=== PATIENT | female | born 1935 | race Caucasian/White ===

== ENCOUNTER 2017-09-13 15:43 | Inpatient (IN) ==
[2017-09-13 16:17] LABS: Bilirubin,Urine Negative (Negative); Blood,Urine Negative (Negative); Clarity,Urine Clear (Clear); Color,Urine Yellow (Yellow); Glucose,Urine (UA) Normal (Normal); Ketones,Urine Negative (Negative); Leukocyte Esterase,Urine Negative (Negative); Nitrite,Urine Negative (Negative); Protein,Urine 30 mg/dL (Neg-Trace); Specific Gravity,Urine 1.008 (1.010-1.025); Urobilinogen,Urine Normal (Normal)
[2017-09-13 16:20] LABS: Bacteria,Urine None Seen per hpf (None-Few); Hyaline Casts,Urine None Seen per lpf (None-Few); RBC,Urine 0-3 per hpf (0-3); Squamous Epithelial Cell,Urine None Seen per lpf (None-Few); WBC,Urine 0-3 per hpf (0-3)
--- NOTE | 2017-09-13 16:26 | Emergency Department Note ---
Disposition Clinical Impression: Near syncope, Hypertension Disposition: Admitted As Inpatient Condition: Good Referrals: Mitchell Greer Jr, MD [Primary Care Provider] - Forms: ED Satisfaction Letter General Adult HPI - General Chief complaint: ED Dizziness Stated complaint: Hypertension Time Seen by Provider: 09/13/17 15:53 Source: patient, family Limitations: no limitations - History of Present Illness Pain Scale: 6 - Related Data Home Medications Medication Instructions Recorded Confirmed Aspirin Enteric Coated [Aspirin EC] 81 mg PO DAILY 09/13/17 09/13/17 Atenolol [Tenormin] 50 mg PO DAILY 09/13/17 09/13/17 Atorvastatin Calcium [Lipitor] 20 mg PO HS 09/13/17 09/13/17 Clopidogrel [Plavix] 75 mg PO DAILY 09/13/17 09/13/17 Cyanocobalamin (Vitamin B-12) 500 mcg PO DAILY 09/13/17 09/13/17 [Vitamin B-12] Furosemide [Lasix] 40 mg PO DAILY PRN 09/13/17 09/13/17 Linaclotide [Linzess] 145 mcg PO DAILY 09/13/17 09/13/17 Multivit-Min/FA/Lycopen/Lutein 1 each PO DAILY 09/13/17 09/13/17 [Centrum Silver Tablet] Nitroglycerin [Nitrostat] 0.4 mg SL Q5M PRN 09/13/17 09/13/17 [place]-3/Dha/Epa/Fish Oil [[place]-3 1,000 mg PO DAILY 09/13/17 09/13/17 Fish Oil 1,000 mg Sfgl] Allergies Allergy/AdvReac Type Severity Reaction Status Date / Time latex Allergy Hives Verified 09/13/17 15:49 lisinopril Allergy Abdominal Verified 09/13/17 15:49 Pain Past Medical History - Past Medical History Medical history: Reports: coronary artery disease, hyperlipidemia, hypertension , peripheral artery disease Surgical history: Reports: non-contributory Psychiatric history: Reports: no psych history 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 - Social History Smoking Status: Current every day smoker Smokeless Tobacco Status: No Alcohol use: Reports: none Drug use: Reports: none Physical Exam - General Limitations: no limitations General appearance: alert, in no apparent distress Course Vital Signs Temperature 97.5 F L 09/13/17 15:44 Pulse Rate 88 09/13/17 15:44 Respiratory Rate 18 09/13/17 15:44 Blood Pressure 210/108 09/13/17 15:44 O2 Sat by Pulse Oximetry 97 09/13/17 15:44 Temperature 97.5 F L 09/13/17 15:44 Pulse Rate 75 09/13/17 19:11 Respiratory Rate 18 09/13/17 19:11 Blood Pressure 188/97 09/13/17 19:11 O2 Sat by Pulse Oximetry 96 09/13/17 19:11 Oxygen Delivery Oxygen Delivery Room Air Medical Decision Making - Lab Data Result diagrams: 09/13/17 17:07 09/13/17 17:07 Lab Results 09/13/17 09/13/17 09/13/17 Range/Units 16:00 17:07 17:07 WBC 11.9 H (4.3-11.1) K/mcL RBC 4.09 (3.82-4.97) M/mcL Hgb 13.7 (11.5-15.4) g/dL Hct 41.4 (35.3-44.9) % MCV 101.2 H (83.0-100.0) fL MCH 33.5 H (28.0-33.3) pg MCHC 33.1 (31.6-35.5) g/dL RDW 15.0 H (11.5-14.5) % Plt Count 141 (140-400) K/mcL MPV 10.4 (9.4-12.4) fL Immature Gran % 0.5 (0-4) % Seg Neutrophils % 71.5 % Lymphocytes % 21.5 % Monocytes % 4.5 % Eosinophils % 1.7 % Basophils % 0.3 % Neutrophils # 8.5 (1.6-8.9) K/mcL Lymphocytes # 2.6 (0.6-4.6) K/mcL Monocytes # 0.5 (0.0-1.3) K/mcL Eosinophils # 0.2 (0.0-0.6) K/mcL Basophils # 0.0 (0.0-0.2) K/mcL Sodium 140 (136-145) mEq/L Potassium 3.8 (3.5-5.1) mEq/L Chloride 107 (98-107) mEq/L Carbon Dioxide 29 (23-29) mEq/L BUN 19 (8-23) mg/dL Creatinine 1.21 H (0.60-1.20) mg/dL Est GFR ( Amer) 52 L (> 60) Est GFR (Non-Af Amer) 43 L (> 60) BUN/Creatinine Ratio 16 (6-26) Glucose 95 (70-105) mg/dL Calculated Osmolality 292 (280-300) Calcium 8.9 (8.6-10.3) mg/dL Troponin I (< 0.04) ng/mL Urine Color Yellow (Yellow) Urine Clarity Clear (Clear) Urine pH 7.0 (5.0-8.0) pH Units Ur Specific [place] 1.008 L (1.010-1.025) Urine Protein 30 H (Neg-Trace) mg/dL Urine Glucose (UA) Normal (Normal) mg/dL Urine Ketones Negative (Negative) mg/dL Urine Blood Negative (Negative) Urine Nitrite Negative (Negative) Urine Bilirubin Negative (Negative) Urine Urobilinogen Normal (Normal) mg/dL Ur Leukocyte Esterase Negative (Negative) Urine Microscopic RBC 0-3 (0-3) per hpf Urine Microscopic WBC 0-3 (0-3) per hpf Ur Squamous Epith Cells None Seen (None-Few) per lpf Urine Bacteria None Seen (None-Few) per hpf Hyaline Casts None Seen (None-Few) per lpf Ur Culture Indicated? NO (NO) 09/13/17 Range/Units 17:07 WBC (4.3-11.1) K/mcL RBC (3.82-4.97) M/mcL Hgb (11.5-15.4) g/dL Hct (35.3-44.9) % MCV (83.0-100.0) fL MCH (28.0-33.3) pg MCHC (31.6-35.5) g/dL RDW (11.5-14.5) % Plt Count (140-400) K/mcL MPV (9.4-12.4) fL Immature Gran % (0-4) % Seg Neutrophils % % Lymphocytes % % Monocytes % % Eosinophils % % Basophils % % Neutrophils # (1.6-8.9) K/mcL Lymphocytes # (0.6-4.6) K/mcL Monocytes # (0.0-1.3) K/mcL Eosinophils # (0.0-0.6) K/mcL Basophils # (0.0-0.2) K/mcL Sodium (136-145) mEq/L Potassium (3.5-5.1) mEq/L Chloride (98-107) mEq/L Carbon Dioxide (23-29) mEq/L BUN (8-23) mg/dL Creatinine (0.60-1.20) mg/dL Est GFR ( Amer) (> 60) Est GFR (Non-Af Amer) (> 60) BUN/Creatinine Ratio (6-26) Glucose (70-105) mg/dL Calculated Osmolality (280-300) Calcium (8.6-10.3) mg/dL Troponin I < 0.03 (< 0.04) ng/mL Urine Color (Yellow) Urine Clarity (Clear) Urine pH (5.0-8.0) pH Units Ur Specific [place] (1.010-1.025) Urine Protein (Neg-Trace) mg/dL Urine Glucose (UA) (Normal) mg/dL Urine Ketones (Negative) mg/dL Urine Blood (Negative) Urine Nitrite (Negative) Urine Bilirubin (Negative) Urine Urobilinogen (Normal) mg/dL Ur Leukocyte Esterase (Negative) Urine Microscopic RBC (0-3) per hpf Urine Microscopic WBC (0-3) per hpf Ur Squamous Epith Cells (None-Few) per lpf Urine Bacteria (None-Few) per hpf Hyaline Casts (None-Few) per lpf Ur Culture Indicated? (NO) Attestation Statement - Attestation Attestation: I examined this patient and my medical decision-making was reviewed with the Resident Physician. I agree with the documented findings, disposition and treatment plan as described except to the extent set forth below. [id number] time provided Triage note and vital signs reviewed by me. Patient is hypertensive. She is alert, lucid, appropriately interactive with the examiner and appears in no acute distress.
--- NOTE | 2017-09-13 16:36 | Emergency Department Note ---
Disposition Clinical Impression: Near syncope Hypertension Qualifiers: Hypertension type: unspecified Qualified Code(s): I10 - Essential (primary) hypertension Disposition: Admitted As Inpatient Condition: Good Referrals: Mitchell Greer Jr, MD [Primary Care Provider] - Forms: ED Satisfaction Letter Time of Disposition: 18:50 General Adult HPI - General Chief complaint: ED Dizziness Stated complaint: Hypertension Time Seen by Provider: 09/13/17 15:53 Source: patient, family Limitations: no limitations Nursing Notes Reviewed: Yes Vital Signs Reviewed: Yes - History of Present Illness HPI Narrative: Patient is an 82-year-old female that presents to the emergency Department due to having an elevated blood pressure. She states that she checked her blood pressure today and had a reading greater than 200 and called a family member is in the healthcare field and they suggested that she come to the emergency department. The patient states that she had an episode of near syncope where she had to go down to a knee. She states that she did not lose consciousness, hit her head or sustain any injuries during this event. Patient does state that she takes aspirin and Plavix. Patient denies being on any blood pressure medications at this time. Pain Scale: 6 - Related Data Home Medications Medication Instructions Recorded Confirmed Aspirin Enteric Coated [Aspirin EC] 81 mg PO DAILY 09/13/17 09/13/17 Atenolol [Tenormin] 50 mg PO DAILY 09/13/17 09/13/17 Atorvastatin Calcium [Lipitor] 20 mg PO HS 09/13/17 09/13/17 Clopidogrel [Plavix] 75 mg PO DAILY 09/13/17 09/13/17 Cyanocobalamin (Vitamin B-12) 500 mcg PO DAILY 09/13/17 09/13/17 [Vitamin B-12] Furosemide [Lasix] 40 mg PO DAILY PRN 09/13/17 09/13/17 Linaclotide [Linzess] 145 mcg PO DAILY 09/13/17 09/13/17 Multivit-Min/FA/Lycopen/Lutein 1 each PO DAILY 09/13/17 09/13/17 [Centrum Silver Tablet] Nitroglycerin [Nitrostat] 0.4 mg SL Q5M PRN 09/13/17 09/13/17 [place]-3/Dha/Epa/Fish Oil [[place]-3 1,000 mg PO DAILY 09/13/17 09/13/17 Fish Oil 1,000 mg Sfgl] Allergies Allergy/AdvReac Type Severity Reaction Status Date / Time latex Allergy Hives Verified 09/13/17 15:49 lisinopril Allergy Abdominal Verified 09/13/17 15:49 Pain All systems ED: reviewed and negative except as stated. 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 Absent: respiratory distress, wheezes - Cardiovascular Cardiovascular exam: Present: regular rate, normal rhythm, normal heart sounds, +S1, +S2 - Abdominal Exam Abdominal exam: Present: soft, Non-Tender, normal bowel sounds - Neurological Exam Neurological exam: Present: alert, oriented X3 - Expanded Neurological Exam Patient oriented to: Present: person, place, time Speech: Present: fluid speech Cranial nerves: EOM function (II, III, IV, ): Normal, facial sensation (V): Normal, facial palsy (VII): Normal, gag reflex (IX): Normal, spinal accessory function (XI): Normal, tongue deviation (XII): Normal Cerebellar function: finger to nose: Normal, heel to reid: Normal Motor strength - LUE: 5/5 Motor strength - RUE: 5/5 Motor strength - LLE: 5/5 Motor strength - RLE: 5/5 Upper motor neuron exam: pronator drift: Absent bilaterally Sensory exam upper extremity: light touch: Normal Sensory exam lower extremity: light touch: Normal Coma Scale Eye Opening: Spontaneous Coma Scale Motor Response: Obeys Commands Coma Scale Verbal Response: Oriented Coma Scale Total: 15 - Psychiatric Psychiatric exam: Present: normal affect, normal mood - Skin Skin exam: Present: warm, dry, intact Course Vital Signs Temperature 97.5 F L 09/13/17 15:44 Pulse Rate 88 09/13/17 15:44 Respiratory Rate 18 09/13/17 15:44 Blood Pressure 210/108 09/13/17 15:44 O2 Sat by Pulse Oximetry 97 09/13/17 15:44 Temperature 97.5 F L 09/13/17 15:44 Pulse Rate 87 09/13/17 17:00 Respiratory Rate 18 09/13/17 17:00 Blood Pressure 193/106 09/13/17 17:00 O2 Sat by Pulse Oximetry 99 09/13/17 17:00 Oxygen Delivery Oxygen Delivery Room Air Medical Decision Making - MDM Narrative Medical decision making narrative: Due to the patient having elevated blood pressure and a near-syncopal event and ordered a CT of the head and abdomen and pelvis. We will also obtain a chest x- ray and laboratory testing. All imaging was negative for acute findings. Laboratory testing showed a leukocytosis. There is no evidence of infection on urinalysis. The patient was hypertensive on presentation and throughout her stay in the emergency department. Here the patient remaining hypertensive and having any similar syncopal event we will need to admit this patient to the hospital for further evaluation and management. I called and spoke with the hospitalists and they have requested that we give the patient 20mg of hydralazine here in the emergency department prior to the patient being admitted to the hospital. The hospital says except for the patient to their service. The patient be admitted to the hospital for further evaluation and management at this time. - Medical Records Medical records reviewed: Yes I reviewed the patient's medical records. - Lab Data Lab results reviewed: Yes I reviewed the patient's lab results. Result diagrams: 09/13/17 17:07 09/13/17 17:07 Lab Results 09/13/17 09/13/17 09/13/17 Range/Units 16:00 17:07 17:07 WBC 11.9 H (4.3-11.1) K/mcL RBC 4.09 (3.82-4.97) M/mcL Hgb 13.7 (11.5-15.4) g/dL Hct 41.4 (35.3-44.9) % MCV 101.2 H (83.0-100.0) fL MCH 33.5 H (28.0-33.3) pg MCHC 33.1 (31.6-35.5) g/dL RDW 15.0 H (11.5-14.5) % Plt Count 141 (140-400) K/mcL MPV 10.4 (9.4-12.4) fL Immature Gran % 0.5 (0-4) % Seg Neutrophils % 71.5 % Lymphocytes % 21.5 % Monocytes % 4.5 % Eosinophils % 1.7 % Basophils % 0.3 % Neutrophils # 8.5 (1.6-8.9) K/mcL Lymphocytes # 2.6 (0.6-4.6) K/mcL Monocytes # 0.5 (0.0-1.3) K/mcL Eosinophils # 0.2 (0.0-0.6) K/mcL Basophils # 0.0 (0.0-0.2) K/mcL Sodium 140 (136-145) mEq/L Potassium 3.8 (3.5-5.1) mEq/L Chloride 107 (98-107) mEq/L Carbon Dioxide 29 (23-29) mEq/L BUN 19 (8-23) mg/dL Creatinine 1.21 H (0.60-1.20) mg/dL Est GFR ( Amer) 52 L (> 60) Est GFR (Non-Af Amer) 43 L (> 60) BUN/Creatinine Ratio 16 (6-26) Glucose 95 (70-105) mg/dL Calculated Osmolality 292 (280-300) Calcium 8.9 (8.6-10.3) mg/dL Troponin I (< 0.04) ng/mL Urine Color Yellow (Yellow) Urine Clarity Clear (Clear) Urine pH 7.0 (5.0-8.0) pH Units Ur Specific [place] 1.008 L (1.010-1.025) Urine Protein 30 H (Neg-Trace) mg/dL Urine Glucose (UA) Normal (Normal) mg/dL Urine Ketones Negative (Negative) mg/dL Urine Blood Negative (Negative) Urine Nitrite Negative (Negative) Urine Bilirubin Negative (Negative) Urine Urobilinogen Normal (Normal) mg/dL Ur Leukocyte Esterase Negative (Negative) Urine Microscopic RBC 0-3 (0-3) per hpf Urine Microscopic WBC 0-3 (0-3) per hpf Ur Squamous Epith Cells None Seen (None-Few) per lpf Urine Bacteria None Seen (None-Few) per hpf Hyaline Casts None Seen (None-Few) per lpf Ur Culture Indicated? NO (NO) 09/13/17 Range/Units 17:07 WBC (4.3-11.1) K/mcL RBC (3.82-4.97) M/mcL Hgb (11.5-15.4) g/dL Hct (35.3-44.9) % MCV (83.0-100.0) fL MCH (28.0-33.3) pg MCHC (31.6-35.5) g/dL RDW (11.5-14.5) % Plt Count (140-400) K/mcL MPV (9.4-12.4) fL Immature Gran % (0-4) % Seg Neutrophils % % Lymphocytes % % Monocytes % % Eosinophils % % Basophils % % Neutrophils # (1.6-8.9) K/mcL Lymphocytes # (0.6-4.6) K/mcL Monocytes # (0.0-1.3) K/mcL Eosinophils # (0.0-0.6) K/mcL Basophils # (0.0-0.2) K/mcL Sodium (136-145) mEq/L Potassium (3.5-5.1) mEq/L Chloride (98-107) mEq/L Carbon Dioxide (23-29) mEq/L BUN (8-23) mg/dL Creatinine (0.60-1.20) mg/dL Est GFR ( Amer) (> 60) Est GFR (Non-Af Amer) (> 60) BUN/Creatinine Ratio (6-26) Glucose (70-105) mg/dL Calculated Osmolality (280-300) Calcium (8.6-10.3) mg/dL Troponin I < 0.03 (< 0.04) ng/mL Urine Color (Yellow) Urine Clarity (Clear) Urine pH (5.0-8.0) pH Units Ur Specific [place] (1.010-1.025) Urine Protein (Neg-Trace) mg/dL Urine Glucose (UA) (Normal) mg/dL Urine Ketones (Negative) mg/dL Urine Blood (Negative) Urine Nitrite (Negative) Urine Bilirubin (Negative) Urine Urobilinogen (Normal) mg/dL Ur Leukocyte Esterase (Negative) Urine Microscopic RBC (0-3) per hpf Urine Microscopic WBC (0-3) per hpf Ur Squamous Epith Cells (None-Few) per lpf Urine Bacteria (None-Few) per hpf Hyaline Casts (None-Few) per lpf Ur Culture Indicated? (NO) - Radiology Data Radiology results reviewed: Yes I reviewed the patient's radiology results. Chest X-Ray 09/13/17 15:50 IMPRESSION: 1. No focal airspace disease D/ / Lj Harman MD / Lj Harman MD Interpreting Provider: Lj Harman MD Abdomen/Pelvis CT 09/13/17 15:53 IMPRESSION: 1. No acute abnormality is identified. D/ / Marcell Rosa MD / Marcell Rosa MD Interpreting Provider: Marcell Rosa MD Head CT 09/13/17 15:53 IMPRESSION: No acute intracranial abnormality. D/ / Timbo Cardenas MD / Timbo Cardenas MD Interpreting Provider: Timbo Cardenas MD - EKG Data EKG #1 EKG attestation: Yes I reviewed and interpreted this EKG. EKG results narrative: EKG showed a ventricularly paced rhythm at 77 bpm, SC interval of 127, QRS duration of 141, QTC of 456. No STEMI is noted on this EKG.
[2017-09-13 17:19] LABS: Basophils % 0.3 %; Eosinophils # 0.2 K/mcL (0.0-0.6); Eosinophils % 1.7 %; Hematocrit 41.4 % (35.3-44.9); Hemoglobin 13.7 g/dL (11.5-15.4); Immature Granulocytes % 0.5 % (0-4); Lymphocytes # 2.6 K/mcL (0.6-4.6); Lymphocytes % 21.5 %; Mean Corpuscular HGB Conc 33.1 g/dL (31.6-35.5); Mean Corpuscular Hemoglobin 33.5 pg (28.0-33.3); Mean Corpuscular Volume 101.2 fL (83.0-100.0); Mean Platelet Volume 10.4 fL (9.4-12.4); Monocytes # 0.5 K/mcL (0.0-1.3); Monocytes % 4.5 %; Neutrophils # 8.5 K/mcL (1.6-8.9); Platelet Count 141 K/mcL (140-400); Red Blood Count 4.09 M/mcL (3.82-4.97); Segmented Neutrophils % 71.5 %
[2017-09-13 18:12] LABS: Calcium 8.9 mg/dL (8.6-10.3); Potassium 3.8 mEq/L (3.5-5.1)
[2017-09-13] MEDS ORDERED: amLODIPine 5 MG TABLET PO ONE (18:41)
[2017-09-13] MEDS ORDERED: Albuterol 2.5 MG/3 ML NEBULIZER IH ONE (20:07)
[2017-09-13] MEDS ORDERED: Nitroglycerin 0.4 MG TAB.SUBL SL PRN (21:47)
[2017-09-13] MEDS ORDERED: Naloxone 0.4 MG/ML INJ IVP PRN (21:48)
--- NOTE | 2017-09-13 22:04 | Internal Med History&Physical ---
Date of Encounter: 09/13/17 Time of Encounter: 22:03 Assessment and Plan (1) Hypertensive emergency Current visit: Yes Status: Acute SBP > 210 in the ED Improved with hydralazine IV monitor q2 BP overnight prn hydralazine with holding parameters restart home BP med in the a.m (2) Near syncope Current visit: Yes Status: Acute orthostats ambulate in the a.m tele, pulse ox slowly treat HTN (3) Constipation Current visit: Yes Status: Acute check AXR colac, senna, miralax Qualifiers: Constipation type: other constipation type Qualified Code(s): K59.09 - Other constipation (4) Sore throat Current visit: Yes Status: Acute cepacol check RVP Internal Medicine - H&P: HPI Chief complaint: near syncope History of present illness: Ms. May is a 82 year old female with hx of HTN, CAD, PAD s/p stent in DAPT who presents with pre-syncopal symptoms and was found to be HTN. Admitted for HTN emergency. She was at home standing up when she developed a pre-syncopal symptom. Luckily, her nephew is close by and was able to help her to the chair. She reported dizziness and tingling sensation on her finger tips. She was awake the entire time and denies losing consciousness. ROS noted nasal congestion in the past 1 hour on presentation to the ED. She also reports a few days hx of sore throat where she has use chloroseptic. Denies using pseudophed. She smokes 1/4 ppd. She also reports having a right shoulder surgery completed may 23 2017 at [facility] and has been constipated since with decreased PO appetite in the last few weeks. EKG personally reviewed with rate 77, ventricular pacer noted CT/CT head/brain wo con IMPRESSION: No acute intracranial abnormality. CT/CT abd pelvis wo no iv no oral IMPRESSION: 1. No acute abnormality is identified. XR/XR chest 2V IMPRESSION: 1. No focal airspace disease Past Med Surg Social Fam HX - Past Medical History Medical history: coronary artery disease, hyperlipidemia, hypertension, peripheral artery disease Psychiatric history: no psych history - Past Surgical History Surgical History: non-contributory - Social History Smoking Status: Current every day smoker Smokeless Tobacco Status: No Alcohol use: none Drug use: none - Family History Father Hx Family Cardiac Disorders: Yes Brother Hx Family Cancer: Yes (kidney) Internal Medicine - H&P: Meds Aspirin Enteric Coated [Aspirin EC] 81 mg PO DAILY 09/13/17 [History] Atenolol [Tenormin] 50 mg PO DAILY 09/13/17 [History] Atorvastatin Calcium [Lipitor] 20 mg PO HS 09/13/17 [History] Clopidogrel [Plavix] 75 mg PO DAILY 09/13/17 [History] Cyanocobalamin (Vitamin B-12) [Vitamin B-12] 500 mcg PO DAILY 09/13/17 [History] Furosemide [Lasix] 40 mg PO DAILY PRN 09/13/17 [History] Linaclotide [Linzess] 145 mcg PO DAILY 09/13/17 [History] Multivit-Min/FA/Lycopen/Lutein [Centrum Silver Tablet] 1 each PO DAILY 09/13/17 [History] Nitroglycerin [Nitrostat] 0.4 mg SL Q5M PRN 09/13/17 [History] [place]-3/Dha/Epa/Fish Oil [[place]-3 Fish Oil 1,000 mg Sfgl] 1,000 mg PO DAILY [History] 3 Allergy/AdvReac Type Severity Reaction Status Date / Time latex Allergy Hives Verified 09/13/17 15:49 lisinopril Allergy Abdominal Verified 09/13/17 15:49 Pain All Systems PM: A 10-system review of systems was performed and is negative for pertinent findings except as documented above in the HPI. Review of systems: ROS 14 point review of systems reviewed as best as possible given presentation. Pertinent positive or negative as per HPI or otherwise reviewed as negative - Constitutional Vitals: Temp Pulse Resp BP Pulse Ox 97.6 F 84 17 192/91 95 09/13/17 21:24 09/13/17 21:24 09/13/17 21:24 09/13/17 21:24 09/13/17 21:24 Exam: General - AAO x 3 Psych - Appropriate affect/speech. No agitation Eyes - SENAIT. Eye lids intact. No scleral icterus Neuro - No gross peripheral or central neuro deficits with intact CN 2-12 exam Heart - Sinus. RRR. S1 and S2 present. No added HS/murmurs appreciated. No elevated JVD appreciated. Lung - Adequate air entry b/l, No crackles/wheezes appreciated GI - Soft, non-tender. No hepatosplenomegaly/ascites. BS+ - No CVA/suprapubic tenderness or palpable bladder distension Skin - Intact. No rash/petechiae/ecchymosis. Warm extremities MSK - Joints with normal ROM. No joint swellings Internal Med - H&P Results - Labs CBC & Chem 7: 09/13/17 17:07 09/13/17 17:07
[2017-09-13] MEDS ORDERED: *HR* Labetalol 20 MG/4 ML SYRINGE IVP PRN (22:30)
[2017-09-14] MEDS ORDERED: Acetaminophen/Butalbital/CaffeineTABLET ONE (03:20)
[2017-09-14 05:12] LABS: Basophils % 0.3 %; Eosinophils # 0.2 K/mcL (0.0-0.6); Eosinophils % 1.6 %; Hematocrit 41.6 % (35.3-44.9); Hemoglobin 13.8 g/dL (11.5-15.4); Immature Granulocytes % 0.3 % (0-4); Lymphocytes # 1.7 K/mcL (0.6-4.6); Lymphocytes % 14.2 %; Mean Corpuscular HGB Conc 33.2 g/dL (31.6-35.5); Mean Corpuscular Hemoglobin 33.3 pg (28.0-33.3); Mean Corpuscular Volume 100.2 fL (83.0-100.0); Mean Platelet Volume 10.6 fL (9.4-12.4); Monocytes # 0.6 K/mcL (0.0-1.3); Monocytes % 5.5 %; Neutrophils # 9.1 K/mcL (1.6-8.9); Platelet Count 154 K/mcL (140-400); Red Blood Count 4.15 M/mcL (3.82-4.97); Red Cell Distribution Width 15.2 % (11.5-14.5); Segmented Neutrophils % 78.1 %
[2017-09-14 05:49] LABS: BUN/Creatinine Ratio 17 (6-26); Blood Urea Nitrogen 17 mg/dL (8-23); Calcium 9.4 mg/dL (8.6-10.3); Carbon Dioxide 28 mEq/L (23-29); Chloride 107 mEq/L (98-107); Glucose 120 mg/dL (70-105); Osmolality,Calculated 295 (280-300); Potassium 3.6 mEq/L (3.5-5.1); Sodium 141 mEq/L (136-145); eGFR For African Americans > 60 (> 60); eGFR For Non-African Americans 52 (> 60)
[2017-09-14] MEDS ORDERED: clonazePAM 0.5 MG TABLET PO ONE ×2 (05:54→13:48)
[2017-09-14] MEDS ORDERED: Ipratropium/Albuterol Neb 3 ML IH PRN (05:55)
[2017-09-14] MEDS: *HR* Enoxaparin 30 MG/0.3 ML SYRINGE SQ SCH (06:01)
[2017-09-14 06:05] LABS: Adenovirus Not Detected (Not Detect); Bordetella Pertussis Not Detected (Not Detect); Chlamydophila pneumoniae Not Detected (Not Detect); Coronavirus 229E Not Detected (Not Detect); Coronavirus HKU1 Not Detected (Not Detect); Coronavirus NL63 Not Detected (Not Detect); Coronavirus OC43 Not Detected (Not Detect); Human Metapneumovirus Not Detected (Not Detect); Human Rhinovirus/Enterovirus Not Detected (Not Detect); Influenza A Subtype 2009 H1 Not Detected (Not Detect); Influenza A Untypeable Not Detected (Not Detect); Influenza B Not Detected (Not Detect); Mycoplasma pneumoniae Not Detected (Not Detect); Parainfluenza Virus 1 Not Detected (Not Detect); Parainfluenza Virus 2 Not Detected (Not Detect); Parainfluenza Virus 3 Not Detected (Not Detect); Parainfluenza Virus 4 Not Detected (Not Detect); Respiratory Syncytial Virus Not Detected (Not Detect)
[2017-09-14] MEDS: amLODIPine 5 MG TABLET PO SCH (09:49)
[2017-09-14] MEDS: Aspirin Enteric Coated 81 MG Tablet PO SCH (09:49)
[2017-09-14] MEDS: Linaclotide [Linzess] 145 MCG PO SCH (09:49)
[2017-09-14] MEDS: Nicotine 21 MG PATCH.TD24 TD SCH (15:26)
--- NOTE | 2017-09-14 16:25 | Electrocardiograph Report ---
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
--- NOTE | 2017-09-14 17:46 | Internal Med Progress Note ---
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 Urine is negative with no culture indicated CT of brain with nothing acute reported check MRI brain (3) Near syncope Current Visit: Yes Status: Acute Assessment and plan: see plan above, no further syncope noted (4) Constipation Current Visit: Yes Status: Chronic Assessment and plan: family staes she has been having diarrhea and was placed on a new medication for constipation CT of the abdomen and pelvis with nothing acute Qualifiers: Constipation type: other constipation type Qualified Code(s): K59.09 - Other constipation (5) Sore throat Current Visit: Yes Status: Resolved Assessment and plan: patient staes throat soreness is resolved Serology negative - Subjective Interval history: Patient was sound asleep when I entered the room. Awoke to verbal and tactile stimuli. She was very sleepy. Nursing She got a dose of Klonopin about 6 AM. They also stated that she was up all night. She was difficult to obtain information from as she kept wanting to dose off. Her family arrived and she became more alert and was interacting. She still drives and works a part-time job. She is a heavy smoker. Her Plavix is currently on hold for an EGD planned next week. Later in the day she was up walking in the halls looking for her doctor. She is irritated and wants to go home for minutes to get some cigarettes. Discussed with family the need to keep her one more day to monitor her blood pressure. - Constitutional Vitals: Temp Pulse Resp BP Pulse Ox 99.2 F 70 16 169/72 93 09/14/17 15:54 09/14/17 15:54 09/14/17 15:54 09/14/17 15:54 09/14/17 15:54 General appearance: Present: A&O X 2, pleasant, no acute distress - Head Head exam: Present: atraumatic, normocephalic - Eye Eye exam: Present: conjuntiva pink, sclera anicteric - Neck Neck exam general surgery: Present: normal inspection, supple, trachea midline. Absent: lymphadenopathy, tenderness - Respiratory Respiratory exam: Present: CTAB. Absent: accessory muscle use, rales, respiratory distress, rhonchi, wheezes - Cardiovascular Cardiovascular exam: Present: RRR, +S1, +S2. Absent: diastolic murmur, gallop, rubs, systolic murmur - GI/Abdominal GI/Abdominal exam: Present: normal bowel sounds, soft, no peritoneal signs. Absent: distended, tenderness - Extremities Exam Extremities exam: Present: warm, radial pulses palpable and symmetrical. Absent : calf tenderness, cyanotic, pedal edema - Neurological Exam Neurological exam: Present: alert, altered, normal gait, no focal deficits. Absent: pronater drift, facial droop, speech deficit - Skin Skin exam: Present: dry, intact, warm Internal Medicine: Result - Labs CBC & Chem 7: 09/14/17 03:50 09/14/17 03:50 Labs: Short CBC 09/14/17 Range/Units 03:50 WBC 11.6 H (4.3-11.1) K/mcL Hgb 13.8 (11.5-15.4) g/dL Hct 41.6 (35.3-44.9) % Plt Count 154 (140-400) K/mcL Neutrophils # 9.1 H (1.6-8.9) K/mcL BMP 09/14/17 03:50 Sodium 141 Potassium 3.6 Chloride 107 Carbon Dioxide 28 BUN 17 Creatinine 1.02 Glucose 120 H Calcium 9.4 Cardiac Enzymes 09/14/17 Range/Units 06:01 Troponin I 0.03 (< 0.04) ng/mL - Impressions Impressions Abdomen X-Ray 09/13/17 21:52 IMPRESSION: Nonobstructive bowel gas pattern with moderate stool. D/ / Lobito Lucero MD / Lobito Lucero MD Interpreting Provider: Lobito Lucero MD Consult Discharge Plan - Plan Referrals: Mitchell Greer Jr, MD [Primary Care Provider] - 09/18/17 11:00 am
--- NOTE | 2017-09-14 18:27 | Electrocardiograph Report ---
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
[2017-09-14] MEDS: clonazePAM 0.5 MG TABLET PO SCH (21:05)
[2017-09-15] MEDS: *HR* Enoxaparin 30 MG/0.3 ML SYRINGE SQ SCH (05:34)
[2017-09-15] MEDS: Aspirin Enteric Coated 81 MG Tablet PO SCH (08:21)
[2017-09-15] MEDS: clonazePAM 0.5 MG TABLET PO SCH (08:21)
[2017-09-15] MEDS: Nicotine 21 MG PATCH.TD24 TD SCH (08:22)
[2017-09-15] MEDS: amLODIPine 5 MG TABLET PO SCH (08:22)
[2017-09-15] MEDS: Linaclotide [Linzess] 145 MCG PO SCH (08:26)
[2017-09-15 10:04] VITALS: BP 128/70
--- NOTE | 2017-09-15 12:41 | Discharge Summary ---
Date of Encounter: 09/15/17 Time of Encounter: 12:38 - Discharge Diagnosis (1) Hypertensive emergency Priority: Primary Status: Acute Comments: Patient's blood pressure has normalized on her normal home regime of medications which were restarted yesterday. The patient's niece who knows her very well feels that her aunt was noticed managing her medications. She states she is going to arrange her home medications so that her aunt can safely take them and she will be able to check up on the administration of the medications. (2) Encephalopathy acute Priority: Primary Status: Acute Comments: Patient's mental status ranges have resolved and she is back to her baseline. She is alert and oriented 3. She is cooperative She was able to answer all questions appropriately (3) Near syncope Priority: Primary Status: Acute Comments: No further episodes of syncope, CT of the brain with nothing acute, unable to do MRI of the brain secondary to pacemaker (4) Constipation Priority: Secondary Status: Chronic Comments: Patient reports constipation has resolved Qualifiers: Constipation type: other constipation type Qualified Code(s): K59.09 - Other constipation - Discharge Medications Home Medications: Aspirin Enteric Coated [Aspirin EC] 81 mg PO DAILY 09/13/17 [History] Atenolol [Tenormin] 50 mg PO DAILY 09/13/17 [History] Atorvastatin Calcium [Lipitor] 20 mg PO HS 09/13/17 [History] Clopidogrel [Plavix] 75 mg PO DAILY 09/13/17 [History] Cyanocobalamin (Vitamin B-12) [Vitamin B-12] 500 mcg PO DAILY 09/13/17 [History] Furosemide [Lasix] 40 mg PO DAILY PRN 09/13/17 [History] Linaclotide [Linzess] 145 mcg PO DAILY 09/13/17 [History] Multivit-Min/FA/Lycopen/Lutein [Centrum Silver Tablet] 1 each PO DAILY 09/13/17 [History] Nitroglycerin [Nitrostat] 0.4 mg SL Q5M PRN 09/13/17 [History] [place]-3/Dha/Epa/Fish Oil [[place]-3 Fish Oil 1,000 mg Sfgl] 1,000 mg PO DAILY [History] Allergies/Adverse Reactions: 3 Allergy/AdvReac Type Severity Reaction Status Date / Time latex Allergy Hives Verified 09/13/17 15:49 lisinopril Allergy Abdominal Verified 09/13/17 15:49 Pain Procedures/tests Complete & Pending: Procedures Performed prior 72 hours Category Date Time Status ECG 12 lead ECG [ECG] Stat Y 09/14/17 05:43 Completed Date of admission: 09/13/17 21:48 Primary care physician: Mitchell Greer Jr, MD Consults: 09/15/17 07:36 Consult to Deputy Director [CONS] Routine Reason for SW Consult: family wants info on HH or passport Discharging clinician: Aleta Aguilar Anticipated date of discharge: 09/15/17 - Patient Status Disposition: Home, Self-Care Functional capacity at discharge: independent ambulation Overall status at discharge: patient is back to baseline - Discharge Instructions Follow Up With: Mitchell rGeer Jr, MD [Primary Care Provider] - 09/18/17 11:00 am - Diet and Activity Activity: return to work once cleared by your PCP/specialist, resume usual activities as tolerated Diet: advance to your usual diet Interval History: Patient denies chest pain, shortness of breath, dizziness, blurred vision, headache, abdominal pain, nausea or vomiting, urinary symptoms,, fever or chills. She is anxious to go home. Niece is at bedside and is going to make sure she takes her meds appropriately. The niece states that she is back to her baseline and feels that her aunt was mixing up her blood pressure medicines . Hospital course: Ms. May is a 82 year old female with history of hypertension, CAD, PAD status post stent and a DTaP T who presented to the emergency room presyncopal and found to be in hypertensive emergency status. She was at home when she had this presyncopal episode that was accompanied by dizziness and tingling in her fingertips. She was awaking entire time he did not lose consciousness per her report. She has a pacemaker AICD that has been functioning correctly on the monitor. She did have a period of confusion and altered mental status which has cleared today. She is ambulating in the room with no difficulty. CT of the head and brain without contrast showed nothing acute. Her lab work is normalized. An MRI was not able to be completed secondary to the pacemaker. CT abdomen and pelvis with nothing acute. Her constipation has resolved with of good bowel movement this morning per the patient's report. She will be discharged home with her niece. Her meds and checking on her to make sure she is taking them correctly. She will follow-up with her primary care doctor next week. - Time Spent with Patient Total time spent providing and/or coordinating discharge services: Less than 30 minutes - Constitutional Vitals: Temp Pulse Resp BP Pulse Ox 97.5 F L 70 18 128/70 95 09/15/17 10:04 09/15/17 10:04 09/15/17 10:04 09/15/17 10:04 09/15/17 10:04 General appearance: Present: A&O X 2, A&O X 3, pleasant, no acute distress, answers questions appropriately - Head Head exam: Present: atraumatic, normocephalic - Eye Eye exam: Present: conjuntiva pink, sclera anicteric - Neck Neck exam general surgery: Present: supple, trachea midline. Absent: lymphadenopathy - Respiratory Respiratory exam: Present: CTAB. Absent: accessory muscle use, rales, rhonchi, wheezes - Cardiovascular Cardiovascular exam: Present: RRR, +S1, +S2. Absent: diastolic murmur, gallop, rubs, systolic murmur Additional comments: vpaced rhythm - GI/Abdominal GI/Abdominal exam: Present: normal bowel sounds, soft, no peritoneal signs. Absent: distended, tenderness - Extremities Exam Extremities exam: Present: warm, radial pulses palpable and symmetrical. Absent : calf tenderness, cyanotic, pedal edema - Neurological Exam Neurological exam: Present: CN II-XII intact, oriented X3, no focal deficits. Absent: pronater drift, facial droop, speech deficit - Skin Skin exam: Present: dry, intact, warm
== END 2017-09-15 14:35 | disposition home or self-care (01) | DRG 304 ==
LOC: 3BNU 15:43 → EMEROO 15:43 → 3BNU 21:02
PROVIDERS: ADMIT Internal Medicine; ATTEND Registered Nurse

== ENCOUNTER 2018-06-09 06:01 | Inpatient (IN) ==
--- NOTE | 2018-06-09 06:06 | Emergency Department Note ---
Disposition Clinical Impression: Dyspnea, Wheeze, History of COPD, History of CHF (congestive heart failure) Disposition: Admitted As Inpatient Condition: Fair General Adult HPI - General Chief complaint: ED Shortness of Breath/Dyspnea Stated complaint: short of breath Time Seen by Provider: 06/09/18 06:02 Source: patient Mode of arrival: ambulatory Limitations: no limitations Nursing Notes Reviewed: Yes Vital Signs Reviewed: Yes - Related Data Home Medications Medication Instructions Recorded Confirmed RX: Aspirin Enteric Coated 81 mg PO DAILY 09/13/17 06/09/18 [Aspirin EC] RX: Cyanocobalamin (Vitamin B-12) 500 mcg PO DAILY 09/13/17 06/09/18 [Vitamin B-12] RX: Furosemide [Lasix] 40 mg PO DAILY PRN 09/13/17 06/09/18 RX: Multivit-Min/FA/Lycopen/Lutein 1 each PO DAILY 09/13/17 06/09/18 [Centrum Silver Tablet] RX: Nitroglycerin [Nitrostat] 0.4 mg SL Q5M PRN 09/13/17 06/09/18 RX: [place]-3/Dha/Epa/Fish Oil 1,000 mg PO DAILY 09/13/17 06/09/18 [[place]-3 Fish Oil 1,000 mg Sfgl] Albuterol Sulfate [Ventolin Hfa] 2 puff IH Q6H PRN 06/09/18 06/09/18 Atorvastatin [Lipitor] 40 mg PO HS 06/09/18 06/09/18 Isosorbide MONOnitrate (24 HR) 30 mg PO DAILY 06/09/18 06/09/18 [Imdur] RX: Carvedilol [Coreg] 25 mg PO BID 06/09/18 06/09/18 Previous Rx's Medication Instructions Recorded RX: Clopidogrel [Plavix] 75 mg PO DAILY #0 tablet 11/15/17 Allergies Allergy/AdvReac Type Severity Reaction Status Date / Time latex Allergy Hives Verified 06/09/18 10:56 lisinopril AdvReac Abdominal Verified 06/09/18 10:56 Pain Past Medical History - Past Medical History Medical history: Reports: CHF, COPD, coronary artery disease, GERD, hyperlipide sujit, hypertension, peripheral artery disease Surgical history: Reports: hysterectomy, knee replacement, orthopedic, other Psychiatric history: Reports: no psych history 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 - Social History Smoking Status: Former smoker Smokeless Tobacco Status: No Alcohol use: Reports: none Drug use: Reports: none Course Vital Signs Temperature 97.4 F L 06/09/18 06:02 Pulse Rate 78 06/09/18 06:02 Respiratory Rate 25 06/09/18 06:02 Blood Pressure 210/85 06/09/18 06:02 O2 Sat by Pulse Oximetry 96 06/09/18 06:02 Temperature 98.0 F 06/10/18 05:18 Pulse Rate 71 06/10/18 05:18 Respiratory Rate 18 06/10/18 05:18 Blood Pressure 148/83 06/10/18 05:18 O2 Sat by Pulse Oximetry 94 06/10/18 05:18 Oxygen Delivery Oxygen Delivery Bipap Medical Decision Making - Lab Data Result diagrams: 06/09/18 06:18 06/09/18 14:53 Lab Results 06/09/18 06/09/18 06/09/18 Range/Units 06:18 06:18 06:18 WBC 10.7 (4.3-11.1) K/mcL RBC 3.10 L (3.82-4.97) M/mcL Hgb 10.0 L (11.5-15.4) g/dL Hct 31.1 L (35.3-44.9) % MCV 100.3 H (83.0-100.0) fL MCH 32.3 (28.0-33.3) pg MCHC 32.2 (31.6-35.5) g/dL RDW 14.5 (11.5-14.5) % Plt Count 175 (140-400) K/mcL MPV 10.5 (9.4-12.4) fL Immature Gran % 0.3 (0-4) % Seg Neutrophils % 77.4 % Lymphocytes % 11.0 % Monocytes % 5.2 % Eosinophils % 5.6 % Basophils % 0.5 % Neutrophils # 8.3 (1.6-8.9) K/mcL Lymphocytes # 1.2 (0.6-4.6) K/mcL Monocytes # 0.6 (0.0-1.3) K/mcL Eosinophils # 0.6 (0.0-0.6) K/mcL Basophils # 0.1 (0.0-0.2) K/mcL PT (9.4-12.1) Seconds INR APTT (26.0-36.0) Seconds Sodium 142 (136-145) mEq/L Potassium 2.8 L (3.5-5.1) mEq/L Chloride 103 (98-107) mEq/L Carbon Dioxide 32 H (23-29) mEq/L BUN 15 (8-23) mg/dL Creatinine 1.31 H (0.60-1.20) mg/dL Est GFR ( Amer) 47 L (> 60) Est GFR (Non-Af Amer) 39 L (> 60) BUN/Creatinine Ratio 11 (6-26) Glucose 146 H (70-105) mg/dL POC Glucose (70-99) mg/dL Calculated Osmolality 297 (280-300) Calcium 9.2 (8.6-10.3) mg/dL Phosphorus (2.7-4.5) mg/dL Magnesium (1.6-2.6) mg/dL Troponin I < 0.03 (< 0.04) ng/mL B-Natriuretic Peptide 1769 H (Less than 100) pg/mL 06/09/18 06/09/18 06/09/18 Range/Units 07:45 07:45 10:29 WBC (4.3-11.1) K/mcL RBC (3.82-4.97) M/mcL Hgb (11.5-15.4) g/dL Hct (35.3-44.9) % MCV (83.0-100.0) fL MCH (28.0-33.3) pg MCHC (31.6-35.5) g/dL RDW (11.5-14.5) % Plt Count (140-400) K/mcL MPV (9.4-12.4) fL Immature Gran % (0-4) % Seg Neutrophils % % Lymphocytes % % Monocytes % % Eosinophils % % Basophils % % Neutrophils # (1.6-8.9) K/mcL Lymphocytes # (0.6-4.6) K/mcL Monocytes # (0.0-1.3) K/mcL Eosinophils # (0.0-0.6) K/mcL Basophils # (0.0-0.2) K/mcL PT 12.3 H (9.4-12.1) Seconds INR 1.1 APTT 27.4 (26.0-36.0) Seconds Sodium 143 (136-145) mEq/L Potassium 2.9 L (3.5-5.1) mEq/L Chloride 101 (98-107) mEq/L Carbon Dioxide 32 H (23-29) mEq/L BUN 17 (8-23) mg/dL Creatinine 1.50 H (0.60-1.20) mg/dL Est GFR ( Amer) 40 L (> 60) Est GFR (Non-Af Amer) 33 L (> 60) BUN/Creatinine Ratio 11 (6-26) Glucose 214 H (70-105) mg/dL POC Glucose (70-99) mg/dL Calculated Osmolality 304 H (280-300) Calcium 9.0 (8.6-10.3) mg/dL Phosphorus 3.7 (2.7-4.5) mg/dL Magnesium 2.1 (1.6-2.6) mg/dL Troponin I (< 0.04) ng/mL B-Natriuretic Peptide (Less than 100) pg/mL 06/09/18 06/09/18 Range/Units 11:06 14:53 WBC (4.3-11.1) K/mcL RBC (3.82-4.97) M/mcL Hgb (11.5-15.4) g/dL Hct (35.3-44.9) % MCV (83.0-100.0) fL MCH (28.0-33.3) pg MCHC (31.6-35.5) g/dL RDW (11.5-14.5) % Plt Count (140-400) K/mcL MPV (9.4-12.4) fL Immature Gran % (0-4) % Seg Neutrophils % % Lymphocytes % % Monocytes % % Eosinophils % % Basophils % % Neutrophils # (1.6-8.9) K/mcL Lymphocytes # (0.6-4.6) K/mcL Monocytes # (0.0-1.3) K/mcL Eosinophils # (0.0-0.6) K/mcL Basophils # (0.0-0.2) K/mcL PT (9.4-12.1) Seconds INR APTT (26.0-36.0) Seconds Sodium 141 (136-145) mEq/L Potassium 3.0 L (3.5-5.1) mEq/L Chloride 101 (98-107) mEq/L Carbon Dioxide 31 H (23-29) mEq/L BUN 24 H (8-23) mg/dL Creatinine 1.70 H (0.60-1.20) mg/dL Est GFR ( Amer) 35 L (> 60) Est GFR (Non-Af Amer) 29 L (> 60) BUN/Creatinine Ratio 14 (6-26) Glucose 160 H (70-105) mg/dL POC Glucose 250 H (70-99) mg/dL Calculated Osmolality 299 (280-300) Calcium 9.0 (8.6-10.3) mg/dL Phosphorus (2.7-4.5) mg/dL Magnesium (1.6-2.6) mg/dL Troponin I (< 0.04) ng/mL B-Natriuretic Peptide (Less than 100) pg/mL Attestation Statement - Attestation Attestation: Resident Attestation: I examined this patient and my medical decision making was reviewed with the Resident Physician. I agree with the documented findings, disposition and treatment plan as described except to the extent set forth below. We independently had [id number] contact with the patient Resident Dr. Shah Patient with past medical history of COPD as well as CHF here today for shortness of breath that started rather suddenly yesterday. Patient has been using at home albuterol. She has been using 5 breathing treatments prior to arrival. She states the albuterol has been the only thing that has been helping her. Shortness of breath at rest. Patient has associated port air entry as well as mild wheezing at the right upper lobe. Patient was getting breathing treatments and reevaluated and has significantly improved air entry with diffuse wheezing. Patient is currently awaiting blood work as well as chest x-ray. Her EKG shows a stress with a heart rate is 75. Blood pressure initially 210 systolic has improved to 170 systolic. Patient was given steroids upon arrival. Further workup is pending. Chest x-ray shows mild interstitial CHF with a significantly elevated BNP. Patient's hypokalemia is likely treated to the her breathing treatments prior to arrival and 3 breathing treatments in the emergency department. Patient was given a dose of Lasix as well as potassium. She will need further monitoring. Please see resident note for further details and disposition.
[2018-06-09] MEDS ORDERED: Ipratropium/Albuterol Neb 3 ML IH ONE (06:10)
[2018-06-09] MEDS ORDERED: methylPREDNISolone 125 MG/2 ML VIAL IVP ONE (06:11)
--- NOTE | 2018-06-09 06:12 | Emergency Department Note ---
Disposition Clinical Impression: Wheeze, History of COPD, History of CHF (congestive heart failure) Dyspnea Qualifiers: Dyspnea type: unspecified Qualified Code(s): R06.00 - Dyspnea, unspecified Disposition: Admitted As Inpatient Condition: Fair Referrals: Mitchell Greer Jr, MD [Primary Care Provider] - Forms: ED Satisfaction Letter Time of Disposition: 07:50 SOB HPI - General Chief Complaint: ED Shortness of Breath/Dyspnea Stated Complaint: short of breath Time Seen by Provider: 06/09/18 06:02 Source: patient Mode of arrival: ambulatory Limitations: no limitations Nursing Notes Reviewed: Yes Vital Signs Reviewed: Yes - History of Present Illness Patient is a 42-year-old female with past medical history of COPD, CHF, currently on Lasix and albuterol as needed, hypertension, hyperlipidemia, CAD, pacemaker placement. She presents today due to concern for dyspnea, hypoxia. He states that she has had increased sputum production over the past 2 days, woke up in the middle the night with shortness of breath. She states that she is 5 albuterol treatments without any relief. She denies being on any oxygen at home. Her niece use a pulse ox on her and noted that one point her oxygen was in the 70s. Patient denies any missed doses of her daily Lasix 20 mg. Denies any fevers, chest pain, nausea, vomiting, abdominal pain, dysuria, hematuria. Is not currently on any prednisone or antibiotics. - Related Data Home Medications Medication Instructions Recorded Confirmed Aspirin Enteric Coated [Aspirin EC] 81 mg PO DAILY 09/13/17 01/03/18 Atorvastatin Calcium [Lipitor] 20 mg PO HS 09/13/17 01/03/18 Cyanocobalamin (Vitamin B-12) 500 mcg PO DAILY 09/13/17 01/03/18 [Vitamin B-12] Furosemide [Lasix] 40 mg PO DAILY PRN 09/13/17 01/03/18 Linaclotide [Linzess] 145 mcg PO DAILY 09/13/17 01/03/18 Multivit-Min/FA/Lycopen/Lutein 1 each PO DAILY 09/13/17 01/03/18 [Centrum Silver Tablet] Nitroglycerin [Nitrostat] 0.4 mg SL Q5M PRN 09/13/17 01/03/18 [place]-3/Dha/Epa/Fish Oil [[place]-3 1,000 mg PO DAILY 09/13/17 01/03/18 Fish Oil 1,000 mg Sfgl] Losartan Potassium [Cozaar] 50 mg PO DAILY 01/03/18 01/03/18 Previous Rx's Medication Instructions Recorded Clopidogrel [Plavix] 75 mg PO DAILY #0 tablet 11/15/17 Acetaminophen [Tylenol] 1,000 mg PO Q6HR #90 tablet 01/03/18 Cephalexin [Keflex] 250 mg PO BID #8 capsule 02/19/18 predniSONE [PredniSONE] 40 mg PO DAILY #8 tablet 02/19/18 Allergies Allergy/AdvReac Type Severity Reaction Status Date / Time latex Allergy Hives Verified 09/13/17 15:49 lisinopril AdvReac Abdominal Verified 11/09/17 08:02 Pain All systems ED: reviewed and negative except as stated. Constitutional: Denies: fever Cardiovascular: Denies: chest pain Respiratory: Reports: cough, dyspnea, wheezes, sputum production Gastrointestinal: Denies: abdominal pain, nausea, vomiting, diarrhea Integumentary: Denies: rash Neurological: Denies: headache, weakness, numbness, paresthesias Past Medical History - Past Medical History Attestation: Yes The following information was validated with the patient. Source: patient Medical history: Reports: CHF, COPD, coronary artery disease, GERD, hyperlipidemia, hypertension, peripheral artery disease Surgical history: Reports: hysterectomy, knee replacement, orthopedic, other Psychiatric history: Reports: no psych history [employer] history: Reports: non-contributory - Social History Smoking Status: Former smoker Smokeless Tobacco Status: No Alcohol use: Reports: none Drug use: Reports: none Physical Exam - General Limitations: no limitations General appearance: alert, in no apparent distress - Head Head exam: atraumatic, normocephalic, normal inspection - Eye Eye exam: Present: normal appearance, PERRL, EOMI - ENT ENT exam: normal exam, normal oropharynx, mucous membranes moist - Neck Neck exam: Present: normal inspection, full ROM, trachea midline - Chest Chest inspection: Present: normal inspection, symmetric chest wall rise - Respiratory Respiratory exam: Present: other (Decreased aeration throughout, mild wheeze in upper lobes, crackles in bilateral lower lobes. Increased work of breathing.) - Cardiovascular Cardiovascular exam: Present: normal rhythm, tachycardia, normal heart sounds - Abdominal Exam Abdominal exam: Present: soft, Non-Tender. Absent: tenderness, distention, guarding, rebound, rigidity - Extremities Exam Extremities exam: Present: normal inspection, full ROM, pedal edema (Bilateral lower extremity pedal edema, mild to moderate). Absent: tenderness - Neurological Exam Neurological exam: Present: alert, oriented X3 - Psychiatric Psychiatric exam: Present: normal affect, normal mood - Skin Skin exam: Present: warm, dry, intact, normal color Course Course Narrative: Patient was tachypneic on presentation. Crackles in bilateral lower lobes, wheezes in upper lobes. Currently concern for possible mixed picture of COPD and CHF exacerbation. Patient will be given DuoNeb 3, Solu-Medrol, placed on BiPAP. We will obtain EKG, chest x-ray, basic blood work, troponin. 06:37 blood work pending. Chest x-ray imaging pending. Treatments underway. 07:49 chest x-ray shows interstitial changes throughout suggested CHF with interstitial edema. Patient was still having some shortness of breath despite breathing treatments. Patient started on BiPAP and admitted to the hospital at this time for mixed COPD/CHF exacerbation. Chest X-Ray 06/09/18 06:09 IMPRESSION: Cardiomegaly with interstitial changes throughout the lungs suggesting CHF with mild interstitial edema. D/ / Edy Hatfield MD / Edy Hatfield MD Interpreting Provider: Edy Hatfield MD Vital Signs Temperature 97.4 F L 06/09/18 06:02 Pulse Rate 78 06/09/18 06:02 Respiratory Rate 25 06/09/18 06:02 Blood Pressure 210/85 06/09/18 06:02 O2 Sat by Pulse Oximetry 96 06/09/18 06:02 Temperature 97.4 F L 06/09/18 06:02 Pulse Rate 70 06/09/18 06:37 Respiratory Rate 20 06/09/18 07:31 Blood Pressure 200/74 06/09/18 07:31 O2 Sat by Pulse Oximetry 98 06/09/18 07:31 Oxygen Delivery Oxygen Delivery Nasal Cannula Shortness of Breath/Dyspnea - MDM Narrative Medical decision making narrative: Patient was tachypneic on presentation. Crackles in bilateral lower lobes, wheezes in upper lobes. Currently concern for possible mixed picture of COPD and CHF exacerbation. Patient will be given DuoNeb 3, Solu-Medrol, placed on BiPAP. We will obtain EKG, chest x-ray, basic blood work, troponin. 06:37 blood work pending. Chest x-ray imaging pending. Treatments underway. 07:49 chest x-ray shows interstitial changes throughout suggested CHF with interstitial edema. Patient was still having some shortness of breath despite breathing treatments. Patient started on BiPAP and admitted to the hospital at this time for mixed COPD/CHF exacerbation. - Medical Records Medical records reviewed: Yes I reviewed the patient's medical records. - Lab Data Lab results reviewed: Yes I reviewed the patient's lab results. Result diagrams: 06/09/18 06:18 06/09/18 06:18 Lab Results 06/09/18 06/09/18 06/09/18 Range/Units 06:18 06:18 06:18 WBC 10.7 (4.3-11.1) K/mcL RBC 3.10 L (3.82-4.97) M/mcL Hgb 10.0 L (11.5-15.4) g/dL Hct 31.1 L (35.3-44.9) % MCV 100.3 H (83.0-100.0) fL MCH 32.3 (28.0-33.3) pg MCHC 32.2 (31.6-35.5) g/dL RDW 14.5 (11.5-14.5) % Plt Count 175 (140-400) K/mcL MPV 10.5 (9.4-12.4) fL Immature Gran % 0.3 (0-4) % Seg Neutrophils % 77.4 % Lymphocytes % 11.0 % Monocytes % 5.2 % Eosinophils % 5.6 % Basophils % 0.5 % Neutrophils # 8.3 (1.6-8.9) K/mcL Lymphocytes # 1.2 (0.6-4.6) K/mcL Monocytes # 0.6 (0.0-1.3) K/mcL Eosinophils # 0.6 (0.0-0.6) K/mcL Basophils # 0.1 (0.0-0.2) K/mcL Sodium 142 (136-145) mEq/L Potassium 2.8 L (3.5-5.1) mEq/L Chloride 103 (98-107) mEq/L Carbon Dioxide 32 H (23-29) mEq/L BUN 15 (8-23) mg/dL Creatinine 1.31 H (0.60-1.20) mg/dL Est GFR ( Amer) 47 L (> 60) Est GFR (Non-Af Amer) 39 L (> 60) BUN/Creatinine Ratio 11 (6-26) Glucose 146 H (70-105) mg/dL Calculated Osmolality 297 (280-300) Calcium 9.2 (8.6-10.3) mg/dL Troponin I < 0.03 (< 0.04) ng/mL B-Natriuretic Peptide 1769 H (Less than 100) pg/mL - Radiology Data Radiology results reviewed: Yes I reviewed the patient's radiology results. - EKG Data EKG attestation: Yes I reviewed and interpreted this EKG. EKG results narrative: 06/09/2018 at 06:09. Paced rhythm. Rate 75. RI 154. QRS 134. QTC 510. Left axis deviation. No acute ST elevation or depression. No change from previous EKG on 02/19/2018. S.B.A.R. - S.B.A.R. Situation: Demographics, MOA Background: Presenting Complaint, Relevant PMH, Meds, & Allergies Assessment: Vital Signs, Course and respsone to treatment, Exam Concerns, Patient/Family Expectation, Pertinant Lab Results Recommendation: Barrier(s) to disposition, Recommendation based on pending studies, treatments, or consults S.B.A.R. Report Given to: Dr. Nelson
[2018-06-09 06:26] LABS: Basophils # 0.1 K/mcL (0.0-0.2); Basophils % 0.5 %; Eosinophils # 0.6 K/mcL (0.0-0.6); Eosinophils % 5.6 %; Hematocrit 31.1 % (35.3-44.9); Immature Granulocytes % 0.3 % (0-4); Lymphocytes # 1.2 K/mcL (0.6-4.6); Mean Corpuscular HGB Conc 32.2 g/dL (31.6-35.5); Mean Corpuscular Hemoglobin 32.3 pg (28.0-33.3); Mean Corpuscular Volume 100.3 fL (83.0-100.0); Mean Platelet Volume 10.5 fL (9.4-12.4); Monocytes # 0.6 K/mcL (0.0-1.3); Monocytes % 5.2 %; Neutrophils # 8.3 K/mcL (1.6-8.9); Platelet Count 175 K/mcL (140-400); Red Cell Distribution Width 14.5 % (11.5-14.5); Segmented Neutrophils % 77.4 %
[2018-06-09 06:47] LABS: BUN/Creatinine Ratio 11 (6-26); Blood Urea Nitrogen 15 mg/dL (8-23); Calcium 9.2 mg/dL (8.6-10.3); Carbon Dioxide 32 mEq/L (23-29); Chloride 103 mEq/L (98-107); Glucose 146 mg/dL (70-105); Osmolality,Calculated 297 (280-300); Potassium 2.8 mEq/L (3.5-5.1); Sodium 142 mEq/L (136-145); eGFR For Non-African Americans 39 (> 60)
[2018-06-09 06:48] LABS: Troponin I < 0.03 ng/mL (< 0.04)
[2018-06-09] MEDS ORDERED: Furosemide 40 MG/4 ML VIAL IVP ONE (07:15)
[2018-06-09] MEDS ORDERED: Naloxone 0.4 MG/ML INJ IVP PRN (07:29)
[2018-06-09] MEDS ORDERED: traMADol 50 MG TABLET PO PRN (07:29)
[2018-06-09] MEDS ORDERED: D5% in Water 1,000 ML IVC PRN (07:39)
[2018-06-09] MEDS ORDERED: *HR* Dextrose 50 % in Water (Syg) 50 ML SYRINGE IVP PRN (07:39)
[2018-06-09] MEDS ORDERED: Dextrose Gel 15 GM/37.5 ML TUBE PO PRN ×2 (07:39)
[2018-06-09 08:13] LABS: Magnesium 2.1 mg/dL (1.6-2.6); Phosphorous 3.7 mg/dL (2.7-4.5)
[2018-06-09 08:15] LABS: INR 1.1; Prothrombin Time 12.3 Seconds (9.4-12.1)
[2018-06-09 08:18] LABS: Activated Partial Thrombo Time 27.4 Seconds (26.0-36.0)
--- NOTE | 2018-06-09 09:27 | Internal Med History&Physical ---
Date of Encounter: 06/09/18 Time of Encounter: 09:22 Internal Medicine - H&P: HPI Chief complaint: shorntness of breath Admitted From: Home Plans for Post Hospital Care: Home History of present illness: Ms. May is a 83 year old female PMH significant for CAD, CHF (E.F 30%), HTN, COPD and HTN. Patient presented from home due to a day complain of shortness of breath. Patient reports that she has been feeling short of breath, which is not related to exertion and reports that she used her nebs and inhaler at home about 5 times without improvement of her symptoms for which she called her PCP and was told to come to the ED. She denies chest pain, nausea, vomiting, fever or chills, but reports a productive cough of clear sputum for about a week now. She denies swelling of her lower extremities, and reports that she is on a water pill which she takes as needed. Denies urinary symptoms, but reports chronic constipation for which takes laxatives. Past Med Surg Social Fam HX - Past Medical History Medical history: CHF, COPD, coronary artery disease, GERD, hyperlipidemia, hypertension, peripheral artery disease Additional medical history: Unknown heart problem Psychiatric history: no psych history - Past Surgical History Surgical History: hysterectomy, knee replacement, orthopedic, other Additional surgical history: right shoulder, right hand, graph - Social History Smoking Status: Former smoker Smokeless Tobacco Status: No Alcohol use: none Drug use: none - Family History Father Hx Family Cardiac Disorders: Yes Brother Hx Family Cancer: Yes (kidney) Internal Medicine - H&P: Meds Aspirin Enteric Coated [Aspirin EC] 81 mg PO DAILY 09/13/17 [History] Atorvastatin Calcium [Lipitor] 20 mg PO HS 09/13/17 [History] Cyanocobalamin (Vitamin B-12) [Vitamin B-12] 500 mcg PO DAILY 09/13/17 [History] Furosemide [Lasix] 40 mg PO DAILY PRN 09/13/17 [History] Linaclotide [Linzess] 145 mcg PO DAILY 09/13/17 [History] Multivit-Min/FA/Lycopen/Lutein [Centrum Silver Tablet] 1 each PO DAILY 09/13/17 [History] Nitroglycerin [Nitrostat] 0.4 mg SL Q5M PRN 09/13/17 [History] [place]-3/Dha/Epa/Fish Oil [[place]-3 Fish Oil 1,000 mg Sfgl] 1,000 mg PO DAILY 09/13/17 [History] Clopidogrel [Plavix] 75 mg PO DAILY #0 tablet 11/15/17 [Rx] Acetaminophen [Tylenol] 1,000 mg PO Q6HR #90 tablet 01/03/18 [Rx] Losartan Potassium [Cozaar] 50 mg PO DAILY 01/03/18 [History] Cephalexin [Keflex] 250 mg PO BID #8 capsule 02/19/18 [Rx] predniSONE [PredniSONE] 40 mg PO DAILY #8 tablet 02/19/18 [Rx] Allergy/AdvReac Type Severity Reaction Status Date / Time latex Allergy Hives Verified 09/13/17 15:49 lisinopril AdvReac Abdominal Verified 11/09/17 08:02 Pain All Systems PM: A 10-system review of systems was performed and is negative for pertinent findings except as documented above in the HPI. - Constitutional Constitutional: no chills, no fever(s), no weakness - EENT Eyes: no irritation, no pain Nose, mouth and throat: no dental pain, no mouth pain - Cardiovascular Cardiovascular ROS IM: dyspnea, dyspnea on exertion, no chest pain, no claudication, no diaphoresis, no irregular heart rhythm, no palpitations, no paroxysmal nocturnal dyspnea - Respiratory Respiratory: dyspnea, wheezing, no hemoptysis, no pain on inspiration - Gastrointestinal Gastrointestinal: constipation, no abdominal pain, no diarrhea, no loose stools, no melena, no nausea, no vomiting - Genitourinary Genitourinary: no difficulty urinating, no dysmenorrhea, no dyspareunia, no dysuria, no nocturia, no urinary hesitancy - Musculoskeletal Musculoskeletal ROS IM: no atrophy - Integumentary Integumentary IM: no erythema, no rash - Neurological Neurological ROS: no abnormal speech, no confusion, no lack of coordination, no weakness - Psychiatric Psychiatric: no anxiety - Endocrine Endocrine IM: no cold intolerance - Hematologic/Lymphatic Hematologic/Lymphatic: no easy bleeding - Allergic/Immunologic Allergic/Immunologic: wheezing Additional comments: Rest of the review of system negative. - Constitutional Vitals: Temp Pulse Resp BP Pulse Ox 97.4 F L 70 16 192/75 98 06/09/18 06:02 06/09/18 06:37 06/09/18 08:46 06/09/18 08:46 06/09/18 07:31 Exam: General: Alert and oriented x4. In mild/moderate distress due to shortness of breath. Skin: Normal color, no rash, no lesions. vertebral Kyphosis and scoliosis. HEENT: EOM, pupils equal, round and reactive. Cardiovascular: RRR, Normal S1 & S2, no rubs, murmurs or gallops. No JVD. Pulse regular. Lungs: Scattered bilateral wheezing, no evidence of crackles. Abdomen: Soft, non-tender, no rigidity. NABS in all 4 quadrants. Extremities: No deformity, no edema or tenderness, no joint swelling or clubbing. Neurological: Normal cognition and motor skills. Rest of the physical exam is non contributory Internal Med - H&P Results - Labs CBC & Chem 7: 06/09/18 06:18 06/09/18 06:18 Labs: Short CBC 06/09/18 Range/Units 06:18 WBC 10.7 (4.3-11.1) K/mcL Hgb 10.0 L (11.5-15.4) g/dL Hct 31.1 L (35.3-44.9) % Plt Count 175 (140-400) K/mcL Neutrophils # 8.3 (1.6-8.9) K/mcL BMP 06/09/18 06:18 Sodium 142 Potassium 2.8 L Chloride 103 Carbon Dioxide 32 H BUN 15 Creatinine 1.31 H Glucose 146 H Calcium 9.2 Cardiac Enzymes 06/09/18 Range/Units 06:18 Troponin I < 0.03 (< 0.04) ng/mL - Impressions ITS Impressions Chest X-Ray 06/09/18 06:09 IMPRESSION: Cardiomegaly with interstitial changes throughout the lungs suggesting CHF with mild interstitial edema. D/ / Edy Hatfield MD / Edy Hatfield MD Interpreting Provider: Edy Hatfield MD - Assessment and plan (1) COPD (chronic obstructive pulmonary disease) Current Visit: No Status: Acute Assessment and plan: Patient presenting with an acute exacerbation of COPD, not responding to outpatient treatment. Plan Started on duo-Nebs Q4RT scheduled solu-medrol 125mg/IV x1 Solu-Medrol 40mg/IV Q12hr started on empiric antibiotics coverage with azithromycin 500mg/IV daily Sputum culture and gram stain Rapid flu test O2 by nasal cannula, titrate for O2Sat >92% Qualifiers: COPD type: COPD with acute exacerbation Qualified Code(s): J44.1 - Chronic obstructive pulmonary disease with (acute) exacerbation (2) Chronic kidney disease Current Visit: No Status: Acute Assessment and plan: Possible RICHA. Plan avoid nephrotoxic medications RICHA likley related to patient CHF will start patient on gentle IV diuresis Qualifiers: Chronic kidney disease stage: stage 3 (moderate) Qualified Code(s): N18.3 - Chronic kidney disease, stage 3 (moderate) (3) Coronary artery disease Current Visit: No Status: Chronic Assessment and plan: Continue aspirin and plavix. Qualifiers: Coronary Disease-Associated Artery/Lesion type: unspecified vessel or lesion type [place] vs. transplanted heart: [place] heart Associated angina: without angina Qualified Code(s): I25.10 - Atherosclerotic heart disease of [place] coronary artery without angina pectoris (4) DVT prophylaxis Current Visit: No Status: Acute Assessment and plan: Heparin 5000 units subcutaneous twice a day (5) Hypokalemia Current Visit: No Status: Acute Assessment and plan: Possibly due to diuresis. Repeat BMP post electrolyte replacement. Potassium chloride 40 mEq daily by mouth. Mag and phosp level. (6) Congestive heart failure Current Visit: No Status: Chronic Assessment and plan: No on acute exacerbation. Plan Fluids restriction to 1.5 litters a day daily weight started on metoprolol 25mg/PO daily will resume losartan 2 gram sodium diet furosemide 40mg/IV BID strict intake and output Qualifiers: Heart failure type: systolic Heart failure chronicity: acute on chronic Qualified Code(s): I50.23 - Acute on chronic systolic (congestive) heart failure (7) Hypertension Current Visit: No Status: Chronic Assessment and plan: Patient presented in a hypertensive crisis with BP >200. Plan started on fusoremide, losartan and metoprolol Hydralazine 5mg/IV Q6HR PRN for SBP >190. Qualifiers: Hypertension type: essential hypertension Qualified Code(s): I10 - Essential (primary) hypertension - Time Spent With Patient Total time spent is greater than 50% in coordination of care (as documented) at patient's floor/unit and/or counseling patient: 25 - 35 minutes
[2018-06-09] MEDS: Ipratropium/Albuterol Neb 3 ML IH SCH ×5 (09:44→23:37)
[2018-06-09 11:03] LABS: Potassium 2.9 mEq/L (3.5-5.1)
[2018-06-09] MEDS ORDERED: 0.9 % Sodium Chloride 250 ML ONE (11:38)
[2018-06-09] MEDS: Aspirin Enteric Coated 81 MG Tablet PO SCH (11:50)
[2018-06-09] MEDS: Furosemide 40 MG/4 ML VIAL IVP SCH ×2 (11:50→17:09)
[2018-06-09] MEDS: Metoprolol XL (24 HR) Succ 50 MG TAB.ER.24H PO SCH (11:50)
[2018-06-09] MEDS: Insulin LISPRO 300 UNITS/3 ML VIAL SQ SCH ×2 (11:50→17:10)
[2018-06-09] MEDS: Azithromycin 500 MG in D5% in Water 250 ML IVPB SCH (13:28)
[2018-06-09] MEDS: *HR* Heparin 5,000 UNIT/ML VIAL SQ SCH (17:07)
[2018-06-09] MEDS: MethylPREDNISolone 40 MG/ML VIAL IVP SCH (17:09)
[2018-06-10] MEDS: Melatonin 3 MG TABLET PO PRN ×2 (02:56→20:16)
[2018-06-10] MEDS: Ipratropium/Albuterol Neb 3 ML IH SCH ×6 (03:47→23:31)
[2018-06-10] MEDS: MethylPREDNISolone 40 MG/ML VIAL IVP SCH ×2 (05:11→17:26)
[2018-06-10] MEDS: *HR* Heparin 5,000 UNIT/ML VIAL SQ SCH ×2 (05:11→17:26)
[2018-06-10 08:55] LABS: Basophils % 0.1 %; Hematocrit 30.4 % (35.3-44.9); Hemoglobin 9.8 g/dL (11.5-15.4); Immature Granulocytes % 0.5 % (0-4); Lymphocytes # 0.9 K/mcL (0.6-4.6); Lymphocytes % 6.5 %; Mean Corpuscular HGB Conc 32.2 g/dL (31.6-35.5); Mean Corpuscular Hemoglobin 32.3 pg (28.0-33.3); Mean Corpuscular Volume 100.3 fL (83.0-100.0); Mean Platelet Volume 11.1 fL (9.4-12.4); Monocytes # 0.2 K/mcL (0.0-1.3); Monocytes % 1.7 %; Neutrophils # 12.2 K/mcL (1.6-8.9); Platelet Count 188 K/mcL (140-400); Red Blood Count 3.03 M/mcL (3.82-4.97); Red Cell Distribution Width 14.4 % (11.5-14.5); Segmented Neutrophils % 91.2 %
[2018-06-10 09:08] LABS: Calcium 9.9 mg/dL (8.6-10.3); Phosphorous 3.7 mg/dL (2.7-4.5); Potassium 3.2 mEq/L (3.5-5.1)
[2018-06-10] MEDS: Aspirin Enteric Coated 81 MG Tablet PO SCH (09:17)
[2018-06-10] MEDS: Azithromycin 500 MG in D5% in Water 250 ML IVPB SCH (09:17)
[2018-06-10] MEDS: Metoprolol XL (24 HR) Succ 50 MG TAB.ER.24H PO SCH (09:17)
[2018-06-10] MEDS: hydrALAZINE 25 MG TABLET PO SCH ×3 (09:17→22:39)
[2018-06-10] MEDS: Insulin LISPRO 300 UNITS/3 ML VIAL SQ SCH ×3 (09:18→17:25)
[2018-06-10] MEDS ORDERED: *HR* LORazepam 2 MG/ML VIAL IVP ONE (10:40)
[2018-06-10] MEDS ORDERED: *HR* Midazolam HCl 5 MG/5 ML VIAL IVP ONE (10:40)
--- NOTE | 2018-06-10 12:49 | Internal Med Progress Note ---
Hospitalist Progress Note - Encounter Date of Encounter: 06/10/18 Time of Encounter: 12:47 - Subjective Interval History: Patient seen and evaluated at bedside, reports that her shortness of breath has improved, but still feels slightly short of breath with ambulation. She denies chest pain, nausea or vomiting. But reports being constipated. Denies ab dominal pain. - Exam Vitals: Temp Pulse Resp BP Pulse Ox 98.0 F 77 18 170/95 94 06/10/18 11:40 06/10/18 11:40 06/10/18 11:40 06/10/18 11:40 06/10/18 11:40 Exam: General: Alert and oriented 4. In mild distress due to constipation and slight shortness of breath. Cardiovascular: Normal S1 & S2, no rubs, murmurs or gallops. No JVD. Pulse regular. Lungs: Clear to auscultation bilaterally, no wheezes or crackles. Abdomen: Soft, non-tender, no rigidity. Extremities: No deformity, no edema or tenderness, no joint swelling or clubbing. Neurological: Normal cognition and motor skills. Rest of the physical exam is non contributory - Assessment and Plan (1) COPD (chronic obstructive pulmonary disease) Current Visit: No Status: Acute Assessment and Plan: Chest is clear to auscultation. Much improved when compared to yesterday. Plan Continue empiric antibiotic coverage Continue Solu-Medrol 40 mg IV twice a day. 6 minute walk for oxygen qualification Incentive spirometry Nebs every 4 hours as scheduled. (2) Chronic kidney disease Current Visit: No Status: Chronic Assessment and Plan: Kidney function at baseline. Avoid nephrotoxic medication. (3) Coronary artery disease Current Visit: No Status: Chronic Assessment and Plan: Continue dual antiplatelet therapy (4) Hypokalemia Current Visit: No Status: Acute Assessment and Plan: Most likely due to diuresis. Electrolytes replaced, follow BMP in the morning. (5) Congestive heart failure Current Visit: No Status: Chronic Assessment and Plan: Patient is euvolemic. Not on acute exacerbation. Plan Daily weight Strict intake and output Losartan has been held due to his slight increase in creatinine Decrease furosemide to 40 mg by mouth daily Fluid restriction to 1.5 L a day. (6) Hypertension Current Visit: No Status: Chronic Assessment and Plan: Blood pressure suboptimally controlled. Patient on metoprolol, and furosemide Resume isosorbide 60 mg by mouth daily. Hydralazine 5mg/iv Q6HR PRN for SBP >190 (7) Leukocytosis Current Visit: Yes Status: Acute Assessment and Plan: Most likely reactive. As patient on the steroid. DVT Prophylaxis: Patient on heparin 5000 units subcutaneous twice a day for DVT prophylaxis - Summary of Assessment and Plan Summary of Assessment and Plan: Patient to remain in the hospital to continue IV steroids plus a scheduled nebs. Potential discharge tomorrow - Time Spent with Patient Total time spent is greater than 50% in coordination of care (as documented) at patient's floor/unit and/or counseling patient: 25 - 35 minutes Plan of Care Discussed with: patient Internal Medicine: Result - Labs CBC & Chem 7: 06/10/18 08:14 06/10/18 08:14 Labs: Short CBC 06/10/18 Range/Units 08:14 WBC 13.4 H (4.3-11.1) K/mcL Hgb 9.8 L (11.5-15.4) g/dL Hct 30.4 L (35.3-44.9) % Plt Count 188 (140-400) K/mcL Neutrophils # 12.2 H (1.6-8.9) K/mcL BMP 06/09/18 06/10/18 14:53 08:14 Sodium 141 138 Potassium 3.0 L 3.2 L Chloride 101 99 Carbon Dioxide 31 H 29 BUN 24 H 33 H Creatinine 1.70 H 1.48 H Glucose 160 H 147 H Calcium 9.0 9.9 - ABG Interpretation ABG results: PT/INR, D-dimer PT 12.3 Seconds (9.4-12.1) H 06/09/18 07:45 Consult Discharge Plan - Plan Referrals: Mitchell Greer Jr, MD [Primary Care Provider] - (1) COPD (chronic obstructive pulmonary disease) Qualifiers: COPD type: COPD with acute exacerbation Qualified Code(s): J44.1 - Chronic obstructive pulmonary disease with (acute) exacerbation (2) Chronic kidney disease Qualifiers: Chronic kidney disease stage: stage 3 (moderate) Qualified Code(s): N18.3 - Chronic kidney disease, stage 3 (moderate) (3) Coronary artery disease Qualifiers: Coronary Disease-Associated Artery/Lesion type: unspecified vessel or lesion type [place] vs. transplanted heart: [place] heart Associated angina: without angina Qualified Code(s): I25.10 - Atherosclerotic heart disease of [place] artery without angina pectoris (5) Congestive heart failure Qualifiers: Heart failure type: systolic Heart failure chronicity: acute on chronic Qualified Code(s): I50.23 - Acute on chronic systolic (congestive) heart failure (6) Hypertension Qualifiers: Hypertension type: essential hypertension Qualified Code(s): I10 - Essential (primary) hypertension (7) Leukocytosis Qualifiers: Leukocytosis type: unspecified Qualified Code(s): D72.829 - Elevated white blood cell count, unspecified
[2018-06-10] MEDS ORDERED: Isosorbide MONOnitrate (24 HR) 60 MG TAB.ER.24H PO SCH (13:00)
[2018-06-10] MEDS: *HR* LORazepam 2 MG/ML VIAL IVP ONE ×2 (20:14→22:35)
[2018-06-10] MEDS ORDERED: *HR* LORazepam 2 MG/ML VIAL ONE (20:34)
[2018-06-10] MEDS ORDERED: Artificial Tears SOLN 15 ML BOTTLE BOTH EYES PRN (21:25)
--- NOTE | 2018-06-10 21:48 | Procedure Note ---
<Gaston Muniz - Last Filed: 06/10/18 21:45> Date of procedure: 06/10/18 Pre-op diagnosis: acute respiratory failure Post-op diagnosis: same Procedure: A time-out was completed verifying correct patient, procedure, site, positioning, and special equipment if applicable. The patient was placed in a flat position. Sedation was obtained using Versed 5mg, and additionally with Etomidate 20mg. The patient was easily ventilated using an ambu bag. The MAC 3 BLADE was used and inserted into the oropharynx at which time there was a Grade 1 view of the vocal cords. A 7.5-namibian endotracheal tube was inserted and visualized going through the vocal cords. The stylette was removed. Colorimetric change was visualized on the CO2 meter. Breath sounds were heard in both lung rosenbaum equally. The endotracheal tube was placed at 23 cm, measured at the teeth. Dr. Burns Anesthesia: IV sedation Surgeon: Gaston Muniz Was there an marketing assistant present: No Estimated blood loss (cc): 0 Specimen: n/a Pathology: none sent Condition: critical Disposition: ICU <Gabriel Burns - Last Filed: 06/11/18 06:10> Procedure: I was present and supervised entire procedure. Dr. Muniz was successful on first attempt.
--- NOTE | 2018-06-10 22:17 | Event Note ---
Date of Encounter: 06/10/18 Time of Encounter: 21:54 I was called emergently by Harish Ni CNP to see patient at bedside due to concerns of respiratory distress. Upon my arrival to bedside, patient was unresponsive, had agonal breathing, severe hypertension, and audible wheezing I noted from outside the room into the doorway. She was in severe respiratory distress with impending failure and arrest. She had agonal respirations and was unable to protect her airway. I called first for support and respiratory therapy. Due to impending failure and arrest, I called ASHU BRADLEY emergently. Patient never did lose her pulse and she never did sustain any apnea. With immediate support, we were able to ventilate her with bag mask ventilation until we prepared and were able set up for emergent intubation. An airway was secured, and she was intubated by Dr. Muniz on the first attempt under my direct supervision. She was premedicated with Etomidate and Versed. She then had an OG tube placed and we moved her to intensive care unit. In the intensive care unit, we confirmed ET tube and OG tube placement with x- ray. I viewed her x-ray at the bedside where she was noted to have severe pulmonary venous congestion and pulmonary edema. ET tube was in place and secure. Patient is now resting in bed comfortably with a secure airway. She is being mechanically ventilated and she is sedated. I reviewed her recent echocardiogram and her x-rays. She has severe systolic dysfunction with an EF of 35%. Her x-ray confirms the suspicion for flash pulmonary edema. She also has a history of COPD. On my initial impression upon arrival to bedside, I was concerned she was struggling from COPD flare and respiratory failure. However, in hindsight now, I am concerned that her respiratory failure was secondary to flash pulmonary edema with likely COPD exacerbation contributing to her situation. Her niece, Michelle, arrived at the bedside in ICU, and I discussed the case with her. She is full code, and we'll continue critical care supportive measures as necessary. Of note, patient was noted to have dark coffee grind material aspirated from her OG tube upon placement. Exam: Current vitals in ICU: Temperature 97.6; pulse 116; respiratory rate 18; blood pressure 169/92 General exam: Intubated and sedated HEENT: ET tube and OG tube in place Chest: Diffuse wheezing and crackles throughout all lung rosenbaum; regular rhythm/tachycardic; palpable pacemaker in left upper chest Abdomen: Soft, nontender, no hepatosplenomegaly Extremity: Palpable pulses in all 4 extremities; cap refill roughly 3 seconds; trace peripheral edema Neurologic: Sedated on meds Impression/plan: 1. Acute respiratory failure: Intubated emergently as detailed above. Continue mechanical ventilation. Consult ICU team in the morning for ongoing care management. 2. Flash pulmonary edema: I will start her on Lasix drip, place Nitropaste every 6 hours, monitor critical fluid balance, and continue ventilation as above. 3. COPD exacerbation: Continue steroids, aerosols, and antibiotics as previously prescribed by primary team. 4. Coffee-ground OG drainage: We will order stat H&H, type and cross blood for possible transfusion, and start Protonix. Patient may need endoscopy prior to extubation. Please note: total of 55 minutes critical care time spent thus far assessing, intervening, and managing patient at the bedside and into the ICU.
[2018-06-10] MEDS: Pantoprazole 40 MG VIAL IVP SCH (22:33)
[2018-06-10] MEDS: FentaNYL (PF) 1,000 MCG in 0.9 % Sodium Chloride 80 ML IVC SCH (22:34)
[2018-06-10] MEDS: Furosemide 240 MG in D5% in Water 96 ML IVC SCH (22:34)
[2018-06-10] MEDS: Nitroglycerin 1 INCH/GM PACKET TP SCH (22:40)
[2018-06-10] MEDS: Artificial Tears SOLN 15 ML BOTTLE BOTH EYES SCH (22:40)
[2018-06-10 22:44] LABS: Basophils % 0.1 %; Hematocrit 32.6 % (35.3-44.9); Hemoglobin 10.5 g/dL (11.5-15.4); Immature Granulocytes % 1.1 % (0-4); Lymphocytes # 0.8 K/mcL (0.6-4.6); Lymphocytes % 3.4 %; Mean Corpuscular HGB Conc 32.2 g/dL (31.6-35.5); Mean Corpuscular Hemoglobin 33.2 pg (28.0-33.3); Mean Corpuscular Volume 103.2 fL (83.0-100.0); Mean Platelet Volume 11.1 fL (9.4-12.4); Monocytes # 0.4 K/mcL (0.0-1.3); Monocytes % 1.6 %; Nucleated Red Blood Cells 0.1 /100 WBC (0); Platelet Count 249 K/mcL (140-400); Red Blood Count 3.16 M/mcL (3.82-4.97); Red Cell Distribution Width 14.2 % (11.5-14.5); Segmented Neutrophils % 93.8 %
[2018-06-10 22:46] LABS: Neutrophils # 21.7 K/mcL (1.6-8.9)
[2018-06-10 23:02] LABS: Macrocytosis Present (Not Present); Platelet Estimate Normal (Normal)
[2018-06-10 23:06] LABS: Albumin 3.7 g/dL (3.5-5.7); Albumin/Globulin Ratio 1.2 (1.1-2.2); Bilirubin,Total 0.4 mg/dL (0.3-1.0); Calcium 9.5 mg/dL (8.6-10.3); Globulin 3.1 g/dL (2.4-3.5); Potassium 4.8 mEq/L (3.5-5.1); Total Protein 6.8 g/dL (6.4-8.9)
[2018-06-11 00:23] LABS: ABG Base Excess 4 mEq/L (-2 to 3); ABG HCO3 30 mEq/L (21-27); ABG Oxygen Saturation 100 % (95-98); ABG PCO2 54 mmHg (35-45); ABG PH 7.36 pH Units (7.32-7.45); ABG PO2 254 mmHg (85-104); ABG TCO2 32 mEq/L (20-26); Blood Gas Modality PRVC; Blood Gas PEEP 5 cm H2O; Blood Gas Respiration Rate 12; Blood Gas VT 350 cc
[2018-06-11] MEDS: Ipratropium/Albuterol Neb 3 ML IH SCH ×6 (03:36→23:29)
[2018-06-11] MEDS: Artificial Tears SOLN 15 ML BOTTLE BOTH EYES SCH ×6 (04:15→23:03)
[2018-06-11 04:26] LABS: Basophils % 0.1 %; Hematocrit 29.1 % (35.3-44.9); Hemoglobin 9.2 g/dL (11.5-15.4); Immature Granulocytes % 0.6 % (0-4); Lymphocytes % 5.9 %; Mean Corpuscular HGB Conc 31.6 g/dL (31.6-35.5); Mean Corpuscular Hemoglobin 32.6 pg (28.0-33.3); Mean Corpuscular Volume 103.2 fL (83.0-100.0); Mean Platelet Volume 11.3 fL (9.4-12.4); Neutrophils # 14.8 K/mcL (1.6-8.9); Platelet Count 193 K/mcL (140-400); Red Blood Count 2.82 M/mcL (3.82-4.97); Red Cell Distribution Width 14.4 % (11.5-14.5); Segmented Neutrophils % 87.4 %
[2018-06-11 04:33] LABS: Calcium 9.1 mg/dL (8.6-10.3); Magnesium 2.2 mg/dL (1.6-2.6); Potassium 4.3 mEq/L (3.5-5.1)
[2018-06-11 05:45] LABS: ABG Base Excess 6 mEq/L (-2 to 3); ABG HCO3 32 mEq/L (21-27); ABG Oxygen Saturation 97 % (95-98); ABG PCO2 55 mmHg (35-45); ABG PH 7.37 pH Units (7.32-7.45); ABG PO2 91 mmHg (85-104); ABG TCO2 34 mEq/L (20-26); Blood Gas Modality PRVC; Blood Gas PEEP 5 cm H2O; Blood Gas Respiration Rate 12; Blood Gas VT 350 cc
[2018-06-11] MEDS: MethylPREDNISolone 40 MG/ML VIAL IVP SCH ×2 (05:59→17:09)
[2018-06-11] MEDS: Pantoprazole 40 MG VIAL IVP SCH (05:59)
[2018-06-11] MEDS: *HR* Heparin 5,000 UNIT/ML VIAL SQ SCH ×2 (06:00→17:08)
[2018-06-11] MEDS: FentaNYL (PF) 1,000 MCG in 0.9 % Sodium Chloride 80 ML IVC SCH ×2 (06:00→16:24)
[2018-06-11] MEDS ORDERED: Famotidine 20 MG/2 ML VIAL IVP SCH (06:00)
[2018-06-11] MEDS: Nitroglycerin 1 INCH/GM PACKET TP SCH (06:19)
--- NOTE | 2018-06-11 06:48 | Pulmonology Progress Note ---
Date of Encounter: 06/11/18 Objective PUL Vital signs: Last Vital Signs Temp 97.4 F L 06/11/18 03:57 Pulse 70 06/11/18 06:00 Resp 16 06/11/18 06:00 BP 134/72 06/11/18 06:00 Pulse Ox 98 06/11/18 06:00 Ventilator Settings Ventilator Settings: Ventilator Settings, Last 8 Hours Ventilator Tidal Volume 350 Setting Ventilator Tidal Volume 350 Setting Ventilator Tidal Volume 350 Setting Ventilator Tidal Volume 350 Setting Ventilator Tidal Volume 350 Setting Ventilator Tidal Volume 350 Setting Ventilator Tidal Volume 350 Setting Ventilator Tidal Volume 350 Setting Ventilator Tidal Volume 350 Setting Ventilator Tidal Volume 350 Setting Ventilator Tidal Volume 350 Setting Ventilator Tidal Volume 350 Setting Ventilator Tidal Volume 350 Setting Ventilator Tidal Volume 350 Setting Ventilator Respiratory Rate 12 Setting Ventilator Respiratory Rate 12 Setting Ventilator Respiratory Rate 12 Setting Ventilator Respiratory Rate 12 Setting Ventilator Respiratory Rate 12 Setting Ventilator Respiratory Rate 12 Setting Ventilator Respiratory Rate 12 Setting Ventilator Respiratory Rate 12 Setting Ventilator Respiratory Rate 12 Setting Ventilator Respiratory Rate 12 Setting Ventilator Respiratory Rate 12 Setting Ventilator Respiratory Rate 12 Setting Ventilator Respiratory Rate 12 Setting Ventilator Respiratory Rate 12 Setting Actual Respiratory Rate 14 Actual Respiratory Rate 18 Actual Respiratory Rate 18 Actual Respiratory Rate 16 Actual Respiratory Rate 18 Actual Respiratory Rate 16 Actual Respiratory Rate 16 Actual Respiratory Rate 15 Actual Respiratory Rate 16 Actual Respiratory Rate 14 Actual Respiratory Rate 14 Actual Respiratory Rate 14 Positive End Expiratory 5 Pressure Positive End Expiratory 5 Pressure Positive End Expiratory 5 Pressure Positive End Expiratory 5 Pressure Positive End Expiratory 5 Pressure Positive End Expiratory 5 Pressure Positive End Expiratory 5 Pressure Positive End Expiratory 5 Pressure Positive End Expiratory 5 Pressure Positive End Expiratory 5 Pressure Positive End Expiratory 5 Pressure Positive End Expiratory 5 Pressure Positive End Expiratory 5 Pressure Positive End Expiratory 5 Pressure Peak Inspiratory Airway 14 Pressure Peak Inspiratory Airway 12 Pressure Peak Inspiratory Airway 7 Pressure Peak Inspiratory Airway 12 Pressure Peak Inspiratory Airway 13 Pressure Peak Inspiratory Airway 7.1 Pressure Results - Laboratory Findings CBC and BMP: 06/11/18 03:41 06/11/18 03:41 ABG ABG pH 7.37 pH Units (7.32-7.45) 06/11/18 05:42 ABG pCO2 55 mmHg (35-45) H 06/11/18 05:42 ABG pO2 91 mmHg (85-104) D 06/11/18 05:42 ABG O2 Saturation 97 % (95-98) 06/11/18 05:42 PT/INR, D-dimer PT 12.3 Seconds (9.4-12.1) H 06/09/18 07:45 Abnormal lab findings: Abnormal lab results WBC 16.9 K/mcL (4.3-11.1) H 06/11/18 03:41 RBC 2.82 M/mcL (3.82-4.97) L 06/11/18 03:41 Hgb 9.2 g/dL (11.5-15.4) L 06/11/18 03:41 Hct 29.1 % (35.3-44.9) L 06/11/18 03:41 MCV 103.2 fL (83.0-100.0) H 06/11/18 03:41 Neutrophils # 14.8 K/mcL (1.6-8.9) H 06/11/18 03:41 Nucleated RBCs/100 WBC 0.1 /100 WBC (0) H 06/10/18 22:33 Macrocytosis Present (Not Present) A 06/10/18 22:33 PT 12.3 Seconds (9.4-12.1) H 06/09/18 07:45 ABG pCO2 55 mmHg (35-45) H 06/11/18 05:42 ABG HCO3 32 mEq/L (21-27) H 06/11/18 05:42 ABG Total CO2 34 mEq/L (20-26) H 06/11/18 05:42 ABG Base Excess 6 mEq/L (-2 to 3) H 06/11/18 05:42 BUN 57 mg/dL (8-23) H 06/11/18 03:41 Creatinine 1.89 mg/dL (0.60-1.20) H 06/11/18 03:41 Est GFR ( Amer) 31 (> 60) L 06/11/18 03:41 Est GFR (Non-Af Amer) 25 (> 60) L 06/11/18 03:41 BUN/Creatinine Ratio 30 (6-26) H 06/11/18 03:41 Glucose 64 mg/dL (70-105) L 06/11/18 03:41 POC Glucose 253 mg/dL (70-99) H 06/10/18 23:20 Calculated Osmolality 304 (280-300) H 06/11/18 03:41 Phosphorus 6.0 mg/dL (2.7-4.5) H 06/11/18 03:41 AST 77 Units/L (13-39) H 06/10/18 22:33 B-Natriuretic Peptide 1769 pg/mL (Less than 100) H 06/09/18 06:18 - Microbiology Findings Microbiology Findings: Microbiology, Last 48 Hours 06/09/18 19:28 Influenza Types A,B Antigen - Final Nasopharyngeal - Clinical Findings Intake & Output: Intake & Output 06/10/18 06/10/18 06/11/18 15:59 23:59 07:59 Intake Total 587 / 587 60 / 60 100 / 100 Output Total 400 / 400 Balance 587 / 587 -300 / -300 Consult Discharge Plan - Plan Referrals: Mitchell Greer Jr, MD [Primary Care Provider] -
[2018-06-11] MEDS: Metoprolol XL (24 HR) Succ 50 MG TAB.ER.24H PO SCH (07:12)
[2018-06-11] MEDS: hydrALAZINE 25 MG TABLET PO SCH (07:12)
[2018-06-11] MEDS: Chlorhexidine Rinse 15 ML MOUTHWASH MM SCH ×2 (07:12→19:45)
[2018-06-11] MEDS: Aspirin Enteric Coated 81 MG Tablet PO SCH (07:12)
[2018-06-11] MEDS: Azithromycin 500 MG in D5% in Water 250 ML IVPB SCH (07:13)
--- NOTE | 2018-06-11 07:55 | Pulmonology Consult Note ---
<Nathaly Higginbotham S - Last Filed: 06/11/18 09:56> Medications and Allergies Aspirin Enteric Coated [Aspirin EC] 81 mg PO DAILY 09/13/17 [History] Cyanocobalamin (Vitamin B-12) [Vitamin B-12] 500 mcg PO DAILY 09/13/17 [History] Furosemide [Lasix] 40 mg PO DAILY PRN 09/13/17 [History] Multivit-Min/FA/Lycopen/Lutein [Centrum Silver Tablet] 1 each PO DAILY 09/13/17 [History] Nitroglycerin [Nitrostat] 0.4 mg SL Q5M PRN 09/13/17 [History] [place]-3/Dha/Epa/Fish Oil [[place]-3 Fish Oil 1,000 mg Sfgl] 1,000 mg PO DAILY 09/13/17 [History] Clopidogrel [Plavix] 75 mg PO DAILY #0 tablet 11/15/17 [Rx] Albuterol Sulfate [Ventolin Hfa] 2 puff IH Q6H PRN 06/09/18 [History] Atorvastatin [Lipitor] 40 mg PO HS 06/09/18 [History] Carvedilol [Coreg] 25 mg PO BID 06/09/18 [History] Isosorbide MONOnitrate (24 HR) [Imdur] 30 mg PO DAILY 06/09/18 [History] Allergy/AdvReac Type Severity Reaction Status Date / Time latex Allergy Hives Verified 06/09/18 10:56 lisinopril AdvReac Abdominal Verified 06/09/18 10:56 Pain All Systems: The remainder of the systems were reviewed and are negative Physical Examination Vital Signs: Vital Signs, Last 4 Hours Temp Pulse Resp BP Pulse Ox 06/11/18 09:00 70 13 126/67 99 06/11/18 08:00 97.4 F L 70 16 126/67 98 06/11/18 07:45 19 149/70 97 06/11/18 07:31 70 06/11/18 07:00 70 18 137/72 99 06/11/18 06:00 70 16 134/72 98 Ventilator Settings Ventilator Settings: Ventilator Settings, Last 8 Hours Ventilator Tidal Volume 350 Setting Ventilator Tidal Volume 350 Setting Ventilator Tidal Volume 350 Setting Ventilator Tidal Volume 350 Setting Ventilator Tidal Volume 350 Setting Ventilator Tidal Volume 350 Setting Ventilator Tidal Volume 350 Setting Ventilator Tidal Volume 350 Setting Ventilator Tidal Volume 350 Setting Ventilator Tidal Volume 350 Setting Ventilator Tidal Volume 350 Setting Ventilator Respiratory Rate 12 Setting Ventilator Respiratory Rate 12 Setting Ventilator Respiratory Rate 12 Setting Ventilator Respiratory Rate 12 Setting Ventilator Respiratory Rate 12 Setting Ventilator Respiratory Rate 12 Setting Ventilator Respiratory Rate 12 Setting Ventilator Respiratory Rate 12 Setting Ventilator Respiratory Rate 12 Setting Ventilator Respiratory Rate 12 Setting Ventilator Respiratory Rate 12 Setting Actual Respiratory Rate 16 Actual Respiratory Rate 18 Actual Respiratory Rate 18 Actual Respiratory Rate 14 Actual Respiratory Rate 18 Actual Respiratory Rate 18 Actual Respiratory Rate 16 Actual Respiratory Rate 18 Actual Respiratory Rate 16 Actual Respiratory Rate 16 Positive End Expiratory 5 Pressure Positive End Expiratory 5 Pressure Positive End Expiratory 5 Pressure Positive End Expiratory 5 Pressure Positive End Expiratory 5 Pressure Positive End Expiratory 5 Pressure Positive End Expiratory 5 Pressure Positive End Expiratory 5 Pressure Positive End Expiratory 5 Pressure Positive End Expiratory 5 Pressure Positive End Expiratory 5 Pressure Peak Inspiratory Airway 16 Pressure Peak Inspiratory Airway 18 Pressure Peak Inspiratory Airway 14 Pressure Peak Inspiratory Airway 14 Pressure Peak Inspiratory Airway 12 Pressure Peak Inspiratory Airway 7 Pressure Peak Inspiratory Airway 12 Pressure Results - Laboratory Findings CBC and BMP: 06/11/18 03:41 06/11/18 03:41 ABG ABG pH 7.37 pH Units (7.32-7.45) 06/11/18 05:42 ABG pCO2 55 mmHg (35-45) H 06/11/18 05:42 ABG pO2 91 mmHg (85-104) D 06/11/18 05:42 ABG O2 Saturation 97 % (95-98) 06/11/18 05:42 PT/INR, D-dimer PT 12.3 Seconds (9.4-12.1) H 06/09/18 07:45 Abnormal lab findings: Abnormal lab results WBC 16.9 K/mcL (4.3-11.1) H 06/11/18 03:41 RBC 2.82 M/mcL (3.82-4.97) L 06/11/18 03:41 Hgb 9.2 g/dL (11.5-15.4) L 06/11/18 03:41 Hct 29.1 % (35.3-44.9) L 06/11/18 03:41 MCV 103.2 fL (83.0-100.0) H 06/11/18 03:41 Neutrophils # 14.8 K/mcL (1.6-8.9) H 06/11/18 03:41 Nucleated RBCs/100 WBC 0.1 /100 WBC (0) H 06/10/18 22:33 Macrocytosis Present (Not Present) A 06/10/18 22:33 PT 12.3 Seconds (9.4-12.1) H 06/09/18 07:45 ABG pCO2 55 mmHg (35-45) H 06/11/18 05:42 ABG HCO3 32 mEq/L (21-27) H 06/11/18 05:42 ABG Total CO2 34 mEq/L (20-26) H 06/11/18 05:42 ABG Base Excess 6 mEq/L (-2 to 3) H 06/11/18 05:42 BUN 57 mg/dL (8-23) H 06/11/18 03:41 Creatinine 1.89 mg/dL (0.60-1.20) H 06/11/18 03:41 Est GFR ( Amer) 31 (> 60) L 06/11/18 03:41 Est GFR (Non-Af Amer) 25 (> 60) L 06/11/18 03:41 BUN/Creatinine Ratio 30 (6-26) H 06/11/18 03:41 Glucose 64 mg/dL (70-105) L 06/11/18 03:41 POC Glucose 253 mg/dL (70-99) H 06/10/18 23:20 Calculated Osmolality 304 (280-300) H 06/11/18 03:41 Phosphorus 6.0 mg/dL (2.7-4.5) H 06/11/18 03:41 AST 77 Units/L (13-39) H 06/10/18 22:33 B-Natriuretic Peptide 1769 pg/mL (Less than 100) H 06/09/18 06:18 - Microbiology Findings Microbiology Findings: Microbiology, Last 48 Hours 06/09/18 19:28 Influenza Types A,B Antigen - Final Nasopharyngeal - Clinical Findings Intake & Output: Intake & Output 06/10/18 06/11/18 06/11/18 23:59 07:59 15:59 Intake Total 60 / 60 450 / 450 250 / 250 Output Total 400 / 400 550 / 550 Balance 60 / 60 50 / 50 -300 / -300 Consult Discharge Plan - Plan Referrals: Mitchell Greer Jr, MD [Primary Care Provider] - - Attending Attestation I saw and evaluated this patient and my medical decision-making was reviewed with the Resident Physician. I agree with the documented findings, disposition and treatment plan as described except to the extent set forth below. We independently had [id number] contact with the patient I spent 35 minutes of Critical Care time with this patient. It involved decision making of high complexity to assess, manipulate, and support vital organ system failure and/or to prevent further life threatening deterioration of the patient's condition. The time involved in the performance of separately reportable procedures was not counted toward critical care time. Patient seen and examined at bedside Labs, radiology, chart personally reviewed. Management was reviewed during multidisciplinary critical care rounds. MORTAR MIXER: Could not assess her neurological status status because of sedation will try to liberate the sedation to Precedex.. Patien has background history of dementia Pulm: Patient V/Q mismatch most likely due to hydrostatic pulmonary edema due to systolic heart failure complicated by increase afterload due to poorly controlled blood pressure. Acceptable oxygenation and ventilation will continue diuresis and control the preload and we will add afterload reducing agent. Cards: Systolic heart failure supported by AICD acute exacerbation of to poorly controlled blood pressure. To adjust the antihypertensive regimen FEN-GI: Diet according to nutrition. Renal: Labs and output reviewed to follow electrolytes as patient is on Lasix. ID: No active infectious disease issues Heme/Onc: Thromboprophylaxis Endo: Glucose Monitored Integ/MSK: Skin Care per routine ICU Nursing Protocol to prevent ulcers. Lines: All lines examined without evidence of infection : Dispo: critically ill CODE: Full Code <Mike Ramos - Last Filed: 06/11/18 16:48> Date of Encounter: 06/11/18 Time of Encounter: 11:34 Assessment and Plan (1) Acute on chronic respiratory failure with hypoxia and hypercapnia Current Visit: No Status: Resolved Echo from 11/09/17 showed LVEF of 35% and LV systolic dysfunction. Pt originally presented to ED c/o SOB, also had hypertensive crisis crisis with BP 210/85 Was initially placed on Azithromycin and solumedrol, rapid flu was negative Pt was reportedly ambulating in the hallway yesterday when she became increasingly short of breath. BP was 209/119 at this time. She was subsequently transferred to the ICU. ET tube and OG were placed. CXR showed severe pulmonary venous congestion and pulmonary edema. She was placed on a Lasix drip. Exacerbation likely caused by hypertensive crisis Continue Lasix drip Tight BP control with 10mg Lisinopril and Carvedilol 12.5 BID (2) CHF exacerbation Current Visit: Yes Status: Acute Plan as above BNP improved slightly today at 1587 from 1769 on admission Qualifiers: Heart failure type: systolic Qualified Code(s): I50.23 - Acute on chronic systolic (congestive) heart failure (3) Pulmonary edema Current Visit: Yes Status: Acute CXR on admission showed mild interstitial edema Repeat CXR on 06/10 showed severe pulmonary edema Continue Lasix drip Qualifiers: Chronicity: acute Qualified Code(s): J81.0 - Acute pulmonary edema (4) RICHA (acute kidney injury) Current Visit: Yes Status: Acute Cr elevated on admission at 1.31 compared to baseline of 1.0 Remains elevated today at 1.89 Likely caused by cardio-renal syndrome with acute CHF exacerbation Continue Lasix as above Continue to monitor (5) Acute exacerbation of chronic obstructive airways disease Current Visit: No Status: Acute hx of COPD with albuterol inhaler at home Thought to be in acute exacerbation on admission Continues to be afebrile HR normal No leukocytosis on admission - elevations seen after likely 2/2 Solumedrol CXR from ED showed mild interstitial edema Likely 2/2 CHF exacerbation due to hypertensive crisis Discontinue Azithromycin Taper Solumedrol to 20mg BID (6) Leukocytosis Current Visit: Yes Status: Acute Improving at 16.9 today Likely 2/2 steroid therapy Afebrile Continue to monitor Qualifiers: Leukocytosis type: unspecified Qualified Code(s): D72.829 - Elevated white blood cell count, unspecified (7) DVT prophylaxis Current Visit: No Status: Acute SQ Heparin History of Present Illness Consult date: 06/11/18 Requesting physician: Gabriel Burns Reason for consult: dyspnea, hypoxemia Chief complaint: Shortness of breath/Respiratory Failure History of present illness: Ms. May is a 83F with PMH of CAD, systolic HF, HTN, and COPD. She was originally admitted on 06/09 for shortness of breath thought to be a COPD exacerbation. BP was 210/85. Rapid flu was negative. Azithromycin and Solumedrol were started. On the evening of 06/10 it was reported that pt was ambulating when she became increasingly short of breath and BP was 209/119. She then became unresponsive with agonal breathing. She was subsequently transferred to the ICU, and was intubated for respiratory failure and inability to maintain a patent airway. An OG was also placed on arrival to the ICU. CXR revealed severe pulmo nary edema. Pt was also started on Lasix drip. Today pt is seen and examined at bedside. She is currently sedated with Propofol and Fentanyl. Nurse reports no acute events since arriving to ICU. Past Med Surg Social Fam HX - Past Medical History Medical history: CHF, COPD, coronary artery disease, GERD, hyperlipidemia, hypertension, peripheral artery disease Additional medical history: Unknown heart problem. fall with broken ribs apr / may 2018? Psychiatric history: no psych history - Past Surgical History Surgical History: hysterectomy, knee replacement, orthopedic, other Additional surgical history: right shoulder, right hand, knee surgery, TONSILLS AND ADNOIDS - Social History Smoking Status: Former smoker Smokeless Tobacco Status: No Alcohol use: none Drug use: none - Family History Father Hx Family Cardiac Disorders: Yes Brother Hx Family Cancer: Yes (kidney) ROS unobtainable: due to endotracheal tube All Systems: The remainder of the systems were reviewed and are negative Physical Examination Vital Signs: Vital Signs, Last 4 Hours Temp Pulse Resp BP Pulse Ox 06/11/18 07:45 19 149/70 97 06/11/18 07:31 70 06/11/18 07:00 70 18 137/72 99 06/11/18 06:00 70 16 134/72 98 06/11/18 05:36 18 122/63 97 06/11/18 05:00 70 18 120/64 97 06/11/18 04:00 70 18 116/64 98 06/11/18 03:57 97.4 F L General appearance: no acute distress, asleep Neck: supple Effort: normal Inspection: normal Auscultation: bilateral: rales Percussion: bilateral: not dull Cardiovascular: regular rate and rhythm Gastrointestinal: normoactive bowel sounds, soft, non-tender, non-distended Integumentary: normal Extremities: no cyanosis, no edema, no clubbing, pink and warm, pulses normal Musculoskeletal: no deformities unable to assess due to mental status Ventilator Settings Ventilator Settings: Ventilator Settings, Last 8 Hours Ventilator Tidal Volume 350 Setting Ventilator Tidal Volume 350 Setting Ventilator Tidal Volume 350 Setting Ventilator Tidal Volume 350 Setting Ventilator Tidal Volume 350 Setting Ventilator Tidal Volume 350 Setting Ventilator Tidal Volume 350 Setting Ventilator Tidal Volume 350 Setting Ventilator Tidal Volume 350 Setting Ventilator Tidal Volume 350 Setting Ventilator Tidal Volume 350 Setting Ventilator Tidal Volume 350 Setting Ventilator Tidal Volume 350 Setting Ventilator Tidal Volume 350 Setting Ventilator Respiratory Rate 12 Setting Ventilator Respiratory Rate 12 Setting Ventilator Respiratory Rate 12 Setting Ventilator Respiratory Rate 12 Setting Ventilator Respiratory Rate 12 Setting Ventilator Respiratory Rate 12 Setting Ventilator Respiratory Rate 12 Setting Ventilator Respiratory Rate 12 Setting Ventilator Respiratory Rate 12 Setting Ventilator Respiratory Rate 12 Setting Ventilator Respiratory Rate 12 Setting Ventilator Respiratory Rate 12 Setting Ventilator Respiratory Rate 12 Setting Ventilator Respiratory Rate 12 Setting Actual Respiratory Rate 18 Actual Respiratory Rate 18 Actual Respiratory Rate 14 Actual Respiratory Rate 18 Actual Respiratory Rate 18 Actual Respiratory Rate 16 Actual Respiratory Rate 18 Actual Respiratory Rate 16 Actual Respiratory Rate 16 Actual Respiratory Rate 15 Actual Respiratory Rate 16 Actual Respiratory Rate 14 Positive End Expiratory 5 Pressure Positive End Expiratory 5 Pressure Positive End Expiratory 5 Pressure Positive End Expiratory 5 Pressure Positive End Expiratory 5 Pressure Positive End Expiratory 5 Pressure Positive End Expiratory 5 Pressure Positive End Expiratory 5 Pressure Positive End Expiratory 5 Pressure Positive End Expiratory 5 Pressure Positive End Expiratory 5 Pressure Positive End Expiratory 5 Pressure Positive End Expiratory 5 Pressure Positive End Expiratory 5 Pressure Peak Inspiratory Airway 18 Pressure Peak Inspiratory Airway 14 Pressure Peak Inspiratory Airway 14 Pressure Peak Inspiratory Airway 12 Pressure Peak Inspiratory Airway 7 Pressure Peak Inspiratory Airway 12 Pressure Peak Inspiratory Airway 13 Pressure Results - Laboratory Findings CBC and BMP: 06/11/18 03:41 06/11/18 03:41 ABG ABG pH 7.37 pH Units (7.32-7.45) 06/11/18 05:42 ABG pCO2 55 mmHg (35-45) H 06/11/18 05:42 ABG pO2 91 mmHg (85-104) D 06/11/18 05:42 ABG O2 Saturation 97 % (95-98) 06/11/18 05:42 PT/INR, D-dimer PT 12.3 Seconds (9.4-12.1) H 06/09/18 07:45 Abnormal lab findings: Abnormal lab results WBC 16.9 K/mcL (4.3-11.1) H 06/11/18 03:41 RBC 2.82 M/mcL (3.82-4.97) L 06/11/18 03:41 Hgb 9.2 g/dL (11.5-15.4) L 06/11/18 03:41 Hct 29.1 % (35.3-44.9) L 06/11/18 03:41 MCV 103.2 fL (83.0-100.0) H 06/11/18 03:41 Neutrophils # 14.8 K/mcL (1.6-8.9) H 06/11/18 03:41 Nucleated RBCs/100 WBC 0.1 /100 WBC (0) H 06/10/18 22:33 Macrocytosis Present (Not Present) A 06/10/18 22:33 PT 12.3 Seconds (9.4-12.1) H 06/09/18 07:45 ABG pCO2 55 mmHg (35-45) H 06/11/18 05:42 ABG HCO3 32 mEq/L (21-27) H 06/11/18 05:42 ABG Total CO2 34 mEq/L (20-26) H 06/11/18 05:42 ABG Base Excess 6 mEq/L (-2 to 3) H 06/11/18 05:42 BUN 57 mg/dL (8-23) H 06/11/18 03:41 Creatinine 1.89 mg/dL (0.60-1.20) H 06/11/18 03:41 Est GFR ( Amer) 31 (> 60) L 06/11/18 03:41 Est GFR (Non-Af Amer) 25 (> 60) L 06/11/18 03:41 BUN/Creatinine Ratio 30 (6-26) H 06/11/18 03:41 Glucose 64 mg/dL (70-105) L 06/11/18 03:41 POC Glucose 253 mg/dL (70-99) H 06/10/18 23:20 Calculated Osmolality 304 (280-300) H 06/11/18 03:41 Phosphorus 6.0 mg/dL (2.7-4.5) H 06/11/18 03:41 AST 77 Units/L (13-39) H 06/10/18 22:33 B-Natriuretic Peptide 1769 pg/mL (Less than 100) H 06/09/18 06:18 - Microbiology Findings Microbiology Findings: Microbiology, Last 48 Hours 06/09/18 19:28 Influenza Types A,B Antigen - Final Nasopharyngeal - Diagnostic Findings Chest x-ray: report reviewed, image reviewed - Clinical Findings Intake & Output: Intake & Output 06/10/18 06/10/18 06/11/18 15:59 23:59 07:59 Intake Total 587 / 587 60 / 60 450 / 450 Output Total 400 / 400 Balance 587 / 587 60 / 60 50 / 50
[2018-06-11] MEDS ORDERED: Furosemide 40 MG/4 ML VIAL IVP SCH (09:00)
[2018-06-11] MEDS: Aspirin 81 MG TAB.CHEW PO SCH (09:56)
[2018-06-11] MEDS: Dexmedetomidine HCl 400 MCG/100 ML MLS IVC SCH ×2 (11:43→20:01)
[2018-06-11] MEDS ORDERED: Insulin LISPRO 300 UNITS/3 ML VIAL SQ SCH (12:00)
[2018-06-11] MEDS: Insulin LISPRO 300 UNITS/3 ML VIAL SQ SCH ×3 (12:15→23:06)
[2018-06-11] MEDS: Haloperidol Lactate 5 MG/ML VIAL IVP PRN (15:14)
[2018-06-11] MEDS: Furosemide 240 MG in D5% in Water 96 ML IVC SCH (15:14)
[2018-06-11] MEDS: hydrALAZINE 10 MG TABLET PO SCH ×2 (15:56→23:03)
[2018-06-12] MEDS: FentaNYL (PF) 1,000 MCG in 0.9 % Sodium Chloride 80 ML IVC SCH (02:30)
[2018-06-12] MEDS: Dexmedetomidine HCl 400 MCG/100 ML MLS IVC SCH ×4 (02:40→22:00)
[2018-06-12] MEDS: Artificial Tears SOLN 15 ML BOTTLE BOTH EYES SCH ×6 (03:23→23:56)
[2018-06-12] MEDS: Ipratropium/Albuterol Neb 3 ML IH SCH ×6 (03:38→23:45)
[2018-06-12 04:13] LABS: Red Blood Count 2.96 M/mcL (3.82-4.97)
[2018-06-12 04:14] LABS: Hematocrit 30.3 % (35.3-44.9); Hemoglobin 9.7 g/dL (11.5-15.4); Immature Granulocytes % 0.5 % (0-4); Lymphocytes # 1.3 K/mcL (0.6-4.6); Lymphocytes % 11.3 %; Mean Corpuscular Hemoglobin 32.8 pg (28.0-33.3); Mean Corpuscular Volume 102.4 fL (83.0-100.0); Mean Platelet Volume 11.1 fL (9.4-12.4); Monocytes # 0.6 K/mcL (0.0-1.3); Monocytes % 5.3 %; Neutrophils # 9.4 K/mcL (1.6-8.9); Platelet Count 165 K/mcL (140-400); Red Cell Distribution Width 14.4 % (11.5-14.5); Segmented Neutrophils % 82.9 %
[2018-06-12 04:33] LABS: Albumin 3.4 g/dL (3.5-5.7); Albumin/Globulin Ratio 1.2 (1.1-2.2); Bilirubin,Total 0.4 mg/dL (0.3-1.0); Calcium 8.7 mg/dL (8.6-10.3); Globulin 2.8 g/dL (2.4-3.5); Magnesium 2.1 mg/dL (1.6-2.6); Total Protein 6.2 g/dL (6.4-8.9)
[2018-06-12 04:56] LABS: ABG Base Excess 6 mEq/L (-2 to 3); ABG HCO3 31 mEq/L (21-27); ABG Oxygen Saturation 96 % (95-98); ABG PCO2 45 mmHg (35-45); ABG PH 7.44 pH Units (7.32-7.45); ABG PO2 83 mmHg (85-104); ABG TCO2 32 mEq/L (20-26); Blood Gas Modality ASSIST CONTROL; Blood Gas PEEP 5 cm H2O; Blood Gas Respiration Rate 12; Blood Gas VT 350 cc
[2018-06-12] MEDS: MethylPREDNISolone 40 MG/ML VIAL IVP SCH ×2 (06:08→17:34)
[2018-06-12] MEDS: *HR* Heparin 5,000 UNIT/ML VIAL SQ SCH ×2 (06:09→17:32)
[2018-06-12] MEDS: Insulin LISPRO 300 UNITS/3 ML VIAL SQ SCH ×4 (06:12→23:56)
[2018-06-12] MEDS: Haloperidol Lactate 5 MG/ML VIAL IVP PRN ×2 (06:19→12:40)
[2018-06-12] MEDS ORDERED: *HR* Propofol 500 MG/50 ML BOTTLE IVP SCH (06:30)
--- NOTE | 2018-06-12 06:46 | Pulmonology Progress Note ---
<Nathaly Higginbotham S - Last Filed: 06/12/18 12:22> Objective PUL Vital signs: Last Vital Signs Temp 98.1 F 06/12/18 12:00 Pulse 71 06/12/18 12:00 Resp 18 06/12/18 12:00 BP 170/76 06/12/18 12:00 Pulse Ox 98 06/12/18 12:00 Ventilator Settings Ventilator Settings: Ventilator Settings, Last 8 Hours Ventilator Tidal Volume 350 Setting Ventilator Tidal Volume 350 Setting Ventilator Tidal Volume 350 Setting Ventilator Tidal Volume 350 Setting Ventilator Tidal Volume 350 Setting Ventilator Tidal Volume 350 Setting Ventilator Tidal Volume 350 Setting Ventilator Respiratory Rate 12 Setting Ventilator Respiratory Rate 12 Setting Ventilator Respiratory Rate 12 Setting Ventilator Respiratory Rate 12 Setting Ventilator Respiratory Rate 12 Setting Ventilator Respiratory Rate 12 Setting Ventilator Respiratory Rate 12 Setting Actual Respiratory Rate 15 Actual Respiratory Rate 18 Actual Respiratory Rate 14 Actual Respiratory Rate 13 Actual Respiratory Rate 12 Actual Respiratory Rate 14 Positive End Expiratory 5 Pressure Positive End Expiratory 5 Pressure Positive End Expiratory 5 Pressure Positive End Expiratory 5 Pressure Positive End Expiratory 5 Pressure Positive End Expiratory 5 Pressure Positive End Expiratory 5 Pressure Peak Inspiratory Airway 19 Pressure Peak Inspiratory Airway 19 Pressure Peak Inspiratory Airway 6 Pressure Peak Inspiratory Airway 22 Pressure Peak Inspiratory Airway 16 Pressure Peak Inspiratory Airway 15 Pressure Results - Laboratory Findings CBC and BMP: 06/12/18 03:50 06/12/18 03:50 ABG ABG pH 7.44 pH Units (7.32-7.45) 06/12/18 04:52 ABG pCO2 45 mmHg (35-45) 06/12/18 04:52 ABG pO2 83 mmHg (85-104) L 06/12/18 04:52 ABG O2 Saturation 96 % (95-98) 06/12/18 04:52 PT/INR, D-dimer PT 12.3 Seconds (9.4-12.1) H 06/09/18 07:45 Abnormal lab findings: Abnormal lab results WBC 11.3 K/mcL (4.3-11.1) H 06/12/18 03:50 RBC 2.96 M/mcL (3.82-4.97) L 06/12/18 03:50 Hgb 9.7 g/dL (11.5-15.4) L 06/12/18 03:50 Hct 30.3 % (35.3-44.9) L 06/12/18 03:50 MCV 102.4 fL (83.0-100.0) H 06/12/18 03:50 Neutrophils # 9.4 K/mcL (1.6-8.9) H 06/12/18 03:50 Nucleated RBCs/100 WBC 0.1 /100 WBC (0) H 06/10/18 22:33 Macrocytosis Present (Not Present) A 06/10/18 22:33 PT 12.3 Seconds (9.4-12.1) H 06/09/18 07:45 ABG pO2 83 mmHg (85-104) L 06/12/18 04:52 ABG HCO3 31 mEq/L (21-27) H 06/12/18 04:52 ABG Total CO2 32 mEq/L (20-26) H 06/12/18 04:52 ABG Base Excess 6 mEq/L (-2 to 3) H 06/12/18 04:52 BUN 66 mg/dL (8-23) H 06/12/18 03:50 Creatinine 1.94 mg/dL (0.60-1.20) H 06/12/18 03:50 Est GFR ( Amer) 30 (> 60) L 06/12/18 03:50 Est GFR (Non-Af Amer) 25 (> 60) L 06/12/18 03:50 BUN/Creatinine Ratio 34 (6-26) H 06/12/18 03:50 Glucose 133 mg/dL (70-105) H 06/12/18 03:50 POC Glucose 166 mg/dL (70-99) H 06/11/18 23:05 Calculated Osmolality 311 (280-300) H 06/12/18 03:50 Phosphorus 6.0 mg/dL (2.7-4.5) H 06/12/18 03:50 B-Natriuretic Peptide 518 pg/mL (Less than 100) H 06/12/18 03:50 Serum Total Protein 6.2 g/dL (6.4-8.9) L 06/12/18 03:50 Albumin 3.4 g/dL (3.5-5.7) L 06/12/18 03:50 - Clinical Findings Intake & Output: Intake & Output 06/11/18 06/12/18 06/12/18 23:59 07:59 15:59 Intake Total 114 / 114 200 / 200 375 / 375 Output Total 300 / 300 850 / 850 1050 / 1050 Balance -186 / -186 -650 / -650 -675 / -675 Weight 59.96 kg Consult Discharge Plan - Plan Referrals: Mitchell Greer Jr, MD [Primary Care Provider] - - Attending Attestation Attending Attestation I saw and evaluated this patient and my medical decision-making was reviewed with the Resident Physician. I agree with the documented findings, disposition and treatment plan as described except to the extent set forth below. We independently had [id number] contact with the patient I spent 33 minutes of Critical Care time with this patient. It involved decision making of high complexity to assess, manipulate, and support vital organ system failure and/or to prevent further life threatening deterioration of the patient's condition. The time involved in the performance of separately reportable procedures was not counted toward critical care time. Patient seen and examined at bedside Labs, radiology, chart personally reviewed. Management was reviewed during multidisciplinary critical care rounds. 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 Acceptable oxygenation and ventilation will continue diuresis and control the preload and we will add afterload reducing agent. 06/12 To continue diuresis as tolerated patient was agitated but having acceptable oxygenation and ventilation she was extubated to nasal cannula. Cards: Systolic heart failure supported by AICD acute exacerbation of to poorly controlled blood pressure. To adjust the antihypertensive regimen. Keep her negative at least 0.5 L over 24 hours. FEN-GI: NPO Renal: Labs and output reviewed to follow electrolytes changed to Bumex from Lasix. ID: No active infectious disease issues Heme/Onc: Thromboprophylaxis Endo: Glucose Monitored Integ/MSK: Skin Care per routine ICU Nursing Protocol to prevent ulcers. Lines: All lines examined without evidence of infection : Dispo: critically ill to remain in ICU. CODE: Full Code <Mike Ramos - Last Filed: 06/12/18 17:11> Date of Encounter: 06/12/18 Time of Encounter: 06:30 Assessment and Plan (1) Acute on chronic respiratory failure with hypoxia and hypercapnia Current Visit: Yes Status: Resolved Echo from 11/09/17 showed LVEF of 35% and LV systolic dysfunction. Pt originally presented to ED c/o SOB, also had hypertensive crisis crisis with BP 210/85 Was initially placed on Azithromycin and solumedrol, rapid flu was negative Pt was reportedly ambulating in the hallway yesterday when she became increasingly short of breath. BP was 209/119 at this time. She was subsequently transferred to the ICU. ET tube and OG were placed. CXR showed severe pulmonary venous congestion and pulmonary edema. She was placed on a Lasix drip. - Exacerbation likely caused by hypertensive crisis - CXR this morning revealed mild improvement of pulmonary edema - Successfully extubated and placed on high flow Nasal cannula with supplemental O2 at 7lpm 06/12: - Switch from Lasix drip to 2mg Bumex since pt was not making enough urine - Continue Tight BP control with 20mg Hydralazine q8h and PRN Lopressor 5mg (2) CHF exacerbation Current Visit: Yes Status: Acute Plan as above BNP improved today at 518 from 1587 yesterday Qualifiers: Heart failure type: systolic Qualified Code(s): I50.23 - Acute on chronic systolic (congestive) heart failure (3) Pulmonary edema Current Visit: Yes Status: Acute CXR on admission showed mild interstitial edema Repeat CXR on 06/10 showed severe pulmonary edema 06/12 CXR showed mild improvement of interstitial prominence Successfully extubated this morning Bumex 2mg as above Qualifiers: Chronicity: acute Qualified Code(s): J81.0 - Acute pulmonary edema (4) RICHA (acute kidney injury) Current Visit: Yes Status: Acute Cr elevated on admission at 1.31 compared to baseline of 1.0 Remains elevated today at 1.94 Likely caused by cardio-renal syndrome with acute CHF exacerbation Urine output with Lasix drip was not adequate in relation to therapy Started Bumex 2mg IV Continue to monitor (5) Acute exacerbation of chronic obstructive airways disease Current Visit: No Status: Acute hx of COPD with albuterol inhaler at home Thought to be in acute exacerbation on admission Continues to be afebrile HR normal No leukocytosis on admission - elevations seen after likely 2/2 Solumedrol CXR from ED showed mild interstitial edema Likely 2/2 CHF exacerbation due to hypertensive crisis Discontinued Azithromycin yesterday Continue Solumedrol at 20mg BID (6) Leukocytosis Current Visit: Yes Status: Acute Improving at 11.3 today Likely 2/2 steroid therapy Afebrile Continue to monitor Qualifiers: Leukocytosis type: unspecified Qualified Code(s): D72.829 - Elevated white blood cell count, unspecified (7) DVT prophylaxis Current Visit: Yes Status: Acute SQ Heparin Subjective Principal diagnosis: Pulmonary Edema Interval history: Pt seen and examined at bedside. Had an episode of tachycardia last night in the 170s. Currently sedated on Precedex and Fentanyl. Objective PUL Vital signs: Last Vital Signs Temp 97.8 F 06/12/18 04:07 Pulse 111 06/12/18 06:00 Resp 14 06/12/18 06:00 BP 145/88 06/12/18 06:00 Pulse Ox 93 06/12/18 06:00 General appearance: no acute distress, asleep Neck: supple Effort: mildly labored Auscultation: bilateral: diminished breath sounds, rales Percussion: bilateral: not dull Cardiovascular: regular rate and rhythm Gastrointestinal: soft, non-tender, non-distended Integumentary: normal Extremities: no cyanosis, no edema, no clubbing, pink and warm, pulses normal Musculoskeletal: no deformities unable to assess due to mental status Ventilator Settings Ventilator Settings: Ventilator Settings, Last 8 Hours Ventilator Tidal Volume 350 Setting Ventilator Tidal Volume 350 Setting Ventilator Tidal Volume 350 Setting Ventilator Tidal Volume 350 Setting Ventilator Tidal Volume 350 Setting Ventilator Tidal Volume 350 Setting Ventilator Tidal Volume 350 Setting Ventilator Tidal Volume 350 Setting Ventilator Tidal Volume 350 Setting Ventilator Tidal Volume 350 Setting Ventilator Tidal Volume 350 Setting Ventilator Tidal Volume 350 Setting Ventilator Tidal Volume 350 Setting Ventilator Respiratory Rate 12 Setting Ventilator Respiratory Rate 12 Setting Ventilator Respiratory Rate 12 Setting Ventilator Respiratory Rate 12 Setting Ventilator Respiratory Rate 12 Setting Ventilator Respiratory Rate 12 Setting Ventilator Respiratory Rate 12 Setting Ventilator Respiratory Rate 12 Setting Ventilator Respiratory Rate 12 Setting Ventilator Respiratory Rate 12 Setting Ventilator Respiratory Rate 12 Setting Ventilator Respiratory Rate 12 Setting Ventilator Respiratory Rate 12 Setting Actual Respiratory Rate 13 Actual Respiratory Rate 12 Actual Respiratory Rate 14 Actual Respiratory Rate 19 Actual Respiratory Rate 18 Actual Respiratory Rate 14 Actual Respiratory Rate 16 Actual Respiratory Rate 13 Actual Respiratory Rate 16 Actual Respiratory Rate 14 Actual Respiratory Rate 18 Actual Respiratory Rate 14 Positive End Expiratory 5 Pressure Positive End Expiratory 5 Pressure Positive End Expiratory 5 Pressure Positive End Expiratory 5 Pressure Positive End Expiratory 5 Pressure Positive End Expiratory 5 Pressure Positive End Expiratory 5 Pressure Positive End Expiratory 5 Pressure Positive End Expiratory 5 Pressure Positive End Expiratory 5 Pressure Positive End Expiratory 5 Pressure Positive End Expiratory 5 Pressure Positive End Expiratory 5 Pressure Peak Inspiratory Airway 22 Pressure Peak Inspiratory Airway 16 Pressure Peak Inspiratory Airway 15 Pressure Peak Inspiratory Airway 12 Pressure Peak Inspiratory Airway 5.5 Pressure Peak Inspiratory Airway 17 Pressure Peak Inspiratory Airway 13 Pressure Peak Inspiratory Airway 10 Pressure Peak Inspiratory Airway 13 Pressure Peak Inspiratory Airway 17 Pressure Peak Inspiratory Airway 17 Pressure Peak Inspiratory Airway 16 Pressure Results - Laboratory Findings CBC and BMP: 06/12/18 03:50 06/12/18 03:50 ABG ABG pH 7.44 pH Units (7.32-7.45) 06/12/18 04:52 ABG pCO2 45 mmHg (35-45) 06/12/18 04:52 ABG pO2 83 mmHg (85-104) L 06/12/18 04:52 ABG O2 Saturation 96 % (95-98) 06/12/18 04:52 PT/INR, D-dimer PT 12.3 Seconds (9.4-12.1) H 06/09/18 07:45 Abnormal lab findings: Abnormal lab results WBC 11.3 K/mcL (4.3-11.1) H 06/12/18 03:50 RBC 2.96 M/mcL (3.82-4.97) L 06/12/18 03:50 Hgb 9.7 g/dL (11.5-15.4) L 06/12/18 03:50 Hct 30.3 % (35.3-44.9) L 06/12/18 03:50 MCV 102.4 fL (83.0-100.0) H 06/12/18 03:50 Neutrophils # 9.4 K/mcL (1.6-8.9) H 06/12/18 03:50 Nucleated RBCs/100 WBC 0.1 /100 WBC (0) H 06/10/18 22:33 Macrocytosis Present (Not Present) A 06/10/18 22:33 PT 12.3 Seconds (9.4-12.1) H 06/09/18 07:45 ABG pO2 83 mmHg (85-104) L 06/12/18 04:52 ABG HCO3 31 mEq/L (21-27) H 06/12/18 04:52 ABG Total CO2 32 mEq/L (20-26) H 06/12/18 04:52 ABG Base Excess 6 mEq/L (-2 to 3) H 06/12/18 04:52 BUN 66 mg/dL (8-23) H 06/12/18 03:50 Creatinine 1.94 mg/dL (0.60-1.20) H 06/12/18 03:50 Est GFR ( Amer) 30 (> 60) L 06/12/18 03:50 Est GFR (Non-Af Amer) 25 (> 60) L 06/12/18 03:50 BUN/Creatinine Ratio 34 (6-26) H 06/12/18 03:50 Glucose 133 mg/dL (70-105) H 06/12/18 03:50 POC Glucose 166 mg/dL (70-99) H 06/11/18 23:05 Calculated Osmolality 311 (280-300) H 06/12/18 03:50 Phosphorus 6.0 mg/dL (2.7-4.5) H 06/12/18 03:50 B-Natriuretic Peptide 518 pg/mL (Less than 100) H 06/12/18 03:50 Serum Total Protein 6.2 g/dL (6.4-8.9) L 06/12/18 03:50 Albumin 3.4 g/dL (3.5-5.7) L 06/12/18 03:50 - Clinical Findings Intake & Output: Intake & Output 06/11/18 06/11/18 06/12/18 15:59 23:59 07:59 Intake Total 560 / 560 114 / 114 200 / 200 Output Total 1525 / 1525 300 / 300 850 / 850 Balance -965 / -965 -186 / -186 -650 / -650 Weight 59.96 kg
[2018-06-12] MEDS: Chlorhexidine Rinse 15 ML MOUTHWASH MM SCH ×2 (07:07→20:05)
[2018-06-12] MEDS: Aspirin 81 MG TAB.CHEW PO SCH (07:08)
[2018-06-12] MEDS: Pantoprazole 40 MG VIAL IVP SCH (07:08)
[2018-06-12] MEDS ORDERED: Bumetanide 1 MG/4 ML VIAL IVP ONE (09:00)
[2018-06-12] MEDS ORDERED: *HR* LORazepam 2 MG/ML VIAL IVP ONE (09:00)
[2018-06-12] MEDS ORDERED: *HR* LORazepam 2 MG/ML VIAL ONE (09:01)
[2018-06-12] MEDS ORDERED: Haloperidol Lactate 5 MG/ML VIAL ONE (09:08)
[2018-06-12] MEDS ORDERED: Haloperidol Lactate 5 MG/ML VIAL IVP STA (09:18)
[2018-06-12] MEDS: hydrALAZINE 10 MG TABLET PO SCH ×3 (09:21→23:57)
[2018-06-12] MEDS: Bumetanide 1 MG/4 ML VIAL IVP ONE ×2 (09:32→09:39)
[2018-06-12] MEDS ORDERED: *HR* Metoprolol 5 MG/5 ML VIAL IVP PRN (16:32)
--- NOTE | 2018-06-12 17:09 | Electrocardiograph Report ---
[address] [address] Test Date: 2018-06-09 Pat Name: Whitley May Department: EXAM23 Room: [facility] Gender: F It Architecture Analyst: : 1935 Requested By: Jose Shah Order Number: [id number] Reading MD: Juan Carlos Gregg Measurements Intervals [place] Rate: 75 P: 78 [place]: 154 QRS: -82 QRSD: 134 T: 86 QT: 456 QTc: 510 Interpretive Statements A-V dual-paced rhythm with some inhibition Electronically Signed On 06-12-2018 17:08:02 EDT by Juan Carlos Gregg
[2018-06-13] MEDS: Artificial Tears SOLN 15 ML BOTTLE BOTH EYES SCH ×2 (03:15→08:39)
[2018-06-13] MEDS: Ipratropium/Albuterol Neb 3 ML IH SCH ×3 (03:35→11:00)
[2018-06-13 03:47] LABS: Basophils % 0.1 %; Eosinophils % 0.1 %; Hematocrit 30.9 % (35.3-44.9); Hemoglobin 9.9 g/dL (11.5-15.4); Immature Granulocytes % 0.4 % (0-4); Lymphocytes # 0.9 K/mcL (0.6-4.6); Lymphocytes % 8.5 %; Mean Corpuscular Hemoglobin 32.1 pg (28.0-33.3); Mean Corpuscular Volume 100.3 fL (83.0-100.0); Mean Platelet Volume 10.7 fL (9.4-12.4); Monocytes # 0.9 K/mcL (0.0-1.3); Monocytes % 8.5 %; Neutrophils # 8.5 K/mcL (1.6-8.9); Platelet Count 161 K/mcL (140-400); Red Blood Count 3.08 M/mcL (3.82-4.97); Red Cell Distribution Width 14.1 % (11.5-14.5); Segmented Neutrophils % 82.4 %
[2018-06-13 04:14] LABS: Albumin 3.7 g/dL (3.5-5.7); Albumin/Globulin Ratio 1.3 (1.1-2.2); Bilirubin,Total 0.7 mg/dL (0.3-1.0); Globulin 2.8 g/dL (2.4-3.5); Magnesium 2.1 mg/dL (1.6-2.6); Phosphorous 3.4 mg/dL (2.7-4.5); Total Protein 6.5 g/dL (6.4-8.9)
[2018-06-13] MEDS: MethylPREDNISolone 40 MG/ML VIAL IVP SCH (05:13)
[2018-06-13] MEDS: *HR* Heparin 5,000 UNIT/ML VIAL SQ SCH ×2 (05:13→16:37)
[2018-06-13] MEDS: Insulin LISPRO 300 UNITS/3 ML VIAL SQ SCH ×3 (05:16→16:38)
[2018-06-13] MEDS ORDERED: Potassium Chloride 40 MEQ, Lidocaine 1% 2 ML in D5% in Water 500 ML IVPB ONE (06:46)
--- NOTE | 2018-06-13 06:49 | Pulmonology Progress Note ---
<Nathaly Higginbotham S - Last Filed: 06/13/18 09:38> Objective PUL Vital signs: Last Vital Signs Temp 97.7 F 06/13/18 04:00 Pulse 70 06/13/18 09:00 Resp 18 06/13/18 09:00 BP 159/73 06/13/18 09:00 Pulse Ox 96 06/13/18 09:00 Results - Laboratory Findings CBC and BMP: 06/13/18 03:29 06/13/18 03:29 ABG ABG pH 7.44 pH Units (7.32-7.45) 06/12/18 04:52 ABG pCO2 45 mmHg (35-45) 06/12/18 04:52 ABG pO2 83 mmHg (85-104) L 06/12/18 04:52 ABG O2 Saturation 96 % (95-98) 06/12/18 04:52 PT/INR, D-dimer PT 12.3 Seconds (9.4-12.1) H 06/09/18 07:45 Abnormal lab findings: Abnormal lab results RBC 3.08 M/mcL (3.82-4.97) L 06/13/18 03:29 Hgb 9.9 g/dL (11.5-15.4) L 06/13/18 03:29 Hct 30.9 % (35.3-44.9) L 06/13/18 03:29 MCV 100.3 fL (83.0-100.0) H 06/13/18 03:29 Nucleated RBCs/100 WBC 0.1 /100 WBC (0) H 06/10/18 22:33 Macrocytosis Present (Not Present) A 06/10/18 22:33 PT 12.3 Seconds (9.4-12.1) H 06/09/18 07:45 ABG pO2 83 mmHg (85-104) L 06/12/18 04:52 ABG HCO3 31 mEq/L (21-27) H 06/12/18 04:52 ABG Total CO2 32 mEq/L (20-26) H 06/12/18 04:52 ABG Base Excess 6 mEq/L (-2 to 3) H 06/12/18 04:52 Potassium 3.0 mEq/L (3.5-5.1) L 06/13/18 03:29 Carbon Dioxide 32 mEq/L (23-29) H 06/13/18 03:29 BUN 68 mg/dL (8-23) H 06/13/18 03:29 Creatinine 1.75 mg/dL (0.60-1.20) H 06/13/18 03:29 Est GFR ( Amer) 34 (> 60) L 06/13/18 03:29 Est GFR (Non-Af Amer) 28 (> 60) L 06/13/18 03:29 BUN/Creatinine Ratio 39 (6-26) H 06/13/18 03:29 Glucose 106 mg/dL (70-105) H 06/13/18 03:29 POC Glucose 112 mg/dL (70-99) H 06/12/18 23:53 Calculated Osmolality 314 (280-300) H 06/13/18 03:29 B-Natriuretic Peptide 518 pg/mL (Less than 100) H 06/12/18 03:50 - Clinical Findings Intake & Output: Intake & Output 06/12/18 06/13/18 06/13/18 23:59 07:59 15:59 Intake Total 100 / 100 320 / 320 Output Total 1100 / 1100 500 / 500 250 / 250 Balance -1000 / -1000 -500 / -500 70 / 70 Consult Discharge Plan - Plan Referrals: Mitchell Greer Jr, MD [Primary Care Provider] - - Attending Attestation Attending Attestation I saw and evaluated this patient and my medical decision-making was reviewed with the Resident Physician. I agree with the documented findings, disposition and treatment plan as described except to the extent set forth below. We independently had [id number] contact with the patient Patient seen and examined at bedside Labs, radiology, chart personally reviewed. Management was reviewed during multidisciplinary critical care rounds. 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 Acceptable oxygenation and ventilation will continue diuresis and control the preload and we will add afterload reducing agent. 06/12 To continue diuresis as tolerated patient was agitated but having acceptable oxygenation and ventilation she was extubated to nasal cannula. 06/13 patient has acceptable oxygenation and ventilation to continue diuresis as tolerated Cards: Systolic heart failure supported by AICD . To continue diuresis as tolerated. Blood pressure is better controlled than yesterday. FEN-GI: to advance diet as tolerated Renal: Labs and output reviewed to follow electrolytes ID: No active infectious disease issues Heme/Onc: Thromboprophylaxis Endo: Glucose Monitored Integ/MSK: Skin Care per routine ICU Nursing Protocol to prevent ulcers. Lines: All lines examined without evidence of infection : Dispo: To remain in the ICU because of 1:1 care for ICU delirium . CODE: Full Code <Mike Ramos - Last Filed: 06/13/18 11:42> Date of Encounter: 06/13/18 Time of Encounter: 09:10 Assessment and Plan (1) Acute on chronic respiratory failure with hypoxia and hypercapnia Current Visit: Yes Status: Resolved Echo from 11/09/17 showed LVEF of 35% and LV systolic dysfunction. Pt originally presented to ED c/o SOB, also had hypertensive crisis crisis with BP 210/85 Was initially placed on Azithromycin and solumedrol, rapid flu was negative Pt was reportedly ambulating in the hallway on 06/10 when she became increasingly short of breath. BP was 209/119 at this time. She was subsequently transferred to the ICU and was intubated. CXR from 06/10 showed severe pulmonary venous congestion and pulmonary edema. She was placed on a Lasix drip. CXR on 06/12 revealed mild improvement of pulmonary edema Successfully extubated yesterday and placed on high flow Nasal cannula with supplemental O2 at 7lpm Switched from Lasix drip to 2mg Bumex since pt was not making enough urine on 06/12 - Exacerbation likely caused by hypertensive crisis - Continue Tight BP control with 20mg Hydralazine q8h and PRN Lopressor 5mg - Will hold on further diuresis today since pt has improved clinically. Diuresed approximately 3L yesterday. Lung sounds vastly improved. (2) CHF exacerbation Current Visit: Yes Status: Acute Plan as above BNP improved yesterday at 518 from 1587 on 06/11 Qualifiers: Heart failure type: systolic Qualified Code(s): I50.23 - Acute on chronic systolic (congestive) heart failure (3) Pulmonary edema Current Visit: Yes Status: Acute CXR on admission showed mild interstitial edema Repeat CXR on 06/10 showed severe pulmonary edema 06/12 CXR showed mild improvement of interstitial prominence Successfully extubated yesterday Received 2mg yesterday and subsequently diuresed approximately 3L Plan as above Qualifiers: Chronicity: acute Qualified Code(s): J81.0 - Acute pulmonary edema (4) RICHA (acute kidney injury) Current Visit: Yes Status: Acute Cr elevated on admission at 1.31 compared to baseline of 1.0 Remains elevated today but improving at 1.75 Likely caused by cardio-renal syndrome with acute CHF exacerbation Urine output with Lasix drip was not adequate in relation to therapy Gave Bumex 2mg IV yesterday Hold on further diuresis today Avoid nephrotoxins Continue to monitor (5) Acute exacerbation of chronic obstructive airways disease Current Visit: No Status: Acute hx of COPD with albuterol inhaler at home Thought to be in acute exacerbation on admission Continues to be afebrile HR normal in the 70s No leukocytosis on admission - subsequent elevations likely 2/2 Solumedrol and improving with taper CXR from ED showed mild interstitial edema Likely 2/2 CHF exacerbation due to hypertensive crisis Transition from Solumedrol 20mg BID to Prednisone 40mg po (6) Leukocytosis Current Visit: Yes Status: Acute Improving at 10.3 today Likely 2/2 steroid therapy Afebrile Continue to monitor Qualifiers: Leukocytosis type: unspecified Qualified Code(s): D72.829 - Elevated white blood cell count, unspecified (7) DVT prophylaxis Current Visit: Yes Status: Acute SQ Heparin Subjective Principal diagnosis: Pulmonary Edema Interval history: Pt seen and examined at bedside. She was successfully extubated yesterday. Sitting up in bed today, somewhat confused but at her normal baseline according to family in the room. States her shortness of breath is greatly improved. Inquiring about when she can eat and drink. She denies any fever, chills, chest pain, abdominal pain, nausea, or vomiting. Objective PUL Vital signs: Last Vital Signs Temp 97.7 F 06/13/18 04:00 Pulse 70 06/13/18 06:00 Resp 18 06/13/18 06:00 BP 154/68 06/13/18 06:00 Pulse Ox 100 06/13/18 06:00 General appearance: alert, agitated Eyes: nonicteric ENT: oropharynx moist Neck: supple, no lymphadenopathy, no JVD Effort: normal Auscultation: bilateral: diminished breath sounds Percussion: bilateral: not dull Tactile fremitus: bilateral: normal Cardiovascular: regular rate and rhythm Gastrointestinal: soft, non-tender, non-distended Integumentary: normal Extremities: no cyanosis, no edema, no clubbing, pink and warm Musculoskeletal: no deformities Gait: normal posture normal mental status, non-focal exam mood appropriate, affect normal Results - Laboratory Findings CBC and BMP: 06/13/18 03:29 06/13/18 03:29 ABG ABG pH 7.44 pH Units (7.32-7.45) 06/12/18 04:52 ABG pCO2 45 mmHg (35-45) 06/12/18 04:52 ABG pO2 83 mmHg (85-104) L 06/12/18 04:52 ABG O2 Saturation 96 % (95-98) 06/12/18 04:52 PT/INR, D-dimer PT 12.3 Seconds (9.4-12.1) H 06/09/18 07:45 Abnormal lab findings: Abnormal lab results RBC 3.08 M/mcL (3.82-4.97) L 06/13/18 03:29 Hgb 9.9 g/dL (11.5-15.4) L 06/13/18 03:29 Hct 30.9 % (35.3-44.9) L 06/13/18 03:29 MCV 100.3 fL (83.0-100.0) H 06/13/18 03:29 Nucleated RBCs/100 WBC 0.1 /100 WBC (0) H 06/10/18 22:33 Macrocytosis Present (Not Present) A 06/10/18 22:33 PT 12.3 Seconds (9.4-12.1) H 06/09/18 07:45 ABG pO2 83 mmHg (85-104) L 06/12/18 04:52 ABG HCO3 31 mEq/L (21-27) H 06/12/18 04:52 ABG Total CO2 32 mEq/L (20-26) H 06/12/18 04:52 ABG Base Excess 6 mEq/L (-2 to 3) H 06/12/18 04:52 Potassium 3.0 mEq/L (3.5-5.1) L 06/13/18 03:29 Carbon Dioxide 32 mEq/L (23-29) H 06/13/18 03:29 BUN 68 mg/dL (8-23) H 06/13/18 03:29 Creatinine 1.75 mg/dL (0.60-1.20) H 06/13/18 03:29 Est GFR ( Amer) 34 (> 60) L 06/13/18 03:29 Est GFR (Non-Af Amer) 28 (> 60) L 06/13/18 03:29 BUN/Creatinine Ratio 39 (6-26) H 06/13/18 03:29 Glucose 106 mg/dL (70-105) H 06/13/18 03:29 POC Glucose 112 mg/dL (70-99) H 06/12/18 23:53 Calculated Osmolality 314 (280-300) H 06/13/18 03:29 B-Natriuretic Peptide 518 pg/mL (Less than 100) H 06/12/18 03:50 - Clinical Findings Intake & Output: Intake & Output 06/12/18 06/12/18 06/13/18 15:59 23:59 07:59 Intake Total 475 / 475 100 / 100 Output Total 1600 / 1600 1100 / 1100 500 / 500 Balance -1125 / -1125 -1000 / -1000 -500 / -500
[2018-06-13] MEDS: Aspirin 81 MG TAB.CHEW PO SCH (08:30)
[2018-06-13] MEDS: hydrALAZINE 10 MG TABLET PO SCH ×3 (08:30→23:58)
[2018-06-13] MEDS: Pantoprazole 40 MG VIAL IVP SCH (08:30)
[2018-06-13] MEDS: Chlorhexidine Rinse 15 ML MOUTHWASH MM SCH (08:30)
[2018-06-13] MEDS: Dexmedetomidine HCl 400 MCG/100 ML MLS IVC SCH ×2 (09:32→19:43)
[2018-06-13] MEDS: *HR* OxyCODONE Immed Rel 5 MG TABLET PO PRN ×2 (09:39→16:38)
[2018-06-13] MEDS: predniSONE 20 MG TABLET PO SCH (09:41)
[2018-06-13] MEDS ORDERED: Ipratropium/Albuterol Neb 3 ML IH PRN (11:04)
--- NOTE | 2018-06-13 15:24 | Electrocardiograph Report ---
[place] [address] Test Date: 2018-06-13 Pat Name: Whitley May Department: 112 Room: [facility] Gender: F Cableman: : 1935 Requested By: Mike Ramso Order Number: [id number] Reading MD: Heriberto Schuster Measurements Intervals [place] Rate: 70 P: 174 [place]: 138 QRS: -84 QRSD: 154 T: 56 QT: 481 QTc: 501 Interpretive Statements ELECTRONIC ATRIAL PACEMAKER ELECTRONIC VENTRICULAR PACEMAKER Electronically Signed On 06-13-2018 15:23:19 EDT by Heriberto Schuster
[2018-06-13] MEDS ORDERED: Insulin LISPRO 300 UNITS/3 ML VIAL SQ SCH (21:00)
[2018-06-13] MEDS: Melatonin 3 MG TABLET PO PRN (23:58)
[2018-06-14] MEDS: *HR* OxyCODONE Immed Rel 5 MG TABLET PO PRN (01:34)
[2018-06-14 04:12] LABS: Basophils % 0.1 %; Eosinophils % 0.2 %; Hemoglobin 9.8 g/dL (11.5-15.4); Immature Granulocytes % 0.2 % (0-4); Lymphocytes # 1.4 K/mcL (0.6-4.6); Lymphocytes % 14.3 %; Mean Corpuscular HGB Conc 32.7 g/dL (31.6-35.5); Mean Corpuscular Hemoglobin 32.6 pg (28.0-33.3); Mean Corpuscular Volume 99.7 fL (83.0-100.0); Mean Platelet Volume 10.9 fL (9.4-12.4); Monocytes # 0.9 K/mcL (0.0-1.3); Monocytes % 8.8 %; Neutrophils # 7.5 K/mcL (1.6-8.9); Platelet Count 166 K/mcL (140-400); Red Blood Count 3.01 M/mcL (3.82-4.97); Red Cell Distribution Width 13.7 % (11.5-14.5); Segmented Neutrophils % 76.4 %
[2018-06-14 04:30] LABS: Albumin 3.5 g/dL (3.5-5.7); Albumin/Globulin Ratio 1.3 (1.1-2.2); Bilirubin,Total 0.8 mg/dL (0.3-1.0); Calcium 9.6 mg/dL (8.6-10.3); Globulin 2.6 g/dL (2.4-3.5); Magnesium 2.2 mg/dL (1.6-2.6); Phosphorous 2.5 mg/dL (2.7-4.5); Potassium 3.4 mEq/L (3.5-5.1); Total Protein 6.1 g/dL (6.4-8.9)
[2018-06-14] MEDS: Dexmedetomidine HCl 400 MCG/100 ML MLS IVC SCH (05:31)
[2018-06-14] MEDS: *HR* Heparin 5,000 UNIT/ML VIAL SQ SCH ×2 (05:31→18:38)
[2018-06-14] MEDS: predniSONE 20 MG TABLET PO SCH (07:53)
[2018-06-14] MEDS: Pantoprazole 40 MG VIAL IVP SCH (07:54)
[2018-06-14] MEDS: Aspirin 81 MG TAB.CHEW PO SCH (07:54)
[2018-06-14] MEDS: hydrALAZINE 10 MG TABLET PO SCH (07:54)
[2018-06-14] MEDS: Insulin LISPRO 300 UNITS/3 ML VIAL SQ SCH ×4 (08:04→20:09)
[2018-06-14] MEDS ORDERED: Sennosides/Docusate Sodium TABLET PO SCH (10:45)
--- NOTE | 2018-06-14 10:45 | Pulmonology Progress Note ---
<Nathaly Higginbotham S - Last Filed: 06/14/18 13:05> Objective PUL Vital signs: Last Vital Signs Temp 97.9 F 06/14/18 04:24 Pulse 70 06/14/18 10:00 Resp 18 06/14/18 10:00 BP 121/71 06/14/18 10:00 Pulse Ox 91 06/14/18 10:00 Results - Laboratory Findings CBC and BMP: 06/14/18 03:44 06/14/18 03:44 ABG ABG pH 7.44 pH Units (7.32-7.45) 06/12/18 04:52 ABG pCO2 45 mmHg (35-45) 06/12/18 04:52 ABG pO2 83 mmHg (85-104) L 06/12/18 04:52 ABG O2 Saturation 96 % (95-98) 06/12/18 04:52 PT/INR, D-dimer PT 12.3 Seconds (9.4-12.1) H 06/09/18 07:45 Abnormal lab findings: Abnormal lab results RBC 3.01 M/mcL (3.82-4.97) L 06/14/18 03:44 Hgb 9.8 g/dL (11.5-15.4) L 06/14/18 03:44 Hct 30.0 % (35.3-44.9) L 06/14/18 03:44 Nucleated RBCs/100 WBC 0.1 /100 WBC (0) H 06/10/18 22:33 Macrocytosis Present (Not Present) A 06/10/18 22:33 PT 12.3 Seconds (9.4-12.1) H 06/09/18 07:45 ABG pO2 83 mmHg (85-104) L 06/12/18 04:52 ABG HCO3 31 mEq/L (21-27) H 06/12/18 04:52 ABG Total CO2 32 mEq/L (20-26) H 06/12/18 04:52 ABG Base Excess 6 mEq/L (-2 to 3) H 06/12/18 04:52 Potassium 3.4 mEq/L (3.5-5.1) L 06/14/18 03:44 BUN 54 mg/dL (8-23) H 06/14/18 03:44 Creatinine 1.40 mg/dL (0.60-1.20) H 06/14/18 03:44 Est GFR ( Amer) 44 (> 60) L 06/14/18 03:44 Est GFR (Non-Af Amer) 36 (> 60) L 06/14/18 03:44 BUN/Creatinine Ratio 39 (6-26) H 06/14/18 03:44 Glucose 121 mg/dL (70-105) H 06/14/18 03:44 POC Glucose 199 mg/dL (70-99) H 06/13/18 19:32 Phosphorus 2.5 mg/dL (2.7-4.5) L 06/14/18 03:44 B-Natriuretic Peptide 518 pg/mL (Less than 100) H 06/12/18 03:50 Serum Total Protein 6.1 g/dL (6.4-8.9) L 06/14/18 03:44 - Clinical Findings Intake & Output: Intake & Output 06/13/18 06/14/18 06/14/18 23:59 07:59 15:59 Intake Total 250 / 250 100 / 100 26.3 / 26.3 Output Total 400 / 400 200 / 200 Balance -150 / -150 -100 / -100 26.3 / 26.3 Consult Discharge Plan - Plan Referrals: Mitchell Greer Jr, MD [Primary Care Provider] - - Attending Attestation Attending Attestation I saw and evaluated this patient and my medical decision-making was reviewed with the Resident Physician. I agree with the documented findings, disposition and treatment plan as described except to the extent set forth below. We independently had [id number] contact with the patient Patient seen and examined at bedside Labs, radiology, chart personally reviewed. Management was reviewed during multidisciplinary critical care rounds. 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 do not give Ativan. Pulm: Patient V/Q mismatch most likely due to hydrostatic pulmonary edema due to systolic heart failure complicated by increase afterload due to poorly controlled blood pressure. Acceptable oxygenation and ventilation will continue diuresis and control the preload and we will add afterload reducing agent. 06/12 To continue diuresis as tolerated patient was agitated but having acceptable oxygenation and ventilation she was extubated to nasal cannula. 06/13 patient has acceptable oxygenation and ventilation to continue diuresis as tolerated 06/14 patient has acceptable oxygenation and ventilation to hold of diuresis. Cards: Systolic heart failure supported by AICD . Blood pressure adequately controlled FEN-GI: to advance diet as tolerated Renal: Labs and output reviewed to follow electrolytes ID: No active infectious disease issues Heme/Onc: Thromboprophylaxis Endo: Glucose Monitored Integ/MSK: Skin Care per routine ICU Nursing Protocol to prevent ulcers. Lines: All lines examined without evidence of infection : Dispo: transferred to the medical telemetry floor with sitter CODE: Full Code <Mike Ramos Isha - Last Filed: 06/14/18 16:41> Date of Encounter: 06/14/18 Time of Encounter: 08:15 Assessment and Plan (1) Acute on chronic respiratory failure with hypoxia and hypercapnia Current Visit: Yes Status: Resolved Echo from 11/09/17 showed LVEF of 35% and LV systolic dysfunction. Pt originally presented to ED c/o SOB, also had hypertensive crisis crisis with BP 210/85 Was initially placed on Azithromycin and solumedrol, rapid flu was negative Pt was reportedly ambulating in the hallway on 06/10 when she became increasingly short of breath. BP was 209/119 at this time. She was subsequently transferred to the ICU and was intubated. CXR from 06/10 showed severe pulmonary venous congestion and pulmonary edema. She was placed on a Lasix drip. CXR on 06/12 revealed mild improvement of pulmonary edema Successfully extubated yesterday and placed on high flow Nasal cannula with supplemental O2 at 7lpm Switched from Lasix drip to 2mg Bumex since pt was not making enough urine on 06/12 Successfully titrated off supplemental O2 with SpO2 at 92% on 06/14 - Exacerbation likely caused by hypertensive crisis - Continue Tight BP control, restarted home dose of Carvedilol. Has prn lopressor and hydralazine. - Will hold on further diuresis today since pt has improved clinically. Negative 2L fluid status since admission. - Stable for transfer to Telemetry with a sitter (2) CHF exacerbation Current Visit: Yes Status: Acute Plan as above BNP trending down as of 06/12 Qualifiers: Heart failure type: systolic Qualified Code(s): I50.23 - Acute on chronic systolic (congestive) heart failure (3) Pulmonary edema Current Visit: Yes Status: Acute CXR on admission showed mild interstitial edema Repeat CXR on 06/10 showed severe pulmonary edema 06/12 CXR showed mild improvement of interstitial prominence Successfully extubated yesterday Received 2mg Bumex on 06/12 and subsequently diuresed approximately 3L Currently stable and weaned off supplemental O2 Plan as above Qualifiers: Chronicity: acute Qualified Code(s): J81.0 - Acute pulmonary edema (4) RICHA (acute kidney injury) Current Visit: Yes Status: Acute Cr elevated on admission at 1.31 compared to baseline of 1.0 Remains elevated today but improving at 1.40 Likely caused by cardio-renal syndrome with acute CHF exacerbation Urine output with Lasix drip was not adequate in relation to therapy Gave Bumex 2mg IV on 06/12 with no further diuresis since Hold on further diuresis today as tolerated by respiratory status Avoid nephrotoxins Continue to monitor (5) Acute exacerbation of chronic obstructive airways disease Current Visit: No Status: Acute hx of COPD with albuterol inhaler at home Thought to be in acute exacerbation on admission Continues to be afebrile HR normal in the 70s No leukocytosis on admission - subsequent elevations likely 2/2 Solumedrol and improved with taper CXR from ED showed mild interstitial edema Likely 2/2 CHF exacerbation due to hypertensive crisis Discontinue Prednisone 40mg po (6) Leukocytosis Current Visit: Yes Status: Acute Improving at 10.3 today Likely 2/2 steroid therapy Afebrile Continue to monitor Qualifiers: Leukocytosis type: unspecified Qualified Code(s): D72.829 - Elevated white blood cell count, unspecified (7) DVT prophylaxis Current Visit: Yes Status: Acute SQ Heparin Subjective Principal diagnosis: Pulmonary Edema Interval history: Pt seen and examined at bedside. Resting comfortably in bed with no new or acute complaints. Inquiring about when she breakfast will arrive. She denies any fever, chills, chest pain, abdominal pain, nausea, or vomiting. Objective PUL Vital signs: Last Vital Signs Temp 97.9 F 06/14/18 04:24 Pulse 70 06/14/18 08:00 Resp 18 06/14/18 08:00 BP 144/93 06/14/18 08:00 Pulse Ox 96 06/14/18 08:00 General appearance: no acute distress, alert Eyes: nonicteric ENT: oropharynx moist Neck: supple, no lymphadenopathy, no JVD Effort: normal Auscultation: bilateral: diminished breath sounds Percussion: bilateral: not dull Tactile fremitus: bilateral: normal Cardiovascular: regular rate and rhythm Gastrointestinal: soft, non-tender, non-distended Integumentary: normal Extremities: no cyanosis, no edema, no clubbing, pink and warm, pulses normal Musculoskeletal: no deformities non-focal exam mood appropriate, affect normal Results - Laboratory Findings CBC and BMP: 06/14/18 03:44 06/14/18 03:44 ABG ABG pH 7.44 pH Units (7.32-7.45) 06/12/18 04:52 ABG pCO2 45 mmHg (35-45) 06/12/18 04:52 ABG pO2 83 mmHg (85-104) L 06/12/18 04:52 ABG O2 Saturation 96 % (95-98) 06/12/18 04:52 PT/INR, D-dimer PT 12.3 Seconds (9.4-12.1) H 06/09/18 07:45 Abnormal lab findings: Abnormal lab results RBC 3.01 M/mcL (3.82-4.97) L 06/14/18 03:44 Hgb 9.8 g/dL (11.5-15.4) L 06/14/18 03:44 Hct 30.0 % (35.3-44.9) L 06/14/18 03:44 Nucleated RBCs/100 WBC 0.1 /100 WBC (0) H 06/10/18 22:33 Macrocytosis Present (Not Present) A 06/10/18 22:33 PT 12.3 Seconds (9.4-12.1) H 06/09/18 07:45 ABG pO2 83 mmHg (85-104) L 06/12/18 04:52 ABG HCO3 31 mEq/L (21-27) H 06/12/18 04:52 ABG Total CO2 32 mEq/L (20-26) H 06/12/18 04:52 ABG Base Excess 6 mEq/L (-2 to 3) H 06/12/18 04:52 Potassium 3.4 mEq/L (3.5-5.1) L 06/14/18 03:44 BUN 54 mg/dL (8-23) H 06/14/18 03:44 Creatinine 1.40 mg/dL (0.60-1.20) H 06/14/18 03:44 Est GFR ( Amer) 44 (> 60) L 06/14/18 03:44 Est GFR (Non-Af Amer) 36 (> 60) L 06/14/18 03:44 BUN/Creatinine Ratio 39 (6-26) H 06/14/18 03:44 Glucose 121 mg/dL (70-105) H 06/14/18 03:44 POC Glucose 199 mg/dL (70-99) H 06/13/18 19:32 Phosphorus 2.5 mg/dL (2.7-4.5) L 06/14/18 03:44 B-Natriuretic Peptide 518 pg/mL (Less than 100) H 06/12/18 03:50 Serum Total Protein 6.1 g/dL (6.4-8.9) L 06/14/18 03:44 - Clinical Findings Intake & Output: Intake & Output 06/13/18 06/14/18 06/14/18 23:59 07:59 15:59 Intake Total 250 / 250 100 / 100 Output Total 400 / 400 200 / 200 Balance -150 / -150 -100 / -100
[2018-06-14] MEDS ORDERED: Naloxone 0.4 MG/ML INJ IVP PRN (13:39)
[2018-06-14] MEDS ORDERED: Dextrose Gel 15 GM/37.5 ML TUBE PO PRN ×2 (13:39)
[2018-06-14] MEDS ORDERED: D5% in Water 1,000 ML IVC PRN (13:39)
[2018-06-14] MEDS ORDERED: *HR* OxyCODONE Immed Rel 5 MG TABLET PO PRN (13:39)
[2018-06-14] MEDS ORDERED: Haloperidol Lactate 5 MG/ML VIAL IVP PRN (13:39)
[2018-06-14] MEDS ORDERED: Ipratropium/Albuterol Neb 3 ML IH PRN (13:39)
[2018-06-14] MEDS ORDERED: *HR* Metoprolol 5 MG/5 ML VIAL IVP PRN (13:39)
[2018-06-14] MEDS ORDERED: *HR* Dextrose 50 % in Water (Syg) 50 ML SYRINGE IVP PRN (13:39)
[2018-06-14] MEDS ORDERED: hydrALAZINE 10 MG TABLET PO SCH (15:00)
[2018-06-14] MEDS: Sennosides/Docusate Sodium TABLET PO SCH (20:09)
[2018-06-14] MEDS: Melatonin 3 MG TABLET PO PRN (21:24)
[2018-06-15] MEDS ORDERED: *HR* Labetalol 20 MG/4 ML SYRINGE IVP ONE (00:53)
[2018-06-15 05:14] LABS: Basophils % 0.1 %; Eosinophils % 0.3 %; Hematocrit 31.1 % (35.3-44.9); Hemoglobin 10.2 g/dL (11.5-15.4); Immature Granulocytes % 0.4 % (0-4); Lymphocytes # 1.9 K/mcL (0.6-4.6); Lymphocytes % 16.1 %; Mean Corpuscular HGB Conc 32.8 g/dL (31.6-35.5); Mean Corpuscular Hemoglobin 32.4 pg (28.0-33.3); Mean Corpuscular Volume 98.7 fL (83.0-100.0); Mean Platelet Volume 10.9 fL (9.4-12.4); Monocytes # 0.9 K/mcL (0.0-1.3); Monocytes % 7.7 %; Neutrophils # 8.9 K/mcL (1.6-8.9); Platelet Count 215 K/mcL (140-400); Red Blood Count 3.15 M/mcL (3.82-4.97); Segmented Neutrophils % 75.4 %
[2018-06-15 05:37] LABS: Albumin 3.4 g/dL (3.5-5.7); Albumin/Globulin Ratio 1.3 (1.1-2.2); Bilirubin,Total 0.7 mg/dL (0.3-1.0); Calcium 9.2 mg/dL (8.6-10.3); Globulin 2.7 g/dL (2.4-3.5); Phosphorous 2.6 mg/dL (2.7-4.5); Potassium 3.5 mEq/L (3.5-5.1); Total Protein 6.1 g/dL (6.4-8.9)
[2018-06-15] MEDS: *HR* Heparin 5,000 UNIT/ML VIAL SQ SCH ×2 (06:35→18:55)
--- NOTE | 2018-06-15 08:43 | Internal Med Progress Note ---
Hospitalist Progress Note - Encounter Date of Encounter: 06/15/18 Time of Encounter: 09:00 - Subjective Interval History: Ms May is a 83 y.o pleasant female with CAD, CHF(E.F 30%), HTN, COPD (not on home oxygen) initially came in because of shortness of breath and cough for a week, but was eventually admitted to the ICU and was intubated because of acute on chronic hypoxic hypercapnic respiratory failure, chronic pulmonary edema, cardiorenal syndrome and HTN. She underwent treatment with bumex for her pulmonary edema, tight BP control with Lisinopril 10mg and Carvedilol 12.5, was on Z pack and solumedrol for her COPD. Currently patient is s/p extubation, satting in room air at 83%. Denies any worsening shortness of breath, chest pain, palpitations. - Exam Vitals: Temp Pulse Resp BP Pulse Ox 99.5 F 70 16 178/64 93 06/15/18 07:52 06/15/18 07:52 06/15/18 07:52 06/15/18 07:52 06/15/18 07:52 Exam: General: Alert and oriented 4. In mild distress due to constipation and slight shortness of breath. Cardiovascular: Normal S1 & S2, no rubs, murmurs or gallops. No JVD. Pulse regular. Lungs: Diffuse bilateral expiratory wheezing, Abdomen: Soft, non-tender, no rigidity. Extremities: No deformity, no edema or tenderness, no joint swelling or c lubbing. Neurological: Normal cognition and motor skills. Rest of the physical exam is non contributory - Assessment and Plan (1) Hypertension Current Visit: No Status: Chronic Assessment and Plan: - Patient has a history of hypertension. - She was recently stepped down from the ICU and was on PRN Lopressor and hydralazine for her HTN there. In t he ICU she wa also on her home dose of Coreg. -Current blood pressure is 178/64, is a little higher than her baseline which is 150 systolic. -She is on isosorbide mononitrate as one of her home medications, if she needs blood pressure control he can potentially start her back on that medication. (2) Congestive heart failure Current Visit: No Status: Chronic Assessment and Plan: - Has a history of CHF. Was recently admitted to the ICU because of acute exacerbation with hydrostatic pulmonary edema, and was intubated. She was in itially on Lasix drip was switched to 2 mg Bumex. Currently patient is day one status post extubation, euvolemic on exam, no evidence of JVD or edema in extremities. - Most recent chest x-ray shows mild improvement of her interstitial edema - Fluid restriction to 1.5 L a day., daily weights, Strict Is/Os (3) COPD (chronic obstructive pulmonary disease) Current Visit: No Status: Acute Assessment and Plan: - Has a history of COPD. She has a smoking history of 60 pack years and quit smoking this August. Uses Ventolin as a rescue inhaler not sure what her long acting inhalers are. - She just finished a 4 day course and ICU because of acute on chronic hypercapnic respiratory failure and had to be intubated , however currently she satting at 93% on room air. - Physical exam there are bilateral diffuse expiratory wheezes. No rales or rhonchi. -Duoneb PRN, incentive spirometry would help to rectify the V/Q mismatch - Get a 6 minute walk test for oxygen qualification for being sent home (4) Chronic kidney disease Current Visit: No Status: Chronic Assessment and Plan: - Patient has a history stage 3 chronic kidney disease. This could be secondary to her history of hypertension. She was admitted with creatinine of 1.7 which is trending upwards and was in the ICU. Could be secondary to her cardiorenal syndrome. -Currently the creatinine is trending down 1.35 - Continue to monitor, avoid nephrotoxic agents. (5) Coronary artery disease Current Visit: No Status: Chronic Assessment and Plan: - She has a history of coronary artery disease. -Continue aspirin and Plavix. (6) Hypokalemia Current Visit: No Status: Acute Assessment and Plan: - Resolved. She was hypokalemic most likely due to diuresis for her CHF exacerbation. - Continue to monitor, monitor electrolytes and replace them as needed. (7) Leukocytosis Current Visit: Yes Status: Acute Assessment and Plan: - Continues to be leukocytotic with current WBC : 11.8 , likely due to her steroid therapy that she is on because of COPD. -Afebrile physical exam, denies any worsening SOB, chest pain or palpitation. DVT Prophylaxis: Patient on heparin 5000 units subcutaneous twice a day for DVT prophylaxis - Time Spent with Patient Total time spent is greater than 50% in coordination of care (as documented) at patient's floor/unit and/or counseling patient: Internal Medicine: Result - Labs CBC & Chem 7: 06/15/18 04:23 06/15/18 04:23 Labs: Short CBC 06/15/18 Range/Units 04:23 WBC 11.8 H (4.3-11.1) K/mcL Hgb 10.2 L (11.5-15.4) g/dL Hct 31.1 L (35.3-44.9) % Plt Count 215 (140-400) K/mcL Neutrophils # 8.9 (1.6-8.9) K/mcL BMP 06/15/18 04:23 Sodium 142 Potassium 3.5 Chloride 103 Carbon Dioxide 27 BUN 48 H Creatinine 1.35 H Glucose 94 Calcium 9.2 Liver Function 06/15/18 Range/Units 04:23 Total Bilirubin 0.7 (0.3-1.0) mg/dL AST 26 (13-39) Units/L ALT 28 (7-52) Units/L Alkaline Phosphatase 62 (34-104) Units/L Albumin 3.4 L (3.5-5.7) g/dL - ABG Interpretation ABG results: ABG ABG pH 7.44 pH Units (7.32-7.45) 06/12/18 04:52 ABG pCO2 45 mmHg (35-45) 06/12/18 04:52 ABG pO2 83 mmHg (85-104) L 06/12/18 04:52 ABG O2 Saturation 96 % (95-98) 06/12/18 04:52 PT/INR, D-dimer PT 12.3 Seconds (9.4-12.1) H 06/09/18 07:45 Consult Discharge Plan - Plan Referrals: Mitchell Greer Jr, MD [Primary Care Provider] - 06/20/18 11:00 am (Follow up as scheduled. ) (1) Hypertension Qualifiers: Hypertension type: essential hypertension Qualified Code(s): I10 - Essential (primary) hypertension (2) Congestive heart failure Qualifiers: Heart failure type: systolic Heart failure chronicity: acute on chronic Qualified Code(s): I50.23 - Acute on chronic systolic (congestive) heart failure (3) COPD (chronic obstructive pulmonary disease) Qualifiers: COPD type: COPD with acute exacerbation Qualified Code(s): J44.1 - Chronic obstructive pulmonary disease with (acute) exacerbation (4) Chronic kidney disease Qualifiers: Chronic kidney disease stage: stage 3 (moderate) Qualified Code(s): N18.3 - Chronic kidney disease, stage 3 (moderate) (5) Coronary artery disease Qualifiers: Coronary Disease-Associated Artery/Lesion type: unspecified vessel or lesion type [place] vs. transplanted heart: [place] heart Associated angina: without angina Qualified Code(s): I25.10 - Atherosclerotic heart disease of [place] coronary artery without angina pectoris (7) Leukocytosis Qualifiers: Leukocytosis type: unspecified Qualified Code(s): D72.829 - Elevated white blood cell count, unspecified
[2018-06-15] MEDS: Aspirin 81 MG TAB.CHEW PO SCH (09:39)
[2018-06-15] MEDS: Sennosides/Docusate Sodium TABLET PO SCH ×2 (09:40→20:41)
[2018-06-15] MEDS: Insulin LISPRO 300 UNITS/3 ML VIAL SQ SCH ×4 (09:40→23:22)
--- NOTE | 2018-06-15 15:43 | Electrocardiograph Report ---
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
[2018-06-15] MEDS: Isosorbide MONOnitrate (24 HR) 30 MG TAB.ER.24H PO SCH (18:55)
--- NOTE | 2018-06-15 19:30 | Event Note ---
Date of Encounter: 06/15/18 Time of Encounter: 12:30 [facility] is not allowing me to cosign today's note at this time. I examined this patient and my medical decision-making was reviewed with the Resident Physician on 06/15/18. I agree with the documented findings, disposition and treatment plan as described except to the extent set forth below. Ms May is currently admitted for acute respiratory failure due to CHF. She remains moderate to high risk due to potential for worsening clinical status. Ms May says her dog is having surgery and she wants to go home. She is still having some dyspnea but not as bad as before. No fever or chills. No chest pain or abd pain. No GI issues. Exam alert Confused to place and time Mucus membranes dry Heart reg and not tachy Lungs clear at this time Abd soft and nontender No edema I/P 1. Acute resp failure due to CHF - resolved 2. Pulmonary edema 3. COPD exac 4. Acute exac systollic CHF - resolved. 5. HTN 6. Delirium At this point she remains delirious. Will continue same plan of management. Discharge planning.
[2018-06-15] MEDS: Melatonin 3 MG TABLET PO PRN (23:20)
[2018-06-16 05:59] LABS: Basophils % 0.1 %; Eosinophils # 0.2 K/mcL (0.0-0.6); Eosinophils % 2.8 %; Hematocrit 30.1 % (35.3-44.9); Hemoglobin 9.8 g/dL (11.5-15.4); Immature Granulocytes % 0.2 % (0-4); Lymphocytes # 2.2 K/mcL (0.6-4.6); Mean Corpuscular HGB Conc 32.6 g/dL (31.6-35.5); Mean Corpuscular Hemoglobin 32.3 pg (28.0-33.3); Mean Corpuscular Volume 99.3 fL (83.0-100.0); Mean Platelet Volume 10.6 fL (9.4-12.4); Monocytes # 0.6 K/mcL (0.0-1.3); Monocytes % 7.2 %; Neutrophils # 5.4 K/mcL (1.6-8.9); Platelet Count 198 K/mcL (140-400); Red Blood Count 3.03 M/mcL (3.82-4.97); Red Cell Distribution Width 13.7 % (11.5-14.5); Segmented Neutrophils % 63.7 %
[2018-06-16 06:17] LABS: Potassium 3.7 mEq/L (3.5-5.1)
[2018-06-16] MEDS: *HR* Heparin 5,000 UNIT/ML VIAL SQ SCH (06:42)
[2018-06-16] MEDS: Insulin LISPRO 300 UNITS/3 ML VIAL SQ SCH ×2 (08:56→11:45)
[2018-06-16] MEDS: Aspirin 81 MG TAB.CHEW PO SCH (08:58)
[2018-06-16] MEDS: Sennosides/Docusate Sodium TABLET PO SCH (08:59)
[2018-06-16] MEDS: Isosorbide MONOnitrate (24 HR) 30 MG TAB.ER.24H PO SCH (08:59)
--- NOTE | 2018-06-16 10:37 | Discharge Summary ---
- NOTES TO OUTPATIENT PROVIDER Notes to Outpatient Provider: Admitted for acute exac COPD. Developed acute pulmonary edema and was intubated. She improved quickly and now is baseline and doing well. Date of Encounter: 06/16/18 Time of Encounter: 10:34 - Discharge Diagnosis (1) Hypertension Priority: Secondary Status: Chronic Qualifiers: Hypertension type: essential hypertension Qualified Code(s): I10 - Essential (primary) hypertension (2) COPD (chronic obstructive pulmonary disease) Priority: Primary Status: Resolved Qualifiers: COPD type: COPD with acute exacerbation Qualified Code(s): J44.1 - Chronic obstructive pulmonary disease with (acute) exacerbation (3) Chronic kidney disease Priority: Secondary Status: Chronic Qualifiers: Chronic kidney disease stage: stage 3 (moderate) Qualified Code(s): N18.3 - Chronic kidney disease, stage 3 (moderate) (4) Coronary artery disease Priority: Secondary Status: Chronic Qualifiers: Coronary Disease-Associated Artery/Lesion type: [place] artery [place] vs. transplanted heart: [place] heart Associated angina: without angina Qualified Code(s): I25.10 - Atherosclerotic heart disease of [place] coronary artery without angina pectoris (5) Hypokalemia Priority: Secondary Status: Resolved (6) Congestive heart failure Priority: Secondary Status: Resolved Qualifiers: Heart failure type: systolic Heart failure chronicity: acute on chronic Qualified Code(s): I50.23 - Acute on chronic systolic (congestive) heart failure (7) Leukocytosis Priority: Secondary Status: Resolved Qualifiers: Leukocytosis type: unspecified Qualified Code(s): D72.829 - Elevated white blood cell count, unspecified Hospital course: Ms. May is a 83 year old female with hx of CAD and CHF presented to ED with dyspnea. She was admitted with acute exac COPD. Ms May was in observation for acute exac COPD. She initially did well but became very hypertensive and developed acute pulmonary edema. She was intubated and taken to ICU. She was diuresed with improvement and extubated. She was transferred to telemetry. She continued to improve and was taken off oxygen. She had some mild confusion which appears to be baseline. Today she is alert and oriented. She ambulates well and is off oxygen. She is afebrile. Her BP is still somewhat elevated. Norvasc added today. Discharge discussed with: patient - Time Spent with Patient Total time spent providing and/or coordinating discharge services: 41min - Discharge Medications Prescriptions: amLODIPine [Norvasc] 2.5 mg PO DAILY #30 tablet Home Medications: Aspirin Enteric Coated [Aspirin EC] 81 mg PO DAILY 09/13/17 [History] Cyanocobalamin (Vitamin B-12) [Vitamin B-12] 500 mcg PO DAILY 09/13/17 [History] Furosemide [Lasix] 40 mg PO DAILY PRN 09/13/17 [History] Multivit-Min/FA/Lycopen/Lutein [Centrum Silver Tablet] 1 each PO DAILY 09/13/17 [History] Nitroglycerin [Nitrostat] 0.4 mg SL Q5M PRN 09/13/17 [History] [place]-3/Dha/Epa/Fish Oil [[place]-3 Fish Oil 1,000 mg Sfgl] 1,000 mg PO DAILY 09/13/17 [History] Clopidogrel [Plavix] 75 mg PO DAILY #0 tablet 11/15/17 [Rx] Albuterol Sulfate [Ventolin Hfa] 2 puff IH Q6H PRN 06/09/18 [History] Atorvastatin [Lipitor] 40 mg PO HS 06/09/18 [History] Carvedilol [Coreg] 25 mg PO BID 06/09/18 [History] Isosorbide MONOnitrate (24 HR) [Imdur] 30 mg PO DAILY 06/09/18 [History] amLODIPine [Norvasc] 2.5 mg PO DAILY #30 tablet 06/16/18 [Rx] Allergies/Adverse Reactions: Allergy/AdvReac Type Severity Reaction Status Date / Time latex Allergy Hives Verified 06/09/18 10:56 lisinopril AdvReac Abdominal Verified 06/09/18 10:56 Pain Date of admission: 06/09/18 15:14 Primary care physician: Mitchell Greer Jr, MD Consults: 06/09/18 10:37 Consult to Protein Scientist [CONS] Stat Reason for SW Consult: possible need for home health and home o2. 06/10/18 21:25 Consult to Nutrition [CONS] Routine Comment: Consulting Provider: NUTRITION Reason for Dietary Consult: Tube Feed Start & Manage 06/10/18 22:54 Consult to Critical Care [CONS] Routine Consulting Provider: Pulm Crit Care & Sleep [place] Reason for Consult: acute respiratory failure Call Completed: Yes Discharging clinician: Armin Rhoades Anticipated date of discharge: 06/16/18 - Constitutional Vitals: Temp Pulse Resp BP Pulse Ox 97.8 F 70 16 199/94 96 06/16/18 07:22 06/16/18 07:22 06/16/18 07:22 06/16/18 07:22 06/16/18 07:22 General appearance: Present: A&O X 3, answers questions appropriately Exam: See below - Head Head exam: Present: normocephalic - Eye Eye exam: Present: EOMI, conjuntiva pink - ENT ENT exam: Present: mucous membranes moist - Respiratory Respiratory exam: Present: CTAB. Absent: rales, rhonchi, wheezes - Cardiovascular Cardiovascular exam: Present: RRR. Absent: tachycardia - GI/Abdominal GI/Abdominal exam: Present: soft. Absent: tenderness - Extremities Exam Extremities exam: Present: warm. Absent: tenderness - Neurological Exam Neurological exam: Present: alert, oriented X3 - Skin Skin exam: Present: dry, warm - Patient Status Disposition: Home, Self-Care Condition: Fair Functional capacity at discharge: independent ambulation Overall status at discharge: patient is progressing back to baseline - Discharge Instructions Instructions: Amlodipine (By mouth), Acute Respiratory Distress Syndrome (DC), Chronic Obstructive Pulmonary Disease (DC), Hypertension (DC) Follow Up With: Mitchell Greer Jr, MD [Primary Care Provider] - 06/20/18 11:00 am (Follow up as scheduled. ) - Diet and Activity Activity: increase activity as tolerated Diet: advance to your usual diet
[2018-06-16] MEDS ORDERED: amLODIPine 5 MG TABLET PO ONE (10:51)
[2018-06-16 11:39] VITALS: BP 163/84
== END 2018-06-16 12:41 | disposition home or self-care (01) | DRG 208 ==
LOC: EMEROOARM 06:01 → 2NNU 06:01 → SUATTDRO 15:14 → ICNU 06-10 21:20 → 2ANU 06-14 13:35
PROVIDERS: ADMIT Internal Medicine; ATTEND Internal Medicine

== ENCOUNTER 2019-03-15 15:21 | Inpatient (IN) ==
--- NOTE | 2019-03-15 16:47 | Emergency Department Note ---
Disposition Clinical Impression: DVT (deep venous thrombosis) Qualifiers: DVT location: lower extremity Affected thrombotic vein of extremity: unspecified vein of extremity Chronicity: acute Laterality: left Qualified Code(s): I82.402 - Acute embolism and thrombosis of unspecified deep veins of left lower extremity Cellulitis Qualifiers: Site of cellulitis: extremity Site of cellulitis of extremity: lower extremity Laterality: left Qualified Code(s): L03.116 - Cellulitis of left lower limb Disposition: Admitted As Inpatient Condition: Good Referrals: Mitchell Greer Jr, MD [Primary Care Provider] - Forms: ED Satisfaction Letter Time of Disposition: 18:30 General Adult HPI - General Chief complaint: ED Extremity Problem,Nontraumatic Stated complaint: Left foot pain Time Seen by Provider: 03/15/19 15:28 Source: patient, EMS Limitations: no limitations - History of Present Illness HPI Narrative: 84-year-old female with end-stage COPD that was recently on hospice this coming in to the ER after coming off hospice with complaints of a swollen left ex tremity and pain in her left foot. Patient states that this has been going on for several months now but she was bothered by today and wanted to get it checked out. Patient notes that the pain in her foot is intermittent, and sometimes it hurts more to walk, however sometimes it does not hurt at all to walk. Patient describes the pain when it happens as sharp in nature, with a throbbing component. She says it is about an 8 out of 10 in severity. Pain Scale: 4 - Related Data Home Medications Medication Instructions Recorded Confirmed Aspirin Enteric Coated [Aspirin EC] 81 mg PO DAILY 09/13/17 07/22/18 Cyanocobalamin (Vitamin B-12) 500 mcg PO DAILY 09/13/17 07/22/18 [Vitamin B-12] Furosemide [Lasix] 40 mg PO DAILY PRN 09/13/17 07/22/18 Multivit-Min/FA/Lycopen/Lutein 1 each PO DAILY 09/13/17 07/22/18 [Centrum Silver Tablet] Nitroglycerin [Nitrostat] 0.4 mg SL Q5M PRN 09/13/17 07/22/18 [place]-3/Dha/Epa/Fish Oil [[place]-3 1,000 mg PO DAILY 09/13/17 07/22/18 Fish Oil 1,000 mg Sfgl] Albuterol Sulfate [Ventolin Hfa] 2 puff IH Q6H PRN 06/09/18 07/22/18 Atorvastatin [Lipitor] 40 mg PO HS 06/09/18 07/22/18 Losartan Potassium 25 mg PO DAILY 07/22/18 07/22/18 Metoprolol XL (24 HR) Succ [Toprol 25 mg PO DAILY 07/22/18 07/22/18 Xl] Previous Rx's Medication Instructions Recorded Clopidogrel [Plavix] 75 mg PO DAILY #0 tablet 11/15/17 Carvedilol [Coreg] 25 mg PO BIDWM tablet 07/30/18 Isosorbide DInitrate [Isordil] 20 mg PO TIDAC tablet 07/30/18 Melatonin 3 mg PO HS PRN tablet 07/30/18 Allergies Allergy/AdvReac Type Severity Reaction Status Date / Time latex Allergy Hives Verified 07/21/18 16:44 lisinopril AdvReac Abdominal Verified 07/21/18 16:44 Pain Review of Systems: In addition to that documented in the HPI above, the additional ROS was obtained: Constitutional: Denies fevers or chills Eyes: Denies vision changes ENMT: Denies sore throat CV: Denies chest pain Resp: Reports SOB GI: Denies vomiting or diarrhea Reports constipation : Denies painful urination MSK: Denies recent trauma Skin: Denies new rashes Neuro: Denies new numbness or tingling or weakness Endocrine: Denies unexpected weight loss Heme: Denies bleeding disorders Past Medical History - Past Medical History Medical history: Reports: CHF, COPD, coronary artery disease, GERD, hyperlipidemia, hypertension, peripheral artery disease Surgical history: Reports: hysterectomy, knee replacement, orthopedic, other Psychiatric history: Reports: no psych history [employer]FFER history: Reports: non-contributory - Social History Smoking Status: Former smoker Smokeless Tobacco Status: No Alcohol use: Reports: none Drug use: Reports: none Physical Exam General: A&O x 3. No acute distress. Well developed, well nourished. Head: atraumatic, normocephalic. ENT: No conjunctival injection, no scleral icterus. PERRLA. EOMI. Oropharynx non- erythematous. mucous membranes moist. Neuro: No focal deficits, no speech deficit, no facial droop, mentating well. BUE/BLE Str 5/5. Pulm: Lungs CTAB A/P. No wheezes, rales, ronchi. Cardio: RRR no m/r/g. Chest not tender to palpation. Abd: Soft, non-distended. Normoactive bowel sounds. Non-tender to palpation. No guarding. Non rigid. Extremities: Radial pulses 2+ billy, bilateral femoral pulses 2+. LLE is erythematous to the level of her mid-thigh, and she states it is painful to the level of mid-calf. No temperature difference between RLE and LLE. LLE appears larger than RLE. Left foot has skin scaling and tip of left great toe has a small laceration approximately 2cm in length over medial aspect of great toe. Skin: As noted above in extremities, otherwise has some ecchymosis on left arm consistent with blood thinner use Psych: Appropriate mood and affect. Answers questions appropriately. Cooperative with exam. - General Limitations: no limitations General appearance: alert, in no apparent distress Course Vital Signs Temperature 97.6 F 03/15/19 15:25 Pulse Rate 70 03/15/19 15:25 Respiratory Rate 18 03/15/19 15:25 Blood Pressure 145/62 03/15/19 15:25 O2 Sat by Pulse Oximetry 95 03/15/19 15:25 Temperature 97.6 F 03/15/19 15:25 Pulse Rate 70 03/15/19 15:25 Respiratory Rate 18 03/15/19 15:25 Blood Pressure 145/62 03/15/19 15:25 O2 Sat by Pulse Oximetry 95 03/15/19 15:25 Oxygen Delivery Oxygen Delivery Room Air Medical Decision Making - [facility] [place] Narrative Medical decision making narrative: 84-year-old female that presents with concerns of swollen left lower extremity. Patient will need to have lower extremity Doppler, suspect that she will need to be admitted. Concern for osteomyelitis and will order x-ray as well as CBC, BMP, ESR, CRP. We will get an EKG. Patient's lower extremity Doppler resulted in a clot to the whole leg as reported to me by the Doppler hazmat tanker driver, she states that it is only sparing the lesser saphenous vein. We will admit the patient to the hospitalist. Patient will be started on standard dose heparin. Patient was admitted to the hospitalist Dr. Gaines who agreed to accept the patient to her service. Results of the workup including any imaging and/or labwork was shared with the patient at bedside. Patient was given an opportunity to ask questions at bedside and all of their concerns were addressed. Patient verbalized understanding and agreement with plan of care. Pt remained stable while in the department. - Medical Records Medical records reviewed: Yes I reviewed the patient's medical records. - Lab Data Lab results reviewed: Yes I reviewed the patient's lab results. Result diagrams: 03/15/19 16:33 03/15/19 16:33 Lab Results 03/15/19 03/15/19 03/15/19 Range/Units 16:33 16:33 16:33 WBC 10.4 (4.3-11.1) K/mcL RBC 3.18 L (3.82-4.97) M/mcL Hgb 10.7 L (11.5-15.4) g/dL Hct 32.7 L (35.3-44.9) % MCV 102.8 H (83.0-100.0) fL MCH 33.6 H (28.0-33.3) pg MCHC 32.7 (31.6-35.5) g/dL RDW 17.4 H (11.5-14.5) % Plt Count 197 (140-400) K/mcL MPV 10.0 (9.4-12.4) fL Immature Gran % 0.7 (0-4) % Seg Neutrophils % 88.6 % Lymphocytes % 7.6 % Monocytes % 2.8 % Eosinophils % 0.2 % Basophils % 0.1 % Neutrophils # 9.2 H (1.6-8.9) K/mcL Lymphocytes # 0.8 (0.6-4.6) K/mcL Monocytes # 0.3 (0.0-1.3) K/mcL Eosinophils # 0.0 (0.0-0.6) K/mcL Basophils # 0.0 (0.0-0.2) K/mcL ESR 59 H (0-15) mm/hr PT 11.0 (9.4-12.1) Seconds INR 1.0 APTT 23.6 L (26.0-36.0) Seconds Heparin Anti-Xa, Unfract (0.30-0.70) IU/mL Sodium (136-145) mEq/L Potassium (3.5-5.1) mEq/L Chloride (98-107) mEq/L Carbon Dioxide (23-29) mEq/L BUN (8-23) mg/dL Creatinine (0.60-1.20) mg/dL Est GFR ( Amer) (> 60) Est GFR (Non-Af Amer) (> 60) BUN/Creatinine Ratio (6-26) Glucose (70-105) mg/dL Calculated Osmolality (280-300) Calcium (8.6-10.3) mg/dL C-Reactive Protein (Less than 10) mg/L 03/15/19 03/15/19 Range/Units 16:33 18:40 WBC (4.3-11.1) K/mcL RBC (3.82-4.97) M/mcL Hgb (11.5-15.4) g/dL Hct (35.3-44.9) % MCV (83.0-100.0) fL MCH (28.0-33.3) pg MCHC (31.6-35.5) g/dL RDW (11.5-14.5) % Plt Count (140-400) K/mcL MPV (9.4-12.4) fL Immature Gran % (0-4) % Seg Neutrophils % % Lymphocytes % % Monocytes % % Eosinophils % % Basophils % % Neutrophils # (1.6-8.9) K/mcL Lymphocytes # (0.6-4.6) K/mcL Monocytes # (0.0-1.3) K/mcL Eosinophils # (0.0-0.6) K/mcL Basophils # (0.0-0.2) K/mcL ESR (0-15) mm/hr PT (9.4-12.1) Seconds INR APTT (26.0-36.0) Seconds Heparin Anti-Xa, Unfract 0.06 L (0.30-0.70) IU/mL Sodium 135 L (136-145) mEq/L Potassium 4.2 (3.5-5.1) mEq/L Chloride 105 (98-107) mEq/L Carbon Dioxide 25 (23-29) mEq/L BUN 38 H (8-23) mg/dL Creatinine 1.81 H (0.60-1.20) mg/dL Est GFR ( Amer) 32 L (> 60) Est GFR (Non-Af Amer) 27 L (> 60) BUN/Creatinine Ratio 21 (6-26) Glucose 147 H (70-105) mg/dL Calculated Osmolality 292 (280-300) Calcium 8.9 (8.6-10.3) mg/dL C-Reactive Protein 81 H (Less than 10) mg/L - Radiology Data Radiology results reviewed: Yes I reviewed the patient's radiology results. Lower Extremity CT 03/15/19 16:18 IMPRESSION: 1. Nonspecific diffuse subcutaneous fat stranding compatible with bland edema versus cellulitis. No drainable fluid collection. 2. No acute osseous abnormality. D/ / Heriberto Callahan MD / Heriberto Callahan MD Interpreting Provider: Heriberto Callahan MD - EKG Data EKG #1 EKG attestation: Yes I reviewed and interpreted this EKG. EKG results narrative: Heart rate 70, rhythm atrial-ventricular dual paced, axis extreme right. DC 129, QRS 162 and prolonged, QTc [address] elevation noted, but does not qualify for STEMI per Sgarbossa criteria. Previous EKG datred 07/22/2018 does not show any significant changes.
[2019-03-15 16:51] LABS: Basophils % 0.1 %; Eosinophils % 0.2 %; Hematocrit 32.7 % (35.3-44.9); Hemoglobin 10.7 g/dL (11.5-15.4); Immature Granulocytes % 0.7 % (0-4); Lymphocytes # 0.8 K/mcL (0.6-4.6); Lymphocytes % 7.6 %; Mean Corpuscular HGB Conc 32.7 g/dL (31.6-35.5); Mean Corpuscular Hemoglobin 33.6 pg (28.0-33.3); Mean Corpuscular Volume 102.8 fL (83.0-100.0); Monocytes # 0.3 K/mcL (0.0-1.3); Monocytes % 2.8 %; Neutrophils # 9.2 K/mcL (1.6-8.9); Platelet Count 197 K/mcL (140-400); Red Blood Count 3.18 M/mcL (3.82-4.97); Red Cell Distribution Width 17.4 % (11.5-14.5); Segmented Neutrophils % 88.6 %; White Blood Count 10.4 K/mcL (4.3-11.1)
[2019-03-15 17:02] LABS: Activated Partial Thrombo Time 23.6 Seconds (26.0-36.0)
[2019-03-15 17:09] LABS: Calcium 8.9 mg/dL (8.6-10.3); Potassium 4.2 mEq/L (3.5-5.1)
[2019-03-15] MEDS ORDERED: *HR* Heparin 5,000 UNIT/ML VIAL IVP ONE (18:17)
[2019-03-15] MEDS ORDERED: *HR* Heparin 5,000 UNIT/ML VIAL IVP PRN ×2 (18:17)
[2019-03-15] MEDS: Heparin 25,000 UNIT/250 ML D5W 25,000 UNIT/250 ML IV.SOLN IVC SCH (18:48)
--- NOTE | 2019-03-15 18:58 | Emergency Department Note ---
Disposition Clinical Impression: DVT (deep venous thrombosis) Qualifiers: DVT location: lower extremity Affected thrombotic vein of extremity: unspecified vein of extremity Chronicity: acute Laterality: left Qualified Code(s): I82.402 - Acute embolism and thrombosis of unspecified deep veins of left lower extremity Cellulitis Qualifiers: Site of cellulitis: extremity Site of cellulitis of extremity: lower extremity Laterality: left Qualified Code(s): L03.116 - Cellulitis of left lower limb Disposition: Admitted As Inpatient Condition: Good Referrals: Mitchell Greer Jr, MD [Primary Care Provider] - Forms: ED Satisfaction Letter Time of Disposition: 18:58 (]) General Adult HPI - General Chief complaint: ED Extremity Problem,Nontraumatic Stated complaint: Left foot pain Time Seen by Provider: 03/15/19 15:28 Source: patient, EMS Limitations: no limitations - History of Present Illness Pain Scale: 4 - Related Data Home Medications Medication Instructions Recorded Confirmed Aspirin Enteric Coated [Aspirin EC] 81 mg PO DAILY 09/13/17 07/22/18 Cyanocobalamin (Vitamin B-12) 500 mcg PO DAILY 09/13/17 07/22/18 [Vitamin B-12] Furosemide [Lasix] 40 mg PO DAILY PRN 09/13/17 07/22/18 Multivit-Min/FA/Lycopen/Lutein 1 each PO DAILY 09/13/17 07/22/18 [Centrum Silver Tablet] Nitroglycerin [Nitrostat] 0.4 mg SL Q5M PRN 09/13/17 07/22/18 [place]-3/Dha/Epa/Fish Oil [[place]-3 1,000 mg PO DAILY 09/13/17 07/22/18 Fish Oil 1,000 mg Sfgl] Albuterol Sulfate [Ventolin Hfa] 2 puff IH Q6H PRN 06/09/18 07/22/18 Atorvastatin [Lipitor] 40 mg PO HS 06/09/18 07/22/18 Losartan Potassium 25 mg PO DAILY 07/22/18 07/22/18 Metoprolol XL (24 HR) Succ [Toprol 25 mg PO DAILY 07/22/18 07/22/18 Xl] Previous Rx's Medication Instructions Recorded Clopidogrel [Plavix] 75 mg PO DAILY #0 tablet 11/15/17 Carvedilol [Coreg] 25 mg PO BIDWM tablet 07/30/18 Isosorbide DInitrate [Isordil] 20 mg PO TIDAC tablet 07/30/18 Melatonin 3 mg PO HS PRN tablet 07/30/18 Allergies Allergy/AdvReac Type Severity Reaction Status Date / Time latex Allergy Hives Verified 07/21/18 16:44 lisinopril AdvReac Abdominal Verified 07/21/18 16:44 Pain Past Medical History - Past Medical History Medical history: Reports: CHF, COPD, coronary artery disease, GERD, hyperlipidemia, hypertension, peripheral artery disease Surgical history: Reports: hysterectomy, knee replacement, orthopedic, other Psychiatric history: Reports: no psych history OPHTHALMIC ASST history: Reports: non-contributory - Social History Smoking Status: Former smoker Smokeless Tobacco Status: No Alcohol use: Reports: none Drug use: Reports: none Physical Exam - General Limitations: no limitations General appearance: alert, in no apparent distress Course Vital Signs Temperature 97.6 F 03/15/19 15:25 Pulse Rate 70 03/15/19 15:25 Respiratory Rate 18 03/15/19 15:25 Blood Pressure 145/62 03/15/19 15:25 O2 Sat by Pulse Oximetry 95 03/15/19 15:25 Temperature 97.6 F 03/15/19 15:25 Pulse Rate 70 03/15/19 15:25 Respiratory Rate 18 03/15/19 15:25 Blood Pressure 145/62 03/15/19 15:25 O2 Sat by Pulse Oximetry 03/15/19 15:25 Oxygen Delivery Oxygen Delivery Room Air Medical Decision Making - Lab Data Result diagrams: 03/15/19 16:33 03/15/19 16:33 Lab Results 03/15/19 03/15/19 03/15/19 Range/Units 16:33 16:33 16:33 WBC 10.4 (4.3-11.1) K/mcL RBC 3.18 L (3.82-4.97) M/mcL Hgb 10.7 L (11.5-15.4) g/dL Hct 32.7 L (35.3-44.9) % MCV 102.8 H (83.0-100.0) fL MCH 33.6 H (28.0-33.3) pg MCHC 32.7 (31.6-35.5) g/dL RDW 17.4 H (11.5-14.5) % Plt Count 197 (140-400) K/mcL MPV 10.0 (9.4-12.4) fL Immature Gran % 0.7 (0-4) % Seg Neutrophils % 88.6 % Lymphocytes % 7.6 % Monocytes % 2.8 % Eosinophils % 0.2 % Basophils % 0.1 % Neutrophils # 9.2 H (1.6-8.9) K/mcL Lymphocytes # 0.8 (0.6-4.6) K/mcL Monocytes # 0.3 (0.0-1.3) K/mcL Eosinophils # 0.0 (0.0-0.6) K/mcL Basophils # 0.0 (0.0-0.2) K/mcL ESR 59 H (0-15) mm/hr PT 11.0 (9.4-12.1) Seconds INR 1.0 APTT 23.6 L (26.0-36.0) Seconds Sodium (136-145) mEq/L Potassium (3.5-5.1) mEq/L Chloride (98-107) mEq/L Carbon Dioxide (23-29) mEq/L BUN (8-23) mg/dL Creatinine (0.60-1.20) mg/dL Est GFR ( Amer) (> 60) Est GFR (Non-Af Amer) (> 60) BUN/Creatinine Ratio (6-26) Glucose (70-105) mg/dL Calculated Osmolality (280-300) Calcium (8.6-10.3) mg/dL C-Reactive Protein (Less than 10) mg/L 03/15/19 Range/Units 16:33 WBC (4.3-11.1) K/mcL RBC (3.82-4.97) M/mcL Hgb (11.5-15.4) g/dL Hct (35.3-44.9) % MCV (83.0-100.0) fL MCH (28.0-33.3) pg MCHC (31.6-35.5) g/dL RDW (11.5-14.5) % Plt Count (140-400) K/mcL MPV (9.4-12.4) fL Immature Gran % (0-4) % Seg Neutrophils % % Lymphocytes % % Monocytes % % Eosinophils % % Basophils % % Neutrophils # (1.6-8.9) K/mcL Lymphocytes # (0.6-4.6) K/mcL Monocytes # (0.0-1.3) K/mcL Eosinophils # (0.0-0.6) K/mcL Basophils # (0.0-0.2) K/mcL ESR (0-15) mm/hr PT (9.4-12.1) Seconds INR APTT (26.0-36.0) Seconds Sodium 135 L (136-145) mEq/L Potassium 4.2 (3.5-5.1) mEq/L Chloride 105 (98-107) mEq/L Carbon Dioxide 25 (23-29) mEq/L BUN 38 H (8-23) mg/dL Creatinine 1.81 H (0.60-1.20) mg/dL Est GFR ( Amer) 32 L (> 60) Est GFR (Non-Af Amer) 27 L (> 60) BUN/Creatinine Ratio 21 (6-26) Glucose 147 H (70-105) mg/dL Calculated Osmolality 292 (280-300) Calcium 8.9 (8.6-10.3) mg/dL C-Reactive Protein 81 H (Less than 10) mg/L Attestation Statement - Attestation Attestation: I reviewed the residents documentation and agree with the residents assessment and plan of care. I have personally had face to face time with the patient. (Brief History, Brief Exam, and MDM) I personally supervised and was present for the robertson/critical portions of the following procedures completed by the resident: EKG 84 year old female presents to the ED with complanits of LLE pain and rednes with swelling and possible cellultis. It appears that she has a DVT of her entire LLE extedning from the hip to the ankle and SVT as well. Patinet does have increased redness and CT leg if concerned for edema vs cellulitis We will dose with zosyn and vanc x 1 for coverage but I do believe that this is likely secondary to venous stasis. Admit to medicine.
[2019-03-15] MEDS ORDERED: *HR* LORazepam 2 MG/ML VIAL IVP ONE (20:27)
[2019-03-15] MEDS ORDERED: Naloxone 0.4 MG/ML INJ IVP PRN (20:34)
--- NOTE | 2019-03-16 00:24 | Internal Med History&Physical ---
Date of Encounter: 03/16/19 Time of Encounter: 00:40 Internal Medicine - H&P: HPI Chief complaint: Left Leg DVT Admitted From: Emergency Dept Plans for Post Hospital Care: Home History of present illness: Ms. May is a 84 year old female Patient presented to the emergency department for swelling in her left foot he is a hospice patient and over the course of several months she has been having pain and swelling on and off. Patient would not answer questions or cooperate with exam. Family not available at bedside. She was taken to the emergency department for further evaluation. In the emergency department patient's initial vital signs were within normal limits 10.7 INR 1.0 BMP showed a creatinine of 1.81 and a glucose of 147. 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 EKG obtained on the medical floor showed atrial pacemaker and ventricular pacemaker. Ventricular rate 70 bpm, QTC 423. Lower extremity CT showed nonspecific diffuse subcutaneous fat stranding c ompatible with bland edema versus cellulitis. There was no drainable fluid collection. Venous duplex of the left lower extremity: Appears positive for DVT in the EIV, CFV, SFV, popiteal, PTV, and peroneal veins and positive for SVT in the GSV in the left lower extremity. Patient was started on heparin drip and sent to the medical floor for further evaluation. She was given 1.5 mg dose of Ativan prior to her departure for anxiety. Upon my evaluation, patient is resting comfortably in hospital bed in no acute distress. She would not answer my questions or cooperate with my exam. She was formally on hospice and her current CODE STATUS is unclear. We will need to review with family when they returned to the hospital in the morning. Past Med Surg Social Fam HX - Past Medical History Medical history: CHF, COPD, coronary artery disease, GERD, hyperlipidemia, hypertension, peripheral artery disease Additional medical history: Unknown heart problem. fall with broken ribs apr / may 2018? DNR-CC and on hospice care Psychiatric history: no psych history - Past Surgical History Surgical History: hysterectomy, knee replacement, orthopedic, other Additional surgical history: right shoulder, right hand, knee surgery - Social History Smoking Status: Former smoker Smokeless Tobacco Status: No Alcohol use: none Drug use: none - Family History Father Hx Family Cardiac Disorders: Yes Brother Hx Family Cancer: Yes (kidney) Mother Family Member Ethnicity: Non- Living Status: Internal Medicine - H&P: Meds Aspirin Enteric Coated [Aspirin EC] 81 mg PO DAILY 09/13/17 [History] Cyanocobalamin (Vitamin B-12) [Vitamin B-12] 500 mcg PO DAILY 09/13/17 [History] Furosemide [Lasix] 40 mg PO DAILY PRN 09/13/17 [History] Multivit-Min/FA/Lycopen/Lutein [Centrum Silver Tablet] 1 each PO DAILY 09/13/17 [History] Nitroglycerin [Nitrostat] 0.4 mg SL Q5M PRN 09/13/17 [History] [place]-3/Dha/Epa/Fish Oil [[place]-3 Fish Oil 1,000 mg Sfgl] 1,000 mg PO DAILY 09/13/17 [History] Clopidogrel [Plavix] 75 mg PO DAILY #0 tablet 11/15/17 [Rx] Albuterol Sulfate [Ventolin Hfa] 2 puff IH Q6H PRN 06/09/18 [History] Atorvastatin [Lipitor] 40 mg PO HS 06/09/18 [History] Losartan Potassium 25 mg PO DAILY 07/22/18 [History] Metoprolol XL (24 HR) Succ [Toprol Xl] 25 mg PO DAILY 07/22/18 [History] Carvedilol [Coreg] 25 mg PO BIDWM tablet 07/30/18 [Rx] Isosorbide DInitrate [Isordil] 20 mg PO TIDAC tablet 07/30/18 [Rx] Melatonin 3 mg PO HS PRN tablet 07/30/18 [Rx] Acetaminophen [Tylenol] 650 mg PO Q6HR 03/15/19 [History] Gabapentin [Neurontin] 300 mg PO HS 03/15/19 [History] Linaclotide [Linzess] 290 mcg PO DAILY PRN 03/15/19 [History] Mirtazapine [Remeron] 30 mg PO HS 03/15/19 [History] amLODIPine [Norvasc] 2.5 mg PO DAILY 03/15/19 [History] predniSONE [Prednisone] 10 mg PO QAM 03/15/19 [History] Allergy/AdvReac Type Severity Reaction Status Date / Time latex Allergy Hives Verified 07/21/18 16:44 lisinopril AdvReac Abdominal Verified 07/21/18 16:44 Pain ROS unobtainable: due to mental status All Systems PM: A 10-system review of systems was performed and is negative for pertinent findings except as documented above in the HPI. - Constitutional Vitals: Temp Pulse Resp BP Pulse Ox 96.6 F L 70 15 183/66 93 03/15/19 23:13 03/15/19 23:13 03/15/19 23:13 03/15/19 23:13 03/15/19 23:13 General appearance: Present: pleasant, no acute distress. Absent: cooperative, answers questions appropriately Exam: - - Head Head exam: Present: normal inspection - Respiratory Respiratory exam: Present: CTAB. Absent: respiratory distress, wheezes - Cardiovascular Cardiovascular exam: Present: RRR. Absent: diastolic murmur, systolic murmur - GI/Abdominal GI/Abdominal exam: Present: normal bowel sounds, soft - Extremities Exam Extremities exam: Present: pedal edema, warm, radial pulses palpable and sym metrical. Absent: tenderness Additional comments: Left lower ext redness and swelling 1+ pitting edema Left toes erythematous, no wounds noted. - Neurological Exam Additional comments: Could not assess due to patient condition - Skin Skin exam: Present: dry, erythema, warm Internal Med - H&P Results - Labs CBC & Chem 7: 03/16/19 00:26 03/16/19 00:26 Labs: Short CBC 03/15/19 Range/Units 16:33 WBC 10.4 (4.3-11.1) K/mcL Hgb 10.7 L (11.5-15.4) g/dL Hct 32.7 L (35.3-44.9) % Plt Count 197 (140-400) K/mcL Neutrophils # 9.2 H (1.6-8.9) K/mcL BMP 03/15/19 16:33 Sodium 135 L Potassium 4.2 Chloride 105 Carbon Dioxide 25 BUN 38 H Creatinine 1.81 H Glucose 147 H Calcium 8.9 - Impressions ITS Impressions Lower Extremity CT 03/15/19 16:18 IMPRESSION: 1. Nonspecific diffuse subcutaneous fat stranding compatible with bland edema versus cellulitis. No drainable fluid collection. 2. No acute osseous abnormality. D/ / Heriberto Callahan MD / Heriberto Callahan MD Interpreting Provider: Heriberto Callahan MD - Assessment and Plan (1) DVT (deep venous thrombosis) Current Visit: Yes Status: Acute Assessment and plan: Patient started on heparin drip in the emergency department. Patient's left leg has some swelling in the lower extremities in the foot is red. Low suspicion for cellulitis as patient's vital signs are within normal limits. No signs of wounds in the lower extremity. Continue heparin drip Consider antibiotics and treating for cellulitis if erythema not improving Qualifiers: DVT location: lower extremity Affected thrombotic vein of extremity: unspecified vein of extremity Chronicity: acute Laterality: left Qualified Code(s): I82.402 - Acute embolism and thrombosis of unspecified deep veins of left lower extremity (2) RICHA (acute kidney injury) Current Visit: No Status: Acute Assessment and plan: Patient has baseline chronic kidney disease stage III to stage IV. Initially her creatinine was 1.81, which improved to 1.66 on repeat blood work. Continue to monitor Avoid nephrotoxic medications Renally dose meds (3) Prolonged QT interval Current Visit: Yes Status: Acute Assessment and plan: EKG was performed in the emergency department and was documented to have a QTC of 619. Despite searching for this EKG, could not be found. Repeat EKG once arrived to the floor showed a QTC of 423. When compared to previous EKG from 7 months ago it appeared similar. He has an atrial and ventricular paced rhythm. Continue cardiac telemetry (4) Code status needs review Current Visit: Yes Status: Acute Assessment and plan: Patient apparently formally on hospice. Now in the hospital. Patient not ans wering questions, will need to clarify CODE STATUS with the family in the morning. - Time Spent With Patient Total time spent is greater than 50% in coordination of care (as documented) at patient's floor/unit and/or counseling patient: Greater than 35 minutes
[2019-03-16 00:43] LABS: Hematocrit 34.2 % (35.3-44.9); Hemoglobin 11.3 g/dL (11.5-15.4); Mean Corpuscular Hemoglobin 33.9 pg (28.0-33.3); Mean Corpuscular Volume 102.7 fL (83.0-100.0); Mean Platelet Volume 10.1 fL (9.4-12.4); Platelet Count 202 K/mcL (140-400); Red Blood Count 3.33 M/mcL (3.82-4.97); Red Cell Distribution Width 17.3 % (11.5-14.5); White Blood Count 11.4 K/mcL (4.3-11.1)
[2019-03-16 00:51] LABS: Prothrombin Time 11.3 Seconds (9.4-12.1)
[2019-03-16 00:58] LABS: Albumin 3.7 g/dL (3.5-5.7); Albumin/Globulin Ratio 1.2 (1.1-2.2); Bilirubin,Total 0.3 mg/dL (0.3-1.0); Calcium 9.2 mg/dL (8.6-10.3); Potassium 4.1 mEq/L (3.5-5.1); Total Protein 6.7 g/dL (6.4-8.9)
--- NOTE | 2019-03-16 08:00 | Event Note ---
Date of Encounter: 03/16/19 Time of Encounter: 07:58 Patient seen and examined this morning at bedside. Admitted overnight's for DVT in left lower extremity. Patient did report a recent fall. Patient apparently was in hospice because of the ongoing pain which could not be controlled she was signed off on hospice and transferred here. Currently she is doing better without significant pain however does have pain and requesting medication. She is also on pain medication at home. Denies any shortness of breath chest pain or difficulty breathing. Occasionally confused and difficult to hear. AO 3. POA at bedside. Discussed case. Left lower extremity with bluish discoloration and congestion off toes. No signs of gangrene. We will continue heparin drip. Will keep full code for now. POA wants to discuss with patient about resuscitative measures.
[2019-03-16] MEDS ORDERED: Furosemide 40 MG TABLET PO PRN (09:08)
[2019-03-16] MEDS ORDERED: Acetaminophen 325 MG TABLET PO PRN (09:59)
[2019-03-16] MEDS: Gabapentin 300 MG CAPSULE PO SCH ×2 (10:15→20:39)
[2019-03-16] MEDS ORDERED: Acetaminophen 325 MG TABLET PO SCH (12:00)
[2019-03-16] MEDS: Mirtazapine 15 MG TABLET PO SCH (20:39)
[2019-03-17 02:51] LABS: Basophils % 0.4 %; Eosinophils # 0.3 K/mcL (0.0-0.6); Eosinophils % 2.8 %; Hematocrit 32.9 % (35.3-44.9); Hemoglobin 10.8 g/dL (11.5-15.4); Immature Granulocytes % 0.5 % (0-4); Lymphocytes # 2.1 K/mcL (0.6-4.6); Lymphocytes % 20.5 %; Mean Corpuscular HGB Conc 32.8 g/dL (31.6-35.5); Mean Corpuscular Hemoglobin 33.5 pg (28.0-33.3); Mean Corpuscular Volume 102.2 fL (83.0-100.0); Mean Platelet Volume 10.2 fL (9.4-12.4); Monocytes # 0.6 K/mcL (0.0-1.3); Monocytes % 6.3 %; Platelet Count 196 K/mcL (140-400); Red Blood Count 3.22 M/mcL (3.82-4.97); Red Cell Distribution Width 17.2 % (11.5-14.5); Segmented Neutrophils % 69.5 %
[2019-03-17 03:07] LABS: Calcium 8.5 mg/dL (8.6-10.3); Potassium 3.7 mEq/L (3.5-5.1)
[2019-03-17] MEDS: Heparin 25,000 UNIT/250 ML D5W 25,000 UNIT/250 ML IV.SOLN IVC SCH (04:31)
[2019-03-17] MEDS ORDERED: 0.9 % Sodium Chloride 1,000 ML IVC SCH (06:30)
[2019-03-17] MEDS: Aspirin Enteric Coated 81 MG Tablet PO SCH (08:58)
[2019-03-17] MEDS: amLODIPine 5 MG TABLET PO SCH (08:58)
[2019-03-17] MEDS ORDERED: predniSONE 10 MG TABLET PO SCH (09:00)
--- NOTE | 2019-03-17 09:38 | Internal Med Progress Note ---
Hospitalist Progress Note - Encounter Date of Encounter: 03/17/19 Time of Encounter: 08:52 - Subjective Interval History: Patient seen and examined this morning at bedside. No acute overnight events. Denies any new symptoms. Denies any fever or chills nausea vomiting or diarrhea. Complain of left lower extremity pain which is improved. - Exam Vitals: Temp Pulse Resp BP Pulse Ox 98.8 F 63 17 144/70 89 03/17/19 07:15 03/17/19 07:15 03/17/19 07:15 03/17/19 07:15 03/17/19 07:15 Exam: General: In no acute distress. Respiratory exam: CTAB. no accessory muscle use, rales, rhonchi, wheezes Cardiovascular exam: RRR, +S1, +S2. no murmur, gallop, rubs. GI/Abdominal exam: Non-tender, Non-distended, normal bowel sounds, soft, no peritoneal signs. Extremities exam: no pedal edema, feeble pulse b/l, calf tenderness, LT LE foot pain on palpation. Neurological exam: CN II-XII intact, AO X2, no focal deficits. Skin exam: No skin rash - Assessment and Plan (1) RICHA (acute kidney injury) Current Visit: No Status: Acute (2) DVT (deep venous thrombosis) Current Visit: Yes Status: Acute (3) Prolonged QT interval Current Visit: Yes Status: Acute (4) Code status needs review Current Visit: Yes Status: Acute - Summary of Assessment and Plan Summary of Assessment and Plan: Assessment Acute extensive Lt Leg DVT RICHA on CKD Anemia Chronic CAD Chronic systolic CHF. COPD HTN HLD Plan - c/w heparin drip. Will hendrix check for NOACs or start coumadin bridge. c/w pain control with home morphine, gabapentin and acetaminophen. pain controlled. Was on prednisone for Leg pain with suspicion of gout. Will stop prednisone. - We will get palliative care consult for goals of care discussion. Previously hospice likely due to CHF and COPD. EF of 30-35% with h/o noncompliane. Currently full code per patients expression. POA not completely sure. - get PT/OT. - RICHA on CKD improving. c/w with gentle IVF. - c/w home coreg, aspirin, statin and amlodipine. Will consider switching almodipine to ACEI/ARB given CKD and CHF. Home medication needs confirmation. - obtain b12 and folate - c/w home soraida Internal Medicine: Result - Labs CBC & Chem 7: 03/17/19 01:55 03/17/19 01:55 Labs: Short CBC 03/17/19 Range/Units 01:55 WBC 10.0 (4.3-11.1) K/mcL Hgb 10.8 L (11.5-15.4) g/dL Hct 32.9 L (35.3-44.9) % Plt Count 196 (140-400) K/mcL Neutrophils # 7.0 (1.6-8.9) K/mcL BMP 03/17/19 01:55 Sodium 137 Potassium 3.7 Chloride 104 Carbon Dioxide 25 BUN 29 H Creatinine 1.37 H Glucose 76 Calcium 8.5 L - ABG Interpretation ABG results: PT/INR, D-dimer PT 11.3 Seconds (9.4-12.1) 03/16/19 00:26 Consult Discharge Plan - Plan Referrals: Mitchell Greer Jr, MD [Primary Care Provider] - (2) DVT (deep venous thrombosis) Qualifiers: DVT location: lower extremity Affected thrombotic vein of extremity: unspecified vein of extremity Chronicity: acute Laterality: left Qualified Code(s): I82.402 - Acute embolism and thrombosis of unspecified deep veins of left lower extremity
--- NOTE | 2019-03-17 11:46 | Electrocardiograph Report ---
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
--- NOTE | 2019-03-17 12:01 | Electrocardiograph Report ---
[address] [address] Test Date: 2019-03-15 Pat Name: Whitley May Department: [id number] Room: 3A51 Gender: F Down Filler: : 1935 Requested By: Odette Ryder Order Number: [id number] Reading MD: Lauren Tobin Measurements Intervals [place] Rate: 70 P: 70 LA: 129 QRS: 262 QRSD: 162 T: 41 QT: 573 QTc: 619 Interpretive Statements Atrial-ventricular dual-paced rhythm No further analysis attempted due to paced rhythm Electronically Signed On 03-17-2019 11:59:32 EDT by Lauren Tobin
[2019-03-17 12:07] LABS: % Iron Saturation 18 % (15-50); Iron 60 mcg/dL (50-170); Transferrin 239 mg/dL (203-362)
[2019-03-17] MEDS: Gabapentin 300 MG CAPSULE PO SCH (20:18)
[2019-03-17] MEDS: Mirtazapine 15 MG TABLET PO SCH (20:18)
[2019-03-18 02:10] LABS: Calcium 8.1 mg/dL (8.6-10.3); Potassium 3.7 mEq/L (3.5-5.1)
[2019-03-18 02:37] LABS: Folate > 22.3 ng/mL (3.0-16.0); Vitamin B12 > 1500 pg/mL (250-1100)
[2019-03-18] MEDS: Heparin 25,000 UNIT/250 ML D5W 25,000 UNIT/250 ML IV.SOLN IVC SCH ×2 (04:09→13:25)
[2019-03-18] MEDS: amLODIPine 5 MG TABLET PO SCH (09:13)
[2019-03-18] MEDS: Aspirin Enteric Coated 81 MG Tablet PO SCH (09:13)
--- NOTE | 2019-03-18 14:02 | Internal Med Progress Note ---
Hospitalist Progress Note - Encounter Date of Encounter: 03/18/19 Time of Encounter: 08:57 - Subjective Interval History: Patient seen and examined this morning it was apparent acute overnight events. Denies new complaints. Pain much improved. Did not remember discussing anything about resuscitation. Denies any chest pain difficulty breathing nausea vomiting diarrhea abdominal pain. - Exam Vitals: Temp Pulse Resp BP Pulse Ox 98.4 F 71 16 135/62 95 03/18/19 11:15 03/18/19 11:15 03/18/19 11:15 03/18/19 11:15 03/18/19 11:15 Exam: General: In no acute distress. Respiratory exam: CTAB. no accessory muscle use, rales, rhonchi, wheezes Cardiovascular exam: RRR, +S1, +S2. no murmur, gallop, rubs. GI/Abdominal exam: Non-tender, Non-distended, normal bowel sounds, soft, no peritoneal signs. Extremities exam: no pedal edema, feeble pulse b/l, calf tenderness, LT LE foot pain improved. color of feet improved. Neurological exam: CN II-XII intact, AO X2, no focal deficits. Skin exam: No skin rash Pysch: Does not have insight into illness. - Assessment and Plan (1) RICHA (acute kidney injury) Current Visit: No Status: Acute (2) DVT (deep venous thrombosis) Current Visit: Yes Status: Acute (3) Prolonged QT interval Current Visit: Yes Status: Acute (4) Code status needs review Current Visit: Yes Status: Acute - Summary of Assessment and Plan Summary of Assessment and Plan: Assessment Acute extensive Lt Leg DVT RICHA on CKD Anemia Chronic CAD Chronic systolic CHF. COPD HTN HLD Plan - c/w heparin drip. Will hendrix check for NOACs. c/w pain control with home morphine, gabapentin and acetaminophen. pain controlled. Was on prednisone for Leg pain with suspicion of gout. Will stop prednisone. - f/u palliative care consult. Previously hospice likely due to CHF and COPD. EF of 30-35% with h/o noncompliane. Currently full code per patients expression. POA not completely sure. - f/u PT/OT. - RICHA on CKD . hold home diuretics for now. - c/w home coreg, aspirin, statin and amlodipine. Will consider switching almodipine to ACEI/ARB given CKD and CHF. Home medication needs confirmation. - c/w home remeron Internal Medicine: Result - Labs CBC & Chem 7: 03/17/19 01:55 03/18/19 01:29 Labs: BMP 03/18/19 01:29 Sodium 139 Potassium 3.7 Chloride 109 H Carbon Dioxide 22 L BUN 23 Creatinine 1.12 Glucose 72 Calcium 8.1 L - ABG Interpretation ABG results: PT/INR, D-dimer PT 11.3 Seconds (9.4-12.1) 03/16/19 00:26 Consult Discharge Plan - Plan Referrals: Mitchell Greer Jr, MD [Primary Care Provider] - (2) DVT (deep venous thrombosis) Qualifiers: DVT location: lower extremity Affected thrombotic vein of extremity: unspecified vein of extremity Chronicity: acute Laterality: left Qualified Code(s): I82.402 - Acute embolism and thrombosis of unspecified deep veins of left lower extremity
--- NOTE | 2019-03-18 14:40 | Palliative - Consult Note ---
Date of Encounter: 03/18/19 Time of Encounter: 13:35 - Assessment and Plan (1) Acute pain of left lower extremity Current Visit: Yes Status: Acute Assessment and plan: Family present at bedside, verbalizing that pain is not controlled well at all. They states that they have had trouble getting staff to administer her pain medi cation on a regular bases, and she then gets in trouble with pain. States that she takes on a schedule at home. Will scheduled every 6 hours and allow every 3 hours for breakthrough pain. Monitor. (2) Cellulitis Current Visit: Yes Status: Acute Qualifiers: Site of cellulitis: extremity Site of cellulitis of extremity: lower extremity Laterality: left Qualified Code(s): L03.116 - Cellulitis of left lower limb (3) Goals of care, counseling/discussion Current Visit: Yes Status: Acute Assessment and plan: Patient is alert and oriented to name and place - and able to tell me why she is here, but makes other inappropriate statements. She lives with her brother Roya, and has [facility] care in place, but did revocate to have treatment for leg, which was causing her a lot of pain. Her 2 nieces, Michelle Garcia, and Jessi Buitrago are both on her power of community living specialist and visit her frequently. Michelle sets up patient medications for her. Discussed goals of care,code status, as patient had some conversation earlier this hospital stay and was back to full code, but she does not remember any of these conversations. I did meet with Michelle and Jessi, who state that they think she is DNRCC and ask that I reach out to [facility] for that paperwork. They state "whatever her status is, that's her previous wish". D/W Trixie Fitch - [facility] who faxed over DNR-CC form. Family aware and want to continue with this. Code status changed to DNRCC. They would still like to continue with treatment for the DVT, which is reasonable. They also want her to resume her hospice care upon discharge. [facility] aware. Family did express concern regarding pain medication administration and do not feel that she has been medicated enough. Will transfer to 2A palliative bed and continue to follow along with hospitalist. (4) DVT (deep venous thrombosis) Current Visit: Yes Status: Acute Assessment and plan: Heparin drip continues Qualifiers: DVT location: lower extremity Affected thrombotic vein of extremity: unspecified vein of extremity Chronicity: acute Laterality: left Qualified Code(s): I82.402 - Acute embolism and thrombosis of unspecified deep veins of left lower extremity (5) History of CHF (congestive heart failure) Current Visit: No Status: Acute (6) History of COPD Current Visit: No Status: Acute (7) Constipation Current Visit: No Status: Chronic Qualifiers: Constipation type: other constipation type Qualified Code(s): K59.09 - Other constipation (8) Coronary artery disease Current Visit: No Status: Chronic Qualifiers: Coronary Disease-Associated Artery/Lesion type: [place] artery [place] vs. transplanted heart: [place] heart Associated angina: without angina Qualified Code(s): I25.10 - Atherosclerotic heart disease of [place] coronary artery without angina pectoris (9) Dementia Current Visit: No Status: Chronic Qualifiers: Dementia type: unspecified type Dementia behavioral disturbance: without behavioral disturbance Qualified Code(s): F03.90 - Unspecified dementia without behavioral disturbance Palliative-CN HPI - Data of Consult Requesting Physician: Mana Purcell MD Primary Care Provider: Mitchell Greer Jr, MD - Consult Narrative History of present illness: Ms. May is a 84 year old female who is a patient of [facility] for end stage cardiac disease, who has had increased swelling and redness of left leg. This had been treated with oral antibiotics at home, hopefully began to worsen and family sought medical attention. [facility] was aware was going to hospital to seek diagnosis for her leg and were inagreement with recocation. She was found to have extensive DVT left leg, and heparin drip has been initiated. There had been some conversation with patient and family over week d, and code status was not clarified, she was full code. She lives with her brother Roya, however, Neices Michelle and Jessi are medical power of attorneys. Patient has PMH including: CHF, COPD, coronary artery disease, GERD, hyperlipidemia, hypertension, peripheral artery disease. Upon my visit, she is awake and alert, adn PT in room. Daughter x2 are present. She does c/o left foot pain, and guards this area. Denies other complaints. CC: Mana Purcell MD - Time Spent with Patient Time: Total time spent is greater than 50% in coordination of care (as documented) at patient's floor/unit and/or counseling patient: Past Med Surg Social Fam HX - Past Medical History Medical history: CHF, COPD, coronary artery disease, GERD, hyperlipidemia, hypertension, peripheral artery disease Additional medical history: Unknown heart problem. fall with broken ribs apr / may 2018? DNR-CC and on hospice care Psychiatric history: no psych history - Past Surgical History Surgical History: hysterectomy, knee replacement, orthopedic, other Additional surgical history: right shoulder, right hand, knee surgery - Social History Smoking Status: Former smoker Smokeless Tobacco Status: No Alcohol use: none Drug use: none - Family History Father Hx Family Cardiac Disorders: Yes Brother Hx Family Cancer: Yes (kidney) Mother Family Member Ethnicity: Non- Living Status: Medications and Allergies Aspirin Enteric Coated [Aspirin EC] 81 mg PO DAILY 09/13/17 [History] Furosemide [Lasix] 40 mg PO DAILY 09/13/17 [History] Multivit-Min/FA/Lycopen/Lutein [Centrum Silver Tablet] 1 tab PO DAILY 09/13/17 [History] [place]-3/Dha/Epa/Fish Oil [[place]-3 Fish Oil 1,000 mg Sfgl] 1,000 mg PO DAILY 09/13/17 [History] Albuterol Sulfate [Ventolin Hfa] 2 puff IH Q6H PRN 06/09/18 [History] Carvedilol [Coreg] 25 mg PO BIDWM tablet 07/30/18 [Rx] Gabapentin [Neurontin] 300 mg PO HS 03/15/19 [History] Linaclotide [Linzess] 290 mcg PO DAILY PRN 03/15/19 [History] Mirtazapine [Remeron] 30 mg PO HS 03/15/19 [History] amLODIPine [Norvasc] 2.5 mg PO DAILY 03/15/19 [History] Acetaminophen [Tylenol 8 Hour] 650 - 1,300 mg PO Q4-6H PRN 03/17/19 [History] Albuterol Neb [Proventil Neb] 2.5 mg IH Q6H PRN 03/17/19 [History] Ibuprofen [Motrin] 600 mg PO Q6H PRN 03/17/19 [History] Losartan Potassium 25 mg PO DAILY 03/17/19 [History] Morphine Oral CONC [Roxanol] 0.25 ml PO Q3H PRN 03/17/19 [History] predniSONE [PredniSONE] 10 mg PO DAILY 03/17/19 [History] Apixaban [Eliquis] 5 mg PO BID #60 tablet 03/18/19 [Rx] Allergy/AdvReac Type Severity Reaction Status Date / Time latex Allergy Hives Verified 07/21/18 16:44 lisinopril AdvReac Abdominal Verified 07/21/18 16:44 Pain ROS unobtainable: due to mental status Palliative Care-Exam - Constitutional Vitals: Temp Pulse Resp BP Pulse Ox 98.4 F 71 16 135/62 95 03/18/19 11:15 03/18/19 11:15 03/18/19 11:15 03/18/19 11:15 03/18/19 11:15 General appearance: Present: no acute distress - Head Head Exam: Present: normal inspection, normocephalic - Eye Eye exam: Present: normal appearance - ENT ENT exam: Present: normal exam - Respiratory Respiratory exam: Present: decreased breath sounds - Cardiovascular Cardiovascular exam: Present: +S1, +S2 - GI/Abdominal Exam GI/Abdominal exam: Present: diminished bowel sounds, distended, soft - Extremities Exam Additional comments: Left foot dry/cracked with purplish discoloration. Warm to touch - Neurological Exam Neurological exam: Present: alert Additional comments: Oriented to name and place. Confused at times. Does not answer all questions appropriatly. Can follow simple commands - Skin Skin exam: Present: dry, normal color, warm Internal Medicine - CN: Reslt - Labs CBC & Chem 7: 03/17/19 01:55 03/18/19 01:29 Labs: BMP 03/18/19 01:29 Sodium 139 Potassium 3.7 Chloride 109 H Carbon Dioxide 22 L BUN 23 Creatinine 1.12 Glucose 72 Calcium 8.1 L - ABG Interpretation ABG results: PT/INR, D-dimer PT 11.3 Seconds (9.4-12.1) 03/16/19 00:26 Consult Discharge Plan - Plan Referrals: Mitchell Greer Jr, MD [Primary Care Provider] - Prescriptions: Apixaban [Eliquis] 5 mg PO BID #60 tablet Palliative Quality Palliative Quality: Screen for Code Status: Yes, Screen for Goals of Care: Yes, Screen for Pain: Yes, If Pain Regimen Started, Initiate Bowel Regimen: NA, Screen for Nausea/Vomitting: Yes Code Status: 03/16/19 03:07 Resuscitation Status: Active [RES] Routine Comment: Resuscitation Status: Full Code 03/18/19 14:34 DNR [Resuscitation Status: Active] [RES] Routine Comment: Resuscitation Status: DNR-Comfort Care
--- NOTE | 2019-03-18 16:01 | Internal Med Progress Note ---
Hospitalist Progress Note - Encounter Date of Encounter: 03/18/19 Time of Encounter: 15:50 - Exam Vitals: Temp Pulse Resp BP Pulse Ox 98.2 F 69 16 143/64 90 03/18/19 15:07 03/18/19 15:07 03/18/19 15:07 03/18/19 15:07 03/18/19 15:07 Exam: General: In no acute distress. Respiratory exam: CTAB. no accessory muscle use, rales, rhonchi, wheezes Cardiovascular exam: RRR, +S1, +S2. no murmur, gallop, rubs. GI/Abdominal exam: Non-tender, Non-distended, normal bowel sounds, soft, no peritoneal signs. Extremities exam: no pedal edema, feeble pulse b/l, calf tenderness, LT LE foot pain improved. color of feet improved. Neurological exam: CN II-XII intact, AO X2, no focal deficits. Skin exam: No skin rash Pysch: Does not have insight into illness. - Assessment and Plan (1) RICHA (acute kidney injury) Current Visit: No Status: Acute (2) DVT (deep venous thrombosis) Current Visit: Yes Status: Acute (3) Prolonged QT interval Current Visit: Yes Status: Acute (4) Code status needs review Current Visit: Yes Status: Acute - Summary of Assessment and Plan Summary of Assessment and Plan: Assessment Acute extensive Lt Leg DVT RICHA on CKD Anemia Chronic CAD Chronic systolic CHF. COPD HTN HLD Plan - c/w heparin drip. Will hendrix check for NOACs. c/w pain control with home morphine, gabapentin and acetaminophen. pain controlled. Was on prednisone for Leg pain with suspicion of gout. Will stop prednisone. - f/u palliative care consult. Previously hospice likely due to CHF and COPD. EF of 30-35% with h/o noncompliane. Currently full code per patients expression. POA not completely sure. - f/u PT/OT. - RICHA on CKD . hold home diuretics for now. - c/w home coreg, aspirin, statin and amlodipine. Will consider switching almodipine to ACEI/ARB given CKD and CHF. Home medication needs confirmation. - c/w home remeron Internal Medicine: Result - Labs CBC & Chem 7: 03/17/19 01:55 03/18/19 01:29 Labs: BMP 03/18/19 01:29 Sodium 139 Potassium 3.7 Chloride 109 H Carbon Dioxide 22 L BUN 23 Creatinine 1.12 Glucose 72 Calcium 8.1 L - ABG Interpretation ABG results: PT/INR, D-dimer PT 11.3 Seconds (9.4-12.1) 03/16/19 00:26 Consult Discharge Plan - Plan Referrals: Mitchell Greer Jr, MD [Primary Care Provider] - Prescriptions: Apixaban [Eliquis] 5 mg PO BID #60 tablet (2) DVT (deep venous thrombosis) Qualifiers: DVT location: lower extremity Affected thrombotic vein of extremity: unspecified vein of extremity Chronicity: acute Laterality: left Qualified Code(s): I82.402 - Acute embolism and thrombosis of unspecified deep veins of left lower extremity
[2019-03-18] MEDS: Morphine Sulfate Oral CONC 10 MG/0.5 ML ORAL.SYG SL SCH ×2 (16:07→22:49)
[2019-03-18] MEDS: Gabapentin 300 MG CAPSULE PO SCH (22:48)
[2019-03-18] MEDS: Mirtazapine 15 MG TABLET PO SCH (22:48)
[2019-03-19] MEDS: Morphine Sulfate Oral CONC 10 MG/0.5 ML ORAL.SYG SL SCH ×4 (05:39→22:19)
[2019-03-19] MEDS: Aspirin Enteric Coated 81 MG Tablet PO SCH (09:10)
[2019-03-19] MEDS: amLODIPine 5 MG TABLET PO SCH (09:10)
--- NOTE | 2019-03-19 10:27 | Palliative Progress Note ---
Date of Encounter: 03/19/19 Time of Encounter: 10:00 - Assessment and plan (1) Acute pain of left lower extremity Current Visit: Yes Status: Acute Assessment and plan: Patient states pain better controlled today of foot. POA at bedside states her mood seems better and she ate well this am, that she believes is related to her being more comfortable. Utilized Roxanol x4 last 24 hours. Continue and monitor (2) Cellulitis Current Visit: Yes Status: Acute Qualifiers: Site of cellulitis: extremity Site of cellulitis of extremity: lower extremity Laterality: left Qualified Code(s): L03.116 - Cellulitis of left lower limb (3) Goals of care, counseling/discussion Current Visit: Yes Status: Acute Assessment and plan: Pt niece and POIsha still desires for her to return home and re-enroll with [facility] and not go to [facility]. Spoke with [facility] who is agreeable to reenroll. JUSTIN - Michelel working today in [place], but can get patient this e vening around 1800 and transport home. Spoke with Anirudh POWELL who will speak with [employer] about Eloquis coverage, as [place] will not cover that medication. D/W . (4) DVT (deep venous thrombosis) Current Visit: Yes Status: Acute Assessment and plan: Likely to be switched to Eloquis today. Qualifiers: DVT location: lower extremity Affected thrombotic vein of extremity: unspecified vein of extremity Chronicity: acute Laterality: left Qualified Code(s): I82.402 - Acute embolism and thrombosis of unspecified deep veins of left lower extremity (5) History of CHF (congestive heart failure) Current Visit: No Status: Acute (6) History of COPD Current Visit: No Status: Acute (7) Constipation Current Visit: No Status: Chronic Qualifiers: Constipation type: other constipation type Qualified Code(s): K59.09 - Other constipation (8) Coronary artery disease Current Visit: No Status: Chronic Qualifiers: Coronary Disease-Associated Artery/Lesion type: [place] artery [place] vs. transplanted heart: [place] heart Associated angina: without angina Qualified Code(s): I25.10 - Atherosclerotic heart disease of [place] coronary artery without angina pectoris (9) Dementia Current Visit: No Status: Chronic Qualifiers: Dementia type: unspecified type Dementia behavioral disturbance: without behavioral disturbance Qualified Code(s): F03.90 - Unspecified dementia without behavioral disturbance - Time Spent With Patient Total time spent is greater than 50% in coordination of care (as documented) at patient's floor/unit and/or counseling patient: - Constitutional Vitals: Abnormal lab results WBC 11.4 K/mcL (4.3-11.1) H 03/16/19 00:26 RBC 3.22 M/mcL (3.82-4.97) L 03/17/19 01:55 Hgb 10.8 g/dL (11.5-15.4) L 03/17/19 01:55 Hct 32.9 % (35.3-44.9) L 03/17/19 01:55 MCV 102.2 fL (83.0-100.0) H 03/17/19 01:55 MCH 33.5 pg (28.0-33.3) H 03/17/19 01:55 RDW 17.2 % (11.5-14.5) H 03/17/19 01:55 Neutrophils # 9.2 K/mcL (1.6-8.9) H 03/15/19 16:33 ESR 59 mm/hr (0-15) H 03/15/19 16:33 APTT 23.6 Seconds (26.0-36.0) L 03/15/19 16:33 Heparin Anti-Xa, Unfract 0.16 IU/mL (0.30-0.70) L 03/19/19 09:24 Sodium 135 mEq/L (136-145) L 03/15/19 16:33 Chloride 109 mEq/L (98-107) H 03/18/19 01:29 Carbon Dioxide 22 mEq/L (23-29) L 03/18/19 01:29 BUN 29 mg/dL (8-23) H 03/17/19 01:55 Creatinine 1.37 mg/dL (0.60-1.20) H 03/17/19 01:55 Est GFR ( Amer) 56 (> 60) L 03/18/19 01:29 Est GFR (Non-Af Amer) 46 (> 60) L 03/18/19 01:29 Glucose 147 mg/dL (70-105) H 03/15/19 16:33 Calcium 8.1 mg/dL (8.6-10.3) L 03/18/19 01:29 C-Reactive Protein 81 mg/L (Less than 10) H 03/15/19 16:33 Vitamin B12 > 1500 pg/mL (250-1100) H 03/18/19 01:29 Folate > 22.3 ng/mL (3.0-16.0) H 03/18/19 01:29 General appearance: Present: no acute distress - Respiratory Respiratory exam: Present: decreased breath sounds, CTAB - Cardiovascular Cardiovascular exam: Present: +S1, +S2 - GI/Abdominal GI/Abdominal exam: Present: normal bowel sounds, soft - Extremities Exam Additional comments: Left foot remains with some purplish decoloration. - Neurological Exam Neurological exam: Present: alert, oriented X3, strengths equal and symetr throughout - Skin Skin exam: Present: dry, pallor, warm Palliative Quality Palliative Quality: Screen for Code Status: Yes, Screen for Goals of Care: Yes, Screen for Pain: Yes, If Pain Regimen Started, Initiate Bowel Regimen: NA, Screen for Nausea/Vomitting: Yes Code Status: 03/16/19 03:07 Resuscitation Status: Active [RES] Routine Comment: Resuscitation Status: Full Code 03/18/19 14:34 DNR [Resuscitation Status: Active] [RES] Routine Comment: Resuscitation Status: DNR-Comfort Care - Labs CBC & Chem 7: 03/17/19 01:55 03/18/19 01:29 Labs: Laboratory Results - last 24 hr 03/19/19 09:24 Heparin Anti-Xa, Unfract 0.16 L - ABG Interpretation ABG results: PT/INR, D-dimer PT 11.3 Seconds (9.4-12.1) 03/16/19 00:26 Consult Discharge Plan - Plan Referrals: Mitchell Greer Jr, MD [Primary Care Provider] - Prescriptions: Apixaban [Eliquis] 5 mg PO BID #60 tablet
[2019-03-19] MEDS: Apixaban 5 MG TABLET PO SCH ×2 (11:12→20:16)
--- NOTE | 2019-03-19 11:25 | Discharge Summary ---
- NOTES TO OUTPATIENT PROVIDER Notes to Outpatient Provider: Patient discharged to home to be later enrolled to hospice again. Discharged with Eliquis for extensive left leg DVT to help with pain, which will need at least 6 month. RICHA has resolved however would need monitoring of renal function in 1-2 weeks as home Lasix and losartan has been resumed. Date of Encounter: 03/19/19 Time of Encounter: 10:21 - Discharge Diagnosis (1) RICHA (acute kidney injury) Priority: Primary Status: Acute (2) DVT (deep venous thrombosis) Priority: Primary Status: Acute Qualifiers: DVT location: lower extremity Affected thrombotic vein of extremity: femoral Chronicity: acute Laterality: left Qualified Code(s): I82.412 - Acute embolism and thrombosis of left femoral vein (3) Prolonged QT interval Priority: Secondary Status: Acute (4) Code status needs review Priority: Secondary Status: Acute Hospital course: Ms. May is a 84 year old female with past medical history of CKD, hypertension, dementia, systolic CHF with ischemic cardiomyopathy with EF of 30- 35, COPD who was enrolled in hospice was sent in because of uncontrollable left leg pain which was being difficult to manage. Patient was found to have extensive left leg DVT with associated discoloration of toes. She was started on heparin drip. She was also found to have RICHA on CKD which resolved with IV fluids and holding Lasix and losartan. She was also getting pain medication which might have contributed. Patient's was enrolled in hospice however [facility] was not sure about her CODE STATUS and patient was occasionally mentioning she wanted resuscitation however she lacked insight into her illness. Palliative care consult was obtained for discussion of goals of care. Patient will be DNR comfort care and will be returning to [facility]. However family would be taking her home first and reenrollment into hospice. We stop prednisone and ibuprofen on discharge. She will be treated with Eliquis on discharge as well as family wanted. Discharge discussed with: patient, nurse, social work, exchange consultant - Time Spent with Patient Total time spent providing and/or coordinating discharge services: Time spent: Greater than 30 minutes (35) - Discharge Medications Prescriptions: New Apixaban [Eliquis] 5 mg PO BID #60 tablet Continued Aspirin Enteric Coated [Aspirin EC] 81 mg PO DAILY [place]-3/Dha/Epa/Fish Oil [[place]-3 Fish Oil 1,000 mg Sfgl] 1,000 mg PO DAILY Multivit-Min/FA/Lycopen/Lutein [Centrum Silver Tablet] 1 tab PO DAILY Furosemide [Lasix] 40 mg PO DAILY Albuterol Sulfate [Ventolin Hfa] 2 puff IH Q6H PRN PRN Reason: Shortness Of Breath Carvedilol [Coreg] 25 mg PO BIDWM tablet Gabapentin [Neurontin] 300 mg PO HS amLODIPine [Norvasc] 2.5 mg PO DAILY Mirtazapine [Remeron] 30 mg PO HS Linaclotide [Linzess] 290 mcg PO DAILY PRN PRN Reason: Constipation Acetaminophen [Tylenol 8 Hour] 650 - 1,300 mg PO Q4-6H PRN PRN Reason: PAIN/FEVER Albuterol Neb [Proventil Neb] 2.5 mg IH Q6H PRN PRN Reason: Shortness Of Breath Losartan Potassium 25 mg PO DAILY Morphine Oral CONC [Roxanol] 0.25 ml PO Q3H PRN PRN Reason: Pain Discontinued Ibuprofen [Motrin] 600 mg PO Q6H PRN PRN Reason: Pain predniSONE [PredniSONE] 10 mg PO DAILY Home Medications: Aspirin Enteric Coated [Aspirin EC] 81 mg PO DAILY 09/13/17 [History] Furosemide [Lasix] 40 mg PO DAILY 09/13/17 [History] Multivit-Min/FA/Lycopen/Lutein [Centrum Silver Tablet] 1 tab PO DAILY 09/13/17 [History] [place]-3/Dha/Epa/Fish Oil [[place]-3 Fish Oil 1,000 mg Sfgl] 1,000 mg PO DAILY 09/13/17 [History] Albuterol Sulfate [Ventolin Hfa] 2 puff IH Q6H PRN 06/09/18 [History] Carvedilol [Coreg] 25 mg PO BIDWM tablet 07/30/18 [Rx] Gabapentin [Neurontin] 300 mg PO HS 03/15/19 [History] Linaclotide [Linzess] 290 mcg PO DAILY PRN 03/15/19 [History] Mirtazapine [Remeron] 30 mg PO HS 03/15/19 [History] amLODIPine [Norvasc] 2.5 mg PO DAILY 03/15/19 [History] Acetaminophen [Tylenol 8 Hour] 650 - 1,300 mg PO Q4-6H PRN 03/17/19 [History] Albuterol Neb [Proventil Neb] 2.5 mg IH Q6H PRN 03/17/19 [History] Losartan Potassium 25 mg PO DAILY 03/17/19 [History] Morphine Oral CONC [Roxanol] 0.25 ml PO Q3H PRN 03/17/19 [History] Apixaban [Eliquis] 5 mg PO BID #60 tablet 03/18/19 [Rx] Allergies/Adverse Reactions: Allergy/AdvReac Type Severity Reaction Status Date / Time latex Allergy Hives Verified 07/21/18 16:44 lisinopril AdvReac Abdominal Verified 07/21/18 16:44 Pain Date of admission: 03/17/19 11:19 Primary care physician: Mitchell Greer Jr, MD Consults: 03/17/19 06:25 Consult to Physical Therapy [CONS] Routine Comment: Evaluate, develop and implement POC Reason for Consult: improve mobility, discharge planning Does patient have active BEDREST order?: No Is patient medically & hemodynamically stable?: Yes 03/17/19 11:17 Consult to Palliative Care [CONS] Routine Comment: Consulting Provider: Palliative Care Evi Reason for Consult: gao of care discussion Call Completed: No 03/18/19 09:34 Consult to Occupational Therapy [CONS] Routine Comment: Evaluate, develop and implement POC Reason for Consult: improve mobility, discharge planning Does patient have active BEDREST order?: No Is patient medically & hemodynamically stable?: Yes Patient assessed for mobility or mobilized this visit?: No 03/19/19 07:47 Consult to Bakery Machine Mechanic [CONS] Routine Reason for SW Consult: pt needs ecf Discharging clinician: Mana Purcell - Constitutional Vitals: Temp Pulse Resp BP Pulse Ox 98.8 F 71 16 131/58 93 03/19/19 06:57 03/19/19 06:57 03/19/19 06:57 03/19/19 06:57 03/19/19 06:57 General appearance: Present: cooperative. Absent: answers questions appropriately Exam: General: In no acute distress. Respiratory exam: CTAB. no accessory muscle use, rales, rhonchi, wheezes Cardiovascular exam: RRR, +S1, +S2. no murmur, gallop, rubs. GI/Abdominal exam: Non-tender, Non-distended, normal bowel sounds, soft, no peritoneal signs. Extremities exam: no pedal edema, feeble pulse b/l, LT LE foot pain improved. color of feet improved. Neurological exam: CN II-XII intact, AO X2, no focal deficits. Skin exam: No skin rash Pysch: Does not have insight into illness. - Patient Status Disposition: Home, Self-Care Condition: Good - Discharge Instructions Follow Up With: Mitchell Greer Jr, MD [Primary Care Provider] - - Diet and Activity Activity: increase activity as tolerated
--- NOTE | 2019-03-19 13:25 | Event Note ---
Date of Encounter: 03/19/19 Time of Encounter: 12:40 Was notified by patient's primary POA - Michelle, that patient's brother stated he will not be able to care for her at home, unless she is able to walk. States that they desire her to go to rehab for some therapy prior to returning home. Would like placement at [facility]. PT/OT consult has been done. Notified Dr. Purcell, [place] jam, Anirudh RUDDW, and primary nurse Adela.
[2019-03-19] MEDS ORDERED: Silvasorb 44.4 ML TUBE TP SCH (16:30)
[2019-03-19] MEDS: Mirtazapine 15 MG TABLET PO SCH (20:16)
[2019-03-19] MEDS: Gabapentin 300 MG CAPSULE PO SCH (20:16)
[2019-03-19] MEDS: Silvasorb 44.4 ML TUBE TP SCH (20:18)
[2019-03-20] MEDS: Morphine Sulfate Oral CONC 10 MG/0.5 ML ORAL.SYG SL SCH ×4 (04:21→22:56)
[2019-03-20] MEDS: Apixaban 5 MG TABLET PO SCH ×2 (07:52→21:00)
[2019-03-20] MEDS: amLODIPine 5 MG TABLET PO SCH (07:52)
[2019-03-20] MEDS: Aspirin Enteric Coated 81 MG Tablet PO SCH (07:52)
--- NOTE | 2019-03-20 09:47 | Event Note ---
Date of Encounter: 03/20/19 Time of Encounter: 09:40 Patient awake and alert, JUSTIN Martinez at bedside. Aware that referral to [facility] has been done and awaiting [place] approval. D/W Dr. Hampton, Anirudh Vargas and primary nurse Adela. Prescription completed for her Roxanol to go to [facility].
--- NOTE | 2019-03-20 11:44 | Internal Med Progress Note ---
Hospitalist Progress Note - Encounter Date of Encounter: 03/20/19 Time of Encounter: 08:30 - Subjective Interval History: No acute events overnight, L LE pain is not as bothersome as previously. No chest pain, SOB, or hemoptysis reported. - Exam Vitals: Temp Pulse Resp BP Pulse Ox 99.5 F 70 17 107/54 90 03/20/19 10:57 03/20/19 10:57 03/20/19 10:57 03/20/19 10:57 03/20/19 10:57 Exam: General: In no acute distress. Respiratory exam: CTAB. no accessory muscle use, rales, rhonchi, wheezes Cardiovascular exam: RRR, +S1, +S2. no murmur, gallop, rubs. GI/Abdominal exam: Non-tender, Non-distended, normal bowel sounds, soft, no peritoneal signs. Extremities exam: no pedal edema, feeble pulse b/l, LT LE foot pain improved. color of feet improved. Neurological exam: CN II-XII intact, AO X2, no focal deficits. - Assessment and Plan (1) DVT (deep venous thrombosis) Current Visit: Yes Status: Acute (2) Acute on chronic kidney failure Current Visit: Yes Status: Acute (3) History of CHF (congestive heart failure) Current Visit: No Status: Chronic Assessment and Plan: hx of chronic systolic heart failure, not in decompensation (4) History of COPD Current Visit: No Status: Chronic (5) Coronary artery disease Current Visit: No Status: Chronic (6) Dementia Current Visit: No Status: Chronic - Summary of Assessment and Plan Summary of Assessment and Plan: - heparin drip transitioned to PO Eliquis. Continue analgesics, appreciate palliative input. - f/u palliative care consult. Previously hospice due to severe CAD, CHF, and COPD. EF of 30-35% with h/o noncompliane. Pt is DNR-CC but due to lack of home support, will discharge her to SNF before enrolling her back to home hospice - continue PT/OT while inpatient - RICHA on CKD resolved with IVF. May be able to resume diuretics tomorrow - c/w home coreg, aspirin, statin and amlodipine. Restart losartan - c/w home remeron - Time Spent with Patient Total time spent is greater than 50% in coordination of care (as documented) at patient's floor/unit and/or counseling patient: 25 - 35 minutes Plan of Care Discussed with: social work Internal Medicine: Result - Labs CBC & Chem 7: 03/17/19 01:55 03/18/19 01:29 - ABG Interpretation ABG results: PT/INR, D-dimer PT 11.3 Seconds (9.4-12.1) 03/16/19 00:26 Consult Discharge Plan - Plan Referrals: Mitchell Greer Jr, MD [Primary Care Provider] - Prescriptions: Apixaban [Eliquis] 5 mg PO BID #60 tablet Morphine Sulfate Oral CONC [Roxanol Oral Conc] 5 mg PO Q3H PRN 14 Days #30 oral.syg PRN Reason: Breakthrough Pain Morphine Sulfate Oral CONC [Roxanol Oral Conc] 5 mg PO Q6H 14 Days #30 oral.syg (1) DVT (deep venous thrombosis) Qualifiers: DVT location: lower extremity Affected thrombotic vein of extremity: femoral Chronicity: acute Laterality: left Qualified Code(s): I82.412 - Acute embolism and thrombosis of left femoral vein (2) Acute on chronic kidney failure Qualifiers: Acute renal failure type: unspecified Chronic kidney disease stage: stage 3 (moderate) Qualified Code(s): N17.9 - Acute kidney failure, unspecified; N18.3 - Chronic kidney disease, stage 3 (moderate) (5) Coronary artery disease Qualifiers: Coronary Disease-Associated Artery/Lesion type: [place] artery [place] vs. [place] heart: [place] heart Associated angina: without angina Qualified Code(s): I25.10 - Atherosclerotic heart disease of [place] coronary artery without angina pectoris (6) Dementia Qualifiers: Dementia type: unspecified type Dementia behavioral disturbance: without behavioral disturbance Qualified Code(s): F03.90 - Unspecified dementia without behavioral disturbance
[2019-03-20] MEDS ORDERED: Morphine Sulfate Oral CONC 10 MG/0.5 ML ORAL.SYG SL ONE (16:00)
[2019-03-20] MEDS: Silvasorb 44.4 ML TUBE TP SCH (21:00)
[2019-03-20] MEDS: Mirtazapine 15 MG TABLET PO SCH (21:00)
[2019-03-20] MEDS: Gabapentin 300 MG CAPSULE PO SCH (21:00)
[2019-03-21] MEDS: Morphine Sulfate Oral CONC 10 MG/0.5 ML ORAL.SYG SL SCH ×3 (04:54→17:19)
[2019-03-21 07:30] VITALS: BP 131/61
[2019-03-21] MEDS: Aspirin Enteric Coated 81 MG Tablet PO SCH (07:36)
[2019-03-21] MEDS: Apixaban 5 MG TABLET PO SCH (07:37)
[2019-03-21] MEDS: amLODIPine 5 MG TABLET PO SCH (07:37)
--- NOTE | 2019-03-21 12:56 | Internal Med Progress Note ---
Hospitalist Progress Note - Encounter Date of Encounter: 03/21/19 Time of Encounter: 10:30 - Subjective Interval History: No acute events overnight, upset that she still remains in the hospital. No new focal complaints - Exam Vitals: Temp Pulse Resp BP Pulse Ox 98.4 F 70 16 131/61 91 03/21/19 07:29 03/21/19 07:29 03/21/19 07:29 03/21/19 07:29 03/21/19 07:29 Exam: General: In no acute distress. Respiratory exam: CTAB. no accessory muscle use, rales, rhonchi, wheezes Cardiovascular exam: RRR, +S1, +S2. no murmur, gallop, rubs. GI/Abdominal exam: Non-tender, Non-distended, normal bowel sounds, soft, no peritoneal signs. Extremities exam: no pedal edema, feeble pulse b/l, LT foot pain improved. Neurological exam: CN II-XII intact, AO X2, no focal deficits. - Assessment and Plan (1) DVT (deep venous thrombosis) Current Visit: Yes Status: Acute (2) Acute on chronic kidney failure Current Visit: Yes Status: Acute (3) History of CHF (congestive heart failure) Current Visit: No Status: Chronic (4) History of COPD Current Visit: No Status: Chronic (5) Coronary artery disease Current Visit: No Status: Chronic (6) Dementia Current Visit: No Status: Chronic - Summary of Assessment and Plan Summary of Assessment and Plan: Acute extensive Lt LE DVT RICHA on CKD Chronic Severe CAD Chronic systolic CHF. COPD HTN HLD Dementia Plan - heparin drip transitioned to PO Eliquis. Continue analgesics, appreciate palliative input. - appreciate palliative care input. Previously hospice due to severe CAD, CHF, and COPD. EF of 30-35% with h/o noncompliane. Pt is DNR-CC but due to lack of home support, will discharge her to SNF before enrolling her back to home hospice once authorized by insurance - continue PT/OT while inpatient - RICHA on CKD resolved with IVF. Losartan resumed - c/w home coreg, aspirin, losartan, and statin. - c/w home remeron - Time Spent with Patient Total time spent is greater than 50% in coordination of care (as documented) at patient's floor/unit and/or counseling patient: less than 15 minutes Plan of Care Discussed with: case management Internal Medicine: Result - Labs CBC & Chem 7: 03/17/19 01:55 03/18/19 01:29 - ABG Interpretation ABG results: PT/INR, D-dimer PT 11.3 Seconds (9.4-12.1) 03/16/19 00:26 Consult Discharge Plan - Plan Referrals: Mitchell Greer Jr, MD [Primary Care Provider] - Prescriptions: Apixaban [Eliquis] 5 mg PO BID #60 tablet Morphine Sulfate Oral CONC [Roxanol Oral Conc] 5 mg PO Q3H PRN 14 Days #30 oral.syg PRN Reason: Breakthrough Pain Morphine Sulfate Oral CONC [Roxanol Oral Conc] 5 mg PO Q6H 14 Days #30 oral.syg (1) DVT (deep venous thrombosis) Qualifiers: DVT location: lower extremity Affected thrombotic vein of extremity: femoral Chronicity: acute Laterality: left Qualified Code(s): I82.412 - Acute embolism and thrombosis of left femoral vein (2) Acute on chronic kidney failure Qualifiers: Acute renal failure type: unspecified Chronic kidney disease stage: stage 3 (moderate) Qualified Code(s): N17.9 - Acute kidney failure, unspecified; N18.3 - Chronic kidney disease, stage 3 (moderate) (5) Coronary artery disease Qualifiers: Coronary Disease-Associated Artery/Lesion type: [place] artery [place] vs. transplanted heart: [place] heart Associated angina: without angina Qualified Code(s): I25.10 - Atherosclerotic heart disease of [place] coronary artery without angina pectoris (6) Dementia Qualifiers: Dementia type: unspecified type Dementia behavioral disturbance: without behavioral disturbance Qualified Code(s): F03.90 - Unspecified dementia without behavioral disturbance
--- NOTE | 2019-03-21 13:52 | Physician Discharge Referral ---
ExtendedCare Referral Info Institutional Level of Care: Skilled - Diagnosis (1) DVT (deep venous thrombosis) Priority: Primary Status: Acute (2) Acute on chronic kidney failure Priority: Secondary Status: Acute (3) History of CHF (congestive heart failure) Priority: Secondary Status: Chronic (4) History of COPD Priority: Secondary Status: Chronic (5) Coronary artery disease Priority: Secondary Status: Chronic (6) Dementia Priority: Secondary Status: Chronic - Transfer Medications Prescriptions: Apixaban [Eliquis] 5 mg PO BID #60 tablet Morphine Sulfate Oral CONC [Roxanol Oral Conc] 5 mg PO Q3H PRN 14 Days #30 oral.syg PRN Reason: Breakthrough Pain Morphine Sulfate Oral CONC [Roxanol Oral Conc] 5 mg PO Q6H 14 Days #30 oral.syg Home Medications: Aspirin Enteric Coated [Aspirin EC] 81 mg PO DAILY 09/13/17 [History] Furosemide [Lasix] 40 mg PO DAILY 09/13/17 [History] Multivit-Min/FA/Lycopen/Lutein [Centrum Silver Tablet] 1 tab PO DAILY 09/13/17 [History] [place]-3/Dha/Epa/Fish Oil [[place]-3 Fish Oil 1,000 mg Sfgl] 1,000 mg PO DAILY [History] Albuterol Sulfate [Ventolin Hfa] 2 puff IH Q6H PRN 06/09/18 [History] Carvedilol [Coreg] 25 mg PO BIDWM tablet 07/30/18 [Rx] Gabapentin [Neurontin] 300 mg PO HS 03/15/19 [History] Linaclotide [Linzess] 290 mcg PO DAILY PRN 03/15/19 [History] Mirtazapine [Remeron] 30 mg PO HS 03/15/19 [History] amLODIPine [Norvasc] 2.5 mg PO DAILY 03/15/19 [History] Acetaminophen [Tylenol 8 Hour] 650 - 1,300 mg PO Q4-6H PRN 03/17/19 [History] Albuterol Neb [Proventil Neb] 2.5 mg IH Q6H PRN 03/17/19 [History] Losartan Potassium 25 mg PO DAILY 03/17/19 [History] Morphine Oral CONC [Roxanol] 0.25 ml PO Q3H PRN 03/17/19 [History] Apixaban [Eliquis] 5 mg PO BID #60 tablet 03/18/19 [Rx] Morphine Sulfate Oral CONC [Roxanol Oral Conc] 5 mg PO Q3H PRN 14 Days #30 oral.syg 03/20/19 [Rx] Morphine Sulfate Oral CONC [Roxanol Oral Conc] 5 mg PO Q6H 14 Days #30 oral.syg 03/20/19 [Rx] Allergies/Adverse Reactions: Allergy/AdvReac Type Severity Reaction Status Date / Time latex Allergy Hives Verified 07/21/18 16:44 lisinopril AdvReac Abdominal Verified 07/21/18 16:44 Pain - Respiratory Orders Smoking Cessation: Smoking cessation has been advised. For more information, call the [employer] Tobacco Quit Line at 9-449-UNRWNOW. - Advance Directives Code Status: DNR-Comfort Care - Rehabiliation Orders Rehab Orders: Evaluation for Physical Therapy, Evaluation for Occupational Therapy CERTIFICATION: I certify that the transfer of the above named patient to an Extended Care Facility is necessary for the continuing treatment of the diagnosis listed. The above information is true and accurate reflection of patient's current condition. Confidential - Redisclosure prohibited without a patient's written consent.
== END 2019-03-21 17:37 | disposition home or self-care (01) | DRG 300 ==
LOC: 3ANU 15:21 → EMEROOARM 15:21 → SUATTDRO 21:00 → 3ANU 22:44 → SUATTDRO 03-17 11:19 → 2ANU 03-18 17:56
PROVIDERS: ADMIT Internal Medicine Nephrology; ATTEND Internal Medicine

== ENCOUNTER 2019-03-29 17:16 | Inpatient (IN) ==
[2019-03-29 17:52] LABS: Basophils % 0.3 %; Eosinophils # 0.2 K/mcL (0.0-0.6); Eosinophils % 1.8 %; Hematocrit 23.2 % (35.3-44.9); Hemoglobin 7.5 g/dL (11.5-15.4); Immature Granulocytes % 0.4 % (0-4); Lymphocytes # 1.4 K/mcL (0.6-4.6); Lymphocytes % 14.6 %; Mean Corpuscular HGB Conc 32.3 g/dL (31.6-35.5); Mean Corpuscular Hemoglobin 33.8 pg (28.0-33.3); Mean Corpuscular Volume 104.5 fL (83.0-100.0); Mean Platelet Volume 10.6 fL (9.4-12.4); Monocytes # 0.7 K/mcL (0.0-1.3); Monocytes % 7.6 %; Neutrophils # 7.1 K/mcL (1.6-8.9); Platelet Count 248 K/mcL (140-400); Red Blood Count 2.22 M/mcL (3.82-4.97); Red Cell Distribution Width 15.4 % (11.5-14.5); Segmented Neutrophils % 75.3 %; White Blood Count 9.5 K/mcL (4.3-11.1)
[2019-03-29 18:00] LABS: INR 2.5; Prothrombin Time 28.5 Seconds (9.4-12.1)
[2019-03-29 18:02] LABS: Activated Partial Thrombo Time 31.5 Seconds (26.0-36.0)
[2019-03-29 18:10] LABS: Calcium 8.3 mg/dL (8.6-10.3); Potassium 3.8 mEq/L (3.5-5.1)
[2019-03-29 18:31] LABS: Albumin 3.1 g/dL (3.5-5.7); Albumin/Globulin Ratio 1.1 (1.1-2.2); Bilirubin,Direct 0.1 mg/dL (0.0-0.2); Bilirubin,Indirect 0.3 mg/dL (0.0-1.2); Bilirubin,Total 0.4 mg/dL (0.3-1.0); Globulin 2.8 g/dL (2.4-3.5); Total Protein 5.9 g/dL (6.4-8.9)
[2019-03-29] MEDS ORDERED: *HR* Heparin 5,000 UNIT/ML VIAL IVP PRN ×3 (20:34→20:47)
[2019-03-29] MEDS ORDERED: *HR* Heparin 5,000 UNIT/ML VIAL IVP ONE ×2 (20:34→20:47)
[2019-03-29] MEDS ORDERED: *HR* FentaNYL (PF) 100 MCG/2 ML VIAL IVP ONE (20:36)
[2019-03-29] MEDS ORDERED: Heparin 25,000 UNIT/250 ML D5W 25,000 UNIT/250 ML IV.SOLN IVC SCH (20:45)
[2019-03-29] MEDS: Heparin 25,000 UNIT/250 ML D5W 25,000 UNIT/250 ML IV.SOLN IVC SCH (21:06)
[2019-03-30] MEDS ORDERED: Naloxone 0.4 MG/ML INJ IVP PRN (02:03)
[2019-03-30 03:17] LABS: Hematocrit 23.4 % (35.3-44.9); Hemoglobin 7.4 g/dL (11.5-15.4); Immature Platelets 3.9 % (1.1-6.1); Mean Corpuscular HGB Conc 31.6 g/dL (31.6-35.5); Mean Corpuscular Volume 104.5 fL (83.0-100.0); Mean Platelet Volume 10.9 fL (9.4-12.4); Red Blood Count 2.24 M/mcL (3.82-4.97); Red Cell Distribution Width 15.2 % (11.5-14.5); White Blood Count 10.7 K/mcL (4.3-11.1)
[2019-03-30 03:39] LABS: Calcium 8.5 mg/dL (8.6-10.3); Potassium 3.7 mEq/L (3.5-5.1)
[2019-03-30] MEDS: *HR* Heparin 5,000 UNIT/ML VIAL IVP PRN ×2 (08:54→22:10)
[2019-03-30] MEDS: carvediloL 25 MG TABLET PO SCH (17:15)
[2019-03-30] MEDS ORDERED: Mirtazapine 15 MG TABLET PO SCH (21:00)
[2019-03-30] MEDS ORDERED: Gabapentin 300 MG CAPSULE PO SCH (21:00)
[2019-03-30] MEDS: Heparin 25,000 UNIT/250 ML D5W 25,000 UNIT/250 ML IV.SOLN IVC SCH (22:41)
[2019-03-31 05:01] LABS: Hematocrit 21.6 % (35.3-44.9); Hemoglobin 7.1 g/dL (11.5-15.4); Immature Reticulocyte % 29.3 % (11.0-38.0); Retculocyte # 0.07 M/mcL (0.05-0.10); Reticulocyte % 3.1 % (1.6-2.8)
[2019-03-31 05:21] LABS: Calcium 8.5 mg/dL (8.6-10.3); Potassium 3.7 mEq/L (3.5-5.1)
[2019-03-31 06:06] LABS: Folate > 22.3 ng/mL (3.0-16.0); Vitamin B12 1321 pg/mL (250-1100)
[2019-03-31] MEDS: carvediloL 25 MG TABLET PO SCH ×2 (08:13→16:07)
[2019-03-31] MEDS ORDERED: 0.9 % Sodium Chloride 500 ML ONE (11:48)
[2019-03-31] MEDS ORDERED: Calcium Gluconate 1,000 MG/10 ML VIAL ONE (16:52)
[2019-03-31] MEDS ORDERED: ceFAZolin 2,000 MG in Water for inj. (sterile) 20 ML IVP ONE (17:19)
[2019-03-31] MEDS ORDERED: *HR* Midazolam HCl 2 MG/2 ML VIAL ONE (17:25)
[2019-03-31] MEDS ORDERED: *HR* FentaNYL (PF) 100 MCG/2 ML VIAL ONE ×2 (17:25→18:31)
[2019-03-31] MEDS ORDERED: Lidocaine -MPF 2% 5 ML VIAL ONE (17:29)
[2019-03-31] MEDS ORDERED: Ropivacaine/PF 0.5% 30 ML VIAL ONE (17:29)
[2019-03-31] MEDS ORDERED: Vancomycin 1,000 MG VIAL ONE (17:51)
[2019-03-31] MEDS ORDERED: Lidocaine -MPF 2% 2 ML VIAL ONE (18:01)
[2019-03-31] MEDS ORDERED: Acetaminophen IV 1,000 MG/100 ML INFUS..BTL ONE (18:33)
[2019-03-31] MEDS ORDERED: Morphine Sulfate 2 MG/ML SYRINGE IVP PRN (19:18)
[2019-03-31] MEDS ORDERED: *HR* Promethazine 25 MG/ML VIAL IVP PRN (19:18)
[2019-03-31] MEDS ORDERED: Ondansetron 4 MG/2 ML VIAL IVP ONE (19:18)
[2019-03-31] MEDS ORDERED: Acetaminophen 325 MG TABLET PO PRN ×2 (19:43)
[2019-03-31] MEDS ORDERED: *HR* HYDROcodone/Acet 5/325 mg TABLET PO PRN (19:43)
[2019-03-31] MEDS ORDERED: Naloxone 0.4 MG/ML INJ IVP PRN (19:43)
[2019-03-31] MEDS ORDERED: *HR* OxyCODONE Immed Rel 5 MG TABLET PO SCH (20:00)
[2019-03-31] MEDS ORDERED: *HR* Heparin 5,000 UNIT/ML VIAL SQ ONE (20:39)
[2019-03-31] MEDS: Mirtazapine 15 MG TABLET PO SCH (21:14)
[2019-03-31] MEDS: Gabapentin 300 MG CAPSULE PO SCH (21:15)
[2019-04-01] MEDS ORDERED: Acetaminophen IV 500 MG/50 ML INFUS..BTL IVPB ONE (02:01)
[2019-04-01] MEDS ORDERED: Gabapentin 300 MG CAPSULE PO ONE (02:02)
[2019-04-01 04:26] LABS: Basophils % 0.3 %; Eosinophils # 0.1 K/mcL (0.0-0.6); Eosinophils % 1.3 %; Hematocrit 23.6 % (35.3-44.9); Hemoglobin 7.6 g/dL (11.5-15.4); Immature Granulocytes % 0.5 % (0-4); Lymphocytes # 0.9 K/mcL (0.6-4.6); Lymphocytes % 8.9 %; Mean Corpuscular HGB Conc 32.2 g/dL (31.6-35.5); Mean Corpuscular Hemoglobin 32.5 pg (28.0-33.3); Mean Corpuscular Volume 100.9 fL (83.0-100.0); Mean Platelet Volume 10.5 fL (9.4-12.4); Monocytes # 0.7 K/mcL (0.0-1.3); Monocytes % 6.1 %; Neutrophils # 8.8 K/mcL (1.6-8.9); Platelet Count 291 K/mcL (140-400); Red Blood Count 2.34 M/mcL (3.82-4.97); Red Cell Distribution Width 16.6 % (11.5-14.5); Segmented Neutrophils % 82.9 %; White Blood Count 10.6 K/mcL (4.3-11.1)
[2019-04-01 04:41] LABS: Calcium 8.3 mg/dL (8.6-10.3); Potassium 3.8 mEq/L (3.5-5.1)
[2019-04-01] MEDS: *HR* OxyCODONE Immed Rel 5 MG TABLET PO PRN (08:46)
[2019-04-01] MEDS: Apixaban 5 MG TABLET PO SCH ×2 (08:47→20:16)
[2019-04-01] MEDS: carvediloL 25 MG TABLET PO SCH ×2 (08:47→17:52)
[2019-04-01] MEDS ORDERED: Ibuprofen 400 MG TABLET PO SCH (11:39)
[2019-04-01] MEDS: Ringers Solution, Lactated 1,000 ML IVC SCH (15:01)
[2019-04-01] MEDS: Nicotine 14 MG PATCH.TD24 TD SCH (16:08)
[2019-04-01] MEDS: Acetaminophen 325 MG TABLET PO SCH (17:51)
[2019-04-01] MEDS: Gabapentin 300 MG CAPSULE PO SCH (20:15)
[2019-04-01] MEDS: Mirtazapine 15 MG TABLET PO SCH (20:16)
[2019-04-02] MEDS: Acetaminophen 325 MG TABLET PO SCH ×4 (04:45→17:30)
[2019-04-02] MEDS: Apixaban 5 MG TABLET PO SCH ×2 (08:47→22:00)
[2019-04-02] MEDS: carvediloL 25 MG TABLET PO SCH ×2 (08:48→17:33)
[2019-04-02] MEDS: Nicotine 14 MG PATCH.TD24 TD SCH (08:48)
[2019-04-02] MEDS: Ringers Solution, Lactated 1,000 ML IVC SCH (08:54)
[2019-04-02] MEDS: *HR* HYDROcodone/Acet 5/325 mg TABLET PO PRN ×2 (10:13→15:30)
[2019-04-02] MEDS: *HR* OxyCODONE Immed Rel 5 MG TABLET PO PRN ×2 (11:37→17:30)
[2019-04-02] MEDS: Gabapentin 300 MG CAPSULE PO SCH (22:00)
[2019-04-02] MEDS: Mirtazapine 15 MG TABLET PO SCH (22:00)
[2019-04-03] MEDS: Acetaminophen 325 MG TABLET PO SCH ×4 (03:53→17:38)
[2019-04-03] MEDS: Apixaban 5 MG TABLET PO SCH ×2 (09:06→21:14)
[2019-04-03] MEDS: *HR* OxyCODONE Immed Rel 5 MG TABLET PO PRN ×2 (09:06→17:38)
[2019-04-03] MEDS: Nicotine 14 MG PATCH.TD24 TD SCH (09:06)
[2019-04-03] MEDS: carvediloL 25 MG TABLET PO SCH ×2 (09:06→17:39)
[2019-04-03] MEDS: *HR* HYDROcodone/Acet 5/325 mg TABLET PO PRN ×2 (11:25→21:13)
[2019-04-03] MEDS: Gabapentin 300 MG CAPSULE PO SCH (21:13)
[2019-04-03] MEDS: Mirtazapine 15 MG TABLET PO SCH (21:14)
[2019-04-04] MEDS: Acetaminophen 325 MG TABLET PO SCH ×4 (02:01→17:26)
[2019-04-04] MEDS: *HR* OxyCODONE Immed Rel 5 MG TABLET PO PRN ×3 (06:13→15:42)
[2019-04-04] MEDS: carvediloL 25 MG TABLET PO SCH ×2 (08:17→17:26)
[2019-04-04] MEDS: Nicotine 14 MG PATCH.TD24 TD SCH (08:17)
[2019-04-04] MEDS: Apixaban 5 MG TABLET PO SCH ×2 (08:17→21:26)
[2019-04-04] MEDS ORDERED: Albuterol 2.5 MG/3 ML NEBULIZER IH PRN (10:21)
[2019-04-04] MEDS ORDERED: NON-FORMULARY MEDICATION 1 EACH EACH (Linaclotide [Linzess] 290 MCG) PO PRN (10:21)
[2019-04-04] MEDS: Gabapentin 300 MG CAPSULE PO SCH (21:26)
[2019-04-04] MEDS: Mirtazapine 15 MG TABLET PO SCH (21:26)
[2019-04-04] MEDS: *HR* HYDROcodone/Acet 5/325 mg TABLET PO PRN (21:26)
[2019-04-05] MEDS: Acetaminophen 325 MG TABLET PO SCH ×4 (02:23→16:32)
[2019-04-05 04:53] LABS: Hematocrit 21.4 % (35.3-44.9); Hemoglobin 6.7 g/dL (11.5-15.4); Mean Corpuscular HGB Conc 31.3 g/dL (31.6-35.5); Mean Corpuscular Hemoglobin 32.5 pg (28.0-33.3); Mean Corpuscular Volume 103.9 fL (83.0-100.0); Mean Platelet Volume 10.2 fL (9.4-12.4); Platelet Count 357 K/mcL (140-400); Red Blood Count 2.06 M/mcL (3.82-4.97); Red Cell Distribution Width 16.4 % (11.5-14.5); White Blood Count 9.9 K/mcL (4.3-11.1)
[2019-04-05 05:12] LABS: BUN/Creatinine Ratio 20 (6-26); Blood Urea Nitrogen 21 mg/dL (8-23); Calcium 8.3 mg/dL (8.6-10.3); Carbon Dioxide 25 mEq/L (23-29); Chloride 108 mEq/L (98-107); Glucose 91 mg/dL (70-105); Osmolality,Calculated 289 (280-300); Potassium 3.8 mEq/L (3.5-5.1); Sodium 138 mEq/L (136-145); eGFR For African Americans > 60 (> 60); eGFR For Non-African Americans 51 (> 60)
[2019-04-05] MEDS ORDERED: 0.9 % Sodium Chloride 250 ML ONE (08:41)
[2019-04-05] MEDS: amLODIPine 5 MG TABLET PO SCH (09:59)
[2019-04-05] MEDS: Aspirin Enteric Coated 81 MG Tablet PO SCH (09:59)
[2019-04-05] MEDS: carvediloL 25 MG TABLET PO SCH ×2 (10:00→16:23)
[2019-04-05] MEDS: Apixaban 5 MG TABLET PO SCH (10:00)
[2019-04-05] MEDS: *HR* HYDROcodone/Acet 5/325 mg TABLET PO PRN ×2 (10:00→15:00)
[2019-04-05] MEDS: Nicotine 14 MG PATCH.TD24 TD SCH (10:02)
[2019-04-05] MEDS: Pantoprazole 40 MG VIAL IVP SCH (16:23)
[2019-04-05 16:40] LABS: Hematocrit 24.3 % (35.3-44.9); Hemoglobin 7.5 g/dL (11.5-15.4)
[2019-04-05] MEDS: Gabapentin 300 MG CAPSULE PO SCH (20:42)
[2019-04-05] MEDS: *HR* OxyCODONE Immed Rel 5 MG TABLET PO PRN (20:42)
[2019-04-05] MEDS: Mirtazapine 15 MG TABLET PO SCH (20:42)
[2019-04-06] MEDS: Acetaminophen 325 MG TABLET PO SCH ×4 (00:19→17:31)
[2019-04-06 02:30] LABS: Hematocrit 24.9 % (35.3-44.9); Hemoglobin 7.7 g/dL (11.5-15.4); Mean Corpuscular HGB Conc 30.9 g/dL (31.6-35.5); Mean Corpuscular Hemoglobin 31.7 pg (28.0-33.3); Mean Corpuscular Volume 102.5 fL (83.0-100.0); Mean Platelet Volume 9.7 fL (9.4-12.4); Platelet Count 328 K/mcL (140-400); Red Blood Count 2.43 M/mcL (3.82-4.97); White Blood Count 9.3 K/mcL (4.3-11.1)
[2019-04-06] MEDS: Pantoprazole 40 MG VIAL IVP SCH ×2 (05:46→17:32)
[2019-04-06] MEDS: Nicotine 14 MG PATCH.TD24 TD SCH (09:49)
[2019-04-06] MEDS: Aspirin Enteric Coated 81 MG Tablet PO SCH (09:49)
[2019-04-06] MEDS: amLODIPine 5 MG TABLET PO SCH (09:49)
[2019-04-06] MEDS: carvediloL 25 MG TABLET PO SCH ×2 (09:51→17:32)
[2019-04-06] MEDS ORDERED: Ringers Solution, Lactated 500 ML IVC ONE (18:04)
[2019-04-06] MEDS: Mirtazapine 15 MG TABLET PO SCH (20:10)
[2019-04-06] MEDS: Gabapentin 300 MG CAPSULE PO SCH (20:10)
[2019-04-07] MEDS: Acetaminophen 325 MG TABLET PO SCH ×4 (00:56→16:44)
[2019-04-07] MEDS: *HR* HYDROcodone/Acet 5/325 mg TABLET PO PRN ×2 (00:58→20:26)
[2019-04-07] MEDS: Pantoprazole 40 MG VIAL IVP SCH ×2 (05:43→16:45)
[2019-04-07 05:53] LABS: Hemoglobin 7.3 g/dL (11.5-15.4); Mean Corpuscular HGB Conc 30.4 g/dL (31.6-35.5); Mean Corpuscular Hemoglobin 31.6 pg (28.0-33.3); Mean Corpuscular Volume 103.9 fL (83.0-100.0); Platelet Count 343 K/mcL (140-400); Red Blood Count 2.31 M/mcL (3.82-4.97); Red Cell Distribution Width 17.1 % (11.5-14.5); White Blood Count 10.9 K/mcL (4.3-11.1)
[2019-04-07 06:12] LABS: Calcium 8.3 mg/dL (8.6-10.3); Potassium 3.7 mEq/L (3.5-5.1)
[2019-04-07] MEDS: amLODIPine 5 MG TABLET PO SCH (09:56)
[2019-04-07] MEDS: Nicotine 14 MG PATCH.TD24 TD SCH (09:56)
[2019-04-07] MEDS: carvediloL 25 MG TABLET PO SCH ×2 (09:56→16:49)
[2019-04-07] MEDS: Mirtazapine 15 MG TABLET PO SCH (20:25)
[2019-04-07] MEDS: Gabapentin 300 MG CAPSULE PO SCH (20:25)
[2019-04-08] MEDS: Acetaminophen 325 MG TABLET PO SCH ×4 (03:03→16:09)
[2019-04-08 05:35] LABS: Hematocrit 25.3 % (35.3-44.9); Hemoglobin 7.8 g/dL (11.5-15.4); Mean Corpuscular HGB Conc 30.8 g/dL (31.6-35.5); Mean Corpuscular Hemoglobin 31.7 pg (28.0-33.3); Mean Corpuscular Volume 102.8 fL (83.0-100.0); Mean Platelet Volume 9.9 fL (9.4-12.4); Platelet Count 339 K/mcL (140-400); Red Blood Count 2.46 M/mcL (3.82-4.97); Red Cell Distribution Width 16.9 % (11.5-14.5); White Blood Count 9.7 K/mcL (4.3-11.1)
[2019-04-08] MEDS: Pantoprazole 40 MG VIAL IVP SCH (05:48)
[2019-04-08] MEDS ORDERED: Lidocaine -MPF 2% 2 ML VIAL ONE (06:57)
[2019-04-08] MEDS ORDERED: *HR* Propofol 200 MG/20 ML VIAL IVP ONE (06:58)
[2019-04-08] MEDS: Nicotine 14 MG PATCH.TD24 TD SCH (10:32)
[2019-04-08] MEDS: amLODIPine 5 MG TABLET PO SCH (10:33)
[2019-04-08] MEDS: carvediloL 25 MG TABLET PO SCH ×2 (10:34→16:09)
[2019-04-08] MEDS: Gabapentin 300 MG CAPSULE PO SCH (21:30)
[2019-04-08] MEDS: Mirtazapine 15 MG TABLET PO SCH (21:30)
[2019-04-09] MEDS: Acetaminophen 325 MG TABLET PO SCH ×3 (00:10→13:51)
[2019-04-09 05:46] LABS: Hematocrit 24.5 % (35.3-44.9); Hemoglobin 7.6 g/dL (11.5-15.4); Mean Corpuscular Hemoglobin 31.8 pg (28.0-33.3); Mean Corpuscular Volume 102.5 fL (83.0-100.0); Platelet Count 370 K/mcL (140-400); Red Blood Count 2.39 M/mcL (3.82-4.97); Red Cell Distribution Width 16.7 % (11.5-14.5); White Blood Count 9.5 K/mcL (4.3-11.1)
[2019-04-09 06:11] LABS: BUN/Creatinine Ratio 13 (6-26); Blood Urea Nitrogen 13 mg/dL (8-23); Calcium 8.2 mg/dL (8.6-10.3); Carbon Dioxide 23 mEq/L (23-29); Chloride 111 mEq/L (98-107); Glucose 92 mg/dL (70-105); Osmolality,Calculated 296 (280-300); Potassium 3.4 mEq/L (3.5-5.1); Sodium 143 mEq/L (136-145); eGFR For African Americans > 60 (> 60); eGFR For Non-African Americans 50 (> 60)
[2019-04-09] MEDS: amLODIPine 5 MG TABLET PO SCH (08:51)
[2019-04-09] MEDS: carvediloL 25 MG TABLET PO SCH (08:52)
[2019-04-09] MEDS: Nicotine 14 MG PATCH.TD24 TD SCH (08:52)
[2019-04-09 11:44] VITALS: BP 129/63
[2019-04-10] MEDS ORDERED: Aspirin 81 MG TAB.CHEW PO SCH (09:00)
== END 2019-04-09 17:28 | DRG 239 ==
LOC: EMEROOARM 17:16 → 2ANU 17:16 → SUATTDRO 21:41 → 2ANU 23:42
PROVIDERS: ADMIT Family Medicine; ATTEND Internal Medicine
PROC: ENDOCBX (2019-04-08 08:00)
PROC: ENDOEBX (2019-04-08 08:00)

== ENCOUNTER 2019-05-04 13:20 | Inpatient (IN) ==
[2019-05-04] MEDS ORDERED: 0.9 % Sodium Chloride 1,000 ML ONE (13:32)
[2019-05-04] MEDS ORDERED: 0.9 % Sodium Chloride 1,000 ML IVC ONE ×2 (13:41→17:21)
[2019-05-04] MEDS ORDERED: Vancomycin (wt based) 1,000 MG VIAL IV ONE (13:46)
[2019-05-04] MEDS ORDERED: Piperacillin/Tazobactam 3.375 GM in 0.9 % Sodium Chloride Mini Bag 100 ML IVP ONE (13:46)
--- NOTE | 2019-05-04 13:51 | Emergency Department Note ---
Disposition Clinical Impression: Sepsis Qualifiers: Sepsis type: sepsis due to unspecified organism Sepsis acute organ dysfunction status: without acute organ dysfunction Qualified Code(s): A41.9 - Sepsis, unspecified organism Disposition: Admitted As Inpatient Condition: Good Referrals: Mitchell Greer Jr, MD [Non-Partnered Physician] - Forms: ED Satisfaction Letter Time of Disposition: 16:01 General Adult HPI - General Chief complaint: ED Fever Stated complaint: Fever Time Seen by Provider: 05/04/19 13:30 Source: patient, EMS Limitations: altered mental status Nursing Notes Reviewed: Yes Vital Signs Reviewed: Yes - History of Present Illness HPI Narrative: 84 yo woman brought to ED 05/04/19 by EMS after caregivers found fever 103 at home and noticed she was lethargic. 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 A wound check 2 days ago, per nieces, with 10 naheed removed but doctor expressed concern for healing progress of remaining wound. This morning family noticed discharge from wound. They also noted her urine "smelled horrible"; she was diagnosed with UTI 2/2 E. coli while in the hospital but has not been on antibiotics since discharge. She has a pacemaker. She is on 2L O2 at home. EMS noted soft BP (116/54), T102.2, gluc 103. Family reports frequent falls as patient tries to adjust to amputation, w/o head trauma. She is not on anticoagulation. Antiplatelet consists of daily aspirin. PMH includes PAD, DM, CHF, COPD, CKD, dementia She does smoke. Code status DNRCC. Pain Scale: 0 - Related Data Home Medications Medication Instructions Recorded Confirmed Multivit-Min/FA/Lycopen/Lutein 1 tab PO DAILY 09/13/17 05/04/19 [Centrum Silver Tablet] [place]-3/Dha/Epa/Fish Oil [[place]-3 1,000 mg PO DAILY 09/13/17 05/04/19 Fish Oil 1,000 mg Sfgl] Albuterol Sulfate [Ventolin Hfa] 2 puff IH Q6H PRN 06/09/18 05/04/19 Gabapentin [Neurontin] 300 mg PO HS 03/15/19 05/04/19 Linaclotide [Linzess] 290 mcg PO DAILY PRN 03/15/19 05/04/19 Mirtazapine [Remeron] 30 mg PO HS 03/15/19 05/04/19 amLODIPine [Norvasc] 2.5 mg PO DAILY 03/15/19 05/04/19 Albuterol Neb [Proventil Neb] 2.5 mg IH Q6H PRN 03/17/19 05/04/19 Losartan Potassium 25 mg PO DAILY 03/17/19 05/04/19 Morphine Oral CONC [Roxanol] 5 mg PO QID PRN 03/17/19 05/04/19 Oxycodone HCl [Roxybond] 5 mg PO QID 03/29/19 05/04/19 Previous Rx's Medication Instructions Recorded Carvedilol [Coreg] 25 mg PO BIDWM tablet 07/30/18 Ferrous Sulfate 325 mg PO BIDWM 30 Days #60 tablet 04/02/19 Omeprazole [PriLOSEC] 40 mg PO BIDAC capsule. 04/09/19 Aspirin Enteric Coated [Aspirin EC] 81 mg PO Q48H tablet. 04/22/19 Allergies Allergy/AdvReac Type Severity Reaction Status Date / Time latex Allergy Hives Verified 05/04/19 13:23 lisinopril AdvReac Abdominal Verified 05/04/19 13:23 Pain Past Medical History - Past Medical History Attestation: Yes The following information was validated with the patient. 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 Pupils equal and reactive. Cardio: Regular rate and rhythm, no murmur, no peripheral edema, palpable pulses peripherally (RUE, LUE, RLE), no cyanosis Resp: +wheeze, +rhonchi, +decreased breath sounds bilaterally GI: Abdomen soft, nondistended, nontender to palpation. No ecchymoses, no rash. : No suprapubic tenderness or distention MSK: +surgical wound dehiscence LLE w/ purulent discharge, erythema, edema along staple line; +2" skin tear with seropurulent discharge on right forearm; Neuro: CNI-XII intact, strength and sensation WNL Psych: Appropriate affect - General Limitations: altered mental status General appearance: alert, in no apparent distress Course Course Narrative: T 102.2 here, VS stable. Sepsis workup and broad spectrum abx started (Zosyn/Vanc) along with Tylenol. Patient resting comfortably w/ no complaints. Vital Signs Temperature 102.2 F H 05/04/19 13:24 Pulse Rate 70 05/04/19 13:24 Respiratory Rate 15 05/04/19 13:24 Blood Pressure 112/58 05/04/19 13:24 O2 Sat by Pulse Oximetry 93 05/04/19 13:24 Temperature 102.2 F H 05/04/19 13:24 Pulse Rate 70 05/04/19 15:37 Respiratory Rate 15 05/04/19 15:37 Blood Pressure 133/44 05/04/19 15:37 O2 Sat by Pulse Oximetry 95 05/04/19 15:37 Oxygen Delivery Oxygen Delivery Nasal Cannula Medical Decision Making - MDM Narrative Medical decision making narrative: Given fever, appearance of surgical wound as well as accompanying UTI and multifocal pneumonia, patient admitted to hospital for sepsis management. Received IV Zosyn 4.5/Vanc 1000mg, and 1L IVF. WBC 13.8, lactate 1.1. Hgb 10 but appears baseline. Patient's family in agreement with plan. Vascular surgery notified of admission per hospitalist's request, and said they will see patient. - Medical Records Medical records reviewed: Yes I reviewed the patient's medical records. - Lab Data Lab results reviewed: Yes I reviewed the patient's lab results. Result diagrams: 05/04/19 13:30 05/04/19 13:30 Lab Results 05/04/19 05/04/19 05/04/19 Range/Units 13:30 13:30 13:30 WBC 13.8 H (4.3-11.1) K/mcL RBC 3.20 L (3.82-4.97) M/mcL Hgb 10.0 L (11.5-15.4) g/dL Hct 32.1 L (35.3-44.9) % MCV 100.3 H (83.0-100.0) fL MCH 31.3 (28.0-33.3) pg MCHC 31.2 L (31.6-35.5) g/dL RDW 16.1 H (11.5-14.5) % Plt Count 161 (140-400) K/mcL MPV 11.1 (9.4-12.4) fL Immature Gran % 0.4 (0-4) % Seg Neutrophils % 80.4 % Lymphocytes % 11.7 % Monocytes % 6.7 % Eosinophils % 0.6 % Basophils % 0.2 % Neutrophils # 11.1 H (1.6-8.9) K/mcL Lymphocytes # 1.6 (0.6-4.6) K/mcL Monocytes # 0.9 (0.0-1.3) K/mcL Eosinophils # 0.1 (0.0-0.6) K/mcL Basophils # 0.0 (0.0-0.2) K/mcL Sodium 138 (136-145) mEq/L Potassium 4.4 (3.5-5.1) mEq/L Chloride 106 (98-107) mEq/L Carbon Dioxide 27 (23-29) mEq/L BUN 22 (8-23) mg/dL Creatinine 1.81 H (0.60-1.20) mg/dL Est GFR ( Amer) 32 L (> 60) Est GFR (Non-Af Amer) 27 L (> 60) BUN/Creatinine Ratio 12 (6-26) Glucose 88 (70-105) mg/dL Calculated Osmolality 289 (280-300) Lactic Acid 1.1 (0.5-2.2) mmol/L Calcium 8.5 L (8.6-10.3) mg/dL Total Bilirubin 0.5 (0.3-1.0) mg/dL AST 13 (13-39) Units/L ALT 10 (7-52) Units/L Alkaline Phosphatase 83 (34-104) Units/L Serum Total Protein 6.0 L (6.4-8.9) g/dL Albumin 3.1 L (3.5-5.7) g/dL Globulin 2.9 (2.4-3.5) g/dL Albumin/Globulin Ratio 1.1 (1.1-2.2) Urine Color (Yellow) Urine Clarity (Clear) Urine pH (5.0-8.0) pH Units Ur Specific [place] (1.010-1.025) Urine Protein (Neg-Trace) mg/dL Urine Glucose (UA) (Normal) mg/dL Urine Ketones (Negative) mg/dL Urine Blood (Negative) Urine Nitrite (Negative) Urine Bilirubin (Negative) Urine Urobilinogen (Normal) mg/dL Ur Leukocyte Esterase (Negative) Urine Microscopic RBC (0-3) per hpf Urine Microscopic WBC (0-3) per hpf Ur Squamous Epith Cells (None-Few) per lpf Urine Bacteria (None-Few) per hpf Hyaline Casts (None-Few) per lpf Ur Culture Indicated? (NO) 05/04/19 Range/Units 13:51 WBC (4.3-11.1) K/mcL RBC (3.82-4.97) M/mcL Hgb (11.5-15.4) g/dL Hct (35.3-44.9) % MCV (83.0-100.0) fL MCH (28.0-33.3) pg MCHC (31.6-35.5) g/dL RDW (11.5-14.5) % Plt Count (140-400) K/mcL MPV (9.4-12.4) fL Immature Gran % (0-4) % Seg Neutrophils % % Lymphocytes % % Monocytes % % Eosinophils % % Basophils % % Neutrophils # (1.6-8.9) K/mcL Lymphocytes # (0.6-4.6) K/mcL Monocytes # (0.0-1.3) K/mcL Eosinophils # (0.0-0.6) K/mcL Basophils # (0.0-0.2) K/mcL Sodium (136-145) mEq/L Potassium (3.5-5.1) mEq/L Chloride (98-107) mEq/L Carbon Dioxide (23-29) mEq/L BUN (8-23) mg/dL Creatinine (0.60-1.20) mg/dL Est GFR ( Amer) (> 60) Est GFR (Non-Af Amer) (> 60) BUN/Creatinine Ratio (6-26) Glucose (70-105) mg/dL Calculated Osmolality (280-300) Lactic Acid (0.5-2.2) mmol/L Calcium (8.6-10.3) mg/dL Total Bilirubin (0.3-1.0) mg/dL AST (13-39) Units/L ALT (7-52) Units/L Alkaline Phosphatase (34-104) Units/L Serum Total Protein (6.4-8.9) g/dL Albumin (3.5-5.7) g/dL Globulin (2.4-3.5) g/dL Albumin/Globulin Ratio (1.1-2.2) Urine Color Yellow (Yellow) Urine Clarity Turbid A (Clear) Urine pH 6.5 (5.0-8.0) pH Units Ur Specific [place] 1.011 (1.010-1.025) Urine Protein 100 H (Neg-Trace) mg/dL Urine Glucose (UA) Normal (Normal) mg/dL Urine Ketones Negative (Negative) mg/dL Urine Blood Moderate H (Negative) Urine Nitrite Negative (Negative) Urine Bilirubin Negative (Negative) Urine Urobilinogen Normal (Normal) mg/dL Ur Leukocyte Esterase Large H (Negative) Urine Microscopic RBC 30-50 H (0-3) per hpf Urine Microscopic WBC TNTC H (0-3) per hpf Ur Squamous Epith Cells Many H (None-Few) per lpf Urine Bacteria Many H (None-Few) per hpf Hyaline Casts None Seen (None-Few) per lpf Ur Culture Indicated? YES A (NO) - Radiology Data Radiology results reviewed: Yes I reviewed the patient's radiology results. Chest X-Ray 05/04/19 14:10 IMPRESSION: Bibasilar airspace opacifications could represent a multifocal pneumonia D/ / Luke Dueñas MD / Luke Dueñas MD Interpreting Provider: Luke Dueñas MD - EKG Data EKG #1 EKG attestation: Yes I reviewed and interpreted this EKG. Rate: normal Rhythm: other (Paced) When compared to previous EKG there are: no significant changes Interpretation: no acute changes, unchanged when compared to prior tracing (date) (03/16/19)
[2019-05-04 13:56] LABS: Basophils % 0.2 %; Eosinophils # 0.1 K/mcL (0.0-0.6); Eosinophils % 0.6 %; Hematocrit 32.1 % (35.3-44.9); Immature Granulocytes % 0.4 % (0-4); Lymphocytes # 1.6 K/mcL (0.6-4.6); Lymphocytes % 11.7 %; Mean Corpuscular HGB Conc 31.2 g/dL (31.6-35.5); Mean Corpuscular Hemoglobin 31.3 pg (28.0-33.3); Mean Corpuscular Volume 100.3 fL (83.0-100.0); Mean Platelet Volume 11.1 fL (9.4-12.4); Monocytes # 0.9 K/mcL (0.0-1.3); Monocytes % 6.7 %; Neutrophils # 11.1 K/mcL (1.6-8.9); Platelet Count 161 K/mcL (140-400); Red Cell Distribution Width 16.1 % (11.5-14.5); Segmented Neutrophils % 80.4 %; White Blood Count 13.8 K/mcL (4.3-11.1)
[2019-05-04 13:59] LABS: Bilirubin,Urine Negative (Negative); Blood,Urine Moderate (Negative); Clarity,Urine Turbid (Clear); Color,Urine Yellow (Yellow); Glucose,Urine (UA) Normal (Normal); Ketones,Urine Negative (Negative); Leukocyte Esterase,Urine Large (Negative); Nitrite,Urine Negative (Negative); PH,Urine 6.5 pH Units (5.0-8.0); Protein,Urine 100 mg/dL (Neg-Trace); Specific Gravity,Urine 1.011 (1.010-1.025); Urobilinogen,Urine Normal (Normal)
[2019-05-04 14:01] LABS: Bacteria,Urine Many per hpf (None-Few); Hyaline Casts,Urine None Seen per lpf (None-Few); RBC,Urine 30-50 per hpf (0-3); Squamous Epithelial Cell,Urine Many per lpf (None-Few); WBC,Urine TNTC per hpf (0-3)
[2019-05-04 14:04] LABS: Albumin 3.1 g/dL (3.5-5.7); Albumin/Globulin Ratio 1.1 (1.1-2.2); Bilirubin,Total 0.5 mg/dL (0.3-1.0); Calcium 8.5 mg/dL (8.6-10.3); Globulin 2.9 g/dL (2.4-3.5); Potassium 4.4 mEq/L (3.5-5.1)
[2019-05-04] MEDS ORDERED: Ipratropium/Albuterol Neb 3 ML IH ONE (14:25)
[2019-05-04] MEDS ORDERED: Acetaminophen 325 MG TABLET PO ONE (15:43)
--- NOTE | 2019-05-04 15:44 | Emergency Department Note ---
Disposition Clinical Impression: Sepsis Qualifiers: Sepsis type: sepsis due to unspecified organism Sepsis acute organ dysfunction status: without acute organ dysfunction Qualified Code(s): A41.9 - Sepsis, unspecified organism Disposition: Admitted As Inpatient Condition: Good Time of Disposition: 16:01 General Adult HPI - General Chief complaint: ED Fever Stated complaint: Fever Time Seen by Provider: 05/04/19 13:30 Source: patient, EMS Limitations: altered mental status - History of Present Illness Pain Scale: 0 - Related Data Home Medications Medication Instructions Recorded Confirmed Multivit-Min/FA/Lycopen/Lutein 1 tab PO DAILY 09/13/17 05/04/19 [Centrum Silver Tablet] [place]-3/Dha/Epa/Fish Oil [[place]-3 1,000 mg PO DAILY 09/13/17 05/04/19 Fish Oil 1,000 mg Sfgl] Albuterol Sulfate [Ventolin Hfa] 2 puff IH Q6H PRN 06/09/18 05/04/19 Gabapentin [Neurontin] 300 mg PO HS 03/15/19 05/04/19 Linaclotide [Linzess] 290 mcg PO DAILY PRN 03/15/19 05/04/19 Mirtazapine [Remeron] 30 mg PO HS 03/15/19 05/04/19 amLODIPine [Norvasc] 2.5 mg PO DAILY 03/15/19 05/04/19 Albuterol Neb [Proventil Neb] 2.5 mg IH Q6H PRN 03/17/19 05/04/19 Losartan Potassium 25 mg PO DAILY 03/17/19 05/04/19 Morphine Oral CONC [Roxanol] 5 mg PO QID PRN 03/17/19 05/04/19 Oxycodone HCl [Roxybond] 5 mg PO QID 03/29/19 05/04/19 Previous Rx's Medication Instructions Recorded Carvedilol [Coreg] 25 mg PO BIDWM tablet 07/30/18 Ferrous Sulfate 325 mg PO BIDWM 30 Days #60 tablet 04/02/19 Omeprazole [PriLOSEC] 40 mg PO BIDAC capsule. 04/09/19 Aspirin Enteric Coated [Aspirin EC] 81 mg PO Q48H tablet. 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 - Social History Smoking Status: Former smoker Smokeless Tobacco Status: No Alcohol use: Reports: none Drug use: Reports: none Physical Exam - General Limitations: altered mental status General appearance: alert, in no apparent distress Course Vital Signs Temperature 102.2 F H 05/04/19 13:24 Pulse Rate 70 05/04/19 13:24 Respiratory Rate 15 05/04/19 13:24 Blood Pressure 112/58 05/04/19 13:24 O2 Sat by Pulse Oximetry 93 05/04/19 13:24 Temperature 97.9 F 05/05/19 11:32 Pulse Rate 70 05/05/19 11:32 Respiratory Rate 16 05/05/19 11:32 Blood Pressure 121/59 05/05/19 11:32 O2 Sat by Pulse Oximetry 95 05/05/19 11:32 Oxygen Delivery Oxygen Delivery Nasal Cannula Medical Decision Making - Lab Data Result diagrams: 05/05/19 03:33 05/05/19 03:33 Lab Results 05/04/19 05/04/19 05/04/19 Range/Units 13:30 13:30 13:30 WBC 13.8 H (4.3-11.1) K/mcL RBC 3.20 L (3.82-4.97) M/mcL Hgb 10.0 L (11.5-15.4) g/dL Hct 32.1 L (35.3-44.9) % MCV 100.3 H (83.0-100.0) fL MCH 31.3 (28.0-33.3) pg MCHC 31.2 L (31.6-35.5) g/dL RDW 16.1 H (11.5-14.5) % Plt Count 161 (140-400) K/mcL MPV 11.1 (9.4-12.4) fL Immature Gran % 0.4 (0-4) % Seg Neutrophils % 80.4 % Lymphocytes % 11.7 % Monocytes % 6.7 % Eosinophils % 0.6 % Basophils % 0.2 % Neutrophils # 11.1 H (1.6-8.9) K/mcL Lymphocytes # 1.6 (0.6-4.6) K/mcL Monocytes # 0.9 (0.0-1.3) K/mcL Eosinophils # 0.1 (0.0-0.6) K/mcL Basophils # 0.0 (0.0-0.2) K/mcL Sodium 138 (136-145) mEq/L Potassium 4.4 (3.5-5.1) mEq/L Chloride 106 (98-107) mEq/L Carbon Dioxide 27 (23-29) mEq/L BUN 22 (8-23) mg/dL Creatinine 1.81 H (0.60-1.20) mg/dL Est GFR ( Amer) 32 L (> 60) Est GFR (Non-Af Amer) 27 L (> 60) BUN/Creatinine Ratio 12 (6-26) Glucose 88 (70-105) mg/dL Calculated Osmolality 289 (280-300) Lactic Acid 1.1 (0.5-2.2) mmol/L Calcium 8.5 L (8.6-10.3) mg/dL Total Bilirubin 0.5 (0.3-1.0) mg/dL AST 13 (13-39) Units/L ALT 10 (7-52) Units/L Alkaline Phosphatase 83 (34-104) Units/L Serum Total Protein 6.0 L (6.4-8.9) g/dL Albumin 3.1 L (3.5-5.7) g/dL Globulin 2.9 (2.4-3.5) g/dL Albumin/Globulin Ratio 1.1 (1.1-2.2) Procalcitonin (0.00-0.15) ng/mL Urine Color (Yellow) Urine Clarity (Clear) Urine pH (5.0-8.0) pH Units Ur Specific [place] (1.010-1.025) Urine Protein (Neg-Trace) mg/dL Urine Glucose (UA) (Normal) mg/dL Urine Ketones (Negative) mg/dL Urine Blood (Negative) Urine Nitrite (Negative) Urine Bilirubin (Negative) Urine Urobilinogen (Normal) mg/dL Ur Leukocyte Esterase (Negative) Urine Microscopic RBC (0-3) per hpf Urine Microscopic WBC (0-3) per hpf Ur Squamous Epith Cells (None-Few) per lpf Urine Bacteria (None-Few) per hpf Hyaline Casts (None-Few) per lpf Ur Culture Indicated? (NO) 05/04/19 05/04/19 Range/Units 13:30 13:51 WBC (4.3-11.1) K/mcL RBC (3.82-4.97) M/mcL Hgb (11.5-15.4) g/dL Hct (35.3-44.9) % MCV (83.0-100.0) fL MCH (28.0-33.3) pg MCHC (31.6-35.5) g/dL RDW (11.5-14.5) % Plt Count (140-400) K/mcL MPV (9.4-12.4) fL Immature Gran % (0-4) % Seg Neutrophils % % Lymphocytes % % Monocytes % % Eosinophils % % Basophils % % Neutrophils # (1.6-8.9) K/mcL Lymphocytes # (0.6-4.6) K/mcL Monocytes # (0.0-1.3) K/mcL Eosinophils # (0.0-0.6) K/mcL Basophils # (0.0-0.2) K/mcL Sodium (136-145) mEq/L Potassium (3.5-5.1) mEq/L Chloride (98-107) mEq/L Carbon Dioxide (23-29) mEq/L BUN (8-23) mg/dL Creatinine (0.60-1.20) mg/dL Est GFR ( Amer) (> 60) Est GFR (Non-Af Amer) (> 60) BUN/Creatinine Ratio (6-26) Glucose (70-105) mg/dL Calculated Osmolality (280-300) Lactic Acid (0.5-2.2) mmol/L Calcium (8.6-10.3) mg/dL Total Bilirubin (0.3-1.0) mg/dL AST (13-39) Units/L ALT (7-52) Units/L Alkaline Phosphatase (34-104) Units/L Serum Total Protein (6.4-8.9) g/dL Albumin (3.5-5.7) g/dL Globulin (2.4-3.5) g/dL Albumin/Globulin Ratio (1.1-2.2) Procalcitonin 0.22 H (0.00-0.15) ng/mL Urine Color Yellow (Yellow) Urine Clarity Turbid A (Clear) Urine pH 6.5 (5.0-8.0) pH Units Ur Specific [place] 1.011 (1.010-1.025) Urine Protein 100 H (Neg-Trace) mg/dL Urine Glucose (UA) Normal (Normal) mg/dL Urine Ketones Negative (Negative) mg/dL Urine Blood Moderate H (Negative) Urine Nitrite Negative (Negative) Urine Bilirubin Negative (Negative) Urine Urobilinogen Normal (Normal) mg/dL Ur Leukocyte Esterase Large H (Negative) Urine Microscopic RBC 30-50 H (0-3) per hpf Urine Microscopic WBC TNTC H (0-3) per hpf Ur Squamous Epith Cells Many H (None-Few) per lpf Urine Bacteria Many H (None-Few) per hpf Hyaline Casts None Seen (None-Few) per lpf Ur Culture Indicated? YES A (NO) Attestation Statement - Attestation Attestation: I examined this patient and my medical decision-making was reviewed with the Resident Physician. I agree with the documented findings, disposition and treatment plan as described except to the extent set forth below. Patient 84-year-old female presents March department with chief complaint of fever. Patient recently had a below-knee amputation on the left and is noticed that there is been some drainage out of that area as well as redness. The patient also noticed that her she has had increased urine odor and is also been extremely dark. Patient had a temperature of 102 at home. Exam patient's awake alert able answer all questions she was febrile with temperature of 102. Left lower extremity there is erythema at the incision site and there is some mild serous segments drainage from the area where the wound was. Medical decision management lab for studies were obtained and the patient showed a mild leukocytosis as well as a urinalysis that was positive for significant urinary tract infection. Chest x-ray shows evidence of possible infiltrates of the patient was cultured and started on broad-spectrum coverage with leg and Zosyn. The case was discussed with the hospitalist the patient was admitted to the hospital. I personally supervised and was present for the robertson/critical portions of the following procedures completed by the resident:EKG.
[2019-05-04] MEDS ORDERED: Ondansetron 4 MG/2 ML VIAL IVP PRN (16:49)
[2019-05-04] MEDS ORDERED: Naloxone 0.4 MG/ML INJ IVP PRN (16:49)
[2019-05-04] MEDS ORDERED: Vancomycin (wt based) 1,000 MG VIAL IVPB SCH (17:00)
--- NOTE | 2019-05-04 17:01 | Internal Med History&Physical ---
Date of Encounter: 05/04/19 Time of Encounter: 16:55 Internal Medicine - H&P: HPI Chief complaint: Fever and lethargy Admitted From: Home Plans for Post Hospital Care: Transfer Custodial Facility History of present illness: Ms. May is a 84 year old female with past medical history of CHF, status post pacemaker placement, peripheral artery disease, COPD, hypertension, iron deficiency anemia presents to the emergency room with complaint of fever and lethargic. Patient was brought into the emergency room by EMS. Per patient's niece, patient has not been feeling well today. Patient is feeling very gabe rgic and weak. Patient also spiked fever at home nadit was 103. Per niece, patient's temperature was 103 at home. Ivan reported patient had a appointment with vascular surgeon couple days ago for naheed removel s/p left AKA. However, the wound was not healing properly so naheed was not removed. Per ivan, pt is having discharge which is foul smelling from the wound site. Patient denied any difficulty in breathing. Patient denied any cough. Patient denied any chest pain, palpitation, abdominal pain, and diarrhea. Patient was recently admitted to the [facility] in March. On that admission she was found to have occluded left femoropopliteal bypass graft. 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 Patient discharged from the rehabilitation facility on 04/22/2019 to home. Upon presentation to the emergency department. Patient's temperature was 102.2. Blood pressure was 100/60. White count was 13.8. Hemoglobin is 10 which was her baseline. BMP showed creatinine of 1.8, which shows sign of RICHA. Patient got chest x-ray done bilateral multifocal pneumonia with out any effusion. She will receive 1 L bolus in the emergency room. Patient received vancomycin 1 and Zosyn 1. Tylenol 6501. She will be admitted for possible sepsis likely due to pneumonia versus ce llulitisat LLE stump s/p Left AKA. Past Med Surg Social Fam HX - Past Medical History Medical history: CHF, COPD, coronary artery disease, GERD, hyperlipidemia, hypertension, peripheral artery disease Additional medical history: Unknown heart problem. fall with broken ribs apr / may 2018? DNR-CC and on hospice care Psychiatric history: no psych history - Past Surgical History Surgical History: hysterectomy, knee replacement, orthopedic, other Additional surgical history: right shoulder, right hand, knee surgery, lbka - Social History Smoking Status: Former smoker Smokeless Tobacco Status: No Alcohol use: none Drug use: none - Family History Father Hx Family Cardiac Disorders: Yes Brother Hx Family Cancer: Yes (kidney) Mother Family Member Ethnicity: Non- Living Status: Internal Medicine - H&P: Meds Multivit-Min/FA/Lycopen/Lutein [Centrum Silver Tablet] 1 tab PO DAILY 09/13/17 [History] [place]-3/Dha/Epa/Fish Oil [[place]-3 Fish Oil 1,000 mg Sfgl] 1,000 mg PO DAILY 09/13/17 [History] Albuterol Sulfate [Ventolin Hfa] 2 puff IH Q6H PRN 06/09/18 [History] Carvedilol [Coreg] 25 mg PO BIDWM tablet 07/30/18 [Rx] Gabapentin [Neurontin] 300 mg PO HS 03/15/19 [History] Linaclotide [Linzess] 290 mcg PO DAILY PRN 03/15/19 [History] Mirtazapine [Remeron] 30 mg PO HS 03/15/19 [History] amLODIPine [Norvasc] 2.5 mg PO DAILY 03/15/19 [History] Albuterol Neb [Proventil Neb] 2.5 mg IH Q6H PRN 03/17/19 [History] Losartan Potassium 25 mg PO DAILY 03/17/19 [History] Morphine Oral CONC [Roxanol] 5 mg PO QID PRN 03/17/19 [History] Oxycodone HCl [Roxybond] 5 mg PO QID 03/29/19 [History] Ferrous Sulfate 325 mg PO BIDWM 30 Days #60 tablet 04/02/19 [Rx] Omeprazole [PriLOSEC] 40 mg PO BIDAC capsule. 04/09/19 [Rx] Aspirin Enteric Coated [Aspirin EC] 81 mg PO Q48H tablet. 04/22/19 [Rx] Allergy/AdvReac Type Severity Reaction Status Date / Time latex Allergy Hives Verified 05/04/19 13:23 lisinopril AdvReac Abdominal Verified 05/04/19 13:23 Pain All Systems PM: A 10-system review of systems was performed and is negative for pertinent findings except as documented above in the HPI. - Constitutional Vitals: Temp Pulse Resp BP Pulse Ox 102.2 F H 70 16 100/60 95 05/04/19 13:24 05/04/19 16:42 05/04/19 16:42 05/04/19 16:42 05/04/19 16:42 General appearance: Present: cooperative, A&O X 3 Exam: General: Alert, but somnolent and lethargic. Follows command HENNT: PERRLA. Head atraumatic and makes supple Eyes: No scleral icterus noted CVS S1 and S2 regular, no murmur RS: Diminished air entry, scattered rhonchi. No rales Abdomen: Soft and nontender. Bowel sounds normal 4 Extremities: S/p Left below-knee amputation, wound has not healed properly, naheed in place. Serous discharge noted which was not foul smelling, Rt extremity had no rash, cyanosis, clubbing and edema Neurology: was not performed since patient being somnolent Integumentary: No rash noted other then those mentioned under extremity exam Psychiatry: A & O X 3 Internal Med - H&P Results - Labs CBC & Chem 7: 05/04/19 13:30 05/04/19 13:30 Labs: Short CBC 05/04/19 Range/Units 13:30 WBC 13.8 H (4.3-11.1) K/mcL Hgb 10.0 L (11.5-15.4) g/dL Hct 32.1 L (35.3-44.9) % Plt Count 161 (140-400) K/mcL Neutrophils # 11.1 H (1.6-8.9) K/mcL BMP 05/04/19 13:30 Sodium 138 Potassium 4.4 Chloride 106 Carbon Dioxide 27 BUN 22 Creatinine 1.81 H Glucose 88 Calcium 8.5 L Liver Function 05/04/19 Range/Units 13:30 Total Bilirubin 0.5 (0.3-1.0) mg/dL AST 13 (13-39) Units/L ALT 10 (7-52) Units/L Alkaline Phosphatase 83 (34-104) Units/L Albumin 3.1 L (3.5-5.7) g/dL Urine 05/04/19 Range/Units 13:51 Urine Color Yellow (Yellow) Urine Clarity Turbid A (Clear) Urine pH 6.5 (5.0-8.0) pH Units Ur Specific [place] 1.011 (1.010-1.025) Urine Protein 100 H (Neg-Trace) mg/dL Urine Glucose (UA) Normal (Normal) mg/dL - Impressions ITS Impressions Chest X-Ray 05/04/19 14:10 IMPRESSION: Bibasilar airspace opacifications could represent a multifocal pneumonia D/ / Luke Dueñas MD / Luke Dueñas MD Interpreting Provider: Luke Dueñas MD - Assessment and Plan (1) Sepsis Current Visit: Yes Status: Acute Assessment and plan: Patient presents to the emergency room with complaint of fever, lethargic, and weakness. Patient's temperature at home was 103 at home. Upon presentation to the emergency room patient's temperature was 102.2. Patient's chest x-ray showed multifocal pneumonia. UA was significant for possible UTI. On exam patient also had poor filling of the left lower extremity stump. Lactic was 1.1. Procal was elevated at 0.22. Wll hold antihypertensive medication. - Continue IV hydration - Continue IV Zosyn and vancomycin - Await blood culture and urine culture - Sputum culture ordered Qualifiers: Sepsis type: sepsis due to unspecified organism Sepsis acute organ dysf unction status: without acute organ dysfunction Qualified Code(s): A41.9 - Sepsis, unspecified organism (2) Multilobar lung infiltrate Current Visit: Yes Status: Acute Assessment and plan: Management as mentioned and sepsis. (3) Cellulitis Current Visit: Yes Status: Acute Assessment and plan: Continue on vancomycin and Zosyn. Qualifiers: Site of cellulitis: extremity Site of cellulitis of extremity: lower ex tremity Laterality: left Qualified Code(s): L03.116 - Cellulitis of left lower limb (4) UTI (urinary tract infection) Current Visit: No Status: Acute Assessment and plan: Continue Zosyn Qualifiers: Urinary tract infection type: site unspecified Hematuria presence: with hematuria Qualified Code(s): N39.0 - Urinary tract infection, site not specified; R31.9 - Hematuria, unspecified (5) Acute kidney injury superimposed on CKD Current Visit: Yes Status: Acute Assessment and plan: Patient's creatinine was elevated at 1.8. She has history of CKD stage IV. Pt's baselin Cr around 1.2-1.4. History of present illness most likely due to renal hypoperfusion from hypotension. Pt received one liter bolus in the emergency room. Continue IV hydration. Repeat BMP in a.m. We will consider nephrology consult if is not improving or worsening. (6) Congestive heart failure Current Visit: No Status: Chronic Assessment and plan: Pt is currently not volume overloaded. We will hold Lasix due to hypotension 2/2 sepsis. Continue to monitor Qualifiers: Heart failure type: systolic Heart failure chronicity: acute on chronic Qualified Code(s): I50.23 - Acute on chronic systolic (congestive) heart failure (7) Coronary artery disease Current Visit: No Status: Chronic Assessment and plan: We will continue aspirin. Will hold beta leland currently due to hypotension. Qualifiers: Coronary Disease-Associated Artery/Lesion type: [place] artery [place] vs. transplanted heart: [place] heart Associated angina: without angina Qualified Code(s): I25.10 - Atherosclerotic heart disease of [place] coronary artery without angina pectoris (8) Hypertension Current Visit: No Status: Chronic Assessment and plan: Will hold antihypertensive medication due to hypertension 2/2 sepsis. Qualifiers: Hypertension type: essential hypertension Qualified Code(s): I10 - Essential (primary) hypertension (9) Dementia Current Visit: No Status: Chronic Assessment and plan: Supportive care. Qualifiers: Dementia type: unspecified type Dementia behavioral disturbance: without behavioral disturbance Qualified Code(s): F03.90 - Unspecified dementia without behavioral disturbance (10) Anemia Current Visit: No Status: Chronic Assessment and plan: We will continue home ferrous sulfate. Qualifiers: Anemia type: iron deficiency Iron deficiency anemia type: unspecified iron deficiency Qualified Code(s): D50.9 - Iron deficiency anemia, unspecified (11) DVT prophylaxis Current Visit: No Status: Chronic Assessment and plan: EPCD - Time Spent With Patient Total time spent is greater than 50% in coordination of care (as documented) at patient's floor/unit and/or counseling patient: Greater than 35 minutes
[2019-05-04] MEDS ORDERED: Ipratropium/Albuterol Neb 3 ML IH PRN (17:37)
[2019-05-04] MEDS: 0.9 % Sodium Chloride 1,000 ML IVC SCH (18:33)
[2019-05-04] MEDS: Mirtazapine 15 MG TABLET PO SCH (20:11)
[2019-05-04] MEDS ORDERED: Piperacillin/Tazobactam 3.375 GM in 0.9 % Sodium Chloride Mini Bag 100 ML IVPB SCH (22:00)
[2019-05-05] MEDS ORDERED: Piperacillin/Tazobactam 3.375 GM in 0.9 % Sodium Chloride Mini Bag 100 ML IVPB SCH
[2019-05-05 03:53] LABS: Basophils % 0.2 %; Eosinophils # 0.1 K/mcL (0.0-0.6); Eosinophils % 0.6 %; Hematocrit 27.9 % (35.3-44.9); Hemoglobin 8.7 g/dL (11.5-15.4); Immature Granulocytes % 0.5 % (0-4); Lymphocytes # 1.1 K/mcL (0.6-4.6); Lymphocytes % 7.5 %; Mean Corpuscular HGB Conc 31.2 g/dL (31.6-35.5); Mean Corpuscular Hemoglobin 31.5 pg (28.0-33.3); Mean Corpuscular Volume 101.1 fL (83.0-100.0); Mean Platelet Volume 11.2 fL (9.4-12.4); Monocytes # 0.8 K/mcL (0.0-1.3); Monocytes % 5.6 %; Neutrophils # 11.9 K/mcL (1.6-8.9); Platelet Count 136 K/mcL (140-400); Red Blood Count 2.76 M/mcL (3.82-4.97); Red Cell Distribution Width 16.2 % (11.5-14.5); Segmented Neutrophils % 85.6 %; White Blood Count 13.9 K/mcL (4.3-11.1)
[2019-05-05 04:11] LABS: Calcium 7.3 mg/dL (8.6-10.3); Potassium 4.1 mEq/L (3.5-5.1)
[2019-05-05] MEDS: 0.9 % Sodium Chloride 1,000 ML IVC SCH (05:24)
[2019-05-05] MEDS: Acetaminophen 325 MG TABLET PO PRN ×2 (08:04→19:49)
[2019-05-05] MEDS: Aspirin 81 MG TAB.CHEW PO SCH (08:04)
--- NOTE | 2019-05-05 11:13 | Internal Med Progress Note ---
Hospitalist Progress Note - Encounter Date of Encounter: 05/05/19 Time of Encounter: 11:10 - Subjective Interval History: Patient was seen and examined at bedside this morning. Patient reports some pain in her left lower extremity at the site of a bony amputation. Patient denied any cough. Patient denied any chest pain, palpitation, fever and chills overnight. - Exam Vitals: Temp Pulse Resp BP Pulse Ox 99.4 F 70 16 106/53 96 05/05/19 07:24 05/05/19 10:10 05/05/19 10:39 05/05/19 10:10 05/05/19 10:39 Exam: General: Alert, but somnolent and lethargic. Follows command HENNT: PERRLA. Head atraumatic and makes supple Eyes: No scleral icterus noted CVS S1 and S2 regular, no murmur RS: Diminished air entry, scattered rhonchi. No rales Abdomen: Soft and nontender. Bowel sounds normal 4 Extremities: S/p Left below-knee amputation, wound has not healed properly, naheed in place. Serous discharge noted which was not foul smelling, Rt extremity had no rash, cyanosis, clubbing and edema Neurology: was not performed since patient being somnolent Integumentary: No rash noted other then those mentioned under extremity exam Psychiatry: A & O X 3 - Assessment and Plan (1) Sepsis Current Visit: Yes Status: Acute Assessment and Plan: Patient presents to the emergency room with complaint of fever, lethargic, and weakness. Pt initial workup was significant for bilateral pneumonia, possible UTI, and possible infection at surgical site of left AKA. Recent lactate level is trending down today. Patient procalcitonin today is 0.54. - We will discontinue IV hydration today since patient's blood pressure has been in normal limit (patient has a history of CHF) - IV antibiotic Zosyn and vancomycin - We will await urine culture, wound culture, and blood culture report. (2) Multilobar lung infiltrate Current Visit: Yes Status: Acute Assessment and Plan: Continue antibiotic therapy and breathing treatment. (3) Cellulitis Current Visit: Yes Status: Acute Assessment and Plan: Continue on vancomycin and Zosyn. Vascular surgery on consult for the possible surgical site infection. Appreciate vascular surgery recommendation. (4) UTI (urinary tract infection) Current Visit: No Status: Acute Assessment and Plan: Continue Zosyn (5) Acute kidney injury superimposed on CKD Current Visit: Yes Status: Acute Assessment and Plan: Patient's creatinine was elevated at 1.8 on presentation. The abdomen is downtrending. Most likely elevated creatinine was likely due to hypotension. Patient's blood pressure has normalized today. We will continue to monitor. (6) Congestive heart failure Current Visit: No Status: Chronic Assessment and Plan: Pt is not currently in any volume overload. Patient was placed on fluid resuscitation due to hypotension yesterday. Patient blood pressure has been normalized today we will discontinue IV fluid resuscitation today (7) Coronary artery disease Current Visit: No Status: Chronic Assessment and Plan: Continue aspirin. Will hold beta leland currently due to hypotension. (8) Hypertension Current Visit: No Status: Chronic Assessment and Plan: Continue to hold antihypertensive medication due to hypertension 2/2 sepsis. (9) Dementia Current Visit: No Status: Chronic Assessment and Plan: Supportive care. (10) Anemia Current Visit: No Status: Chronic Assessment and Plan: We will continue home ferrous sulfate. We will continue to monitor. (11) DVT prophylaxis Current Visit: No Status: Chronic Assessment and Plan: EPCD - Time Spent with Patient Total time spent is greater than 50% in coordination of care (as documented) at patient's floor/unit and/or counseling patient: 25 - 35 minutes Plan of Care Discussed with: patient Internal Medicine: Result - Labs CBC & Chem 7: 05/05/19 03:33 05/05/19 03:33 Labs: Short CBC 05/04/19 05/05/19 Range/Units 13:30 03:33 WBC 13.8 H 13.9 H (4.3-11.1) K/mcL Hgb 10.0 L 8.7 L (11.5-15.4) g/dL Hct 32.1 L 27.9 L (35.3-44.9) % Plt Count 161 136 L (140-400) K/mcL Neutrophils # 11.1 H 11.9 H (1.6-8.9) K/mcL BMP 05/04/19 05/05/19 13:30 03:33 Sodium 138 139 Potassium 4.4 4.1 Chloride 106 113 H Carbon Dioxide 27 20 L BUN 22 23 Creatinine 1.81 H 1.74 H Glucose 88 113 H Calcium 8.5 L 7.3 L Liver Function 05/04/19 Range/Units 13:30 Total Bilirubin 0.5 (0.3-1.0) mg/dL AST 13 (13-39) Units/L ALT 10 (7-52) Units/L Alkaline Phosphatase 83 (34-104) Units/L Albumin 3.1 L (3.5-5.7) g/dL Urine 05/04/19 Range/Units 13:51 Urine Color Yellow (Yellow) Urine Clarity Turbid A (Clear) Urine pH 6.5 (5.0-8.0) pH Units Ur Specific [place] 1.011 (1.010-1.025) Urine Protein 100 H (Neg-Trace) mg/dL Urine Glucose (UA) Normal (Normal) mg/dL - Impressions Impressions Chest X-Ray 05/04/19 14:10 IMPRESSION: Bibasilar airspace opacifications could represent a multifocal pneumonia D/ / Luke Dueñas MD / Luke Dueñas MD Interpreting Provider: Luke Dueñas MD Consult Discharge Plan - Plan Referrals: Mitchell Greer Jr, MD [Primary Care Provider] - (1) Sepsis Qualifiers: Sepsis type: sepsis due to unspecified organism Sepsis acute organ dysfunction status: without acute organ dysfunction Qualified Code(s): A41.9 - Sepsis, unspecified organism (3) Cellulitis Qualifiers: Site of cellulitis: extremity Site of cellulitis of extremity: lower extremity Laterality: left Qualified Code(s): L03.116 - Cellulitis of left lower limb (4) UTI (urinary tract infection) Qualifiers: Urinary tract infection type: site unspecified Hematuria presence: with hematuria Qualified Code(s): N39.0 - Urinary tract infection, site not specified; R31.9 - Hematuria, unspecified (6) Congestive heart failure Qualifiers: Heart failure type: systolic Heart failure chronicity: acute on chronic Qualified Code(s): I50.23 - Acute on chronic systolic (congestive) heart failure (7) Coronary artery disease Qualifiers: Coronary Disease-Associated Artery/Lesion type: [place] artery [place] vs. transplanted heart: [place] heart Associated angina: without angina Qualified Code(s): I25.10 - Atherosclerotic heart disease of [place] coronary artery without angina pectoris (8) Hypertension Qualifiers: Hypertension type: essential hypertension Qualified Code(s): I10 - Essential (primary) hypertension (9) Dementia Qualifiers: Dementia type: unspecified type Dementia behavioral disturbance: without behavioral disturbance Qualified Code(s): F03.90 - Unspecified dementia without behavioral disturbance (10) Anemia Qualifiers: Anemia type: iron deficiency Iron deficiency anemia type: unspecified iron deficiency Qualified Code(s): D50.9 - Iron deficiency anemia, unspecified
[2019-05-05] MEDS: Piperacillin/Tazobactam 3.375 GM in 0.9 % Sodium Chloride Mini Bag 100 ML IVPB SCH (11:54)
[2019-05-05] MEDS: *HR* OxyCODONE Immed Rel 5 MG TABLET PO PRN (14:05)
--- NOTE | 2019-05-05 15:26 | Vascular/Endovasc Consult Note ---
Date of Encounter: 05/05/19 Time of Encounter: 15:24 Assessment and Plan (1) Peripheral arterial disease Current Visit: No Status: Chronic Status post left [id number] amputation. The naheed were removed. There is a very small opening on the medial aspect of the amputation site which was packed with 4 x 4. I have instructed the nurse to pursue with wet-to-dry dressing changes to the left stump. She does not need antibiotic for her stump. We will await for a 4 inch Juan F wrap her left thigh. The patient can be discharged from our perspective. She will need wet-to-dry dressing changes to the left stump twice daily. She is to follow up with vascular surgery in 2 weeks. - History of Present Illness Consult date: 05/05/19 History of present illness: Ms. May is a 84 year old female admitted to the hospital for pneumonia. The patient is status post left [id number] amputation for severe peripheral vascular disease. The patient has her naheed in. We were asked to see her in consultation to assess for wound remove her naheed. The patient reportedly has a small opening of her wound on the medial aspect of her left thigh. She denies any pain in that area. Past Med Surg Social Fam HX - Past Medical History Medical history: CHF, COPD, coronary artery disease, GERD, hyperlipidemia, hype rtension, peripheral artery disease Additional medical history: Unknown heart problem. fall with broken ribs apr / may 2018? DNR-CC and on hospice care Psychiatric history: no psych history - Past Surgical History Surgical History: hysterectomy, knee replacement, orthopedic, other Additional surgical history: right shoulder, right hand, knee surgery, lbka - Social History Smoking Status: Former smoker Smokeless Tobacco Status: No Alcohol use: none Drug use: none - Family History Father Hx Family Cardiac Disorders: Yes Brother Hx Family Cancer: Yes (kidney) Mother Family Member Ethnicity: Non- Living Status: Medications and Allergies Multivit-Min/FA/Lycopen/Lutein [Centrum Silver Tablet] 1 tab PO DAILY 09/13/17 [History] [place]-3/Dha/Epa/Fish Oil [[place]-3 Fish Oil 1,000 mg Sfgl] 1,000 mg PO DAILY 09/13/17 [History] Albuterol Sulfate [Ventolin Hfa] 2 puff IH Q6H PRN 06/09/18 [History] Carvedilol [Coreg] 25 mg PO BIDWM tablet 07/30/18 [Rx] Gabapentin [Neurontin] 300 mg PO HS 03/15/19 [History] Linaclotide [Linzess] 290 mcg PO DAILY PRN 03/15/19 [History] Mirtazapine [Remeron] 30 mg PO HS 03/15/19 [History] amLODIPine [Norvasc] 2.5 mg PO DAILY 03/15/19 [History] Albuterol Neb [Proventil Neb] 2.5 mg IH Q6H PRN 03/17/19 [History] Losartan Potassium 25 mg PO DAILY 03/17/19 [History] Morphine Oral CONC [Roxanol] 5 mg PO QID PRN 03/17/19 [History] Oxycodone HCl [Roxybond] 5 mg PO QID 03/29/19 [History] Ferrous Sulfate 325 mg PO BIDWM 30 Days #60 tablet 04/02/19 [Rx] Omeprazole [PriLOSEC] 40 mg PO BIDAC capsule. 04/09/19 [Rx] Aspirin Enteric Coated [Aspirin EC] 81 mg PO Q48H tablet. 04/22/19 [Rx] Allergy/AdvReac Type Severity Reaction Status Date / Time latex Allergy Hives Verified 05/04/19 17:38 lisinopril AdvReac Abdominal Verified 05/04/19 17:38 Pain All Systems Review: The remainder of the systems were reviewed and are negative - Musculoskeletal Musculoskeletal: other (Slight left leg pain.) Exam Vital Signs, Last 4 Hours Temp Pulse Resp BP Pulse Ox 05/05/19 11:32 97.9 F 70 16 121/59 95 General: Present: Conversant, Well developed, Well nourished HEENT: Present: Atraumatic, Normocephaly Cardiac: Present: Reg Rate and Rhythm Lungs: Present: Normal Breath Sounds Neuro: Present: Alert and responsive Abdomen: Present: Soft Vascular: Present: Amputation(s) Skin: Present: Wound/ulcer(s) (Small open area involving the medial aspect of the left [id number] amputation was fat necrosis. There is no evidence of infection.) Consult Discharge Plan - Plan Referrals: Mitchell Greer Jr, MD [Primary Care Provider] -
[2019-05-05] MEDS: Mirtazapine 15 MG TABLET PO SCH (19:48)
[2019-05-06] MEDS: Piperacillin/Tazobactam 3.375 GM in 0.9 % Sodium Chloride Mini Bag 100 ML IVPB SCH ×3 (00:39→23:34)
[2019-05-06] MEDS ORDERED: *HR* Metoprolol 5 MG/5 ML VIAL IVP ONE (03:39)
[2019-05-06] MEDS: *HR* Metoprolol 5 MG/5 ML VIAL IVP ONE ×2 (03:40→03:45)
[2019-05-06 03:59] LABS: Basophils # 0.1 K/mcL (0.0-0.2); Basophils % 0.3 %; Eosinophils # 0.4 K/mcL (0.0-0.6); Eosinophils % 2.1 %; Hematocrit 36.8 % (35.3-44.9); Immature Granulocytes % 0.5 % (0-4); Lymphocytes # 1.7 K/mcL (0.6-4.6); Lymphocytes % 9.3 %; Mean Corpuscular HGB Conc 29.1 g/dL (31.6-35.5); Mean Corpuscular Hemoglobin 31.3 pg (28.0-33.3); Mean Platelet Volume 11.8 fL (9.4-12.4); Monocytes # 1.1 K/mcL (0.0-1.3); Monocytes % 5.8 %; Neutrophils # 15.1 K/mcL (1.6-8.9); Platelet Count 142 K/mcL (140-400); Red Blood Count 3.42 M/mcL (3.82-4.97); Red Cell Distribution Width 15.9 % (11.5-14.5); White Blood Count 18.4 K/mcL (4.3-11.1)
[2019-05-06 04:28] LABS: Hemoglobin 10.7 g/dL (11.5-15.4); Mean Corpuscular Volume 107.6 fL (83.0-100.0)
[2019-05-06 04:31] LABS: Platelet Estimate Decreased (Normal)
[2019-05-06] MEDS: Aspirin 81 MG TAB.CHEW PO SCH (08:38)
--- NOTE | 2019-05-06 10:41 | Internal Med Progress Note ---
Hospitalist Progress Note - Encounter Date of Encounter: 05/06/19 Time of Encounter: 10:39 - Exam Vitals: Temp Pulse Resp BP Pulse Ox 99.1 F 70 18 166/70 98 05/06/19 09:25 05/06/19 09:25 05/06/19 09:25 05/06/19 09:25 05/06/19 09:25 Exam: General: Alert, but somnolent and lethargic. Follows command HENNT: PERRLA. Head atraumatic and makes supple Eyes: No scleral icterus noted CVS S1 and S2 regular, no murmur RS: Diminished air entry, scattered rhonchi. No rales Abdomen: Soft and nontender. Bowel sounds normal 4 Extremities: S/p Left below-knee amputation, wound has not healed properly, s taples in place. Serous discharge noted which was not foul smelling, Rt extremity had no rash, cyanosis, clubbing and edema Neurology: was not performed since patient being somnolent Integumentary: No rash noted other then those mentioned under extremity exam Psychiatry: A & O X 3 - Assessment and Plan (1) Sepsis Current Visit: Yes Status: Acute Assessment and Plan: Patient presents to the emergency room with complaint of fever, lethargic, and weakness. Pt initial workup was significant for bilateral pneumonia, possible UTI, and possible infection at surgical site of left AKA. Recent lactate level is trending down today. Patient procalcitonin is up trending to 0.80 today - Patient's IV maintenance fluid was discontinued yesterday. Patient's currently having elevated blood pressure. Patient's Coreg resumed. - IV antibiotic Zosyn and vancomycin - We will await wound culture, urine culture, and blood culture report. (2) Multilobar lung infiltrate Current Visit: Yes Status: Acute Assessment and Plan: Continue antibiotic therapy and breathing treatment. (3) Cellulitis Current Visit: Yes Status: Acute Assessment and Plan: Continue on vancomycin and Zosyn. Vascular surgery on consult for the possible surgical site infection. Appreciate vascular surgery recommendation. Vascular surgery evaluated patient yesterday. Also surgery to remove the naheed. Patient has a draining wound at the left AKA stump. Surgery ordered daily dressing with packing. (4) UTI (urinary tract infection) Current Visit: No Status: Acute Assessment and Plan: Continue Zosyn (5) Acute kidney injury superimposed on CKD Current Visit: Yes Status: Acute Assessment and Plan: Patient creatinine is stable around 1.7. We will continue to monitor. (6) Congestive heart failure Current Visit: No Status: Chronic Assessment and Plan: Patient is currently not on volume overload. Resumed Coreg today. We will continue to monitor. (7) Coronary artery disease Current Visit: No Status: Chronic Assessment and Plan: Continue aspirin. Resumed coreg today (8) Hypertension Current Visit: No Status: Chronic Assessment and Plan: Resumed coreg today. Start losartan and Norvasc as tolerated. (9) Dementia Current Visit: No Status: Chronic Assessment and Plan: Supportive care. (10) Anemia Current Visit: No Status: Chronic Assessment and Plan: We will continue home ferrous sulfate. We will continue to monitor. (11) DVT prophylaxis Current Visit: No Status: Chronic Assessment and Plan: EPCD - Time Spent with Patient Total time spent is greater than 50% in coordination of care (as documented) at patient's floor/unit and/or counseling patient: 25 - 35 minutes Plan of Care Discussed with: patient Internal Medicine: Result - Labs CBC & Chem 7: 05/06/19 03:33 05/06/19 03:33 Labs: Short CBC 05/06/19 Range/Units 03:33 WBC 18.4 H (4.3-11.1) K/mcL Hgb 10.7 L D (11.5-15.4) g/dL Hct 36.8 (35.3-44.9) % Plt Count 142 (140-400) K/mcL Neutrophils # 15.1 H (1.6-8.9) K/mcL BMP 05/06/19 03:33 Sodium 138 Potassium 4.0 Chloride 110 H Carbon Dioxide 18 L BUN 21 Creatinine 1.75 H Glucose 120 H Calcium 8.0 L - Impressions Impressions Chest X-Ray 05/06/19 03:43 IMPRESSION: 1. Increased bilateral perihilar airspace opacities and diffuse interstitial opacities suggestive of edema. Pneumonia could appear similar. 2. Increased right basilar airspace opacity, potentially atelectasis, pneumonia, or edema. 3. At least trace bilateral pleural effusions. D/ / Luke Atkins MD / Luke Atkins MD Interpreting Provider: Luke Atkins MD Consult Discharge Plan - Plan Referrals: Mitchell Greer Jr, MD [Primary Care Provider] - (1) Sepsis Qualifiers: Sepsis type: sepsis due to unspecified organism Sepsis acute organ dysfunction status: without acute organ dysfunction Qualified Code(s): A41.9 - Sepsis, unspecified organism (3) Cellulitis Qualifiers: Site of cellulitis: extremity Site of cellulitis of extremity: lower extremity Laterality: left Qualified Code(s): L03.116 - Cellulitis of left lower limb (4) UTI (urinary tract infection) Qualifiers: Urinary tract infection type: site unspecified Hematuria presence: with hematuria Qualified Code(s): N39.0 - Urinary tract infection, site not specified; R31.9 - Hematuria, unspecified (6) Congestive heart failure Qualifiers: Heart failure type: systolic Heart failure chronicity: acute on chronic Qualified Code(s): I50.23 - Acute on chronic systolic (congestive) heart failure (7) Coronary artery disease Qualifiers: Coronary Disease-Associated Artery/Lesion type: [place] artery [place] vs. transplanted heart: [place] heart Associated angina: without angina Qualified Code(s): I25.10 - Atherosclerotic heart disease of [place] coronary artery without angina pectoris (8) Hypertension Qualifiers: Hypertension type: essential hypertension Qualified Code(s): I10 - Essential (primary) hypertension (9) Dementia Qualifiers: Dementia type: unspecified type Dementia behavioral disturbance: without behavioral disturbance Qualified Code(s): F03.90 - Unspecified dementia without behavioral disturbance (10) Anemia Qualifiers: Anemia type: iron deficiency Iron deficiency anemia type: unspecified iron deficiency Qualified Code(s): D50.9 - Iron deficiency anemia, unspecified
--- NOTE | 2019-05-06 12:53 | Electrocardiograph Report ---
[place] [id number] Test Date: 2019-05-04 Pat Name: Whitley May Department: [id number] Room: 2NE19 Gender: F Outside Salesperson: : 1935 Requested By: Summer Avila Order Number: [id number] Reading MD: Jm Purcell Measurements Intervals [place] Rate: 73 P: [place]: 62 QRS: -80 QRSD: 108 T: 84 QT: 415 QTc: 448 Interpretive Statements DEMAND AV SEQUENTIAL PACING Baseline wander in lead(s) V1 Electronically Signed On 05-06-2019 12:51:20 EDT by Jm Purcell
[2019-05-06] MEDS: Ipratropium/Albuterol Neb 3 ML IH SCH ×3 (15:43→21:49)
--- NOTE | 2019-05-06 18:04 | Vascular/[facility] Progress Note ---
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 She was recently seen in clinic and the medial portion of her naheed are removed. It was apparent that the lateral margin of her wound has not entirely healed and the naheed were left in place. A portion of the wound with naheed removed has now superficially. There is no evidence of infection. She will continue with wet-to-dry dressing changes. She is scheduled to follow up in vascular clinic. We will sign off this patient. Reconsult if needed. - Subjective Interval history: The patient is comfortable. She denies fevers or chills. She denies any pain from her amputation site. - Physical Examination General: Present: Conversant Cardiac: Present: Normal S1 and S2 Lungs: Present: Normal Breath Sounds Neuro: Present: Alert and responsive, No focal deficits noted Vascular: Present: Surgical incisions (Left amputation site clean and dry without erythema or drainage, medial portion of her naheed were recently removed has opened. The margins are viable. There is no erythema or drainage) Results 05/06/19 03:33 05/06/19 03:33 Lab Results, Last 24 hours 05/06/19 05/06/19 03:33 03:33 WBC 18.4 H Hgb 10.7 L D Hct 36.8 Plt Count 142 Sodium 138 Potassium 4.0 Chloride 110 H Carbon Dioxide 18 L BUN 21 Creatinine 1.75 H Glucose 120 H Calcium 8.0 L Consult Discharge Plan - Plan Referrals: Mitchell Greer Jr, MD [Primary Care Provider] -
[2019-05-06] MEDS: Mirtazapine 15 MG TABLET PO SCH (20:50)
[2019-05-06] MEDS: *HR* OxyCODONE Immed Rel 5 MG TABLET PO PRN (20:51)
[2019-05-07] MEDS: Ipratropium/Albuterol Neb 3 ML IH SCH ×4 (03:59→22:00)
[2019-05-07 06:04] LABS: Basophils % 0.3 %; Eosinophils # 0.3 K/mcL (0.0-0.6); Eosinophils % 3.6 %; Hematocrit 25.1 % (35.3-44.9); Immature Granulocytes % 0.1 % (0-4); Lymphocytes # 1.1 K/mcL (0.6-4.6); Lymphocytes % 14.8 %; Mean Corpuscular HGB Conc 31.5 g/dL (31.6-35.5); Mean Corpuscular Hemoglobin 31.2 pg (28.0-33.3); Monocytes # 0.6 K/mcL (0.0-1.3); Monocytes % 8.3 %; Neutrophils # 5.3 K/mcL (1.6-8.9); Platelet Count 140 K/mcL (140-400); Red Blood Count 2.53 M/mcL (3.82-4.97); Red Cell Distribution Width 15.5 % (11.5-14.5); Segmented Neutrophils % 72.9 %
[2019-05-07 06:18] LABS: Hemoglobin 7.9 g/dL (11.5-15.4); Mean Corpuscular Volume 99.2 fL (83.0-100.0); White Blood Count 7.3 K/mcL (4.3-11.1)
[2019-05-07 06:25] LABS: Calcium 7.9 mg/dL (8.6-10.3); Potassium 3.6 mEq/L (3.5-5.1)
[2019-05-07] MEDS: Aspirin 81 MG TAB.CHEW PO SCH (08:11)
[2019-05-07 11:49] LABS: Hemoglobin 7.8 g/dL (11.5-15.4)
[2019-05-07] MEDS: Piperacillin/Tazobactam 3.375 GM in 0.9 % Sodium Chloride Mini Bag 100 ML IVPB SCH ×2 (12:02→19:39)
--- NOTE | 2019-05-07 13:57 | Internal Med Progress Note ---
Hospitalist Progress Note - Encounter Date of Encounter: 05/07/19 Time of Encounter: 13:48 - Subjective Interval History: Pt was seen and examined at bedside today. Pt denies any acute issues overnight. He denies any cough, difficulty in breathing, fever, and chills. - Exam Vitals: Temp Pulse Resp BP Pulse Ox 98.6 F 70 18 181/73 96 05/07/19 08:08 05/07/19 08:08 05/07/19 10:37 05/07/19 08:08 05/07/19 10:37 Exam: General: Alert, but somnolent and lethargic. Follows command HENNT: PERRLA. Head atraumatic and makes supple Eyes: No scleral icterus noted CVS S1 and S2 regular, no murmur RS: Diminished air entry, scattered rhonchi. No rales Abdomen: Soft and nontender. Bowel sounds normal 4 Extremities: S/p Left below-knee amputation, wound has not healed properly, Serous discharge noted which was not foul smelling, Rt extremity had no rash, cyanosis, clubbing and edema Neurology: was not performed since patient being somnolent Integumentary: No rash noted other then those mentioned under extremity exam Psychiatry: A & O X 3 - Assessment and Plan (1) Sepsis Current Visit: Yes Status: Acute Assessment and Plan: Patient presents to the emergency room with complaint of fever, lethargic, and weakness. Pt initial workup was significant for bilateral pneumonia, possible UTI, and possible infection at surgical site of left AKA. Recent lactate level is trending down today. Patient procalcitonin is up trending to 0.80 today - Patient's IV maintenance fluid was discontinued yesterday. Patient's currently having elevated blood pressure. Patient's Coreg resumed and Losartan resumed today - IV antibiotic Zosyn and vancomycin - We will await wound culture grew MRSA (sensitive to vancomycin) and E coli (sensitive to Zosyn), urine culture grew E coli (sensitive to Zosyn), and blood culture report showed no growth till date. (2) Multilobar lung infiltrate Current Visit: Yes Status: Acute Assessment and Plan: Continue antibiotic therapy and breathing treatment. (3) Anemia Current Visit: No Status: Chronic Assessment and Plan: We will continue home ferrous sulfate. Pt's Hb dropped to 7.8 today. FOBT ordered. UA ordered. Repeat H and H ordered. Will transfuse if needed and Hb dropped < 7 (4) Cellulitis Current Visit: Yes Status: Acute Assessment and Plan: Continue on vancomycin and Zosyn. Vascular surgery on consult for the possible surgical site infection. Appreciate vascular surgery recommendation. Vascular surgery evaluated patient yesterday. Also surgery to remove the naheed. Patient has a draining wound at the left AKA stump. Surgery ordered daily dressing with packing. (5) UTI (urinary tract infection) Current Visit: No Status: Acute Assessment and Plan: Continue Zosyn (6) Acute kidney injury superimposed on CKD Current Visit: Yes Status: Acute Assessment and Plan: Patient creatinine is down trending at 1.53. We will continue to monitor. (7) Congestive heart failure Current Visit: No Status: Chronic Assessment and Plan: Patient is currently not on volume overload. Resumed Coreg today. Losartan started today. We will continue to monitor. (8) Coronary artery disease Current Visit: No Status: Chronic Assessment and Plan: Continue aspirin. Continue coreg and Losartan (9) Hypertension Current Visit: No Status: Chronic Assessment and Plan: Resumed coreg yesterday. Start losartan today. (10) Dementia Current Visit: No Status: Chronic Assessment and Plan: Supportive care. (11) DVT prophylaxis Current Visit: No Status: Chronic Assessment and Plan: EPCD - Time Spent with Patient Total time spent is greater than 50% in coordination of care (as documented) at patient's floor/unit and/or counseling patient: 25 - 35 minutes Plan of Care Discussed with: patient Internal Medicine: Result - Labs CBC & Chem 7: 05/07/19 11:01 05/07/19 05:48 Labs: Short CBC 05/07/19 05/07/19 Range/Units 05:48 11:01 WBC 7.3 D (4.3-11.1) K/mcL Hgb 7.9 L D 7.8 L (11.5-15.4) g/dL Hct 25.1 L 25.0 L (35.3-44.9) % Plt Count 140 (140-400) K/mcL Neutrophils # 5.3 (1.6-8.9) K/mcL BMP 05/07/19 05:48 Sodium 144 Potassium 3.6 Chloride 112 H Carbon Dioxide 21 L BUN 19 Creatinine 1.53 H Glucose 86 Calcium 7.9 L Consult Discharge Plan - Plan Referrals: Mitchell Greer Jr, MD [Primary Care Provider] - (1) Sepsis Qualifiers: Sepsis type: sepsis due to unspecified organism Sepsis acute organ dysfunction status: without acute organ dysfunction Qualified Code(s): A41.9 - Sepsis, unspecified organism (3) Anemia Qualifiers: Anemia type: iron deficiency Iron deficiency anemia type: unspecified iron deficiency Qualified Code(s): D50.9 - Iron deficiency anemia, unspecified (4) Cellulitis Qualifiers: Site of cellulitis: extremity Site of cellulitis of extremity: lower extr emity Laterality: left Qualified Code(s): L03.116 - Cellulitis of left lower limb (5) UTI (urinary tract infection) Qualifiers: Urinary tract infection type: site unspecified Hematuria presence: with hematuria Qualified Code(s): N39.0 - Urinary tract infection, site not specified; R31.9 - Hematuria, unspecified (7) Congestive heart failure Qualifiers: Heart failure type: systolic Heart failure chronicity: acute on chronic Qualified Code(s): I50.23 - Acute on chronic systolic (congestive) heart failure (8) Coronary artery disease Qualifiers: Coronary Disease-Associated Artery/Lesion type: [place] artery [place] vs. transplanted heart: [place] heart Associated angina: without angina Qualified Code(s): I25.10 - Atherosclerotic heart disease of [place] coronary artery wi thout angina pectoris (9) Hypertension Qualifiers: Hypertension type: essential hypertension Qualified Code(s): I10 - Essential (primary) hypertension (10) Dementia Qualifiers: Dementia type: unspecified type Dementia behavioral disturbance: without behavioral disturbance Qualified Code(s): F03.90 - Unspecified dementia without behavioral disturbance
[2019-05-07] MEDS: Silvasorb 44.4 ML TUBE TP SCH (14:43)
[2019-05-07 16:49] LABS: Bilirubin,Urine Negative (Negative); Blood,Urine Small (Negative); Clarity,Urine Clear (Clear); Color,Urine Yellow (Yellow); Glucose,Urine (UA) Normal (Normal); Ketones,Urine Negative (Negative); Leukocyte Esterase,Urine Moderate (Negative); Nitrite,Urine Negative (Negative); PH,Urine 6.5 pH Units (5.0-8.0); Protein,Urine 100 mg/dL (Neg-Trace); Specific Gravity,Urine 1.016 (1.010-1.025); Urobilinogen,Urine Normal (Normal)
[2019-05-07 16:51] LABS: Bacteria,Urine None Seen per hpf (None-Few); Hyaline Casts,Urine None Seen per lpf (None-Few); Squamous Epithelial Cell,Urine Many per lpf (None-Few); WBC,Urine 50-100 per hpf (0-3)
[2019-05-07 17:02] LABS: Yeast,Urine Few per hpf (None Seen)
[2019-05-07] MEDS: Mirtazapine 15 MG TABLET PO SCH (19:39)
[2019-05-07] MEDS: *HR* OxyCODONE Immed Rel 5 MG TABLET PO PRN (21:29)
[2019-05-08] MEDS: Piperacillin/Tazobactam 3.375 GM in 0.9 % Sodium Chloride Mini Bag 100 ML IVPB SCH ×3 (03:46→21:28)
[2019-05-08] MEDS: Ipratropium/Albuterol Neb 3 ML IH SCH ×4 (03:56→22:02)
[2019-05-08 05:53] LABS: Basophils % 0.4 %; Eosinophils # 0.3 K/mcL (0.0-0.6); Hematocrit 24.3 % (35.3-44.9); Hemoglobin 7.6 g/dL (11.5-15.4); Immature Granulocytes % 0.2 % (0-4); Lymphocytes # 1.2 K/mcL (0.6-4.6); Lymphocytes % 22.6 %; Mean Corpuscular HGB Conc 31.3 g/dL (31.6-35.5); Mean Corpuscular Volume 99.2 fL (83.0-100.0); Mean Platelet Volume 11.5 fL (9.4-12.4); Monocytes # 0.5 K/mcL (0.0-1.3); Neutrophils # 3.3 K/mcL (1.6-8.9); Platelet Count 144 K/mcL (140-400); Red Blood Count 2.45 M/mcL (3.82-4.97); Red Cell Distribution Width 15.5 % (11.5-14.5); Segmented Neutrophils % 61.8 %; White Blood Count 5.3 K/mcL (4.3-11.1)
[2019-05-08 06:18] LABS: Calcium 7.7 mg/dL (8.6-10.3); Potassium 3.5 mEq/L (3.5-5.1)
--- NOTE | 2019-05-08 10:56 | Internal Med Progress Note ---
Hospitalist Progress Note - Encounter Date of Encounter: 05/08/19 Time of Encounter: 07:30 - Subjective Interval History: No acute events overnight. Patient on CPAP at time of encounter. She denies pain in her stump. She also denies chest pain, palpitations, fever and chills. - Exam Vitals: Temp Pulse Resp BP Pulse Ox 36.8 C 70 18 176/80 95 05/08/19 10:40 05/08/19 10:40 05/08/19 10:45 05/08/19 10:40 05/08/19 10:45 Exam: GENERAL: Not in distress. Alert and Oriented MOUTH: Had BiPAP mask over nose and mouth. NECK:No JVD, No lymph nodes. CHEST AND LUNGS: Normal breath sounds, no wheezes or crackles HEART: S1 and S2 normal, no murmurs ABDOMEN: Soft, nontender, no organomegaly SKIN: Normal color, no rashes, no lesions EXTREMITIES: Left AKA stump looks clean. NEUROLOGICAL: Normal cognition, normal motor and sensory exam. - Assessment and Plan (1) Sepsis Current Visit: Yes Status: Acute Assessment and Plan: WBC 5.3 Vitals have remained stable for more than 2 hours. Patient has E.coli in urine as well as in wound. MRSA also present in wound. Both E.Coli and MRSA sensitive to bactrim Will transition from IV antibiotics to oral. (2) Multilobar lung infiltrate Current Visit: Yes Status: Acute Assessment and Plan: Continue antibiotic therapy and breathing treatment. (3) Anemia Current Visit: No Status: Chronic Assessment and Plan: Hemoglobin of 7.6g/dl today FOBT positive Awaiting review by GI Patient currently NPO for possible EGD today. (4) Cellulitis Current Visit: Yes Status: Acute Assessment and Plan: Left AKA stump looks clean. Vascular surgery has seen and reviewed. Believe the stump site is not infected. Will continue with dressing recommendations. (5) UTI (urinary tract infection) Current Visit: No Status: Acute Assessment and Plan: E.coli in urine. Will transition to bactrim. (6) Acute kidney injury superimposed on CKD Current Visit: Yes Status: Acute Assessment and Plan: Cr. 1.51 Continue to monitor. (7) Congestive heart failure Current Visit: No Status: Chronic Assessment and Plan: Patient is currently not on volume overload. On Carvedilol and Losartan. (8) Coronary artery disease Current Visit: No Status: Chronic Assessment and Plan: Continue aspirin. Continue coreg and Losartan (9) Hypertension Current Visit: No Status: Chronic Assessment and Plan: Systolic BP in 170s BP meds were resumed yesterday Will add PRN IV Hydralazine (10) Dementia Current Visit: No Status: Chronic Assessment and Plan: Supportive care. (11) DVT prophylaxis Current Visit: No Status: Chronic Assessment and Plan: EPCD - Time Spent with Patient Total time spent is greater than 50% in coordination of care (as documented) at patient's floor/unit and/or counseling patient: Internal Medicine: Result - Labs CBC & Chem 7: 05/08/19 04:54 05/08/19 04:54 Labs: Short CBC 05/07/19 05/08/19 Range/Units 11:01 04:54 WBC 5.3 (4.3-11.1) K/mcL Hgb 7.8 L 7.6 L (11.5-15.4) g/dL Hct 25.0 L 24.3 L (35.3-44.9) % Plt Count 144 (140-400) K/mcL Neutrophils # 3.3 (1.6-8.9) K/mcL BMP 05/08/19 04:54 Sodium 144 Potassium 3.5 Chloride 111 H Carbon Dioxide 23 BUN 18 Creatinine 1.51 H Glucose 80 Calcium 7.7 L Urine 05/07/19 Range/Units 16:35 Urine Color Yellow (Yellow) Urine Clarity Clear (Clear) Urine pH 6.5 (5.0-8.0) pH Units Ur Specific [place] 1.016 (1.010-1.025) Urine Protein 100 H (Neg-Trace) mg/dL Urine Glucose (UA) Normal (Normal) mg/dL Consult Discharge Plan - Plan Referrals: Mitchell Greer Jr, MD [Primary Care Provider] - (1) Sepsis Qualifiers: Sepsis type: sepsis due to unspecified organism Sepsis acute organ dysfunction status: without acute organ dysfunction Qualified Code(s): A41.9 - Sepsis, unspecified organism (3) Anemia Qualifiers: Anemia type: iron deficiency Iron deficiency anemia type: unspecified iron deficiency Qualified Code(s): D50.9 - Iron deficiency anemia, unspecified (4) Cellulitis Qualifiers: Site of cellulitis: extremity Site of cellulitis of extremity: lower extremity Laterality: left Qualified Code(s): L03.116 - Cellulitis of left lower limb (5) UTI (urinary tract infection) Qualifiers: Urinary tract infection type: site unspecified Hematuria presence: with hematuria Qualified Code(s): N39.0 - Urinary tract infection, site not specified; R31.9 - Hematuria, unspecified (7) Congestive heart failure Qualifiers: Heart failure type: systolic Heart failure chronicity: acute on chronic Qualified Code(s): I50.23 - Acute on chronic systolic (congestive) heart failure (8) Coronary artery disease Qualifiers: Coronary Disease-Associated Artery/Lesion type: [place] artery [place] vs. transplanted heart: [place] heart Associated angina: without angina Qualified Code(s): I25.10 - Atherosclerotic heart disease of [place] coronary artery without angina pectoris (9) Hypertension Qualifiers: Hypertension type: essential hypertension Qualified Code(s): I10 - Essential (primary) hypertension (10) Dementia Qualifiers: Dementia type: unspecified type Dementia behavioral disturbance: without behavioral disturbance Qualified Code(s): F03.90 - Unspecified dementia without behavioral disturbance
--- NOTE | 2019-05-08 12:01 | Gastroenterology Consult Note ---
<Luke Wheeler - Last Filed: 05/08/19 11:59> Date of Encounter: 05/08/19 Time of Encounter: 10:00 - Assessment and plan (1) Anemia Current Visit: No Status: Chronic Assessment and plan: Hgb 10 on admission and today Hgb 7.6 with MCV 99.2. Fecal occult blood test positive yesterday. Check iron, ferritin, folate, and B12. Anemia likely multifactorial. Recent EGD and colonoscopy. Will repeat EGD today, no indication for repeat colonoscopy at this time. EGD today to r/o esophagitis, gastritis, duodenitis, PUD, MW tear, or AVM. Qualifiers: Anemia type: unspecified type Qualified Code(s): D64.9 - Anemia, unspecified - Time Spent With Patient Total time spent is greater than 50% in coordination of care (as documented) at patient's floor/unit and/or counseling patient: GI History of Present Illness - Data of Consult Patient: known to practice within the last 3 years Consult date: 05/08/19 Requesting Physician: Divine Taylor MD - Consult Narrative Reason for consult: GI bleed History of present illness: Ms. 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 Patient febrile to 102.2 in ED, with BP 100/60. Wound culture grew MRSA and E coli, urine culture grew E coli. We were consulted to evaluate her anemia and possible GI bleed. Hgb 10 on admission and today Hgb 7.6 with MCV 99.2. Fecal occult blood test positive yesterday. Patient had recen EGD and colonoscopy by Dr. Maxwell. Procedures: Colonoscopy 04/08/2019 Dr. Jazzmine Callahan: Abnormal appearing mucosa in the sigmoid colon with benign biopsy. EGD 04/08/2019 Dr. Jazzmine Callahan: Gastritis, duodenitis. Colonoscopy 09/20/2017 Dr. Ochoa: Large lipoma in the ascending and transverse colon, diverticulosis, internal hemorrhoids. EGD 09/20/2017 Dr. Ochoa: LA grade A reflux esophagitis. NSAIDs ASA Anticoagulation: None Past Med Surg Social Fam HX - Past Medical History Medical history: CHF, COPD, coronary artery disease, GERD, hyperlipidemia, hypertension, peripheral artery disease Additional medical history: Unknown heart problem. fall with broken ribs apr / may 2018? DNR-CC and on hospice care Psychiatric history: no psych history - Past Surgical History Surgical History: hysterectomy, knee replacement, orthopedic, other Additional surgical history: right shoulder, right hand, knee surgery, lbka - Social History Smoking Status: Former smoker Smokeless Tobacco Status: No Alcohol use: none Drug use: none - Family History Father Hx Family Cardiac Disorders: Yes Brother Hx Family Cancer: Yes (kidney) Mother Family Member Ethnicity: Non- Living Status: - Gastrointestinal Gastrointestinal: Present: as per HPI - Constitutional Constitutional: as per HPI - EENT Eyes: as per HPI Ears: Present: as per HPI Nose, mouth and throat: Present: as per HPI - Cardiovascular Cardiovascular ROS: Present: as per HPI - Respiratory Respiratory IM: Present: as per HPI - Genitourinary Genitourinary: Absent: change in color, Urinary frequency - Neurological ROS Neurological GI: Present: as per HPI - Hematologic/Lymphatic Hematologic/Lymphatic pediatric: Present: as per HPI - Musculoskeletal Musculoskeletal ROS GI: Present: as per HPI - Integumentary Integumentary GI: Present: as per HPI - Psychiatric ROS Psychiatric GI: Present: as per HPI - Endocrine Endocrine IM: Present: as per HPI - Constitutional Vitals: Temp Pulse Resp BP Pulse Ox 98.3 F 70 18 176/80 95 05/08/19 10:40 05/08/19 10:40 05/08/19 10:45 05/08/19 10:40 05/08/19 10:45 General appearance: Present: cooperative, A&O X 3, no acute distress, answers questions appropriately - Head Head exam: Present: atraumatic, normocephalic - Eye Eye exam: Present: normal appearance, sclera anicteric - ENT ENT exam: Present: mucous membranes moist - Neck Neck exam general surgery: Present: normal inspection, trachea midline - Respiratory Respiratory exam: Present: decreased breath sounds, CTAB. Absent: rales, rhonchi - Cardiovascular Cardiovascular exam: Present: RRR, +S1, +S2 - GI/Abdominal GI/Abdominal exam: Present: soft, no peritoneal signs. Absent: distended, firm, guarding, tenderness - Rectal Rectal exam: Present: deferred - Extremities Exam Extremities exam: Present: warm Additional comments: Left AKA - Neurological Exam Neurological exam: Present: no focal deficits - Psychiatric Psychiatric exam: Present: normal affect, normal mood - Skin Skin exam: Present: dry, intact, normal color, warm Results - Labs CBC & Chem 7: 05/08/19 04:54 05/08/19 04:54 Labs: Last Result 05/08/19 04:54 Calcium 7.7 L Entire Visit 05/08/19 04:54 Hgb 7.6 L Hct 24.3 L Consult Discharge Plan - Plan Referrals: Mitchell Greer Jr, MD [Primary Care Provider] - <[email or web address] - Last Filed: 05/08/19 17:26> Date of Encounter: 05/08/19 Time of Encounter: 13:30 - Time Spent With Patient Total time spent is greater than 50% in coordination of care (as documented) at patient's floor/unit and/or counseling patient: GI History of Present Illness - Data of Consult Requesting Physician: Divine Taylor MD - Consult Narrative History of present illness: Ms. May is a 84 year old female - Constitutional Vitals: Temp Pulse Resp BP Pulse Ox 98.5 F 70 18 163/81 92 05/08/19 16:11 05/08/19 16:11 05/08/19 16:11 05/08/19 16:11 05/08/19 16:11 Results - Labs CBC & Chem 7: 05/08/19 04:54 05/08/19 04:54 Labs: Last Result 05/08/19 05/08/19 05/08/19 04:54 12:18 12:18 Calcium 7.7 L Iron 17 L % Saturation 7 L Transferrin 166 L Ferritin 66 Vitamin B12 694 Folate > 22.3 H Entire Visit 05/08/19 05/08/19 05/08/19 04:54 12:18 12:18 Hgb 7.6 L Hct 24.3 L Ferritin 66 Folate > 22.3 H - Attending Attestation I have personally performed a face to face evaluation on this patient. I have reviewed and agree with the care plan. History and Exam by me shows: Patient seen no blood in the stool denies abdominal pain. On examination: Abdomen is soft. Assessment: Patient with anemia with drop in hemoglobin but no overt GI bleeding had recent EGD colonoscopy done by surgery last month. Recommendation: EGD to rule out upper GI causes for her anemia such as ulcer. No need for colonoscopy as she just had one done recently. Follow H&H
[2019-05-08 12:51] LABS: % Iron Saturation 7 % (15-50); Iron 17 mcg/dL (50-170); Transferrin 166 mg/dL (203-362)
[2019-05-08 13:09] LABS: Ferritin 66 ng/mL (10-120)
[2019-05-08 13:16] LABS: Folate > 22.3 ng/mL (3.0-16.0); Vitamin B12 694 pg/mL (250-1100)
--- NOTE | 2019-05-08 14:11 | Anesthesia Evaluation PreOp ---
Date of Encounter: 05/08/19 Time of Encounter: 14:09 - Past History Planned Operation: EGD Cardiac History: [place] (10/2017 NSTEMI), CHF, HTN, Hyperlipidemia, Cardiac Stent (10/2017 x 1), Pacemaker/ICD ([employer] pacemaker/AICD), Other ( LVEF 30%. 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 [employer]ST[employer]ER History: Other (dementia) Other Medical History: GERD Anesthesia History: No Prior Anesthetic Complications, Past Anesthesia Alcohol Use: none Drug use: none Medications and Allergies Multivit-Min/FA/Lycopen/Lutein [Centrum Silver Tablet] 1 tab PO DAILY 09/13/17 [History] [place]-3/Dha/Epa/Fish Oil [[place]-3 Fish Oil 1,000 mg Sfgl] 1,000 mg PO DAILY 09/13/17 [History] Albuterol Sulfate [Ventolin Hfa] 2 puff IH Q6H PRN 06/09/18 [History] Carvedilol [Coreg] 25 mg PO BIDWM tablet 07/30/18 [Rx] Gabapentin [Neurontin] 300 mg PO HS 03/15/19 [History] Linaclotide [Linzess] 290 mcg PO DAILY PRN 03/15/19 [History] Mirtazapine [Remeron] 30 mg PO HS 03/15/19 [History] amLODIPine [Norvasc] 2.5 mg PO DAILY 03/15/19 [History] Albuterol Neb [Proventil Neb] 2.5 mg IH Q6H PRN 03/17/19 [History] Losartan Potassium 25 mg PO DAILY 03/17/19 [History] Morphine Oral CONC [Roxanol] 5 mg PO QID PRN 03/17/19 [History] Oxycodone HCl [Roxybond] 5 mg PO QID 03/29/19 [History] Ferrous Sulfate 325 mg PO BIDWM 30 Days #60 tablet 04/02/19 [Rx] Omeprazole [PriLOSEC] 40 mg PO BIDAC capsule. 04/09/19 [Rx] Aspirin Enteric Coated [Aspirin EC] 81 mg PO Q48H tablet. 04/22/19 [Rx] Allergy/AdvReac Type Severity Reaction Status Date / Time latex Allergy Hives Verified 05/04/19 17:38 lisinopril AdvReac Abdominal Verified 05/04/19 17:38 Pain - Meds/Allergy Pre-op Review Medications Reviewed: Yes Allergies Reviewed: Yes Beta Blockers on Current Med List: Yes If Beta Blockers taken, Date/Time (Last Dose taken): 05/08/2019 at 1126 Anesthesia Results - Labs 05/08/19 04:54 05/08/19 04:54 - Imaging EKG: report reviewed (05/04/2019 DEMAND AV SEQUENTIAL PACING Baseline wander in lead(s) V1) Additional studies: 07/22/2018 Limited Echo LVEF 30%. Atypical septal motion consistent with paced rhythm. Left Ventricular Wall Motion: Rest Echo Findings The apex, apical inferior, mid inferior, basal inferior, apical anterior, mid anterior, basal anterior, apical septal, mid inferior septal, basal inferior septal, apical lateral, mid anterior lateral, basal anterior lateral, mid anterior septal, mid inferior lateral, basal anterior septal and basal inferior lateral cid were hypokinetic. Findings: Study Quality * Technically adequate exam. ECG Findings * Paced rhythm. Left Ventricle * LVEF 30%. * Normal LV chamber size. * Atypical septal motion consistent with paced rhythm. 11/14/2017 LEFT HEART CATH Indications: Non-Stemi Impressions: Double vessel coronary artery disease. 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 Moderately severe LV dysfunction. EF 30% Stent placed from a prior procedure in the 1st Diagonal is patent. Recommendations: Optimal medical therapy of patient's disease. Aggressive risk factor modification. 07/21/2017 Echo Impressions: LVEF 45-50%. Mild global hypokinesis. Normal LV chamber size and wall thickness. Moderate left ventricular diastolic dysfunction. Atypical septal motion consistent with paced rhythm. Normal right ventricular structure and function. Mild aortic regurgitation. Mild mitral regurgitation. Moderate pulmonary hypertension. Estimated RVSP is 48 mmHg. A device lead was visualized in the right atrium and right ventricle. Anesthesia Exam Vital Signs/O2 Sat, Most Current Temp Pulse Resp BP Pulse Ox 98.4 F 70 18 171/71 94 05/08/19 14:06 05/08/19 14:06 05/08/19 14:06 05/08/19 14:06 05/08/19 14:06 Height: 5'4''/1.63m Weight: 136 lbs/62 kg NPO (# of Hours): 8 Pain Scale: 0 Pain Scale Used: Numeric (1 - 10) - HEENT Pupil (Motor): EOMI Mallampati: III Teeth: Edentulous Oral Opening: Greater than 3 - [employer]ST[employer]ER LOC: Oriented [employer]ER Motor: Normal RUE, Normal LUE, Normal RLE, Normal LLE, Normal Face [employer]ER Sensory: Normal: RUE, LUE, RLE, LLE, Face - Cardiac Rhythm: Regular Murmur: None - Pulmonary Breath Sounds: bilateral Clear Respiratory Effort: Symmetrical Anesthesia Assess/Plan ASA Score: 4 (Patient has dementia and cannot give consent. Consent obtained from niece Michelle Garcia, who is POA.) Level of consciousness: Cooperative, Oriented, Tranquil Anesthetic Plan: MAC Monitoring Plan: Standard Monitors
[2019-05-08] MEDS: 0.9 % Sodium Chloride 1,000 ML IVC SCH (14:14)
[2019-05-08] MEDS ORDERED: *HR* Etomidate 40 MG/20 ML VIAL IVP ONE (14:32)
[2019-05-08] MEDS ORDERED: *HR* Propofol 200 MG/20 ML VIAL IVP ONE (14:32)
[2019-05-08] MEDS ORDERED: Lidocaine -MPF 2% 2 ML VIAL ONE (14:32)
[2019-05-08] MEDS: Aspirin 81 MG TAB.CHEW PO SCH (18:00)
[2019-05-08] MEDS: Silvasorb 44.4 ML TUBE TP SCH (18:38)
[2019-05-08] MEDS: Mirtazapine 15 MG TABLET PO SCH (21:28)
[2019-05-09] MEDS: Ipratropium/Albuterol Neb 3 ML IH SCH ×4 (03:28→22:42)
[2019-05-09] MEDS: Piperacillin/Tazobactam 3.375 GM in 0.9 % Sodium Chloride Mini Bag 100 ML IVPB SCH ×2 (04:09→12:11)
[2019-05-09 05:37] LABS: Potassium 3.4 mEq/L (3.5-5.1)
[2019-05-09 05:40] LABS: Basophils % 0.3 %; Eosinophils # 0.4 K/mcL (0.0-0.6); Eosinophils % 5.6 %; Immature Granulocytes % 0.4 % (0-4); Mean Corpuscular HGB Conc 30.8 g/dL (31.6-35.5); Mean Corpuscular Hemoglobin 30.8 pg (28.0-33.3); Mean Platelet Volume 10.6 fL (9.4-12.4); Monocytes # 0.6 K/mcL (0.0-1.3); Monocytes % 8.1 %; Neutrophils # 4.9 K/mcL (1.6-8.9); Platelet Count 170 K/mcL (140-400); Red Cell Distribution Width 15.4 % (11.5-14.5); Segmented Neutrophils % 70.6 %; White Blood Count 6.9 K/mcL (4.3-11.1)
[2019-05-09] MEDS ORDERED: Aminoglycoside Consult 1 EACH MC ONE (10:29)
[2019-05-09] MEDS: Aspirin 81 MG TAB.CHEW PO SCH (10:41)
[2019-05-09] MEDS: 0.9 % Sodium Chloride 1,000 ML IVC SCH (10:46)
--- NOTE | 2019-05-09 10:53 | Internal Med Progress Note ---
Hospitalist Progress Note - Encounter Date of Encounter: 05/09/19 Time of Encounter: 10:51 - Subjective Interval History: No acute events overnight. Patient states that she feels a little better compared to presentation. She denies fever, chills, abdominal pain, nausea and vomiting - Exam Vitals: Temp Pulse Resp BP Pulse Ox 36.7 C 70 18 139/65 96 05/09/19 08:11 05/09/19 08:11 05/09/19 08:11 05/09/19 08:11 05/09/19 08:11 Exam: GENERAL: Not in distress. Alert and Oriented MOUTH: Moist oral mucosa NECK:No JVD, No lymph nodes. CHEST AND LUNGS: Normal breath sounds, no wheezes or crackles HEART: S1 and S2 normal, no murmurs ABDOMEN: Soft, nontender, no organomegaly SKIN: Normal color, no rashes, no lesions EXTREMITIES: Left AKA stump looks clean. NEUROLOGICAL: Normal cognition, normal motor and sensory exam. - Assessment and Plan (1) Sepsis Current Visit: Yes Status: Acute Assessment and Plan: WBC 6.9 Vitals have remained stable for more than 2 hours. Patient has E.coli in urine as well as in wound. MRSA also present in wound. Both E.Coli and MRSA sensitive to bactrim Start Bactrim today (2) Multilobar lung infiltrate Current Visit: Yes Status: Acute Assessment and Plan: Lung rosenbaum are clear to auscultation Continue antibiotic therapy and breathing treatment. (3) Anemia Current Visit: No Status: Chronic Assessment and Plan: Hemoglobin of 8.0 g/dl today EGD was done yesterday which revealed a single small angiectasia with typical arborization in the second portion of the duodenum and coagulation for hemostasis with argon plasma was successful. We will monitor H&H for 1 more day. Possible discharge tomorrow. (4) Cellulitis Current Visit: Yes Status: Acute Assessment and Plan: Left AKA stump looks clean. Culture from stump site growing Escherichia coli and MRSA Vascular surgery has seen and reviewed. Believe the stump site is not infected. Will continue with dressing recommendations. (5) UTI (urinary tract infection) Current Visit: No Status: Acute Assessment and Plan: E.coli in urine. Will transition to bactrim. (6) Acute kidney injury superimposed on CKD Current Visit: Yes Status: Acute Assessment and Plan: Cr. 1. 28. Trending down Continue to monitor. (7) Congestive heart failure Current Visit: No Status: Chronic Assessment and Plan: Patient is currently not volume overloaded On Carvedilol and Losartan. (8) Coronary artery disease Current Visit: No Status: Chronic Assessment and Plan: Continue aspirin. Continue coreg and Losartan (9) Hypertension Current Visit: No Status: Chronic Assessment and Plan: BP 139/65 mmhg this morning BP meds were resumed yesterday Will add PRN IV Hydralazine (10) Dementia Current Visit: No Status: Chronic Assessment and Plan: Supportive care. (11) DVT prophylaxis Current Visit: No Status: Chronic Assessment and Plan: EPCD - Time Spent with Patient Total time spent is greater than 50% in coordination of care (as documented) at patient's floor/unit and/or counseling patient: Internal Medicine: Result - Labs CBC & Chem 7: 05/09/19 04:56 05/09/19 04:56 Labs: Short CBC 05/09/19 Range/Units 04:56 WBC 6.9 (4.3-11.1) K/mcL Hgb 8.0 L (11.5-15.4) g/dL Hct 26.0 L (35.3-44.9) % Plt Count 170 (140-400) K/mcL Neutrophils # 4.9 (1.6-8.9) K/mcL BMP 05/09/19 04:56 Sodium 143 Potassium 3.4 L Chloride 112 H Carbon Dioxide 21 L BUN 14 Creatinine 1.28 H Glucose 86 Calcium 8.0 L Consult Discharge Plan - Plan Referrals: Mitchell Greer Jr, MD [Primary Care Provider] - (1) Sepsis Qualifiers: Sepsis type: sepsis due to unspecified organism Sepsis acute organ dysfunction status: without acute organ dysfunction Qualified Code(s): A41.9 - Sepsis, unspecified organism (3) Anemia Qualifiers: Anemia type: unspecified type Qualified Code(s): D64.9 - Anemia, unspecified (4) Cellulitis Qualifiers: Site of cellulitis: extremity Site of cellulitis of extremity: lower extremity Laterality: left Qualified Code(s): L03.116 - Cellulitis of left lower limb (5) UTI (urinary tract infection) Qualifiers: Urinary tract infection type: site unspecified Hematuria presence: with hematuria Qualified Code(s): N39.0 - Urinary tract infection, site not specified; R31.9 - Hematuria, unspecified (7) Congestive heart failure Qualifiers: Heart failure type: systolic Heart failure chronicity: acute on chronic Qualified Code(s): I50.23 - Acute on chronic systolic (congestive) heart failure (8) Coronary artery disease Qualifiers: Coronary Disease-Associated Artery/Lesion type: [place] artery [place] vs. transplanted heart: [place] heart Associated angina: without angina Qualified Code(s): I25.10 - Atherosclerotic heart disease of [place] coronary artery without angina pectoris (9) Hypertension Qualifiers: Hypertension type: essential hypertension Qualified Code(s): I10 - Essential (primary) hypertension (10) Dementia Qualifiers: Dementia type: unspecified type Dementia behavioral disturbance: without behavioral disturbance Qualified Code(s): F03.90 - Unspecified dementia without behavioral disturbance
[2019-05-09] MEDS: Silvasorb 44.4 ML TUBE TP SCH (14:13)
[2019-05-09] MEDS ORDERED: Sulfamethoxazole/Trimeth DS 1 EACH TABLET PO ONE (17:00)
[2019-05-09] MEDS: Mirtazapine 15 MG TABLET PO SCH (20:43)
[2019-05-10 01:33] LABS: Basophils % 0.4 %; Eosinophils # 0.4 K/mcL (0.0-0.6); Eosinophils % 5.2 %; Hematocrit 28.4 % (35.3-44.9); Hemoglobin 8.6 g/dL (11.5-15.4); Immature Granulocytes % 0.4 % (0-4); Lymphocytes # 1.7 K/mcL (0.6-4.6); Lymphocytes % 22.6 %; Mean Corpuscular HGB Conc 30.3 g/dL (31.6-35.5); Mean Corpuscular Hemoglobin 30.8 pg (28.0-33.3); Mean Corpuscular Volume 101.8 fL (83.0-100.0); Mean Platelet Volume 10.6 fL (9.4-12.4); Monocytes # 0.5 K/mcL (0.0-1.3); Monocytes % 6.9 %; Platelet Count 189 K/mcL (140-400); Red Blood Count 2.79 M/mcL (3.82-4.97); Red Cell Distribution Width 15.2 % (11.5-14.5); Segmented Neutrophils % 64.5 %; White Blood Count 7.7 K/mcL (4.3-11.1)
[2019-05-10 01:52] LABS: Calcium 8.1 mg/dL (8.6-10.3); Potassium 3.8 mEq/L (3.5-5.1)
[2019-05-10] MEDS: Ipratropium/Albuterol Neb 3 ML IH SCH ×4 (03:24→23:45)
[2019-05-10] MEDS: Aspirin 81 MG TAB.CHEW PO SCH (08:13)
[2019-05-10] MEDS: 0.9 % Sodium Chloride 1,000 ML IVC SCH (08:13)
[2019-05-10] MEDS: Sulfamethoxazole/Trimeth DS 1 EACH TABLET PO SCH ×2 (08:15→22:06)
[2019-05-10] MEDS: Silvasorb 44.4 ML TUBE TP SCH (08:18)
--- NOTE | 2019-05-10 09:44 | Discharge Summary ---
Orders not resulted at time of discharge: Pending orders 05/04/19 17:42 Culture,Sputum with Gram Stain [RM] Stat Date of Encounter: 05/10/19 Time of Encounter: 09:35 - Discharge Diagnosis (1) Sepsis Priority: Primary Status: Acute Qualifiers: Sepsis type: sepsis due to unspecified organism Sepsis acute organ dysfunction status: without acute organ dysfunction Qualified Code(s): A41.9 - Sepsis, unspecified organism (2) Multilobar lung infiltrate Priority: Secondary Status: Acute (3) Anemia Priority: Secondary Status: Chronic Qualifiers: Anemia type: unspecified type Qualified Code(s): D64.9 - Anemia, unspecified (4) Cellulitis Priority: Secondary Status: Acute Qualifiers: Site of cellulitis: extremity Site of cellulitis of extremity: lower extremity Laterality: left Qualified Code(s): L03.116 - Cellulitis of left lower limb (5) UTI (urinary tract infection) Priority: Secondary Status: Acute Qualifiers: Urinary tract infection type: site unspecified Hematuria presence: with hematuria Qualified Code(s): N39.0 - Urinary tract infection, site not specified; R31.9 - Hematuria, unspecified (6) Acute kidney injury superimposed on CKD Priority: Secondary Status: Acute (7) Congestive heart failure Priority: Secondary Status: Chronic Qualifiers: Heart failure type: systolic Heart failure chronicity: acute on chronic Qualified Code(s): I50.23 - Acute on chronic systolic (congestive) heart failure (8) Coronary artery disease Priority: Secondary Status: Chronic Qualifiers: Coronary Disease-Associated Artery/Lesion type: [place] artery [place] vs. transplanted heart: [place] heart Associated angina: without angina Qualified Code(s): I25.10 - Atherosclerotic heart disease of [place] coronary artery without angina pectoris (9) Hypertension Priority: Secondary Status: Chronic Qualifiers: Hypertension type: essential hypertension Qualified Code(s): I10 - Essential (primary) hypertension (10) Dementia Priority: Secondary Status: Chronic Qualifiers: Dementia type: unspecified type Dementia behavioral disturbance: without behavioral disturbance Qualified Code(s): F03.90 - Unspecified dementia with out behavioral disturbance (11) DVT prophylaxis Priority: Secondary Status: Chronic Hospital course: Ms. May is a 84 year old female was admitted for the management of sepsis secondary to urinary tract infection with Escherichia coli as well as Escherichia coli and MRSA infection of left AKA stump site. Patient hospital stay was complicated by anemia requiring GI eval. EGD done showed single bleeding angiectasia in the duodenum which was cauterized. Hemoglobin now stable and patient has remained afebrile for more than 24. She currently has no complaints and will be [facility] to complete one more week of antibiotics and obtain some physical rehabilitation. - Time Spent with Patient Total time spent providing and/or coordinating discharge services: - Discharge Medications Prescriptions: New Sulfamethoxazole/Trimeth SS [Bactrim SS] 1 each PO BID 7 Days #14 tablet Continued [place]-3/Dha/Epa/Fish Oil [[place]-3 Fish Oil 1,000 mg Sfgl] 1,000 mg PO DAILY Multivit-Min/FA/Lycopen/Lutein [Centrum Silver Tablet] 1 tab PO DAILY Albuterol Sulfate [Ventolin Hfa] 2 puff IH Q6H PRN PRN Reason: Shortness Of Breath Carvedilol [Coreg] 25 mg PO BIDWM tablet amLODIPine [Norvasc] 2.5 mg PO DAILY Mirtazapine [Remeron] 30 mg PO HS Linaclotide [Linzess] 290 mcg PO DAILY PRN PRN Reason: IBS with diarrhea Albuterol Neb [Proventil Neb] 2.5 mg IH Q6H PRN PRN Reason: Shortness Of Breath Losartan Potassium 25 mg PO DAILY Morphine Oral CONC [Roxanol] 5 mg PO QID PRN PRN Reason: Pain Oxycodone HCl [Roxybond] 5 mg PO QID Ferrous Sulfate 325 mg PO BIDWM 30 Days #60 tablet Omeprazole [PriLOSEC] 40 mg PO BIDAC capsule. Aspirin Enteric Coated [Aspirin EC] 81 mg PO Q48H tablet. No Action Gabapentin [Neurontin] 300 mg PO HS Home Medications: Multivit-Min/FA/Lycopen/Lutein [Centrum Silver Tablet] 1 tab PO DAILY 09/13/17 [History] [place]-3/Dha/Epa/Fish Oil [[place]-3 Fish Oil 1,000 mg Sfgl] 1,000 mg PO DAILY 09/13/17 [History] Albuterol Sulfate [Ventolin Hfa] 2 puff IH Q6H PRN 06/09/18 [History] Carvedilol [Coreg] 25 mg PO BIDWM tablet 07/30/18 [Rx] Gabapentin [Neurontin] 300 mg PO HS 03/15/19 [History] Linaclotide [Linzess] 290 mcg PO DAILY PRN 03/15/19 [History] Mirtazapine [Remeron] 30 mg PO HS 03/15/19 [History] amLODIPine [Norvasc] 2.5 mg PO DAILY 03/15/19 [History] Albuterol Neb [Proventil Neb] 2.5 mg IH Q6H PRN 03/17/19 [History] Losartan Potassium 25 mg PO DAILY 03/17/19 [History] Morphine Oral CONC [Roxanol] 5 mg PO QID PRN 03/17/19 [History] Oxycodone HCl [Roxybond] 5 mg PO QID 03/29/19 [History] Ferrous Sulfate 325 mg PO BIDWM 30 Days #60 tablet 04/02/19 [Rx] Omeprazole [PriLOSEC] 40 mg PO BIDAC capsule. 04/09/19 [Rx] Aspirin Enteric Coated [Aspirin EC] 81 mg PO Q48H tablet. 04/22/19 [Rx] Sulfamethoxazole/Trimeth SS [Bactrim SS] 1 each PO BID 7 Days #14 tablet 05/10/19 [Rx] Allergies/Adverse Reactions: Allergy/AdvReac Type Severity Reaction Status Date / Time latex Allergy Hives Verified 05/04/19 17:38 lisinopril AdvReac Abdominal Verified 05/04/19 17:38 Pain Date of admission: 05/06/19 14:03 Primary care physician: Mitchell Greer Jr, MD Consults: 05/05/19 07:08 Consult to Vascular Surgery [CONS] Stat Consulting Provider: Vascular Surgery Winston Reason for Consult: S/p Left AKA, Cellulitis at stump of left AKA Call Completed: Yes 05/05/19 15:12 Consult to Wound Care [CONS] Routine Reason for Consult: Evaluate skin tear to right elbow. Hussein drainage. Call Completed: No 05/06/19 10:17 Consult to Physical Therapy [CONS] Stat Comment: Evaluate, develop and implement POC Reason for Consult: [place] and s/p left AKA Does patient have active BEDREST order?: No Is patient medically & hemodynamically stable?: Yes 05/06/19 10:18 Consult to Occupational Therapy [CONS] Stat Comment: Evaluate, develop and implement POC Reason for Consult: wakness and s/p left AKA Does patient have active BEDREST order?: No Is patient medically & hemodynamically stable?: Yes 05/06/19 12:11 Consult to Template Checker [CONS] Routine Reason for SW Consult: Possible rehab at d/c. Just d/c'd from [facility] on 04/22/19. 05/07/19 16:34 Consult to Gastroenterology [CONS] Stat Consulting Provider: Gastroenterjose Steve Reason for Consult: GI bleed Call Completed: Yes - Constitutional Vitals: Temp Pulse Resp BP Pulse Ox 36.8 C 70 18 170/80 98 05/10/19 08:20 05/10/19 08:20 05/10/19 08:20 05/10/19 08:20 05/10/19 08:20 General appearance: Present: cooperative, A&O X 3 Exam: GENERAL: Not in distress. Alert and Oriented MOUTH: Moist oral mucosa NECK:No JVD, No lymph nodes. CHEST AND LUNGS: Normal breath sounds, no wheezes or crackles HEART: S1 and S2 normal, no murmurs ABDOMEN: Soft, nontender, no organomegaly SKIN: Normal color, no rashes, no lesions EXTREMITIES: Left AKA stump looks clean. NEUROLOGICAL: Normal cognition, normal motor and sensory exam. - Patient Status Disposition: Transfer SNF Condition: Fair Functional capacity at discharge: wheelchair bound Overall status at discharge: patient is progressing back to baseline - Discharge Instructions Follow Up With: Mitchell Greer Jr, MD [Primary Care Provider] - - Diet and Activity Activity: resume usual activities as tolerated Diet: advance to your usual diet
--- NOTE | 2019-05-10 09:59 | Physician Discharge Referral ---
ExtendedCare Referral Info Transfer To: SNF Institutional Level of Care: Skilled - Diagnosis (1) Sepsis Priority: Primary Status: Acute (2) Multilobar lung infiltrate Priority: Secondary Status: Acute (3) Anemia Priority: Secondary Status: Chronic (4) Cellulitis Priority: Secondary Status: Acute (5) UTI (urinary tract infection) Priority: Secondary Status: Acute (6) Acute kidney injury superimposed on CKD Priority: Secondary Status: Acute (7) Congestive heart failure Priority: Secondary Status: Chronic (8) Coronary artery disease Status: Chronic (9) Hypertension Priority: Secondary Status: Chronic (10) Dementia Priority: Secondary Status: Chronic (11) DVT prophylaxis Priority: Secondary Status: Chronic - Transfer Medications Prescriptions: Sulfamethoxazole/Trimeth SS [Bactrim SS] 1 each PO BID 7 Days #14 tablet Transmission Status: Received by [facility] Home Medications: Multivit-Min/FA/Lycopen/Lutein [Centrum Silver Tablet] 1 tab PO DAILY 09/13/17 [History] [place]-3/Dha/Epa/Fish Oil [[place]-3 Fish Oil 1,000 mg Sfgl] 1,000 mg PO DAILY 09/13/17 [History] Albuterol Sulfate [Ventolin Hfa] 2 puff IH Q6H PRN 06/09/18 [History] Carvedilol [Coreg] 25 mg PO BIDWM tablet 07/30/18 [Rx] Gabapentin [Neurontin] 300 mg PO HS 03/15/19 [History] Linaclotide [Linzess] 290 mcg PO DAILY PRN 03/15/19 [History] Mirtazapine [Remeron] 30 mg PO HS 03/15/19 [History] amLODIPine [Norvasc] 2.5 mg PO DAILY 03/15/19 [History] Albuterol Neb [Proventil Neb] 2.5 mg IH Q6H PRN 03/17/19 [History] Losartan Potassium 25 mg PO DAILY 03/17/19 [History] Morphine Oral CONC [Roxanol] 5 mg PO QID PRN 03/17/19 [History] Oxycodone HCl [Roxybond] 5 mg PO QID 03/29/19 [History] Ferrous Sulfate 325 mg PO BIDWM 30 Days #60 tablet 04/02/19 [Rx] Omeprazole [PriLOSEC] 40 mg PO BIDAC capsule. 04/09/19 [Rx] Aspirin Enteric Coated [Aspirin EC] 81 mg PO Q48H tablet. 04/22/19 [Rx] Sulfamethoxazole/Trimeth SS [Bactrim SS] 1 each PO BID 7 Days #14 tablet 05/10/19 [Rx] Allergies/Adverse Reactions: Allergy/AdvReac Type Severity Reaction Status Date / Time latex Allergy Hives Verified 05/04/19 17:38 lisinopril AdvReac Abdominal Verified 05/04/19 17:38 Pain - Respiratory Orders Smoking Cessation: Smoking cessation has been advised. For more information, call the [place] Tobacco Quit Line at 9-018-ZTOD-NOW. - Advance Directives Code Status: DNR-Comfort Care - Rehabiliation Orders Rehab Orders: Evaluation for Physical Therapy, Evaluation for Occupational Therapy CERTIFICATION: I certify that the transfer of the above named patient to an Extended Care Facility is necessary for the continuing treatment of the diagnosis listed. The above information is true and accurate reflection of patient's current condition. Confidential - Redisclosure prohibited without a patient's written consent.
[2019-05-10] MEDS: Mirtazapine 15 MG TABLET PO SCH (22:06)
[2019-05-11] MEDS: Ipratropium/Albuterol Neb 3 ML IH SCH ×4 (03:50→23:22)
[2019-05-11 04:33] LABS: Basophils % 0.4 %; Eosinophils # 0.4 K/mcL (0.0-0.6); Eosinophils % 6.1 %; Hematocrit 27.2 % (35.3-44.9); Hemoglobin 8.4 g/dL (11.5-15.4); Immature Granulocytes % 0.4 % (0-4); Lymphocytes # 1.6 K/mcL (0.6-4.6); Lymphocytes % 21.3 %; Mean Corpuscular HGB Conc 30.9 g/dL (31.6-35.5); Mean Corpuscular Hemoglobin 30.8 pg (28.0-33.3); Mean Corpuscular Volume 99.6 fL (83.0-100.0); Mean Platelet Volume 10.8 fL (9.4-12.4); Monocytes # 0.5 K/mcL (0.0-1.3); Monocytes % 6.7 %; Neutrophils # 4.7 K/mcL (1.6-8.9); Platelet Count 216 K/mcL (140-400); Red Blood Count 2.73 M/mcL (3.82-4.97); Red Cell Distribution Width 15.6 % (11.5-14.5); Segmented Neutrophils % 65.1 %; White Blood Count 7.3 K/mcL (4.3-11.1)
[2019-05-11 04:49] LABS: Calcium 8.1 mg/dL (8.6-10.3); Potassium 3.7 mEq/L (3.5-5.1)
[2019-05-11] MEDS: Aspirin 81 MG TAB.CHEW PO SCH (10:10)
[2019-05-11] MEDS: Sulfamethoxazole/Trimeth DS 1 EACH TABLET PO SCH ×2 (10:11→22:33)
[2019-05-11] MEDS: Silvasorb 44.4 ML TUBE TP SCH (10:12)
--- NOTE | 2019-05-11 14:05 | Internal Med Progress Note ---
Hospitalist Progress Note - Encounter Date of Encounter: 05/11/19 Time of Encounter: 14:02 - Subjective Interval History: Patient seen and examined. Per nursing report, patient became confused last night and made multiple attempts to get out of bed and so a sitter order was placed. She is easily redirected in conversation but intermittently states that her family owns the hospital and she does not want to leave. - Exam Vitals: Temp Pulse Resp BP Pulse Ox 36.8 C 70 16 168/66 90 05/11/19 10:34 05/11/19 10:34 05/11/19 10:34 05/11/19 10:34 05/11/19 10:34 Exam: GENERAL: Not in distress. Alert and Oriented MOUTH: Moist oral mucosa NECK:No JVD, No lymph nodes. CHEST AND LUNGS: Normal breath sounds, no wheezes or crackles HEART: S1 and S2 normal, no murmurs ABDOMEN: Soft, nontender, no organomegaly SKIN: Normal color, no rashes, no lesions EXTREMITIES: Left AKA stump looks clean. NEUROLOGICAL: Normal cognition, normal motor and sensory exam. - Assessment and Plan (1) Sepsis Current Visit: Yes Status: Resolved Assessment and Plan: WBC normal Vitals have remained stable for more than 48 hours. Patient has E.coli in urine as well as in wound. MRSA also present in wound. Both E.Coli and MRSA sensitive to bactrim On Bactrim (2) Multilobar lung infiltrate Current Visit: Yes Status: Acute Assessment and Plan: Lung rosenbaum are clear to auscultation Continue antibiotic therapy and breathing treatment. 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 We will monitor H&H (4) Cellulitis Current Visit: Yes Status: Acute Assessment and Plan: Left AKA stump looks clean. Culture from stump site growing Escherichia coli and MRSA Vascular surgery has seen and reviewed. Believe the stump site is not infected. Will continue with dressing recommendations. (5) UTI (urinary tract infection) Current Visit: No Status: Acute Assessment and Plan: E.coli in urine. Continue Bactrim (6) Acute kidney injury superimposed on CKD Current Visit: Yes Status: Acute Assessment and Plan: Cr. 1. 22. Trending down Continue to monitor. (7) Congestive heart failure Current Visit: No Status: Chronic Assessment and Plan: Patient is currently not volume overloaded On Carvedilol and Losartan. (8) Coronary artery disease Current Visit: No Status: Chronic Assessment and Plan: Continue aspirin. Continue coreg and Losartan (9) Hypertension Current Visit: No Status: Chronic Assessment and Plan: BP ontrolled Continue meds (10) Dementia Current Visit: No Status: Chronic Assessment and Plan: Supportive care. (11) DVT prophylaxis Current Visit: No Status: Chronic Assessment and Plan: EPCD - Time Spent with Patient Total time spent is greater than 50% in coordination of care (as documented) at patient's floor/unit and/or counseling patient: Internal Medicine: Result - Labs CBC & Chem 7: 05/11/19 03:42 05/11/19 03:42 Labs: Short CBC 05/11/19 Range/Units 03:42 WBC 7.3 (4.3-11.1) K/mcL Hgb 8.4 L (11.5-15.4) g/dL Hct 27.2 L (35.3-44.9) % Plt Count 216 (140-400) K/mcL Neutrophils # 4.7 (1.6-8.9) K/mcL BMP 05/11/19 03:42 Sodium 142 Potassium 3.7 Chloride 114 H Carbon Dioxide 22 L BUN 12 Creatinine 1.25 H Glucose 80 Calcium 8.1 L Consult Discharge Plan - Plan Referrals: Mitchell Greer Jr, MD [Primary Care Provider] - Prescriptions: Sulfamethoxazole/Trimeth SS [Bactrim SS] 1 each PO BID 7 Days #14 tablet Transmission Status: Received by [facility] (1) Sepsis Qualifiers: Sepsis type: sepsis due to unspecified organism Sepsis acute organ dysfunction status: without acute organ dysfunction Qualified Code(s): A41.9 - Sepsis, unspecified organism (3) Anemia Qualifiers: Anemia type: unspecified type Qualified Code(s): D64.9 - Anemia, unspecified (4) Cellulitis Qualifiers: Site of cellulitis: extremity Site of cellulitis of extremity: lower extremity Laterality: left Qualified Code(s): L03.116 - Cellulitis of left lower limb (5) UTI (urinary tract infection) Qualifiers: Urinary tract infection type: site unspecified Hematuria presence: with hematuria Qualified Code(s): N39.0 - Urinary tract infection, site not specified; R31.9 - Hematuria, unspecified (7) Congestive heart failure Qualifiers: Heart failure type: systolic Heart failure chronicity: acute on chronic Qualified Code(s): I50.23 - Acute on chronic systolic (congestive) heart failure (8) Coronary artery disease Qualifiers: Coronary Disease-Associated Artery/Lesion type: [place] artery [place] vs. transplanted heart: [place] heart Associated angina: without angina Qualified Code(s): I25.10 - Atherosclerotic heart disease of [place] coronary artery without angina pectoris (9) Hypertension Qualifiers: Hypertension type: essential hypertension Qualified Code(s): I10 - Essential (primary) hypertension (10) Dementia Qualifiers: Dementia type: unspecified type Dementia behavioral disturbance: without behavioral disturbance Qualified Code(s): F03.90 - Unspecified dementia without behavioral disturbance
[2019-05-11] MEDS: Mirtazapine 15 MG TABLET PO SCH (22:33)
[2019-05-12] MEDS: Ipratropium/Albuterol Neb 3 ML IH SCH ×4 (04:41→22:13)
[2019-05-12] MEDS: Sulfamethoxazole/Trimeth DS 1 EACH TABLET PO SCH ×2 (11:21→22:37)
[2019-05-12] MEDS: Aspirin 81 MG TAB.CHEW PO SCH (11:21)
[2019-05-12] MEDS: Silvasorb 44.4 ML TUBE TP SCH (11:22)
--- NOTE | 2019-05-12 13:02 | Internal Med Progress Note ---
Hospitalist Progress Note - Encounter Date of Encounter: 05/12/19 Time of Encounter: 12:57 - Subjective Interval History: No acute events overnight. Still awaiting insurance authorization for transfer to SNF. She denies fever, chills, nausea and vomiting. - Exam Vitals: Temp Pulse Resp BP Pulse Ox 36.8 C 70 18 177/75 99 05/12/19 10:47 05/12/19 10:47 05/12/19 11:49 05/12/19 10:47 05/12/19 11:49 Exam: GENERAL: Not in distress. Alert and Oriented MOUTH: Moist oral mucosa NECK:No JVD, No lymph nodes. CHEST AND LUNGS: Normal breath sounds, no wheezes or crackles HEART: S1 and S2 normal, no murmurs ABDOMEN: Soft, nontender, no organomegaly SKIN: Normal color, no rashes, no lesions EXTREMITIES: Left AKA stump looks clean. NEUROLOGICAL: Normal cognition, normal motor and sensory exam. - Assessment and Plan (1) Sepsis Current Visit: Yes Status: Resolved Assessment and Plan: WBC normal Vitals have remained stable for more than 48 hours. Patient has E.coli in urine as well as in wound. MRSA also present in wound. Both E.Coli and MRSA sensitive to bactrim On Bactrim (2) Multilobar lung infiltrate Current Visit: Yes Status: Acute Assessment and Plan: Lung rosenbaum are clear to auscultation Continue antibiotic therapy and breathing treatment. 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 We will monitor H&H (4) Cellulitis Current Visit: Yes Status: Acute Assessment and Plan: Left AKA stump looks clean. Culture from stump site growing Escherichia coli and MRSA Vascular surgery has seen and reviewed. Believe the stump site is not infected. Will continue with dressing recommendations. (5) UTI (urinary tract infection) Current Visit: No Status: Acute Assessment and Plan: E.coli in urine. Continue Bactrim (6) Acute kidney injury superimposed on CKD Current Visit: Yes Status: Acute Assessment and Plan: Continue to monitor. (7) Congestive heart failure Current Visit: No Status: Chronic Assessment and Plan: Patient is currently not volume overloaded On Carvedilol and Losartan. (8) Coronary artery disease Current Visit: No Status: Chronic Assessment and Plan: Continue aspirin. Continue coreg and Losartan (9) Hypertension Current Visit: No Status: Chronic Assessment and Plan: BP ontrolled Continue meds (10) Dementia Current Visit: No Status: Chronic Assessment and Plan: Supportive care. (11) DVT prophylaxis Current Visit: No Status: Chronic Assessment and Plan: EPCD - Time Spent with Patient Total time spent is greater than 50% in coordination of care (as documented) at patient's floor/unit and/or counseling patient: Internal Medicine: Result - Labs CBC & Chem 7: 05/11/19 03:42 05/11/19 03:42 Consult Discharge Plan - Plan Referrals: Mitchell Greer Jr, MD [Primary Care Provider] - Prescriptions: Sulfamethoxazole/Trimeth SS [Bactrim SS] 1 each PO BID 7 Days #14 tablet Transmission Status[facility] (1) Sepsis Qualifiers: Sepsis type: sepsis due to unspecified organism Sepsis acute organ d ysfunction status: without acute organ dysfunction Qualified Code(s): A41.9 - Sepsis, unspecified organism (3) Anemia Qualifiers: Anemia type: unspecified type Qualified Code(s): D64.9 - Anemia, unspecified (4) Cellulitis Qualifiers: Site of cellulitis: extremity Site of cellulitis of extremity: lower extremity Laterality: left Qualified Code(s): L03.116 - Cellulitis of left lower limb (5) UTI (urinary tract infection) Qualifiers: Urinary tract infection type: site unspecified Hematuria presence: with hematuria Qualified Code(s): N39.0 - Urinary tract infection, site not specified; R31.9 - Hematuria, unspecified (7) Congestive heart failure Qualifiers: Heart failure type: systolic Heart failure chronicity: acute on chronic Qualified Code(s): I50.23 - Acute on chronic systolic (congestive) heart failure (8) Coronary artery disease Qualifiers: Coronary Disease-Associated Artery/Lesion type: [place] artery [place] vs. transplanted heart: [place] heart Associated angina: without angina Qualified Code(s): I25.10 - Atherosclerotic heart disease of [place] coronary artery without angina pectoris (9) Hypertension Qualifiers: Hypertension type: essential hypertension Qualified Code(s): I10 - Essential (primary) hypertension (10) Dementia Qualifiers: Dementia type: unspecified type Dementia behavioral disturbance: without behavioral disturbance Qualified Code(s): F03.90 - Unspecified dementia without behavioral disturbance
[2019-05-12] MEDS: Mirtazapine 15 MG TABLET PO SCH (22:37)
[2019-05-13] MEDS: *HR* OxyCODONE Immed Rel 5 MG TABLET PO PRN (00:41)
[2019-05-13] MEDS: Ipratropium/Albuterol Neb 3 ML IH SCH ×4 (03:56→22:21)
[2019-05-13] MEDS: Silvasorb 44.4 ML TUBE TP SCH (09:08)
[2019-05-13] MEDS: Sulfamethoxazole/Trimeth DS 1 EACH TABLET PO SCH ×2 (09:08→21:12)
[2019-05-13] MEDS: Aspirin 81 MG TAB.CHEW PO SCH (09:08)
--- NOTE | 2019-05-13 16:46 | Internal Med Progress Note ---
Hospitalist Progress Note - Encounter Date of Encounter: 05/13/19 Time of Encounter: 16:44 - Subjective Interval History: No acute events overnight. Still awaiting authorization from insurance for ECF placement. Patient denies fever, chills, nausea and vomiting. - Exam Vitals: Temp Pulse Resp BP Pulse Ox 36.6 C 70 18 165/74 99 05/13/19 03:56 05/13/19 03:56 05/13/19 16:12 05/13/19 03:56 05/13/19 16:12 Exam: GENERAL: Not in distress. Alert and Oriented MOUTH: Moist oral mucosa NECK:No JVD, No lymph nodes. CHEST AND LUNGS: Normal breath sounds, no wheezes or crackles HEART: S1 and S2 normal, no murmurs ABDOMEN: Soft, nontender, no organomegaly SKIN: Normal color, no rashes, no lesions EXTREMITIES: Left AKA stump looks clean. NEUROLOGICAL: Normal cognition, normal motor and sensory exam. - Assessment and Plan (1) Sepsis Current Visit: Yes Status: Resolved Assessment and Plan: WBC normal Vitals have remained stable for more than 48 hours. Patient has E.coli in urine as well as in wound. MRSA also present in wound. Both E.Coli and MRSA sensitive to bactrim On Bactrim (2) Multilobar lung infiltrate Current Visit: Yes Status: Acute Assessment and Plan: Lung rosenbaum are clear to auscultation Continue antibiotic therapy and breathing treatment. (3) Anemia Current Visit: No Status: Chronic Assessment and Plan: Acute blood loss anemia. 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 We will monitor H&H (4) Cellulitis Current Visit: Yes Status: Acute Assessment and Plan: Left AKA stump looks clean. Culture from stump site growing Escherichia coli and MRSA Vascular surgery has seen and reviewed. Believe the stump site is not infected. Will continue with dressing recommendations. (5) UTI (urinary tract infection) Current Visit: No Status: Acute Assessment and Plan: E.coli in urine. Continue Bactrim (6) Acute kidney injury superimposed on CKD Current Visit: Yes Status: Acute Assessment and Plan: Continue to monitor. (7) Congestive heart failure Current Visit: No Status: Chronic Assessment and Plan: Patient is currently not volume overloaded On Carvedilol and Losartan. (8) Coronary artery disease Current Visit: No Status: Chronic Assessment and Plan: Continue aspirin. Continue coreg and Losartan (9) Hypertension Current Visit: No Status: Chronic Assessment and Plan: BP ontrolled Continue meds (10) Dementia Current Visit: No Status: Chronic Assessment and Plan: Supportive care. (11) DVT prophylaxis Current Visit: No Status: Chronic Assessment and Plan: EPCD - Time Spent with Patient Total time spent is greater than 50% in coordination of care (as documented) at patient's floor/unit and/or counseling patient: Internal Medicine: Result - Labs CBC & Chem 7: 05/11/19 03:42 05/11/19 03:42 Consult Discharge Plan - Plan Referrals: Mitchell Greer Jr, MD [Primary Care Provider] - Prescriptions: Sulfamethoxazole/Trimeth SS [Bactrim SS] 1 each PO BID 7 Days #14 tablet [facility] ([facility]) Sepsis Qualifiers: Sepsis type: sepsis due to unspecified organism Sepsis acute organ dysfunction status: without acute organ dysfunction Qualified Code(s): A41.9 - Sepsis, unspecified organism (3) Anemia Qualifiers: Anemia type: unspecified type Qualified Code(s): D64.9 - Anemia, unspecified (4) Cellulitis Qualifiers: Site of cellulitis: extremity Site of cellulitis of extremity: lower extremity Laterality: left Qualified Code(s): L03.116 - Cellulitis of left lower limb (5) UTI (urinary tract infection) Qualifiers: Urinary tract infection type: site unspecified Hematuria presence: with jennifer turia Qualified Code(s): N39.0 - Urinary tract infection, site not specified; R31.9 - Hematuria, unspecified (7) Congestive heart failure Qualifiers: Heart failure type: systolic Heart failure chronicity: acute on chronic Qualified Code(s): I50.23 - Acute on chronic systolic (congestive) heart failure (8) Coronary artery disease Qualifiers: Coronary Disease-Associated Artery/Lesion type: [place] artery [place] vs. transplanted heart: [place] heart Associated angina: without angina Qualified C ode(s): I25.10 - Atherosclerotic heart disease of [place] coronary artery without angina pectoris (9) Hypertension Qualifiers: Hypertension type: essential hypertension Qualified Code(s): I10 - Essential (primary) hypertension (10) Dementia Qualifiers: Dementia type: unspecified type Dementia behavioral disturbance: without behavioral disturbance Qualified Code(s): F03.90 - Unspecified dementia without behavioral disturbance
[2019-05-13] MEDS: Mirtazapine 15 MG TABLET PO SCH (21:12)
[2019-05-14] MEDS: Ipratropium/Albuterol Neb 3 ML IH SCH ×4 (04:17→22:19)
[2019-05-14] MEDS: Sulfamethoxazole/Trimeth DS 1 EACH TABLET PO SCH ×2 (08:47→22:33)
[2019-05-14] MEDS: Silvasorb 44.4 ML TUBE TP SCH (08:48)
[2019-05-14] MEDS: Aspirin 81 MG TAB.CHEW PO SCH (08:48)
--- NOTE | 2019-05-14 16:26 | Internal Med Progress Note ---
Hospitalist Progress Note - Encounter Date of Encounter: 05/14/19 Time of Encounter: 16:24 - Subjective Interval History: No acute events overnight. Patient awaiting SNF placement. Denies fever, chills, nausea and vomiting. - Exam Vitals: Temp Pulse Resp BP Pulse Ox 36.9 C 70 16 154/7 95 05/14/19 07:03 05/14/19 07:03 05/14/19 10:41 05/14/19 07:03 05/14/19 10:41 Exam: GENERAL: Not in distress. Alert and Oriented MOUTH: Moist oral mucosa NECK:No JVD, No lymph nodes. CHEST AND LUNGS: Normal breath sounds, no wheezes or crackles HEART: S1 and S2 normal, no murmurs ABDOMEN: Soft, nontender, no organomegaly SKIN: Normal color, no rashes, no lesions EXTREMITIES: Left AKA stump looks clean. NEUROLOGICAL: Normal cognition, normal motor and sensory exam. - Assessment and Plan (1) Sepsis Current Visit: Yes Status: Resolved Assessment and Plan: WBC normal Vitals have remained stable for more than 48 hours. Patient has E.coli in urine as well as in wound. MRSA also present in wound. Both E.Coli and MRSA sensitive to bactrim On Bactrim (2) Multilobar lung infiltrate Current Visit: Yes Status: Acute Assessment and Plan: Lung rosenbaum are clear to auscultation Continue antibiotic therapy and breathing treatment. (3) Anemia Current Visit: No Status: Chronic Assessment and Plan: Acute blood loss anemia. 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 We will monitor H&H (4) Cellulitis Current Visit: Yes Status: Acute Assessment and Plan: Left AKA stump looks clean. Culture from stump site growing Escherichia coli and MRSA Vascular surgery has seen and reviewed. Believe the stump site is not infected. Will continue with dressing recommendations. (5) UTI (urinary tract infection) Current Visit: No Status: Acute Assessment and Plan: E.coli in urine. Continue Bactrim (6) Acute kidney injury superimposed on CKD Current Visit: Yes Status: Acute Assessment and Plan: Continue to monitor. (7) Congestive heart failure Current Visit: No Status: Chronic Assessment and Plan: Patient is currently not volume overloaded On Carvedilol and Losartan. (8) Coronary artery disease Current Visit: No Status: Chronic Assessment and Plan: Continue aspirin. Continue coreg and Losartan (9) Hypertension Current Visit: No Status: Chronic Assessment and Plan: BP ontrolled Continue meds (10) Dementia Current Visit: No Status: Chronic Assessment and Plan: Supportive care. (11) DVT prophylaxis Current Visit: No Status: Chronic Assessment and Plan: EPCD - Time Spent with Patient Total time spent is greater than 50% in coordination of care (as documented) at patient's floor/unit and/or counseling patient: Internal Medicine: Result - Labs CBC & Chem 7: 05/11/19 03:42 05/11/19 03:42 Consult Discharge Plan - Plan Referrals: Mitchell Greer Jr, MD [Primary Care Provider] - Prescriptions: Sulfamethoxazole/Trimeth SS [Bactrim SS] 1 each PO BID 7 Days #14 tablet [facility] ([facility]) Sepsis Qualifiers: Sepsis type: sepsis due to unspecified organism Sepsis acute organ dysfunction status: without acute organ dysfunction Qualified Code(s): A41.9 - Sepsis, unspecified organism (3) Anemia Qualifiers: Anemia type: unspecified type Qualified Code(s): D64.9 - Anemia, unspecified (4) Cellulitis Qualifiers: Site of cellulitis: extremity Site of cellulitis of extremity: lower extremity Laterality: left Qualified Code(s): L03.116 - Cellulitis of left lower limb (5) UTI (urinary tract infection) Qualifiers: Urinary tract infection type: site unspecified Hematuria presence: with hematuria Qualified Code(s): N39.0 - Urinary tract infection, site not specified; R31.9 - Hematuria, unspecified (7) Congestive heart failure Qualifiers: Heart failure type: systolic Heart failure chronicity: acute on chronic Qualified Code(s): I50.23 - Acute on chronic systolic (congestive) heart failure (8) Coronary artery disease Qualifiers: Coronary Disease-Associated Artery/Lesion type: [place] artery [place] vs. transplanted heart: [place] heart Associated angina: without angina Qualified Code(s): I25.10 - Atherosclerotic heart disease of [place] coronary artery without angina pectoris (9) Hypertension Qualifiers: Hypertension type: essential hypertension Qualified Code(s): I10 - Essential (primary) hypertension (10) Dementia Qualifiers: Dementia type: unspecified type Dementia behavioral disturbance: without behavioral disturbance Qualified Code(s): F03.90 - Unspecified dementia without behavioral disturbance
[2019-05-14] MEDS: Mirtazapine 15 MG TABLET PO SCH (22:33)
[2019-05-14] MEDS: *HR* OxyCODONE Immed Rel 5 MG TABLET PO PRN (22:33)
[2019-05-15] MEDS: Ipratropium/Albuterol Neb 3 ML IH SCH ×3 (03:58→15:28)
[2019-05-15] MEDS: Aspirin 81 MG TAB.CHEW PO SCH (08:30)
[2019-05-15] MEDS: Sulfamethoxazole/Trimeth DS 1 EACH TABLET PO SCH (08:31)
[2019-05-15] MEDS: Silvasorb 44.4 ML TUBE TP SCH (08:31)
--- NOTE | 2019-05-15 11:26 | Internal Med Progress Note ---
Hospitalist Progress Note - Encounter Date of Encounter: 05/15/19 Time of Encounter: 11:24 - Subjective Interval History: Patient was seen and examined. No acute issues overnight. In awaiting SNF placement. Denies fever, chills, nausea,vomiting and diarrhea. - Exam Vitals: Temp Pulse Resp BP Pulse Ox 97.4 F L 70 18 159/64 91 05/15/19 07:26 05/15/19 07:26 05/15/19 09:42 05/15/19 07:26 05/15/19 09:42 Exam: GENERAL: Not in distress. Alert and Oriented MOUTH: Moist oral mucosa NECK:No JVD, No lymph nodes. CHEST AND LUNGS: Normal breath sounds, no wheezes or crackles HEART: S1 and S2 normal, no murmurs ABDOMEN: Soft, nontender, no organomegaly SKIN: Normal color, no rashes, no lesions EXTREMITIES: Left AKA stump looks clean. NEUROLOGICAL: Normal cognition, normal motor and sensory exam. - Assessment and Plan (1) Sepsis Current Visit: Yes Status: Resolved Assessment and Plan: WBC WNL Afebrile We will continue oral Bactrim. Urine Cx grew E coli which was sensitive to Bactrim. Wound Cx grew E. coli and MRSA which were sensitive to Bactrim as well. Blood culture final report shows no growth (2) Multilobar lung infiltrate Current Visit: Yes Status: Acute Assessment and Plan: Lung rosenbaum are clear to auscultation Continue antibiotic therapy and breathing treatment. (3) Anemia Current Visit: No Status: Chronic Assessment and Plan: Acute blood loss anemia. 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 We will monitor H&H (4) Cellulitis Current Visit: Yes Status: Acute Assessment and Plan: Left AKA stump looks clean. Continue oral Bactrim. (5) UTI (urinary tract infection) Current Visit: No Status: Acute Assessment and Plan: E.coli in urine. Continue Bactrim (6) Acute kidney injury superimposed on CKD Current Visit: Yes Status: Acute Assessment and Plan: Continue to monitor. (7) Congestive heart failure Current Visit: No Status: Chronic Assessment and Plan: Patient is currently not volume overloaded On Carvedilol and Losartan. (8) Coronary artery disease Current Visit: No Status: Chronic Assessment and Plan: Continue aspirin. Continue coreg and Losartan (9) Hypertension Current Visit: No Status: Chronic Assessment and Plan: BP ontrolled Continue meds (10) Dementia Current Visit: No Status: Chronic Assessment and Plan: Supportive care. (11) DVT prophylaxis Current Visit: No Status: Chronic Assessment and Plan: EPCD - Time Spent with Patient Total time spent is greater than 50% in coordination of care (as documented) at patient's floor/unit and/or counseling patient: 25 - 35 minutes Plan of Care Discussed with: patient Internal Medicine: Result - Labs CBC & Chem 7: 05/11/19 03:42 05/11/19 03:42 Consult Discharge Plan - Plan Referrals: Mitchell Greer Jr, MD [Primary Care Provider] - (called Dr. Greer office and left a message for the office to call the patient with a hospital follow up. With-in 5-7 days) Prescriptions: Sulfamethoxazole/Trimeth SS [Bactrim SS] 1 each PO BID 7 Days #14 tablet [facility] ([facility]) Sepsis Qualifiers: Sepsis type: sepsis due to unspecified organism Sepsis acute organ dysfun ction status: without acute organ dysfunction Qualified Code(s): A41.9 - Sepsis, unspecified organism (3) Anemia Qualifiers: Anemia type: unspecified type Qualified Code(s): D64.9 - Anemia, unspecified (4) Cellulitis Qualifiers: Site of cellulitis: extremity Site of cellulitis of extremity: lower extremity Laterality: left Qualified Code(s): L03.116 - Cellulitis of left lower limb (5) UTI (urinary tract infection) Qualifiers: Urinary tract infection type: site unspecified Hematuria presence: with hematuria Qualified Code(s): N39.0 - Urinary tract infection, site not specified; R31.9 - Hematuria, unspecified (7) Congestive heart failure Qualifiers: Heart failure type: systolic Heart failure chronicity: acute on chronic Qualified Code(s): I50.23 - Acute on chronic systolic (congestive) heart failure (8) Coronary artery disease Qualifiers: Coronary Disease-Associated Artery/Lesion type: elem artery [place] vs. transplanted heart: elem heart Associated angina: without angina Qualified Code(s): I25.10 - Atherosclerotic heart disease of elem coronary artery without angina pectoris (9) Hypertension Qualifiers: Hypertension type: essential hypertension Qualified Code(s): I10 - Essential (primary) hypertension (10) Dementia Qualifiers: Dementia type: unspecified type Dementia behavioral disturbance: without behavioral disturbance Qualified Code(s): F03.90 - Unspecified dementia without behavioral disturbance
[2019-05-15 16:45] VITALS: BP 157/67
== END 2019-05-15 17:57 | DRG 871 ==
LOC: 3BNU 13:20 → EMEROOARM 13:20 → 2NENU 13:20 → SUATTDRO 17:35 → 2NENU 18:06 → SUATTDRO 05-06 14:03
PROVIDERS: ADMIT Internal Medicine; ATTEND Family Medicine